=== PATIENT | female | born 1950 | race Caucasian/White ===

== ENCOUNTER → 2018-05-19 10:03 | Outpatient (CLI) | payer MEDICARE, SELFPAY ==
--- NOTE | 2018-05-19 10:16 | CT_ITS ---
CT abdomen pelvis wo con CLINICAL INDICATION: 1. ITS.REASON: LEFT FLANK PAIN ORDERING PHYSICIAN: Serge Wilson PATIENT AGE: 67 years COMPARISON: 07/02/2016 TECHNIQUE: Axial images obtained with sagittal and coronal reformats. All CT scans at the facility use one or more dose reduction, viz: automated exposure control, ma/kV adjustment per patient size (including targeted exams where dose is matched to indication, i.e. head), or iterative reconstruction technique. PROCEDURE: Oral Contrast: None IV Contrast: None . FINDINGS: No acute finding in the lung bases. Prior cholecystectomy.. Mild prominence of common bile duct similar to the previous exam There are a few scattered hypoattenuating areas within the liver which may be due to small cysts similar to the previous exam. The spleen, adrenal glands, and pancreas have an unremarkable unenhanced CT appearance There is a 3 mm stone in the lower pole of the right kidney and a 6 mm stone in the mid to lower aspect of the left kidney and a 2 mm stone in the upper pole and a 2 mm stone in the midpole. No hydronephrosis. No ureteral calculi. No calculi evident within the urinary bladder. Prior appendectomy. No intestinal obstruction or free air. Prior hysterectomy. No evidence of diverticulitis. There are degenerative changes in the lumbar spine with degenerative disc disease at L2-L3 and L5-S1. IMPRESSION: 1. Nonobstructing bilateral nephrolithiasis. No obstructing ureteral calculi evident. 2. No acute finding. Postsurgical changes are present as described above
== END ==
PROVIDERS: PCP Internal Medicine; Visit Provider Internal Medicine
DX: R10.9 Unspecified abdominal pain (principal)
CPT/HCPCS: 74176

== ENCOUNTER → 2018-08-06 10:42 | Outpatient (CLI) | payer MEDICARE, SELFPAY ==
--- NOTE | 2018-08-06 10:45 | MM_ITS ---
MM Dig screening mamm BI w/CAD CAD Screening COMPARISON: Digital mammograms with CAD 02/28/2011 INDICATION: There is no personal or family history of breast cancer TECHNIQUE: Standard CC and MLO images were obtained. R2 CAD reviewed. FINDINGS: Moderate scattered fibroglandular densities are seen throughout both breasts. There are multiple benign-appearing microcalcifications in each breast there is a mole marker right breast. There is a cardiac device projecting over the axilla left breast. There is no suspicious lesion and there are no suspicious microcalcifications. IMPRESSION: Fibrofatty parenchyma with no suspicious lesion seen BI-RADS Category: 2 Benign Finding(s) RECOMMENDED FOLLOW-UP: 1YR - 1 YEAR FOLLOW-UP (A letter has been sent to the patient regarding results of the study.)
== END ==
PROVIDERS: PCP Internal Medicine; Visit Provider Internal Medicine
DX: Z12.31 Encounter for screening mammogram for malignant neoplasm of breast (principal)
CPT/HCPCS: 77067

== ENCOUNTER → 2019-01-26 10:31 | Outpatient (CLI) | payer MEDICARE, SELFPAY ==
--- NOTE | 2019-01-26 10:36 | XR_ITS ---
PROCEDURE: XR CHEST 2V CLINICAL HISTORY: COUGH, FEVER, DECREASED BREATH SOUNDS COMPARISON: 03/19/2016 TECHNIQUE: FINDINGS: Bipolar pacemaker is present from a left subclavian approach. Normal heart size. Lungs are clear of acute infiltrate. No acute bony findings. IMPRESSION: No change with no acute finding Dictated by: Yoan Lomeli MD 01/26/2019 13:11 Signed by: <Electronically signed by Yoan Lomeli MD in [facility]> 01/26/2019 13:11
== END ==
PROVIDERS: PCP Internal Medicine; Visit Provider Internal Medicine
DX: R05 Cough (principal); R50.9 Fever, unspecified; R06.89 Other abnormalities of breathing
CPT/HCPCS: 71046

== ENCOUNTER → 2019-03-30 10:11 | Outpatient (CLI) | payer MEDICARE, SELFPAY ==
--- NOTE | 2019-03-30 10:27 | ECG_ITS ---
APPROVED REPORT Exam: Resting ECG HR:77 bpm ECG Measurements Heart Rate 77 AXES MT 158 P 96 QRSd 90 QRS -10 QT 398 T 26 QTc 450 <Conclusion> Sinus rhythm with occasional premature ventricular complexes Nonspecific T wave abnormality Abnormal ECG Electronically signed by : Serge Wilson, 03/30/2019 11:11:13
== END ==
PROVIDERS: PCP Internal Medicine; Visit Provider Internal Medicine
DX: R00.2 Palpitations (principal); I10 Essential (primary) hypertension
CPT/HCPCS: 93005; 93270

== ENCOUNTER → 2019-04-02 14:12 | Outpatient (CLI) | payer MEDICARE, SELFPAY ==
--- NOTE | 2019-04-02 14:18 | XR_ITS ---
PROCEDURE: XR ACUTE ABDOMEN SERIES CLINICAL INDICATION: ABD PAIN,DIARRHEA COMPARISON: ABDPELWO CT abdomen pelvis wo con from 05/19/2018 FINDINGS: Frontal view of the chest shows no acute finding. There is a bipolar pacemaker present from left subclavian approach. Upright and supine views of the abdomen show a nonspecific nonobstructive bowel gas pattern. There are surgical clips in the right upper quadrant. A stone is present overlying the mid lower pole of the left kidney. There are multiple pelvic calcifications consistent with phleboliths. Mild lumbar scoliosis convex right. Degenerative changes of the hips and lumbar spine. IMPRESSION: 1. No intestinal obstruction or free air. 2. Left nephrolithiasis Dictated by: Yoan Lomeli MD 04/02/2019 14:55 Electronically signed by Yoan Lomeli MD in [facility] 04/02/2019 14:55
[2019-04-02 14:36] LABS: Microscopic, Urine URINE MICROSCOPIC (MICROSCOPIC)
[2019-04-02 14:48] LABS: Appearance,Urine CLEAR (Clear); Bilirubin,Urine Negative (Negative); Blood, Urine Negative (Negative); Color,Urine YELLOW (Yellow); Glucose,Urine (UA) Negative (Negative); Ketones,Urine Negative (Negative); Leukocyte Esterase,Urine TRACE (Negative); Nitrate,Urine Negative (Negative); Protein,Urine Negative (Negative); Specific Gravity, Urine 1.025 (1.005-1.030); Urobilinogen,Urine 0.2 EU/dl (0.2)
[2019-04-02 14:51] LABS: Basophils # 0.1 K/mm3 (0-0.2); Basophils % 0.8 % (0.1-2.0); Eosinophils # 0.3 K/mm3 (0.0-0.4); Hematocrit 45.7 % (37.0-47.0); Hemoglobin 14.5 g/dL (12.2-16.2); Lymphocytes # 3.9 K/mm3 (0.7-4.5); Lymphocytes % 36.4 % (10-50); Mean Corpuscular HGB Conc 31.8 g/dL (31.8-35.4); Mean Corpuscular Hemoglobin 29.9 pg (27.0-31.2); Mean Corpuscular Volume 94.1 fl (81-99); Mean Platelet Volume 8.2 fl (7.4-10.4); Monocytes # 0.6 K/mm3 (0.1-1.0); Monocytes % 5.2 % (1.7-9.3); Neutrophils # 5.8 K/mm3 (1.8-7.8); Neutrophils % 54.6 % (37.0-80.0); Platelet Count 275 K/mm3 (142-424); Red Blood Count 4.85 M/mm3 (4.20-5.40); Red Cell Distribution Width 13.5 % (11.5-17.5); White Blood Count 10.7 K/mm3 (4.8-10.8)
[2019-04-02 15:00] LABS: Alanine Aminotransferase 16 U/L (12-78); Albumin/Globulin Ratio 1.2 (1.1-1.8); Alkaline Phosphatase 128 U/L (46-116); Amylase 53 U/L (25-115); Anion Gap 10.8 mEq/L (5-15); Aspartate Amino Transferase 18 U/L (15-37); Bilirubin,Total 0.5 mg/dL (0.2-1.0); Blood Urea Nitrogen 17 mg/dL (7-18); Calcium 9.5 mg/dL (8.5-10.1); Carbon Dioxide 30 mmol/L (21.0-32.0); Chloride 108 mmol/L (98-107); Creatinine,Serum 0.99 mg/dL (0.55-1.02); Estimated Glomerular Filt Rate 56 ml/min (>60); GFR (African American) 67 ML/MIN (>60); Globulin 3.3 gm/dl (1.3-3.2); Glucose 106 mg/dL (74-106); Potassium 3.8 mmoL/L (3.5-5.1); Sodium 145 mmol/L (136-145); Total Protein,Serum 7.3 gm/dL (6.4-8.2)
[2019-04-02 15:21] LABS: Bacteria,Urine 2+ /lpf
== END ==
PROVIDERS: PCP Internal Medicine; Visit Provider Internal Medicine
DX: R10.9 Unspecified abdominal pain (principal); R19.7 Diarrhea, unspecified
CPT/HCPCS: 36415; 74021; 80053; 81001; 82150; 85025; 87086

== ENCOUNTER → 2019-05-12 10:02 | Outpatient (CLI) | payer MEDICARE, SELFPAY ==
--- NOTE | 2019-05-12 10:15 | ECG_ITS ---
APPROVED REPORT Exam: Resting ECG HR:70 bpm ECG Measurements Heart Rate 70 AXES WI 160 P 55 QRSd 88 QRS 50 QT 414 T 53 QTc 447 <Conclusion> Electronic atrial pacemaker Electronically signed by : Serge Wilson, 05/12/2019 14:57:28
== END ==
PROVIDERS: PCP Internal Medicine; Visit Provider Internal Medicine
DX: R00.2 Palpitations (principal); R55 Syncope and collapse
CPT/HCPCS: 93005

== ENCOUNTER → 2019-05-25 13:58 | Outpatient (POV) | payer MEDICARE, SELFPAY | PROVIDERS: Visit Provider Dermatology | DX: Z00.00 Encounter for general adult medical examination without abnormal findings (principal) ==

== ENCOUNTER → 2020-03-24 10:29 | Outpatient (CLI) | payer MEDICARE, SELFPAY ==
--- NOTE | 2020-03-24 10:42 | XR_ITS ---
PROCEDURE: XR KNEE LT 3V CLINICAL INDICATION: LT KNEE PAIN/INJURY,LT FOOT PAIN COMPARISON: CR [id number] KNEE-4 OR 5 VIEWS-RT from 08/08/2015 CR [id number] KNEE-4 OR 5 VIEWS-LT from 08/08/2015 CR [id number] KNEE-3 VIEWS-RT from 09/14/2015 FINDINGS: Status post total knee replacement with good alignment. No fracture or dislocation. No evidence of orthopedic complication. No lytic or blastic change. There is some mild soft tissue swelling in the suprapatellar region with at least 2 faint hyperdensities in the soft tissues 1 in the prepatellar and 1 in the suprapatellar area which may be due to foreign bodies from the previous surgery. There is a faint lucency involving the distal shaft of the femur at approximately 4 mm as seen on the lateral view. IMPRESSION: Status post total knee replacement. Good alignment. Faint lucency of the distal femur of questionable clinical significance. Consider short-term follow-up to confirm stability. Dictated by: Yoan Lomeli MD 03/24/2020 12:18 Yoan Lomeli MD in [facility] 03/24/2020 12:18
--- NOTE | 2020-03-24 10:42 | XR_ITS ---
PROCEDURE: XR FOOT LT MIN 3V CLINICAL INDICATION: COMPARISON: CR FTL3 FOOT-LT-3 VIEWS from 01/12/2017 FINDINGS: No fracture or dislocation. No lytic or blastic change. There is normal mineralization. The joint spaces are well-preserved. No significant degenerative/arthritic changes. No erosive changes evident. Other findings:There is flexion of the 3rd toe. IMPRESSION: No acute findings. Dictated by: Yoan Lomeli MD 03/24/2020 12:20 Yoan Lomeli MD in [facility] 03/24/2020 12:20
== END ==
PROVIDERS: PCP Internal Medicine; Visit Provider Internal Medicine
DX: M25.562 Pain in left knee (principal); M79.672 Pain in left foot
CPT/HCPCS: 73562; 73630

== ENCOUNTER 2020-04-27 10:00 | Outpatient (RCR) | payer MEDICARE, SELFPAY | END 2020-04-27 10:05 | disposition home or self-care (01) | LOC: PT 10:00 | PROVIDERS: Visit Provider Orthopaedic Surgery | DX: M17.12 Unilateral primary osteoarthritis, left knee (principal); Z96.652 Presence of left artificial knee joint | CPT/HCPCS: 97010; 97016; 97110; 97140; 97163; 97164 ==

== ENCOUNTER 2020-07-04 14:52 | Observation (INO) | payer MEDICARE, SELFPAY ==
[2020-07-04] VITALS (16 sets, daily range): BP systolic 104–161; BP diastolic 67–109; PULSE 82–136; RESP 15–24; TEMP 36.4–36.8; O2SAT 94–98; BMI 26.0
--- NOTE | 2020-07-04 14:49 | ECG_ITS ---
APPROVED REPORT Exam: Resting ECG HR:128 bpm ECG Measurements Heart Rate 128 AXES QRSd 82 QRS -19 QT 310 T 4 QTc 452 Conclusion Atrial fibrillation with rapid ventricular response Late r wave progression Abnormal ECG Electronically signed by : Timoteo Winkler, 07/04/2020 20:57:57
--- NOTE | 2020-07-04 14:57 | XR_ITS ---
PROCEDURE: XR CHEST PORTABLE CLINICAL HISTORY: cough COMPARISON: CR CXR CHEST(2 VIEWS-NOT PORTABLE) from 03/19/2016 CR XR CHEST 2V from 01/26/2019 FINDINGS: Normal heart size. Bipolar pacemaker is present from left subclavian approach. Patchy density noted in the right lower lobe consistent with infiltrate. The remaining lungs are clear. No effusions. No acute bony abnormalities. IMPRESSION: Patchy right lower lobe infiltrate Dictated by: Yoan Lomeli MD 07/04/2020 15:37 Yoan Lomeli MD in [facility] 07/04/2020 15:37
--- NOTE | 2020-07-04 15:02 | HMH.EDWEAK ---
ED Disposition Clinical Impression: Atrial fibrillation with rapid ventricular response Disposition: Admitted As Inpatient Condition on Discharge: Good - Critical Care Critical Care Time: Yes Attestation: On , the high probability of a clinically significant, sudden or life threatening deterioration of the following system(s) required my full and direct attention, intervention and personal management. The time I documented below is in addition to time spent performing reported procedures but includes the following listed in this critical care notation. Total Critical Care Time: 30 Vital system(s) involved:: Circulatory Failure My critical care processes included: Assessment & monitoring of V/S, Initial and Re-exams, Data Review/Interpretation, Coordinating Care, Medication Orders and management, Documentation Medical Decision Making - Medical Records Medical records reviewed: Yes: I reviewed the patient's medical records. - Shay Inquiry Pt receiving controlled substance: No Vital Signs: 07/04/20 14:52 07/04/20 15:26 07/04/20 15:30 Temperature 98.0 F Temperature Source Oral Pulse Rate [Left Radial] 136 H 96 H 83 Respiratory Rate 15 18 16 Blood Pressure [Right Arm] 161/103 H 123/84 149/109 H Blood Pressure Mean [Right Arm] 122 97 122 Blood Pressure Source [Right Arm] Automatic Cuff Blood Pressure Position [Right Arm] Sitting 02 Sat by Pulse Oximetry 97 94 L 94 L Oxygen Delivery Method Room Air Room Air 07/04/20 16:00 07/04/20 16:30 Temperature Temperature Source Pulse Rate [Left Radial] 113 H 112 H Respiratory Rate 16 18 Blood Pressure [Right Arm] 114/93 H 116/82 Blood Pressure Mean [Right Arm] 100 93 Blood Pressure Source [Right Arm] Blood Pressure Position [Right Arm] 02 Sat by Pulse Oximetry 97 98 Oxygen Delivery Method - Lab Data Lab Results 07/04/20 15:00: WBC 9.8, RBC 5.11, Hgb 16.1, Hct 46.4, MCV 90.8, MCH 31.5 H, MCHC 34.7, RDW 13.9, Plt Count 252, MPV 7.7, Neut % (Auto) 47.6, Lymph % (Auto) 41.3, [place] % (Auto) 6.2, Eos % (Auto) 3.9, Baso % (Auto) 1.0, Neut # (Auto) 4.7, Lymph # (Auto) 4.1, [place] # (Auto) 0.6, Eos # (Auto) 0.4, Baso # (Auto) 0.1 07/04/20 15:00: PT 10.4, INR 0.93, APTT 22.3 L 07/04/20 15:00: Sodium 143, Potassium 3.8, Chloride 109 H, Carbon Dioxide 29, Anion Gap 8.8, BUN 22 H, Creatinine 0.90, Estimated Creat Clear 73, Estimated GFR 62, Est GFR ( Amer) 75, Glucose 112 H, Calcium 10.6 H, Total Bilirubin 0.6, AST 30, ALT 19, Alkaline Phosphatase 204 H, Troponin I < 0.01, NT-Pro-B Natriuret Pep 163 H, Total Protein 7.7, Albumin 4.4, Globulin 3.3 H, Albumin/Globulin Ratio 1.3, TSH 0.82 Result diagrams: 07/04/20 15:00 07/04/20 15:00 Orders (Tests/Meds): ED MEDICATIONS Generic Name Dose Route Start Last Admin Trade Name Freq PRN Reason Stop Dose Admin Diltiazem HCl 100 mg/ Sodium 100 mls @ 5 mls/hr 07/04/20 15:45 07/04/20 16:12 Chloride IV 08/03/20 15:44 5 mls/hr .Q20H CANDY Administration Protocol Discontinued Medications Generic Name Dose Route Start Last Admin Trade Name Freq PRN Reason Stop Dose Admin Diltiazem HCl 15 mg 07/04/20 14:58 07/04/20 15:05 Diltiazem 25mg/5ml Vial IV 07/04/20 14:59 15 mg ONCE ONE Administration Diltiazem HCl 20 mg 07/04/20 16:40 07/04/20 16:45 Diltiazem 25mg/5ml Vial IV 07/04/20 16:41 20 mg ONCE ONE Administration ORDERS Category Date Time Status Troponin I Q3H Lab 07/04/20 18:00 Ordered Troponin I Q3H Lab 07/04/20 21:00 Ordered - ECG Data Tracing #1 Tachycardic rate of 120 bpm, normal QTC, atrial fibrillation with rapid ventricular response, nonspecific ST changes. ECG initial impression date: 07/04/20 ECG initial impression time: 14:49 - Reevaluation(s) Time: 18:03 Reevaluation #1: On reevaluation, patient is feeling better. She is rate controlled at this time. She remains on Cardizem drip. Cardiology was notified. Patient will be admitte
[2020-07-04 15:09] LABS: Basophils # 0.1 K/mm3 (0-0.2); Eosinophils # 0.4 K/mm3 (0.0-0.4); Eosinophils % 3.9 % (0.1-12.0); Hematocrit 46.4 % (37.0-47.0); Hemoglobin 16.1 g/dL (12.2-16.2); Lymphocytes # 4.1 K/mm3 (0.7-4.5); Lymphocytes % 41.3 % (10-50); Mean Corpuscular HGB Conc 34.7 g/dL (31.8-35.4); Mean Corpuscular Hemoglobin 31.5 pg (27.0-31.2); Mean Corpuscular Volume 90.8 fl (81-99); Mean Platelet Volume 7.7 fl (7.4-10.4); Monocytes # 0.6 K/mm3 (0.1-1.0); Monocytes % 6.2 % (1.7-9.3); Neutrophils # 4.7 K/mm3 (1.8-7.8); Neutrophils % 47.6 % (37.0-80.0); Platelet Count 252 K/mm3 (142-424); Red Blood Count 5.11 M/mm3 (4.20-5.40); Red Cell Distribution Width 13.9 % (11.5-17.5); White Blood Count 9.8 K/mm3 (4.8-10.8)
[2020-07-04 15:18] LABS: Chloride 109 mmol/L (98-107); Sodium 143 mmol/L (136-145)
[2020-07-04 15:19] LABS: Potassium 3.8 mmoL/L (3.5-5.1)
[2020-07-04 15:21] LABS: Alanine Aminotransferase 19 U/L (12-78); Albumin Level 4.4 g/dl (3.5-5.0); Albumin/Globulin Ratio 1.3 (1.1-1.8); Alkaline Phosphatase 204 U/L (38-126); Anion Gap 8.8 mEq/L (5-15); Aspartate Amino Transferase 30 U/L (14-36); Bilirubin,Total 0.6 mg/dl (0.2-1.3); Blood Urea Nitrogen 22 mg/dl (7-17); Carbon Dioxide 29 mmol/L (22.0-30.0); Creatinine Clearance Estimated 73 mL/min (50-200); Estimated Glomerular Filt Rate 62 ml/min (>60); GFR (African American) 75 ML/MIN (>60); Globulin 3.3 g/dL (1.3-3.2); Total Protein,Serum 7.7 g/dl (6.3-8.2)
[2020-07-04 15:22] LABS: Calcium 10.6 mg/dl (8.4-10.2); Glucose 112 mg/dl (74-100)
[2020-07-04 15:31] LABS: NT Pro Brain Natriuretic Pep. 163 pg/mL (0-125)
[2020-07-04 15:34] LABS: Troponin I < 0.01 ng/ml (0.00-0.034)
[2020-07-04 15:41] LABS: Activated Partial Thrombo Time 22.3 seconds (23.6-34.0); INR 0.93 (0.9-1.1); Prothrombin Time 10.4 seconds (9.4-11.8)
[2020-07-04 15:53] LABS: Thyroid Stimulating Hormone 0.82 uIU/mL (0.465-4.68)
--- NOTE | 2020-07-04 18:05 | ECG_ITS ---
APPROVED REPORT Exam: Resting ECG HR:87 bpm ECG Measurements Heart Rate 87 AXES QRSd 82 QRS -14 QT 350 T 21 QTc 421 Conclusion Demand pacemaker, interpretation is based on intrinsic rhythm Atrial fibrillation with premature ventricular or aberrantly conducted complexes Low voltage QRS Abnormal ECG Electronically signed by : Timoteo Winkler, 07/05/2020 06:43:24
[2020-07-04 19:00] LABS: Troponin I < 0.01 ng/ml (0.00-0.034)
[2020-07-04 19:05] LABS: Coronavirus 19 IgG Antibody Negative (Negative); Coronavirus 19 IgM Antibody Negative (Negative)
--- NOTE | 2020-07-04 19:25 | PC.NURSE ---
call placed to second floor, spoke with tee; advised patient is ready for transfer to floor
--- NOTE | 2020-07-04 20:28 | PC.NURSE ---
pt taken to the floor at this time.
--- NOTE | 2020-07-04 20:34 | PC.NURSE ---
patient up to floor via wheelchair.
[2020-07-04 21:45] LABS: Troponin I < 0.01 ng/ml (0.00-0.034)
[2020-07-05] VITALS (8 sets, daily range): BP systolic 128–140; BP diastolic 75–87; PULSE 69–80; RESP 16–18; TEMP 36.9; O2SAT 96–98; BMI 26.8
--- NOTE | 2020-07-05 05:01 | PC.NURSE ---
Pt arrived to floor approximately 2100. Pt A&O x4 and independent with ADLs. Pt has slept on and off through the night, c/o not being able to sleep due to her heart frequently fluttering . Pt tele strips read afib with frequent PVCs and pacer spikes. Around 0500 began to be 100% paced with HR holding at 70. Lungs were CTA, on room air this shift. Pt wore home CPAP through the night. Bowel sounds x4, abd soft and non tender. No edema or skin issues noted. Pt ambulated to bathroom independently. Cardizem gtt @ 5ml/hr and has not been titrated. VSS, call light in reach, no concerns at this time.
--- NOTE | 2020-07-05 05:48 | PC.NURSE ---
It appears pt has converted to NSR at 0545. HR at 70. ECG being obtained.
--- NOTE | 2020-07-05 06:02 | ECG_ITS ---
APPROVED REPORT Exam: Resting ECG HR:70 bpm ECG Measurements Heart Rate 70 AXES SC 192 P 57 QRSd 90 QRS 4 QT 414 T 17 QTc 447 Conclusion Electronic atrial pacemaker Abnormal ECG Electronically signed by : Timoteo Winkler, 07/05/2020 06:41:35
--- NOTE | 2020-07-05 06:16 | PC.NURSE ---
Pt appeared to convert to NSR/ fully paced. RT notified to obtain EKG @ 0548. RT on floor at 0600 and completed EKG at 0602. @ 0610 s/w Dr. Presley. He was notified of the above information and of the EKG findings of Electronic atrial pacemaker, [place] rule out Anterior infarct, age undetermined, Abnormal ECG . updated on VS, ordered to continued Cardizem at 5mg/hr at this time.
[2020-07-05 06:29] LABS: Basophils # 0.1 K/mm3 (0-0.2); Basophils % 0.8 % (0.1-2.0); Eosinophils # 0.3 K/mm3 (0.0-0.4); Eosinophils % 3.3 % (0.1-12.0); Hematocrit 44.6 % (37.0-47.0); Hemoglobin 15.5 g/dL (12.2-16.2); Lymphocytes # 4.3 K/mm3 (0.7-4.5); Lymphocytes % 46.3 % (10-50); Mean Corpuscular HGB Conc 34.7 g/dL (31.8-35.4); Mean Corpuscular Hemoglobin 31.9 pg (27.0-31.2); Mean Corpuscular Volume 91.8 fl (81-99); Mean Platelet Volume 7.9 fl (7.4-10.4); Monocytes # 0.5 K/mm3 (0.1-1.0); Monocytes % 5.8 % (1.7-9.3); Neutrophils # 4.1 K/mm3 (1.8-7.8); Neutrophils % 43.8 % (37.0-80.0); Platelet Count 242 K/mm3 (142-424); Red Blood Count 4.86 M/mm3 (4.20-5.40); Red Cell Distribution Width 14.3 % (11.5-17.5); White Blood Count 9.3 K/mm3 (4.8-10.8)
[2020-07-05 06:35] LABS: Alanine Aminotransferase 15 U/L (12-78); Albumin Level 3.9 g/dl (3.5-5.0); Albumin/Globulin Ratio 1.4 (1.1-1.8); Alkaline Phosphatase 130 U/L (38-126); Anion Gap 10.8 mEq/L (5-15); Aspartate Amino Transferase 27 U/L (14-36); Bilirubin,Total 0.5 mg/dl (0.2-1.3); Blood Urea Nitrogen 23 mg/dl (7-17); Calcium 10.1 mg/dl (8.4-10.2); Carbon Dioxide 29 mmol/L (22.0-30.0); Chloride 106 mmol/L (98-107); Creatinine Clearance Estimated 75 mL/min (50-200); Estimated Glomerular Filt Rate 55 ml/min (>60); GFR (African American) 67 ML/MIN (>60); Globulin 2.7 g/dL (1.3-3.2); Glucose 116 mg/dl (74-100); Potassium 3.8 mmoL/L (3.5-5.1); Sodium 142 mmol/L (136-145); Total Protein,Serum 6.6 g/dl (6.3-8.2)
--- NOTE | 2020-07-05 06:56 | HMH.CNCARD ---
History of Present Illness Consult date: 07/05/20 Requesting physician: Dedrick Presley Consult reason: atrial fibrillation Chief complaint: tachycardia Additional Medical History:: 1. History of tachybradycardia syndrome with atrial fibrillation/flutter in the past A. Dual-chamber pacemaker placement 07/2014 2. Coronary artery disease A. Left heart catheterization, 03/2016,ANGIOGRAPHIC RESULTS: 1. The left main artery normal 2. The left anterior descending artery has a proximal 20-30% stenosis followed by a mid vessel 20-30% stenosis 3. The ramus intermedius is a large branch and has a proximal 30-40% nonflow limiting stenosis 4. The circumflex artery is a codominant vessel and normal 5. The right coronary artery is codominant and normal 6. The KENYON ventriculogram reveals normal 65% 7. The left ventricular end-diastolic pressure normal 10 mmHg IMPRESSION: 1. Mild disease in the proximal mid LAD 2. Moderate disease in the large ramus intermedius 3. Normal ejection fraction 4. Normal left ventricular end-diastolic pressure PLAN: 1. Risk factor modification 2. Medical management 3. Treatment of endothelial dysfunction 4. I suspect a significant component of her angina is anxiety related. 3. Hypertension A. Echo, 07/2014, EF 55-60% with moderate MR 4. Hyperlipidemia 5. History of mitral valve prolapse per records 6. IRENE, CPAP use 7. Hypothyroidism, on replacement therapy History of present illness: 69-year-old white female with history of mild coronary artery disease and permanent pacemaker implantation in 2014 for tachybradycardia syndrome presented to the emergency department due to sudden onset of tachycardia. Patient describes having a busy day with water aerobics and performing errands around the house without difficulty. While sitting at home getting ready to do her exercises for her knee, she got up quickly to answer the phone and began having rapid heart rates. She had some chest discomfort due to the fast heart rate but no chest pain. She denies any recent fever, chills, cough, nausea, vomiting or diarrhea. She denies missing any doses of her medications or any recent addition to her medications. She drinks a limited amount of caffeine (soft drinks, diet) and is on thyroid medication with recent lab work noted to be normal. She does use CPAP machine for IRENE nightly. Patient sees Dr. Martínez in [place] for her cardiac care with her last visit 6 months ago including evaluation of her pacemaker with no complications noted. Patient has had intermittent extra beats but no episodes of tachycardia like she experienced yesterday. She was brought to the emergency department and found to be in atrial fibrillation with rapid ventricular response. Subsequently placed on IV Cardizem with improvement in heart rate. She was admitted for evaluation and treatment. Cardiac enzymes returned normal x3. She converted to sinus rhythm earlier this morning. She does relate having an appointment with Dr. Martínez next in [place]. [facility] History Medical History: Reports:: Internal Pacemaker *Have you ever received a pneumonia vaccine?: No *Have you received a flu vaccine this season?: Yes Other Surgeries: Yes: Pacemaker - *Social History Smoking Status: Never smoker Alcohol Intake: never *Occupational Status:: retired Housing: house *Travel in the last 8 weeks: None Family Hx:: Hyperlipidemia, Hypertension Meds Home Medications Medication Instructions Recorded Confirmed Type carvedilol 25 mg tablet 25 mg PO DAILY 90 Days tab 05/29/18 07/04/20 History hydrochlorothiazide 25 mg tablet 25 mg PO DAILY 90 Days tab 05/29/18 07/04/20 History levothyroxine 100 mcg tablet 100 mcg PO DAILY 90 Days tab 05/29/18 07/04/20 History potassium chloride 20 mEq 20 % PO DAILY 90 Days tab 05/29/18 07/04/20 History tablet,extended release(part/cryst) simvastatin 40 mg tablet 20 mg PO DAILY 9
--- NOTE | 2020-07-05 07:27 | HMH.PHAVTE ---
[facility] Pharmacy VTE Monitoring - Patient Demographics Admission date: 07/04/20 Report Date: 07/05/20 Time: 07:27 Allergies/Adverse Reactions: Patient Allergies amoxicillin [From AUGMENTIN] Allergy (Unknown, Verified 05/29/18 08:42) clavulanic acid [From AUGMENTIN] Allergy (Unknown, Verified 05/29/18 08:42) fentanyl [FENTANYL] Allergy (Unknown, Verified 05/29/18 08:42) levofloxacin [From LEVAQUIN] Allergy (Unknown, Verified 05/29/18 08:42) minocycline [MINOCYCLINE] Allergy (Unknown, Verified 05/29/18 08:42) propofol [PROPOFOL] Allergy (Unknown, Verified 05/29/18 08:42) UNABLE TO WAKE UP quinidine [QUINIDINE] Allergy (Unknown, Verified 05/29/18 08:42) FAMILY HX OF HEART STOPPING-PT REFUSES TO TAKE Sulfa (Sulfonamide Antibiotics) [SULFA (SULFONAMIDE ANTIBIOTICS)] Allergy (Unknown, Verified 05/29/18 08:42) ITCHING, HIVES, ORAL SWELLING Height: 1.83 m Weight: 89.811 kg Patient Problems: Current Active Problems Atrial fibrillation with rapid ventricular response (Acute) - VTE Risk Labs: VTE Related Lab Results Hgb 15.5 g/dL (12.2-16.2) 07/05/20 05:45 Hct 44.6 % (37.0-47.0) 07/05/20 05:45 Plt Count 242 K/mm3 (142-424) 07/05/20 05:45 PT 10.4 seconds (9.4-11.8) 07/04/20 15:00 INR 0.93 (0.9-1.1) 07/04/20 15:00 APTT 22.3 seconds (23.6-34.0) L 07/04/20 15:00 BUN 23 mg/dl (7-17) H 07/05/20 05:45 Creatinine 1.00 mg/dl (0.52-1.04) 07/05/20 05:45 Estimated Creat Clear 75 mL/min (50-200) 07/05/20 05:45 Was VTE Risk Assessment Performed: Yes VTE Score: 3 VTE Risk Level: Low Risk - Prophylaxis VTE Prophylaxis Ordered?: Yes Types of VTE Prophylaxis: TEDS Knee High Location of Applied Device: Bilateral Lower Extremeties
--- NOTE | 2020-07-05 08:00 | CA_ITS ---
APPROVED REPORT EXAM: Comprehensive 2D, Doppler, and color-flow Echocardiogram [employer] Faculty Member: Meme Rodriguez RVT Ht: 6 ft 0 in Wt: 192lbs BSA: 2.09 BP: 110/70 mmHg Indications: A-FIB,CHF,PALPS,IRENE TDS-OFF AXIS,LIMITED WINDOWS 2D Dimensions LVOT 1.87 cm (M/F) 1.5-2.5 M-Mode Dimensions RVDd 2.45 cm (0.9-2.6) LA Diam 3.56 cm (1.9-4.0) LVDd 4.72 cm (3.5-5.7) Ao Diam 2.46 cm (2.0-3.7) LVDs 3.26 cm (3.5-5.7) IVSd 0.84 cm (0.6-1.1) PWd 0.88 cm (0.6-1.1) EF (Teich) 58.60% FS 30.90% EDV (Teich) 103.40 mL ESV (Teich) 42.80 mL LV Diastology E Decel Time 180.00 (160-240 msec) E/A Ratio 0.9 MED E' 6.80 (< 7 cm/sec) E'/MED E' Ratio 7.62 (>14) LAT E' 9.10 (<10 cm/sec) E/LAT E' Ratio 5.69 (>14) Mitral Valve MV E Max Yonny. 52.00 (40-130 cm/s) MV A Velocity 56.00 (40-130 cm/s) E/A Ratio 0.92 MV Decel. Time 180.00 (160-240 ms) MV PHT 53.00 ms Pulmonary Valve PV Peak Velocity 65.00 (50-150 cm/s) Tricuspid Valve TR P. Velocity 264.00 cm/s RAP Estimate 10.00 mmHg RVSP 38.00 mmHg Left Ventricle Technically difficult study because of the patient factors and poor acoustic windows, repeat study with Definity contrast is recommended. Left atrium is mildly enlarged, left ventricle is normal size, mild concentric left ventricular hypertrophy, visually estimated ejection fraction approximately 45 to 50%, segmental wall motion abnormality cannot be excluded involving the inferior basal and posterolateral wall, which appears to be hypokinetic, but Definity contrast study is recommended to confirm this finding. Diastolic parameters are inconclusive. Right Ventricle Right atrium and right ventricle are relatively normal size and function. Aortic Valve Aortic valve is minimally thickened and fibrosed, there is no aortic stenosis or aortic insufficiency. Mitral Valve Mitral valve is grossly normal, there is mild mitral regurgitation. Tricuspid Valve Tricuspid valve grossly normal, there is mild tricuspid regurgitation, tricuspid regurgitation jet velocity is inadequate for calculation of the right ventricular systolic pressure. Pulmonic Valve Pulmonic valve is poorly visualized. Great Vessels Aortic root is normal size. Pericardium No significant pericardial effusion noted. Conclusion 1. Technically difficult study as described above, repeat study with Definity contrast is recommended. Normal left ventricular size, mild concentric left ventricular hypertrophy, visually estimated ejection fraction 45 to 50% segmental wall motion abnormality involving the inferior basal and posterolateral wall cannot be excluded. Diastolic parameters are inconclusive. 2. Mild mitral and tricuspid regurgitation. 3. No significant pericardial effusion noted. Electronically signed by : Elvin Mckenna, 07/06/2020 12:21:53
--- NOTE | 2020-07-05 09:18 | HMH.HPDC ---
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 Patient states she was having a busy day with water aerobics and performing errands around the house without difficulty. While sitting at home getting ready to do her exercises for her knee, she got up quickly to answer the phone and began having rapid heart rates with some chest discomfort due to the fast heart rate but no chest pain. Patient was admitted for a fib with rvr and cardiology consult [facility] History I have reviewed the patient's past medical history: Yes Medical History: Reports:: Internal Pacemaker *Have you ever received a pneumonia vaccine?: No *Have you received a flu vaccine this season?: Yes Other Surgeries: Yes: Pacemaker - *Social History Smoking Status: Never smoker Alcohol Intake: never *Occupational Status:: retired Housing: house *Travel in the last 8 weeks: None Family Hx:: Hyperlipidemia, Hypertension Review of Systems - Review of Systems Review of systems:: pertinent systems reviewed and negative unless documented below - Constitutional Reports fatigue, Denies weight gain - Eyes Denies blurry vision - ENT Denies nasal discharge - *Cardiovascular Reports rapid, pounding, or irregular heartbeat, Reports fast heart rate, Denies chest pain with activity - *Respiratory Denies chest congestion - *Gastrointestinal Denies nausea, Denies vomiting - *Genitourinary Denies nipple discharge - *Musculoskeletal Denies body aches - Integumentary/Breasts Denies rash - *Neurologic Reports weakness, Denies headache(s) - Psychiatric Denies lack of enjoyment - Endocrine Reports rapid, pounding, or irregular heartbeat, Denies excessive sweating - Hematologic/Lymphatic Denies easy bruising - Allergic/Immunologic Denies itchy eyes Exam Vital signs and Labs for Last 24 Hours: Temp Pulse Resp BP Pulse Ox 98.4 F 80 24 104/73 L 98 07/05/20 08:00 07/05/20 04:00 07/04/20 21:24 07/04/20 21:24 07/05/20 03:30 Laboratory Results - last 24 hr 07/04/20 15:00: WBC 9.8, RBC 5.11, Hgb 16.1, Hct 46.4, MCV 90.8, MCH 31.5 H, MCHC 34.7, RDW 13.9, Plt Count 252, MPV 7.7, Neut % (Auto) 47.6, Lymph % (Auto) 41.3, [place] % (Auto) 6.2, Eos % (Auto) 3.9, Baso % (Auto) 1.0, Neut # (Auto) 4.7, Lymph # (Auto) 4.1, [place] # (Auto) 0.6, Eos # (Auto) 0.4, Baso # (Auto) 0.1 07/04/20 15:00: PT 10.4, INR 0.93, APTT 22.3 L 07/04/20 15:00: Sodium 143, Potassium 3.8, Chloride 109 H, Carbon Dioxide 29, Anion Gap 8.8, BUN 22 H, Creatinine 0.90, Estimated Creat Clear 73, Estimated GFR 62, Est GFR ( Amer) 75, Glucose 112 H, Calcium 10.6 H, Total Bilirubin 0.6, AST 30, ALT 19, Alkaline Phosphatase 204 H, Troponin I < 0.01, NT-Pro-B Natriuret Pep 163 H, Total Protein 7.7, Albumin 4.4, Globulin 3.3 H, Albumin/Globulin Ratio 1.3, TSH 0.82 07/04/20 15:00: SARS-CoV-2 IgG Ab (Rapid) Negative, SARS-CoV-2 IgM Ab (Rapid) Negative 07/04/20 18:30: Troponin I < 0.01 07/04/20 21:07: Troponin I < 0.01 07/05/20 05:45: WBC 9.3, RBC 4.86, Hgb 15.5, Hct 44.6, MCV 91.8, MCH 31.9 H, MCHC 34.7, RDW 14.3, Plt Count 242, MPV 7.9, Neut % (Auto) 43.8, Lymph % (Auto) 46.3, [place] % (Auto) 5.8, Eos % (Auto) 3.3, Baso % (Auto) 0.8, Neut # (Auto) 4.1, Lymph # (Auto) 4.3, [place] # (Auto) 0.5, Eos # (Auto) 0.3, Baso # (Auto) 0.1 07/05/20 05:45: Sodium 142, Potassium 3.8, Chloride 106, Carbon Dioxide 29, Anion Gap 10.8, BUN 23 H, Creatinine 1.00, Estimated Creat Clear 75, Estimated GFR 55 L, Est GFR ( Amer) 67, Glucose 116 H, Calcium 10.1, Total Bilirubin 0.5, AST 27, ALT 15, Alkaline Phosphatase 130 H, Total Protein 6.6, Albumin 3.9 D, Globulin 2.7, Albumin/Globulin Ratio 1.4
--- NOTE | 2020-07-05 09:30 | CT_ITS ---
PROCEDURE: CT ANGIO CHEST CLINCIAL INDICATION: r/o pe, new onset afib, pneumonia Shortness of air COMPARISON: No exams were available for comparison TECHNIQUE: IV Contrast: 70ML Isovue 370 Axial images obtained with sagittal and coronal reformats. All CT scans at the facility use one or more dose reduction, viz: automated exposure control, ma/kV adjustment per patient size (including targeted exams where dose is matched to indication, i.e. head), or iterative reconstruction technique. FINDINGS: HEART AND MEDIASTINAL STRUCTURES: No evidence of pulmonary embolus, aortic aneurysm, or aortic dissection. Pacemaker device is in place LUNGS AND PLEURAL SPACES: There are scattered calcified granulomas. A 4 mm noncalcified nodule is present in the lobe. No infiltrates or effusions. Minimal atelectatic or fibrotic changes are present in the lingula BONY STRUCTURES: Degenerative changes thoracic spine UPPER ABDOMEN: Mild thickening distal esophagus. There are 2 hypodense lesions of the left hepatic lobe 6 mm indeterminate. Prior cholecystectomy ADDITIONAL FINDINGS: No other significant abnormalities. IMPRESSION: No evidence of pulmonary embolus aortic aneurysm or dissection. Other nonacute findings as described above. Dictated by: Yoan Lomeli MD 07/05/2020 11:27 Yoan Lomeli MD in [facility] 07/05/2020 11:27
--- NOTE | 2020-07-05 13:52 | HMH.PTEV ---
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 Patient states she was having a busy day with water aerobics and performing errands around the house without difficulty. While sitting at home getting ready to do her exercises for her knee, she got up quickly to answer the phone and began having rapid heart rates with some chest discomfort due to the fast heart rate but no chest pain. Patient was admitted for a fib with rvr and cardiology consult Subjective Subjective Pt reports she feels weak as a kitten Rehab PT IP Eval Objective Appearance Patient Behavior Appropriate,Cooperative Patient Orientation Person,Place,Time,Name, Birthday,Year,Situation Difficulty following instructions none Speech Pattern Clear,Appropriate Ambulation Patient Able to Ambulate Yes Ambulation Observation IP General Gait Pattern Observation No Deviations/Normal Ambulation Distance (feet) 50 Ambulation Assistive Device None Ambulation Ability Independent Balance Ability to Arise Able, w/o using arms Sitting Balance Steady, safe Standing Balance Narrow stance w/o support Dynamic Sitting Balance Ability Normal Dynamic Standing Balance Ability Good Transfers Bed Transfer Ability Independent Chair Transfer Ability Independent Sit to Stand Bed Transfer Ability Independent Sit to Stand Chair Transfer Ability Independent Rehab PT IP prob,goals,plan Problems Date of Evaluation: 07/05/20 Rehab Potential Rehab Potential Innapropriate for Skilled Therapy Discharge Plan PT Discharge Plan Pt safe to
== END 2020-07-05 15:14 | disposition home or self-care (01) ==
LOC: ER 18:04 → 2ND 19:29
PROVIDERS: Admitting Provider Family Medicine; Emergency Provider Emergency Medicine; PCP Internal Medicine; Visit Provider Family Medicine
DX: I48.91 Unspecified atrial fibrillation (principal); I25.10 Atherosclerotic heart disease of native coronary artery without angina pectoris; Z95.0 Presence of cardiac pacemaker; I49.5 Sick sinus syndrome; I10 Essential (primary) hypertension; E78.5 Hyperlipidemia, unspecified; Z88.0 Allergy status to penicillin; Z88.2 Allergy status to sulfonamides; Z88.1 Allergy status to other antibiotic agents; Z88.8 Allergy status to other drugs, medicaments and biological substances; Z79.899 Other long term (current) drug therapy; E03.9 Hypothyroidism, unspecified; R06.9 Unspecified abnormalities of breathing
CPT/HCPCS: 36415; 71045; 71275; 80053; 83880; 84443; 84484; 85025; 85610; 85730; 86328; 93005; 93306; 96365; 96372; 96375; 97161; 99284; G0378; Q9967

== ENCOUNTER 2020-08-11 11:00 | Outpatient (RCR) | payer MEDICARE, SELFPAY | END 2020-08-11 11:05 | disposition home or self-care (01) | LOC: PT 11:00 | PROVIDERS: Visit Provider Internal Medicine | DX: M25.562 Pain in left knee (principal); Z96.652 Presence of left artificial knee joint | CPT/HCPCS: 97010; 97016; 97033; 97110; 97163; 97164 ==

== ENCOUNTER → 2020-08-31 14:28 | Outpatient (CLI) | payer MEDICARE, SELFPAY ==
--- NOTE | 2020-08-31 14:59 | CT_ITS ---
PROCEDURE: CT LOWER LEG LT WO/W CON CLINICAL HISTORY: LT KNEE PAIN, S/P LT KJR Status post left knee replacement with severe pain COMPARISON: CR XR KNEE LT 3V from 03/24/2020 TECHNIQUE: Axial images obtained with sagittal and coronal reformats. All CT scans at the facility use one or more dose reduction, viz: automated exposure control, ma/kV adjustment per patient size (including targeted exams where dose is matched to indication, i.e. head), or iterative reconstruction technique. FINDINGS: Status post left knee replacement. Significant artifact is present from the knee prosthesis. There is a small knee joint effusion. There is some minimal enhancement of the synovial lining which is nonspecific. No evidence bony destructive process. Prosthesis appears in good position. There is a questionable cortical lucency of the distal femur duplicated on the CT scan. IMPRESSION: Status post total knee replacement with good alignment. Small knee joint effusion present with mild enhancement of the synovium. This is nonspecific and may be seen with either inflammation or infection. Dictated by: Yoan Lomeli MD 08/31/2020 17:13 Yoan Lomeli MD in [facility] 08/31/2020 17:13
[2020-08-31 15:11] LABS: Blood Urea Nitrogen 20 mg/dl (7-17); Estimated Glomerular Filt Rate 62 ml/min (>60); GFR (African American) 75 ML/MIN (>60)
== END ==
PROVIDERS: PCP Internal Medicine; Visit Provider Internal Medicine
DX: M25.562 Pain in left knee (principal); Z96.652 Presence of left artificial knee joint
CPT/HCPCS: 36415; 73702; 82565; 84520; Q9967

== ENCOUNTER → 2020-12-25 14:17 | Outpatient (CLI) | payer MEDICARE, SELFPAY ==
--- NOTE | 2020-12-25 14:19 | CA_ITS ---
APPROVED REPORT Right Lower Extremity Venous Study for DVT. Trip Motor Operator: Meme Rodriguez RVT Indications Lower Extremity Pain: Right Lower Extremity Edema: Right PAIN/EDEMA RLE Risk Factors Recent Travel Medications PT ON ELIQUIS Vein Imaging CFV (R): compressive, spontaneous, phasic, augmentation FEM (R): compressive, spontaneous, phasic, augmentation POP (R): compressive, spontaneous, phasic, augmentation PTV (R): Compressible GSV (R): Compressible Peroneals (R):Compressible GAS (R): Compressible Findings Study suggests no evidence of DVT or SVT of the right lower extremity. Conclusion Study suggests no evidence of DVT or SVT of the right lower extremity. Critical Notification Date: 12/25/2020 Time: 14:42 Physician Name: Norris Wilson office Electronically signed by : Yoan Lomeli MD 12/25/2020 16:04:19
== END ==
PROVIDERS: PCP Internal Medicine; Visit Provider Internal Medicine
DX: M79.604 Pain in right leg (principal); M79.89 Other specified soft tissue disorders
CPT/HCPCS: 93971

== ENCOUNTER → 2021-06-13 07:15 | Outpatient (CLI) | payer MEDICARE, SELFPAY ==
--- NOTE | 2021-06-13 07:18 | CT_ITS ---
PROCEDURE: CT ABDOMEN PELVIS WO CON CLINICAL INDICATION: RT FLANK PAIN,HEMATURIA COMPARISON: CT ABDPELWO CT abdomen pelvis wo con from 05/19/2018 TECHNIQUE: Axial images obtained with sagittal and coronal reformats. All CT scans at the facility use one or more dose reduction, viz: automated exposure control, ma/kV adjustment per patient size (including targeted exams where dose is matched to indication, i.e. head), or iterative reconstruction technique. FINDINGS: LOWER THORAX: No acute finding ABDOMEN & PELVIS: There are least 3 hypodense lesions of the liver to the left hepatic lobe and 1 in the right hepatic lobe. The 2 in the left hepatic lobe measure 8 and 5 mm and the 1 in the right hepatic lobe is 7 mm. These could represent cysts and/or hemangiomas. The right hepatic lobe lesion was not readily apparent on the previous exam. MRI with hemangioma protocol suggested for further evaluation. The spleen, adrenal glands, and pancreas have an unremarkable appearance. There are bilateral renal calculi. 5 mm stone is present in the lower pole of the right kidney. A 7 mm stone is present in the lower pole of the left kidney and a 3 mm stone is present in the mid polar region of the left kidney. There is mild prominence of the renal hilum on both sides not significantly changed. No definite ureteral calculus is apparent. There is some cortical scarring of the left kidney. Pancreas has an unremarkable appearance. There has been a prior cholecystectomy. No intestinal obstruction or free air. No evidence of appendicitis or diverticulitis. No pelvic mass or abnormal fluid collection. Degenerative changes are present in the thoracic and lumbar spine with prominent endplate osteophytes posteriorly T12-L1 and L1-L2 with canal stenosis. IMPRESSION: 1. Bilateral nephrolithiasis. No ureteral calculus. 2. There are least 3 hypodense lesions of the liver to the left hepatic lobe and 1 in the right hepatic lobe. The 2 in the left hepatic lobe measure 8 and 5 mm enter slightly more prominent. The 1 in the right hepatic lobe is 7 mm. These could represent cysts and/or hemangiomas. The right hepatic lobe lesion was not readily apparent on the previous exam. MRI with hemangioma protocol suggested for further evaluation. Dictated by: Yoan Lomeli MD 06/14/2021 09:52 Yoan Lomeli MD in [facility] 06/14/2021 09:52
== END ==
PROVIDERS: PCP Internal Medicine; Visit Provider Internal Medicine
DX: R10.9 Unspecified abdominal pain (principal); R31.0 Gross hematuria
CPT/HCPCS: 74176

== ENCOUNTER → 2021-06-19 10:06 | Outpatient (CLI) | payer MEDICARE, SELFPAY ==
[2021-06-19 10:57] LABS: Blood Urea Nitrogen 21 mg/dl (7-17); Estimated Glomerular Filt Rate 62 ml/min (>60); GFR (African American) 75 ML/MIN (>60)
== END ==
PROVIDERS: Visit Provider Internal Medicine
DX: R10.9 Unspecified abdominal pain (principal); R31.0 Gross hematuria
CPT/HCPCS: 36415; 82565; 84520

== ENCOUNTER → 2021-06-22 10:29 | Outpatient (CLI) | payer MEDICARE, SELFPAY ==
--- NOTE | 2021-06-22 10:39 | CT_ITS ---
FINAL REPORT TECHNIQUE: Thin section axial images were obtained through the abdomen before and after contrast injection. Reconstruction images were obtained from the axial data. Exam was performed using dose reduction technique. CLINICAL HISTORY: RT FLANK PAIN,HEMATURIA,HEMANGIOMA PROTOCOL FINDINGS: There is granulomatous disease at the lung bases. There are at least 3 hypodense lesions in the left lobe of the liver which do not enhance and are consistent with small cysts. A subcentimeter lesion in the anterior inferior right lobe of the liver also does not enhance. In the posterior right lobe of the liver, as seen on series 7, image 31, there is a 14 mm hypodense lesion which is best seen on portal venous phase imaging. This is not a cyst. This does not demonstrate enhancement characteristics of a hemangioma. This is not well visualized on 5 minute delayed imaging the gallbladder is absent. There is mild intrahepatic biliary ductal dilatation, likely related to cholecystectomy.. The spleen, adrenal glands, and pancreas are unremarkable. There is no hydronephrosis. Bilateral nonobstructing renal stones are present no renal mass. Abdominal GI tract is without acute abnormality. There is no abdominal lymphadenopathy or ascites. No acute osseous abnormalities identified. IMPRESSION: 1. Multiple liver lesions, most of which are cysts. The largest lesion is not a cyst nor classic hemangioma. Favor benign etiology in the absence of known malignancy. Can follow up if indicated. This could represent a small adenoma. 2. No acute abnormality. Authenticated by Diana Atwood MD on 06/22/2021 11:38:19 AM [facility]
== END ==
PROVIDERS: PCP Internal Medicine; Visit Provider Internal Medicine
DX: R10.9 Unspecified abdominal pain (principal); R31.0 Gross hematuria
CPT/HCPCS: 74160; Q9967

== ENCOUNTER → 2021-08-07 09:43 | Outpatient (CLI) | payer MEDICARE, SELFPAY ==
[2021-08-07 10:43] LABS: Hemoglobin A1C 5.8 % (4.0-6.0)
[2021-08-07 10:45] LABS: Basophils # 0.1 K/mm3 (0-0.2); Basophils % 1.5 % (0.1-2.0); Eosinophils # 0.3 K/mm3 (0.0-0.4); Eosinophils % 4.1 % (0.1-12.0); Hematocrit 41.7 % (37.0-47.0); Lymphocytes # 3.1 K/mm3 (0.7-4.5); Lymphocytes % 45.3 % (10-50); Mean Corpuscular HGB Conc 33.5 g/dL (31.8-35.4); Mean Corpuscular Volume 92.3 fl (81-99); Mean Platelet Volume 8.4 fl (7.4-10.4); Monocytes # 0.5 K/mm3 (0.1-1.0); Monocytes % 7.5 % (1.7-9.3); Neutrophils # 2.9 K/mm3 (1.8-7.8); Neutrophils % 41.7 % (37.0-80.0); Platelet Count 251 K/mm3 (142-424); Red Blood Count 4.52 M/mm3 (4.20-5.40); Red Cell Distribution Width 13.6 % (11.5-17.5); White Blood Count 6.9 K/mm3 (4.8-10.8)
[2021-08-07 10:56] LABS: Chloride 104 mmol/L (98-107); Sodium 137 mmol/L (136-145)
[2021-08-07 10:57] LABS: Potassium 4.2 mmoL/L (3.5-5.1)
[2021-08-07 10:59] LABS: Alanine Aminotransferase 23 U/L (12-78); Albumin Level 4.1 g/dl (3.5-5.0); Albumin/Globulin Ratio 1.6 (1.1-1.8); Alkaline Phosphatase 155 U/L (38-126); Anion Gap 10.2 mEq/L (5-15); Aspartate Amino Transferase 36 U/L (14-36); Bilirubin,Total 0.6 mg/dl (0.2-1.3); Blood Urea Nitrogen 24 mg/dl (7-17); Carbon Dioxide 27 mmol/L (22.0-30.0); Estimated Glomerular Filt Rate 62 ml/min (>60); GFR (African American) 75 ML/MIN (>60); Globulin 2.5 g/dL (1.3-3.2); Glucose 97 mg/dl (74-100); Total Protein,Serum 6.6 g/dl (6.3-8.2)
[2021-08-07 11:30] LABS: Thyroid Stimulating Hormone 0.73 uIU/mL (0.465-4.68)
[2021-08-07 12:11] LABS: Vitamin B12 390 pg/mL (239-931)
--- NOTE | 2021-08-07 14:31 | MM_ITS ---
PROCEDURE INFORMATION: Exam: US Right Breast, Complete, Abscess Evaluation MG Bilateral Diagnostic Breast Tomosynthesis Exam date and time: 08/07/2021 2:31 PM Age: 71 years old Clinical indication: History of abscess aspiration/drainage in the right upper outer quadrant. Patient also reportedly had a cyst removed approximately 2 weeks ago. The patient is also due for her annual bilateral mammogram today. TECHNIQUE: Imaging protocol: Right Ultrasound of the breast with image documentation. All quadrants and retroareolar regions evaluated. Exam focused on the search and evaluation for abscess. Exam is an emergent request and a non-BIRADS study. Bilateral Diagnostic tomosynthesis and 2D mammography including computer-aided detection (CAD) when performed. Unilateral or bilateral exam. COMPARISON: 1. MG SCBI MM Dig screening mamm BI w/CAD 08/06/2018 11:09 AM 2. MG DMSB DIGITAL MAMM-SCREEN BILATERAL 02/28/2011 9:47 AM 3. MG DIGMAMMS MAMMOGRAM SCREEN-ASSISTANT PROFESSOR NURSE EDUCATION N/C 05/29/2006 10:59 AM 4. Mammogram 05/23/2005 FINDINGS: MAMMOGRAPHY: Breast density: There are scattered areas of fibroglandular density. Mass: No suspicious masses Architectural distortion: No suspicious distortion. Calcifications: No suspicious calcifications. Asymmetric density: None. Skin thickening: There is mild focal skin thickening in the right upper outer quadrant, posterior depth, with associated amorphous density, correlating with the area of reported cyst removal. Axillary adenopathy: None. ULTRASOUND: In the right upper outer quadrant 10 cm from the nipple there is a focal area of skin thickening and superficial soft tissue edema . Centrally within the edema is a superficial probably benign complicated cyst with internal debris, measuring 0.3 x 0.3 x 0.2 cm. This correlates with the area of reported cyst removal. This minimal cystic change is likely within the skin and may represent residual cyst versus evolving postoperative change. Benign-appearing axillary lymph node with fatty hilum noted, measuring 2.2 cm in length.. IMPRESSION: Minimal probably benign superficial cystic change and surrounding edema at the site of recent reported cyst removal in the right upper outer quadrant. Finding may represent residual, probably benign complicated cyst versus evolving postoperative change. No definite mammographic evidence of malignancy in the right breast. As a precaution recommend short interval 3 month follow-up targeted ultrasound of the right upper outer quadrant to confirm resolution/stability. If there is a clinical concern for recurrent or persistent abscess in this region, additional clinical evaluation is recommended. No mammographic evidence of malignancy in either breast. ASSESSMENT: BI-RADS Category 3: Probably Benign
[2021-08-10 15:12] LABS: Albumin 3.6 g/dL (2.9-4.4); Alpha-1-Globulin 0.2 g/dL (0.0-0.4); Alpha-2-Globulin 0.8 g/dL (0.4-1.0); Gamma Globulin 0.9 g/dL (0.4-1.8); Immunofixation Result, Serum Comment: (.); Immunoglobulin A, Qn, CHARGE YES; Immunoglobulin A, Qn, Serum 129 mg/dL (64-422); Immunoglobulin G, Qn, CHARGE YES; Immunoglobulin G, Qn, Serum 943 mg/dL (586-1602); Immunoglobulin M, Qn, CHARGE YES; Immunoglobulin M, Qn, Serum 72 mg/dL (26-217); Protein, Total 6.5 g/dL (6.0-8.5)
== END ==
PROVIDERS: Specialist; PCP Internal Medicine; Visit Provider Surgery
DX: E78.5 Hyperlipidemia, unspecified (principal); E83.10 Disorder of iron metabolism, unspecified; R20.8 Other disturbances of skin sensation; I10 Essential (primary) hypertension; N61.1 Abscess of the breast and nipple
CPT/HCPCS: 36415; 76641; 77062; 77066; 80053; 82607; 82746; 82784; 83036; 84155; 84165; 84443; 85025; 86334; G0279

== ENCOUNTER 2021-09-04 15:00 | Outpatient (RCR) | payer MEDICARE, SELFPAY | END 2021-09-04 15:05 | disposition home or self-care (01) | LOC: PT 15:00 | PROVIDERS: PCP Internal Medicine; Visit Provider Internal Medicine | DX: M54.31 Sciatica, right side (principal) | CPT/HCPCS: 97010; 97012; 97035; 97110; 97163; 97535 ==

== ENCOUNTER → 2021-09-26 13:38 | Outpatient (CLI) | payer MEDICARE, SELFPAY | PROVIDERS: PCP Internal Medicine; Visit Provider Internal Medicine | DX: N39.0 Urinary tract infection, site not specified (principal); R31.0 Gross hematuria; B96.4 Proteus (mirabilis) (morganii) as the cause of diseases classified elsewhere | CPT/HCPCS: 87086; 87088; 87186 ==

== ENCOUNTER → 2021-10-19 10:07 | Outpatient (CLI) | payer MEDICARE, SELFPAY | PROVIDERS: Visit Provider Urology | DX: R31.9 Hematuria, unspecified (principal); Z01.812 Encounter for preprocedural laboratory examination; Z11.52 Encounter for screening for COVID-19 | CPT/HCPCS: C9803; U0003; U0005 ==

== ENCOUNTER 2021-10-22 09:54 | Day surgery (SDC) | payer MEDICARE, SELFPAY ==
[2021-10-18 11:50] VITALS: BMI 27.6
[2021-10-22 10:15] VITALS: BP 133/78; PULSE 70; RESP 18; TEMP 36.9; O2SAT 96
--- NOTE | 2021-10-22 11:01 | HMH.OPNOTE ---
Date of procedure: 10/22/21 Pre-op Diagnosis:: Gross hematuria Post-op Diagnosis:: Gross hematuria Procedure performed:: Cystoscopy Surgeon:: Jose Guadalupe Johnston MD Anesthesia: local Estimated blood loss (mL): 0 Clinical Note:: 71-year-old white female on Eliquis with a 4-month history of intermittent gross hematuria. I saw her on October 09 at which time she was off of her Eliquis with resolution of the hematuria. She went back on the Eliquis and states 1 episode of gross hematuria a week ago. CT scan has shown bilateral nonobstructing nephrolithiasis. She presents for cystoscopic evaluation today Operative findings:: Bladder showed no evidence of mucosal abnormalities, stones, diverticula or trabeculation. Bladder neck and urethra were normal as well. Operative note:: Patient taken to the cystoscopy suite after informed consent was obtained. On the stretcher she was placed into the modified frog-leg position. She does have some trouble with abducting her legs due to sciatica. She was prepped and draped in the standard surgical fashion and 2% lidocaine placed into the urethra. After 5 minutes the flexible cystoscope introduced into the urethra meatus. It was passed into the bladder without difficulty and the bladder examined in a systematic fashion. There is no evidence mucosal abnormalities, stones, diverticula, trabeculation or cellules. The ureteral orifices in their normal anatomic position with clear efflux of urine. Scope was retroflexed showing no evidence of bladder neck abnormalities. The bladder neck and urethra were within normal limits as we remove the scope. Patient tolerated the procedure well. We discussed the findings today and further options included watchful waiting versus ureteroscopy and laser lithotripsy of the bilateral stones. She states that the gross hematuria does bother her significantly and we discussed proceeding with a bilateral ureteroscopy to rule out any ureteral problem and then passing the scope up to the kidney and lasering the stones. We will set this up at her earliest convenience. Condition: stable Disposition: same day Specimens:: None Complications:: None
[2021-10-22 12:15] VITALS: BP 154/87; PULSE 63; RESP 16; TEMP 36.7; O2SAT 98
== END 2021-10-22 10:55 | disposition home or self-care (01) ==
LOC: OUTP 09:55
PROVIDERS: PCP Internal Medicine; Visit Provider Urology
DX: N20.0 Calculus of kidney (principal); R31.0 Gross hematuria; I48.91 Unspecified atrial fibrillation; E78.5 Hyperlipidemia, unspecified; I10 Essential (primary) hypertension; I25.10 Atherosclerotic heart disease of native coronary artery without angina pectoris; Z95.0 Presence of cardiac pacemaker; E03.9 Hypothyroidism, unspecified; G47.33 Obstructive sleep apnea (adult) (pediatric); Z96.652 Presence of left artificial knee joint; Z88.1 Allergy status to other antibiotic agents; Z88.2 Allergy status to sulfonamides
CPT/HCPCS: 52000

== ENCOUNTER → 2021-11-07 09:52 | Outpatient (CLI) | payer MEDICARE, SELFPAY ==
[2021-11-07 09:57] LABS: MANUAL DIFFERENTIAL MANUAL DIFFERENTIAL (MANUAL DIFF)
[2021-11-07 10:33] LABS: Basophils # 0.2 K/mm3 (0-0.2); Eosinophils # 0.2 K/mm3 (0.0-0.4); Hematocrit 39.5 % (37.0-47.0); Hemoglobin 13.6 g/dL (12.2-16.2); Lymphocytes # 2.5 K/mm3 (0.7-4.5); Lymphocytes % 33.4 % (10-50); Mean Corpuscular HGB Conc 34.5 g/dL (31.8-35.4); Mean Corpuscular Hemoglobin 31.9 pg (27.0-31.2); Mean Corpuscular Volume 92.5 fl (81-99); Mean Platelet Volume 8.2 fl (7.4-10.4); Monocytes # 0.5 K/mm3 (0.1-1.0); Monocytes % 7.2 % (1.7-9.3); Neutrophils % 54.3 % (37.0-80.0); Platelet Count 262 K/mm3 (142-424); Red Blood Count 4.27 M/mm3 (4.20-5.40); Red Cell Distribution Width 13.5 % (11.5-17.5); White Blood Count 7.3 K/mm3 (4.8-10.8)
[2021-11-07 11:02] LABS: Anion Gap 9.8 mEq/L (5-15); Blood Urea Nitrogen 19 mg/dl (7-17); Calcium 9.9 mg/dl (8.4-10.2); Carbon Dioxide 28 mmol/L (22.0-30.0); Chloride 107 mmol/L (98-107); Estimated Glomerular Filt Rate 62 ml/min (>60); GFR (African American) 75 ML/MIN (>60); Glucose 107 mg/dl (74-100); Potassium 3.8 mmoL/L (3.5-5.1); Sodium 141 mmol/L (136-145)
[2021-11-07 11:15] LABS: Eosinophils % 4 % (0-3); Lymphocytes % 27 % (10-50); Monocytes % 5 % (2-9); Neutrophils % 64 % (42-76); Platelet Estimate Normal; RBC Morphology Normal; Total Cells Counted 100
== END ==
PROVIDERS: Visit Provider Urology
DX: N20.0 Calculus of kidney (principal); Z01.812 Encounter for preprocedural laboratory examination; Z20.822 Contact with and (suspected) exposure to COVID-19
CPT/HCPCS: 36415; 80048; 85007; 85014; 85018; 85048; 85049; C9803; U0003; U0005

== ENCOUNTER 2021-11-09 08:03 | Day surgery (SDC) | payer MEDICARE, SELFPAY ==
[2021-11-06 13:44] VITALS: BMI 24.4
[2021-11-09] VITALS (13 sets, daily range): BP systolic 121–171; BP diastolic 71–95; PULSE 69–88; RESP 12–18; TEMP 36.3–36.9; O2SAT 91–97
--- NOTE | 2021-11-09 11:10 | HMH.ANESCL ---
[facility] Anesthesia Checklist - Structural Data Admitted From: Home Planned Operative Procedure/s: ureteroscopy Consent for Planned Operative Procedure(s) Verified: Yes - Additional verifications Anesthesia Reactions: Yes (FENTANYL-DOESN'T WAKE UP FOR 2 DAYS) Hx Blood Transfusions: No Blood Transfusion Reaction: No - Airway Assessment C-Spine Mobility Assessed: Yes TMJ Mobility Assessed: Yes Dentition: Good Dentition - Neurological Assessment Level of Consciousness: Awake, Alert, Appropriate - Anesthesia Plan Anesthesia Risk discussed: Yes Anesthesia Plan: Verified ASA Class: III Anesthesia Type: General [facility] History I have reviewed the patient's past medical history: Yes Medical History: Reports:: Arrhythmia, Atrial Fibrillation, Hyperlipidemia, Hypertension, Internal Pacemaker, Urinary Tract Infection Denies:: Cancer, Diabetes Mellitus Type 1, Diabetes Mellitus Type 2, MRSA, Seizures *Have you ever received a pneumonia vaccine?: Yes *Have you received a flu vaccine this season?: Yes Other Medical History: Reports: Cataracts, Thyroid Disease. Denies: Blood Transfusion Reaction Anesthesia experience/problems:: none Laterality Cases: Bilateral: Myringotomy (Ear Tubes), Tonsillectomy Other Surgeries: Yes: No Previous Surgery, Appendectomy, Cholecystectomy, Colonoscopy, Hysterectomy-Total, Pacemaker, Tubal Ligation Amputation: No Fractures: No - *Social History Last grade of school completed: High school graduate Smoking Status: Never smoker Alcohol Intake: never Alcohol Intake Frequency:: other Substance Use Type: denies use *Occupational Status:: retired Housing: house Household Members: none *Travel in the last 8 weeks: None Family Hx:: Cancer, Coronary Artery Disease, Heart Attack
--- NOTE | 2021-11-09 12:25 | XR_ITS ---
FINAL REPORT CLINICAL HISTORY: bilateral ureteroscopy in or, stent placement on right ft: 5:18 FINDINGS: FLUORO TIME PROCEDURE: Bilateral ureteroscopy in or, stent placement on right FINDINGS: Fluoroscopy time was provided by the radiology department for the clinical service. Two films were obtained. Fluoroscopy exposure time: 5:18 IMPRESSION: See above Reviewed, Interpreted and Dictated by Liborio Dee III, MD Transcribed by Dana Lai Authenticated and [facility]
--- NOTE | 2021-11-09 12:29 | P.PN_ITS ---
[facility] Anesthesia Record Part I Intake, IV Amount: 1,500 Estimated blood loss (mL): 0 Urine output (mL): 0 Blood Pressure: 121/77 SaO2: 94 Pulse Rate: 70 Respiratory Rate: 12 Temperature: 98.4 F Patient is:: Awake, Stable Stable to PACU at:: 12:30
--- NOTE | 2021-11-09 14:06 | HMH.OPNOTE ---
Date of procedure: 11/09/21 Pre-op Diagnosis:: Bilateral kidney stones with history of gross hematuria Post-op Diagnosis:: Bilateral kidney stones, right ureteral stenosis Procedure performed:: Left ureteroscopy with laser lithotripsy of a 7 mm stone, right ureteroscopy with placement of a right ureteral stent Surgeon:: Jose Guadalupe Johnston MD SEARCH ADVERTISING STRATEGIST:: Niraj Trevizo Anesthesia: LMA Estimated blood loss (mL): 2 Clinical Note:: 71-year-old white female with some persistent gross hematuria who is on Eliquis. Previous cystoscopy has shown no bladder abnormalities and we have discussed that the stones could be the culprit for hematuria as she is on Eliquis. She presents for management of the bilateral renal stones. Operative findings:: The left kidney stone was visualized with flexible ureteroscopy and laser lithotripsy performed. Stones were small enough to pass and were not removed. Right ureteroscopy revealed a mid ureteral stenosis that we could not pass the scope by. A right ureteral stent was placed for passive dilation. Operative note:: Patient taken to the operating room after informed consent was obtained. He was placed on the operating room table in the supine position and general anesthesia administered. Preoperative antibiotics and sequential compression devices placed. He was then placed into the dorsal lithotomy position and prepped and draped in the standard surgical fashion. 20 Mohsen passed into the urethra and into the bladder. The bladder showed no evidence of abnormalities. The ureteral orifices in the normotonic position. A sensor guidewire was passed into the left ureteral orifice and under fluoroscopy passed into the left kidney. Another guidewire was passed as well. Cystoscope then removed and our flexible ureteroscope was passed over one of the guidewires and the guidewire removed. The scope passed up to the kidney and the stone was visualized in a left lower pole calyx. Our 200 nm laser fiber was passed through the scope and the stone broken up into several small pieces. There was a little bit of bleeding from the calyx. The stones were small enough to where she could not pass them without problem and no stent was placed. The ureteroscope and wire removed and the cystoscope was replaced and the guidewire passed into the right ureter and into the renal pelvis second guidewire was passed as well without difficulty. Our flexible ureteroscope was passed over one of the wires but there was resistance met at the mid ureter. Extensive attempts at trying to pass the scope were unsuccessful. The ureteroscope then removed and one of the wires were removed and the cystoscope was replaced over the safety wire and a 6 x 24 Irish stent was passed over the guidewire and the guidewire removed. Fluoroscopy revealed a good curl proximally and distally. The string was left on for later removal. Bladder emptied and Urojet placed into the urethra. Patient tolerated procedure well no complications. Condition: stable Disposition: PACU Specimens:: None Complications:: None
--- NOTE | 2021-11-09 18:18 | HMH.ANESII ---
[facility] Anesthesia Record Part II Discharge Time: 13:10 Destination: Surgical Day Care (OP Surgery) PACU nurse assessment reviewed?: Yes Patient Condition:: Good Anesthesia Complications:: None Swallowing reflex intact?: Yes Cyanosis?: No Blood Pressure: 169/92 Pulse Rate: 70 Temperature: 98.4 F Mental Status: Alert & Oriented Pain level:: 0 Nausea and/or vomitting:: None Intake, IV Amount: 0
== END 2021-11-09 14:00 | disposition home or self-care (01) ==
LOC: OR 08:04
PROVIDERS: PCP Internal Medicine; Visit Provider Urology
PROC: (CPT 52352; principal; 2021-11-09 09:45)
DX: N20.0 Calculus of kidney (principal); Q62.10 Congenital occlusion of ureter, unspecified; I48.91 Unspecified atrial fibrillation; E78.5 Hyperlipidemia, unspecified; I10 Essential (primary) hypertension; R31.0 Gross hematuria; I49.5 Sick sinus syndrome; I25.10 Atherosclerotic heart disease of native coronary artery without angina pectoris; Z88.2 Allergy status to sulfonamides; Z88.4 Allergy status to anesthetic agent; Z88.1 Allergy status to other antibiotic agents; Z79.01 Long term (current) use of anticoagulants; Z79.1 Long term (current) use of non-steroidal anti-inflammatories (NSAID)
CPT/HCPCS: 52356; 74018; 96372; 96374; C2617; J2405

== ENCOUNTER 2021-11-11 17:59 | Emergency (ER) | payer MEDICARE, SELFPAY ==
[2021-11-11 19:03] VITALS: BP 149/87; PULSE 70; RESP 18; TEMP 36.7; O2SAT 98
== END 2021-11-11 19:08 | disposition left against medical advice (07) ==
LOC: ER 19:04
PROVIDERS: Emergency Provider Emergency Medicine; PCP Internal Medicine
DX: Z53.21 Procedure and treatment not carried out due to patient leaving prior to being seen by health care provider (principal); R35.0 Frequency of micturition
CPT/HCPCS: 99211

== ENCOUNTER 2021-11-12 09:52 | Emergency (ER) | payer MEDICARE, SELFPAY ==
[2021-11-12 09:54] VITALS: BP 153/81; PULSE 70; RESP 16; TEMP 36.6; O2SAT 98; BMI 27.1
--- NOTE | 2021-11-12 10:17 | HMH.EDGENADL ---
ED Disposition Clinical Impression: Ureteral stent displacement Qualifiers: Encounter type: initial encounter Qualified Code(s): T83.122A - Displacement of indwelling ureteral stent, initial encounter Disposition: Home, Self-Care Condition on Discharge: Good Instructions: DI for Urinary Tract Infection (UTI), DI for Urinary Tract Infection in Children Additional Instructions: These follow-up at your scheduled appointment with Dr. Johnston on Friday. Referrals: Serge Wilson MD [Primary Care Provider] - - Critical Care Critical Care Time: No Attestation: On 11/12/21, the high probability of a clinically significant, sudden or life threatening deterioration of the following system(s) required my full and direct attention, intervention and personal management. The time I documented below is in addition to time spent performing reported procedures but includes the following listed in this critical care notation. Medical Decision Making - Medical Records Medical records reviewed: Yes: I reviewed the patient's medical records. - Shay Inquiry Pt receiving controlled substance: No Vital Signs: 11/12/21 09:54 11/12/21 13:40 Temperature 98 F Temperature Source Oral Pulse Rate 71 Pulse Rate [Radial] 70 Respiratory Rate 16 20 Blood Pressure 135/81 Blood Pressure [Right Arm] 153/81 H Blood Pressure Mean 100 Blood Pressure Mean [Right Arm] 105 Blood Pressure Position [Right Arm] Sitting 02 Sat by Pulse Oximetry 98 97 Oxygen Delivery Method Room Air - Lab Data Lab results reviewed: Yes: I reviewed the patient's lab results. Lab Results 11/12/21 10:25: WBC 16.7 H, RBC 4.34, Hgb 13.6, Hct 40.6, MCV 93.6, MCH 31.5 H, MCHC 33.6, RDW 13.7, Plt Count 236, MPV 8.9, Neut % (Auto) 72.7, Lymph % (Auto) 21.1, [place] % (Auto) 4.6, Eos % (Auto) 0.5, Baso % (Auto) 1.0, Neut # (Auto) 12.1 H, Lymph # (Auto) 3.5, [place] # (Auto) 0.8, Eos # (Auto) 0.1, Baso # (Auto) 0.2, Total Counted 100, Neutrophils % (Manual) 68, Lymphocytes % (Manual) 28, Monocytes % (Manual) 4, Platelet Estimate Normal, RBC Morphology Normal 11/12/21 10:25: Sodium 141, Potassium 3.6, Chloride 108 H, Carbon Dioxide 26, Anion Gap 10.6, BUN 23 H, Creatinine 1.00, Estimated Creat Clear 74, Estimated GFR 55 L, Est GFR ( Amer) 66, Glucose 171 H, Calcium 9.7, Total Bilirubin 0.5, AST 56 H, ALT 99 H, Alkaline Phosphatase 238 H, Total Protein 6.5, Albumin 3.9, Globulin 2.6, Albumin/Globulin Ratio 1.5 11/12/21 12:33: Urine Color Red, Urine Appearance Cloudy, Urine pH 6.0, Ur Specific [place] 1.025, Urine Protein 2+, Urine Glucose (UA) Negative, Urine Ketones Negative, Urine Blood 3+, Urine Nitrate Negative, Urine Bilirubin 1+ A, Urine Urobilinogen 0.2, Ur Leukocyte Esterase 2+ A, Urine RBC Tntc, Urine WBC 5-10, Ur Squamous Epith Cells 3-5, Urine Bacteria Trace Result diagrams: 11/12/21 10:25 11/12/21 10:25 Orders (Tests/Meds): ORDERS Category Date Time Status Urine Culture Stat Micro 11/12/21 12:33 Received - CT Data CT Scan: Abdomen Time Received: 14:34 Findings Narrative: CT abd/pelvis: IMPRESSION: 1. Right ureteral stent with demonstration of migration beyond the bladder into the region of the urethra and vaginal vault. Migration of the proximal loop distal to the right renal pelvis into the proximal ureter. 2. Solitary right renal calculus in the region of the renal pelvis measuring 10 mm in length by 5 mm in transverse dimensions. 3. Nonobstructing left renal calculi as described above. 4. See report for additional findings. Medical Decision Narrative: Patient is a 71-year-old female presenting with a chief complaint of urinary incontinence, hematuria and string from her urethra, concerning for stent migration. She was evaluate CBC, CMP, UA and CT abdomen pelvis without contrast. Differential diagnosis includes, but is not limited to, renal obstruction, SANDY, stent migration/displacement, other. On exam, patient does have le
[2021-11-12 10:41] LABS: Basophils # 0.2 K/mm3 (0-0.2); Eosinophils # 0.1 K/mm3 (0.0-0.4); Eosinophils % 0.5 % (0.1-12.0); Hematocrit 40.6 % (37.0-47.0); Hemoglobin 13.6 g/dL (12.2-16.2); Lymphocytes # 3.5 K/mm3 (0.7-4.5); Lymphocytes % 21.1 % (10-50); Mean Corpuscular HGB Conc 33.6 g/dL (31.8-35.4); Mean Corpuscular Hemoglobin 31.5 pg (27.0-31.2); Mean Corpuscular Volume 93.6 fl (81-99); Mean Platelet Volume 8.9 fl (7.4-10.4); Monocytes # 0.8 K/mm3 (0.1-1.0); Monocytes % 4.6 % (1.7-9.3); Neutrophils # 12.1 K/mm3 (1.8-7.8); Neutrophils % 72.7 % (37.0-80.0); Platelet Count 236 K/mm3 (142-424); Red Blood Count 4.34 M/mm3 (4.20-5.40); Red Cell Distribution Width 13.7 % (11.5-17.5); White Blood Count 16.7 K/mm3 (4.8-10.8)
[2021-11-12 10:43] LABS: Chloride 108 mmol/L (98-107); MANUAL DIFFERENTIAL MANUAL DIFFERENTIAL (MANUAL DIFF); Potassium 3.6 mmoL/L (3.5-5.1); Sodium 141 mmol/L (136-145)
--- NOTE | 2021-11-12 10:45 | CT_ITS ---
PROCEDURE INFORMATION: Exam: CT Abdomen And Pelvis Without Contrast Exam date and time: 11/12/2021 10:57 AM Age: 71 years old Clinical indication: Other: Stent dislodged; Prior surgery; Surgery date: Post-operative (0-2 days); Surgery type: Kidney stone surgery with stent placement; Additional info: Had kidney stone surgery and stent is dislodged she can feel it coming out and is not able to hold urine TECHNIQUE: Imaging protocol: Computed tomography of the abdomen and pelvis without contrast. Radiation optimization: All CT scans at this facility use at least one of these dose optimization techniques: automated exposure control; mA and/or kV adjustment per patient size (includes targeted exams where dose is matched to clinical indication); or iterative reconstruction. COMPARISON: CT ABDOMEN W CON 06/22/2021 10:45 AM FINDINGS: Lungs: Calcified granuloma left lung base. Diaphragm: Small hiatal hernia. Liver: Previously demonstrated hyperdense lesions within the liver are not as well appreciated on the current study due to lack of contrast enhancement. Gallbladder and bile ducts: cholecystectomy. Pancreas: Normal. No ductal dilation. Spleen: Normal. No splenomegaly. Adrenal glands: Normal. No mass. Kidneys and ureters: The previously demonstrated nonobstructing 4 mm calculus in the lower pole of the left kidney is no longer demonstrated. 2 smaller calculi are demonstrated in this region. The recent KUB dated 11/09/2021 is not available for review. A stent is demonstrated in the right ureter just inferior to the renal pelvis. This extends inferiorly , migrating beyond the bladder into the region of the urethra and vaginal vault. Findings demonstrated on series 101 image number 48 through 51. There is a solitary calculus in the region of the right renal pelvis measuring 10 mm in length by 5 mm in transverse dimensions. This is just proximal to the proximal end of the stent placement. Bilateral perinephric stranding. Findings nonspecific and may reflect acute versus chronic inflammatory change. Findings unchanged compared with the previous study. Stomach and bowel: Unremarkable. No obstruction. No mucosal thickening. Appendix: No evidence of appendicitis. Intraperitoneal space: Unremarkable. No free air. No significant fluid collection. Vasculature: Scattered regions of atherosclerotic vascular calcification within the abdominal aorta and common iliac arteries. Lymph nodes: Unremarkable. No enlarged lymph nodes. Urinary bladder: See Kidneys and ureters finding. Reproductive: See Kidneys and ureters finding. Bones/joints: Spondylosis with multilevel disc degeneration most pronounced at L2-3 and L5-S1 is demonstrated throughout the lower thoracic and lumbar spine. The the Soft tissues: Unremarkable. IMPRESSION: 1. Right ureteral stent with demonstration of migration beyond the bladder into the region of the urethra and vaginal vault. Migration of the proximal loop distal to the right renal pelvis into the proximal ureter. 2. Solitary right renal calculus in the region of the renal pelvis measuring 10 mm in length by 5 mm in transverse dimensions. 3. Nonobstructing left renal calculi as described above. 4. See report for additional findings.
[2021-11-12 10:46] LABS: Alanine Aminotransferase 99 U/L (12-78); Albumin Level 3.9 g/dl (3.5-5.0); Albumin/Globulin Ratio 1.5 (1.1-1.8); Alkaline Phosphatase 238 U/L (38-126); Anion Gap 10.6 mEq/L (5-15); Aspartate Amino Transferase 56 U/L (14-36); Bilirubin,Total 0.5 mg/dl (0.2-1.3); Blood Urea Nitrogen 23 mg/dl (7-17); Calcium 9.7 mg/dl (8.4-10.2); Carbon Dioxide 26 mmol/L (22.0-30.0); Creatinine Clearance Estimated 74 mL/min (50-200); Estimated Glomerular Filt Rate 55 ml/min (>60); GFR (African American) 66 ML/MIN (>60); Globulin 2.6 g/dL (1.3-3.2); Glucose 171 mg/dl (74-100); Total Protein,Serum 6.5 g/dl (6.3-8.2)
[2021-11-12 11:15] LABS: Lymphocytes % 28 % (10-50); Monocytes % 4 % (2-9); Neutrophils % 68 % (42-76); Total Cells Counted 100
[2021-11-12 11:16] LABS: Platelet Estimate Normal; RBC Morphology Normal
[2021-11-12 12:37] LABS: Microscopic, Urine URINE MICROSCOPIC (MICROSCOPIC)
[2021-11-12 12:39] LABS: Appearance,Urine CLOUDY (Clear); Blood, Urine 3+ (Negative); Color,Urine RED (Yellow); Glucose,Urine (UA) Negative (Negative); Ketones,Urine Negative (Negative); Leukocyte Esterase,Urine 2+ (Negative); Nitrate,Urine Negative (Negative); Protein,Urine 2+ (Negative); Specific Gravity, Urine 1.025 (1.005-1.030); Urobilinogen,Urine 0.2 EU/dl (0.2)
[2021-11-12 12:56] LABS: Bilirubin,Urine 1+ (Negative)
[2021-11-12 12:57] LABS: Bacteria,Urine Trace /lpf; RBC,Urine TNTC #/hpf (0-3)
[2021-11-12 13:40] VITALS: BP 135/81; PULSE 71; RESP 20; O2SAT 97
--- NOTE | 2021-11-12 13:41 | PC.NURSE ---
urology paged again
--- NOTE | 2021-11-12 14:06 | PC.NURSE ---
JULIÁN DEE speaking with dr. barry
[2021-11-12 15:02] VITALS: BP 132/78; PULSE 78; RESP 16; TEMP 36.6; O2SAT 98
== END 2021-11-12 15:04 | disposition home or self-care (01) ==
PROVIDERS: Emergency Provider Emergency Medicine; PCP Internal Medicine
DX: T83.122A Displacement of indwelling ureteral stent, initial encounter (principal); N30.01 Acute cystitis with hematuria; E78.5 Hyperlipidemia, unspecified; I10 Essential (primary) hypertension; I48.91 Unspecified atrial fibrillation; E07.9 Disorder of thyroid, unspecified; G47.30 Sleep apnea, unspecified; N20.0 Calculus of kidney; H26.9 Unspecified cataract; Z79.01 Long term (current) use of anticoagulants; Z79.1 Long term (current) use of non-steroidal anti-inflammatories (NSAID); Z79.899 Other long term (current) drug therapy; Z88.0 Allergy status to penicillin; Z88.1 Allergy status to other antibiotic agents; Z88.2 Allergy status to sulfonamides; Z88.3 Allergy status to other anti-infective agents; Z88.8 Allergy status to other drugs, medicaments and biological substances; Z88.4 Allergy status to anesthetic agent; Z95.0 Presence of cardiac pacemaker; Z82.49 Family history of ischemic heart disease and other diseases of the circulatory system; Z80.9 Family history of malignant neoplasm, unspecified
CPT/HCPCS: 74176; 80053; 81001; 85007; 85025; 87086; 99284

== ENCOUNTER → 2021-11-16 13:12 | Outpatient (CLI) | payer MEDICARE, SELFPAY ==
--- NOTE | 2021-11-16 13:15 | XR_ITS ---
FINAL REPORT CLINICAL HISTORY: kidney stone FINDINGS: SINGLE VIEW ABDOMEN A single view of the abdomen was obtained. There is a nonobstructive bowel gas pattern. The bowel gas and stool obscures the renal outlines. There is a moderate amount of retained stool. There are no abnormally dilated loops of small bowel. There is a stone in the mid right kidney measuring 8 mm. There is a probable less than 3 mm stone in the left kidney. No other definite stone is identified. There are postoperative changes of the right upper quadrant. There are mild degenerative changes. There are numerous phleboliths in the pelvis. IMPRESSION: Bilateral nephrolithiasis. Reviewed, Interpreted and Dictated by Liborio Dee III, MD Transcribed by Ana Zaragoza Authenticated and [facility]
== END ==
PROVIDERS: PCP Internal Medicine; Visit Provider Urology
DX: N20.0 Calculus of kidney (principal)
CPT/HCPCS: 74018

== ENCOUNTER → 2021-11-23 11:57 | Outpatient (CLI) | payer MEDICARE, SELFPAY ==
--- NOTE | 2021-11-23 12:01 | XR_ITS ---
FINAL REPORT CLINICAL HISTORY: ureteral stone COMPARISON: 11/16/2021 FINDINGS: SINGLE VIEW ABDOMEN There is a nonspecific, nonobstructive gas pattern. Bowel gas and stool obscure the renal outlines. There is a 16 mm probable stone in the right renal pelvis. There is a probable small left renal stone. There is a moderate amount of stool throughout the colon. Multiple phleboliths are seen in the pelvis. There are moderate to severe degenerative changes. Note is made of right curvature. Postoperative changes seen in the right upper quadrant. IMPRESSION: Probable bilateral nephrolithiasis. Reviewed, Interpreted and Dictated by Liobrio Dee III, MD Transcribed by Katiana Flynn Authenticated and . [facility]
== END ==
PROVIDERS: PCP Internal Medicine; Visit Provider Urology
DX: N20.1 Calculus of ureter (principal)
CPT/HCPCS: 74018

== ENCOUNTER → 2021-12-10 11:00 | Outpatient (CLI) | payer MEDICARE, SELFPAY ==
--- NOTE | 2021-12-10 11:10 | ECG_ITS ---
APPROVED REPORT Exam: Resting ECG HR:70 bpm ECG Measurements Heart Rate 70 AXES NV 211 P 73 QRSd 98 QRS 0 QT 385 T 30 QTc 405 Conclusion ELECTRONIC ATRIAL PACEMAKER LOW QRS VOLTAGE IN PRECORDIAL LEADS [QRS DEFLECTION < 1.0 mV IN CHEST LEADS] Poor R Wave Progression ABNORMAL RHYTHM ECG Electronically signed by : Serge Wilson MD 12/18/2021 18:10:09
== END ==
PROVIDERS: PCP Internal Medicine; Visit Provider Internal Medicine
DX: R00.2 Palpitations (principal); Z95.0 Presence of cardiac pacemaker
CPT/HCPCS: 93005

== ENCOUNTER → 2021-12-28 12:15 | Outpatient (CLI) | payer MEDICARE, SELFPAY ==
--- NOTE | 2021-12-28 12:20 | XR_ITS ---
FINAL REPORT CLINICAL HISTORY: kidney stone COMPARISON: 11/23/2021 FINDINGS: ABDOMEN SINGLE VIEW There is a nonspecific, nonobstructive bowel gas pattern. No bowel dilation is identified. There is a stone in projection of the right renal collecting system measuring 1.3 cm. There is lumbar scoliosis convex to the right measuring 15 degrees. IMPRESSION: Right renal stone. Reviewed, Interpreted and Dictated by Silas Price MD Transcribed by Katiana Flynn Authenticated and [facility]
[2022-01-05 00:14] LABS: Specimen Type NOT PROVIDED
== END ==
PROVIDERS: PCP Internal Medicine; Visit Provider Urology
DX: N20.0 Calculus of kidney (principal); Z87.442 Personal history of urinary calculi
CPT/HCPCS: 74018; 82370

== ENCOUNTER → 2021-12-29 08:10 | Outpatient (CLI) | payer MEDICARE, SELFPAY | PROVIDERS: Visit Provider Urology | DX: N39.0 Urinary tract infection, site not specified (principal) ==

== ENCOUNTER → 2022-01-01 11:01 | Outpatient (CLI) | payer MEDICARE, SELFPAY ==
--- NOTE | 2022-01-01 11:04 | CA_ITS ---
APPROVED REPORT EXAM: Comprehensive 2D, Doppler, and color-flow Echocardiogram Cosmetic Sales Advisor: Polina Garcia RT(R) Ht: 6 ft 0 in Wt: 208lbs BSA: 2.17 BP: 154/85 mmHg Indications: PAF, dyspnea, HTN, SOB, hyperlipidemia, pacemaker 2D Dimensions LVOT 2.02 cm (M/F) 1.5-2.5 LA Volume 40.70 mL LA Volume Index 18.84 mL/m2 (M/F) 16-34 M-Mode Dimensions RVDd 2.58 cm (0.9-2.6) LA Diam 3.16 cm (1.9-4.0) LVDd 4.71 cm (3.5-5.7) Ao Diam 2.40 cm (2.0-3.7) LVDs 3.68 cm (3.5-5.7) IVSd 1.02 cm (0.6-1.1) PWd 0.87 cm (0.6-1.1) EF (Teich) 44.20% FS 21.90% EDV (Teich) 102.90 mL ESV (Teich) 57.40 mL LV Diastology E Decel Time 173.00 (160-240 msec) E/A Ratio 0.7 MED E' 7.80 (< 7 cm/sec) E'/MED E' Ratio 6.76 (>14) LAT E' 8.10 (<10 cm/sec) E/LAT E' Ratio 6.51 (>14) Mitral Valve MV E Max Yonny. 53.00 (40-130 cm/s) MV A Velocity 76.00 (40-130 cm/s) E/A Ratio 0.70 MV Decel. Time 173.00 (160-240 ms) MV PHT 51.00 ms Tricuspid Valve TR P. Velocity 243.00 cm/s RAP Estimate 15.00 mmHg RVSP 38.60 mmHg Left Ventricle Left atrium is mildly enlarged, left ventricle is normal size mild concentric left ventricular hypertrophy, estimated ejection fraction 55% with no regional wall motion abnormality, grade 1 diastolic dysfunction seen without tissue Doppler evidence of raise left atrial pressure. Right Ventricle Right atrium and right ventricle are mildly enlarged with normal contractility, pacemaker lead seen in right ventricle. Aortic Valve Aortic valve is minimally thickened and fibrosed there is no aortic stenosis or aortic insufficiency. Mitral Valve Mitral valve is grossly normal, there is trace mitral regurgitation. Tricuspid Valve Tricuspid grossly normal, there is trace tricuspid regurgitation, calculated right ventricular systolic pressure 36 mmHg. Pulmonic Valve Pulmonic valve is poorly visualized. Great Vessels Aortic root is normal size. Inferior vena cava is poorly visualized. Pericardium No significant pericardial effusion noted. Conclusion 1. Mild biatrial lodgment, normal left ventricular size, mild concentric left ventricular hypertrophy, estimated ejection fraction 55% with no regional wall motion abnormality, grade 1 diastolic dysfunction seen without tissue Doppler evidence of raise left atrial pressure. 2. Mildly enlarged right ventricle with normal contractility. 3. Trace mitral and tricuspid regurgitation. Calculated right ventricular systolic pressure 36 mmHg. 4. No significant pericardial effusion. 5. Inferior vena cava is poorly visualized. Electronically signed by : Elvin Mckenna MD 01/01/2022 21:08:06
== END ==
PROVIDERS: PCP Internal Medicine; Visit Provider Physician Assistant
DX: E78.5 Hyperlipidemia, unspecified (principal); I10 Essential (primary) hypertension; I48.0 Paroxysmal atrial fibrillation; R06.00 Dyspnea, unspecified; R94.31 Abnormal electrocardiogram [ECG] [EKG]; T80.89XA Other complications following infusion, transfusion and therapeutic injection, initial encounter; Z95.0 Presence of cardiac pacemaker
CPT/HCPCS: 93306

== ENCOUNTER → 2022-01-08 10:09 | Outpatient (CLI) | payer MEDICARE, SELFPAY ==
[2022-01-08 10:41] LABS: Basophils # 0.1 K/mm3 (0-0.2); Basophils % 0.7 % (0.1-2.0); Eosinophils # 0.3 K/mm3 (0.0-0.4); Eosinophils % 3.6 % (0.1-12.0); Hemoglobin 13.9 g/dL (12.2-16.2); Lymphocytes # 3.5 K/mm3 (0.7-4.5); Lymphocytes % 42.4 % (10-50); Mean Corpuscular HGB Conc 33.9 g/dL (31.8-35.4); Mean Corpuscular Hemoglobin 30.7 pg (27.0-31.2); Mean Corpuscular Volume 90.6 fl (81-99); Mean Platelet Volume 7.5 fl (7.4-10.4); Monocytes # 0.6 K/mm3 (0.1-1.0); Monocytes % 6.6 % (1.7-9.3); Neutrophils # 3.9 K/mm3 (1.8-7.8); Neutrophils % 46.7 % (37.0-80.0); Platelet Count 235 K/mm3 (142-424); Red Blood Count 4.52 M/mm3 (4.20-5.40); Red Cell Distribution Width 13.4 % (11.5-17.5); White Blood Count 8.3 K/mm3 (4.8-10.8)
[2022-01-08 11:14] LABS: Anion Gap 8.4 mEq/L (5-15); Blood Urea Nitrogen 24 mg/dl (7-17); Carbon Dioxide 28 mmol/L (22.0-30.0); Chloride 109 mmol/L (98-107); Estimated Glomerular Filt Rate 55 ml/min (>60); GFR (African American) 66 ML/MIN (>60); Glucose 107 mg/dl (74-100); Potassium 4.4 mmoL/L (3.5-5.1); Sodium 141 mmol/L (136-145)
== END ==
PROVIDERS: PCP Internal Medicine; Visit Provider Nurse Practitioner
DX: I10 Essential (primary) hypertension (principal); I20.8 Other forms of angina pectoris; I48.0 Paroxysmal atrial fibrillation; Z95.0 Presence of cardiac pacemaker; I63.9 Cerebral infarction, unspecified; Z01.812 Encounter for preprocedural laboratory examination; Z20.822 Contact with and (suspected) exposure to COVID-19
CPT/HCPCS: 36415; 80048; 85025; C9803; U0003; U0005

== ENCOUNTER 2022-01-10 08:21 | Day surgery (SDC) | payer MEDICARE, SELFPAY ==
[2022-01-10] VITALS (11 sets, daily range): BP systolic 123–163; BP diastolic 70–94; PULSE 70–71; RESP 18–20; O2SAT 95–98; BMI 27.6
--- NOTE | 2022-01-10 07:37 | IR_ITS ---
APPROVED REPORT Patient Location: Outpatient Fashion Supervisor: KYLAH Yo RT (R) PROCEDURES Left heart catheterization Left ventriculogram Selective coronary angiogram INDICATION Persistent angina pectoris Informed consent was obtained prior to the procedure. COMPLICATIONS None Estimated Blood Loss: Less than 10mls TECHNIQUE One percent lidocaine used to anesthetize the right anterior aspect of the wrist. The right radial artery was accessed via the Seldinger technique. A 6 Divehi sheath was placed in the right radial artery. 2.5 mg of verapamil, 800 mcg of nitroglycerin, 1mg Lidocaine and 5000 U Heparin were given through the arterial sheath. The papa catheter was also used to perform left heart catheterization, left ventriculogram and selective coronary angiogram. At the end of the procedure the sheath was removed good hemostasis was achieved using Traclet band, patient was transferred to the postop holding area in stable condition. ANGIOGRAPHIC RESULTS The left main artery Normal The left anterior descending artery Has proximal 30% stenoses with additional mid vessel 30% stenosis The circumflex artery There is nondominant gives rise to a large ramus intermedius which has a proximal concentric 40% stenosis. The circumflex artery itself has 10% luminal regularities The right coronary artery Large and dominant and has a proximal 30% stenosis with the entire mid portion being diffusely 20% stenosed The KENYON ventriculogram reveals Normal 65% The left ventricular end-diastolic pressure 25 mmHg IMPRESSION Mild to moderate coronary artery disease as described above Normal ejection fraction Elevated LVEDP consistent with diastolic dysfunction PLAN 1. Maximize antianginals 2. Medical management for coronary artery disease 3. LDL less than 55 to be achieved with high intensity statin 4. Treatment of diastolic dysfunction Electronically signed by : Ramana Boss MD 01/10/2022 11:10:39
== END 2022-01-10 13:38 | disposition home or self-care (01) ==
LOC: CATHLAB 08:22
PROVIDERS: PCP Internal Medicine; Visit Provider Internal Medicine
DX: I10 Essential (primary) hypertension (principal); I48.0 Paroxysmal atrial fibrillation; Z95.0 Presence of cardiac pacemaker; I25.110 Atherosclerotic heart disease of native coronary artery with unstable angina pectoris; R94.39 Abnormal result of other cardiovascular function study; Z79.899 Other long term (current) drug therapy
CPT/HCPCS: 93458; 99152; C1725; C1769; J1644; Q9967

== ENCOUNTER → 2022-01-25 10:00 | Outpatient (CLI) | payer MEDICARE, SELFPAY ==
[2022-01-25 11:14] LABS: Anion Gap 11.4 mEq/L (5-15); Blood Urea Nitrogen 26 mg/dl (7-17); Calcium 10.5 mg/dl (8.4-10.2); Carbon Dioxide 27 mmol/L (22.0-30.0); Chloride 106 mmol/L (98-107); Estimated Glomerular Filt Rate 40 ml/min (>60); GFR (African American) 49 ML/MIN (>60); Glucose 101 mg/dl (74-100); Magnesium 1.5 mg/dl (1.6-2.3); Potassium 4.4 mmoL/L (3.5-5.1); Sodium 140 mmol/L (136-145)
== END ==
PROVIDERS: PCP Internal Medicine; Visit Provider Nurse Practitioner
DX: I10 Essential (primary) hypertension (principal)
CPT/HCPCS: 36415; 80048; 83735

== ENCOUNTER 2022-03-15 16:26 | Observation (INO) | payer MEDICARE, SELFPAY ==
[2022-03-15] VITALS (15 sets, daily range): BP systolic 119–186; BP diastolic 70–96; PULSE 65–71; RESP 13–20; TEMP 36.4–36.7; O2SAT 95–100; BMI 27.8; BMI 27.7
--- NOTE | 2022-03-15 16:23 | ECG_ITS ---
APPROVED REPORT Exam: Resting ECG HR:70 bpm ECG Measurements Heart Rate 70 AXES SD 208 P 122 QRSd 101 QRS -35 QT 416 T 64 QTc 436 Conclusion ELECTRONIC ATRIAL PACEMAKER LEFT AXIS DEVIATION [QRS AXIS < -30] LOW QRS VOLTAGE IN PRECORDIAL LEADS [QRS DEFLECTION < 1.0 mV IN CHEST LEADS] ABNORMAL ECG UNCONFIRMED REPORT Electronically signed by : Timoteo Winkler MD 03/16/2022 16:05:02
--- NOTE | 2022-03-15 16:26 | ECG_ITS ---
APPROVED REPORT Exam: Resting ECG HR:69 bpm ECG Measurements Heart Rate 69 AXES SC 204 P 138 QRSd 104 QRS -31 QT 423 T 65 QTc 443 Conclusion ELECTRONIC ATRIAL PACEMAKER LEFT AXIS DEVIATION [QRS AXIS < -30] LOW QRS VOLTAGE IN PRECORDIAL LEADS [QRS DEFLECTION < 1.0 mV IN CHEST LEADS] ABNORMAL ECG UNCONFIRMED REPORT Electronically signed by : Timoteo Winkler MD 03/16/2022 16:04:57
--- NOTE | 2022-03-15 16:31 | XR_ITS ---
PROCEDURE INFORMATION: Exam: XR Chest Exam date and time: 03/15/2022 4:44 PM Age: 71 years old Clinical indication: Other: Dizzy; Additional info: Dizziness TECHNIQUE: Imaging protocol: Radiologic exam of the chest. Views: 1 view. COMPARISON: CR XR CHEST PORTABLE 07/04/2020 3:26 PM FINDINGS: Tubes, catheters and devices: Transvenous pacemaker leads are unchanged in position. Lungs: Unremarkable. No consolidation. Pleural spaces: Unremarkable. No pleural effusion. No pneumothorax. Heart/Mediastinum: Unremarkable. No cardiomegaly. Bones/joints: Unremarkable. IMPRESSION: No acute findings.
[2022-03-15 16:45] LABS: Basophils # 0.2 K/mm3 (0-0.2); Basophils % 2.1 % (0.1-2.0); Eosinophils # 0.4 K/mm3 (0.0-0.4); Eosinophils % 3.2 % (0.1-12.0); Hematocrit 45.2 % (37.0-47.0); Hemoglobin 15.4 g/dL (12.2-16.2); Lymphocytes # 3.7 K/mm3 (0.7-4.5); Lymphocytes % 33.1 % (10-50); Mean Corpuscular HGB Conc 34.1 g/dL (31.8-35.4); Mean Corpuscular Hemoglobin 31.8 pg (27.0-31.2); Mean Corpuscular Volume 93.1 fl (81-99); Monocytes # 0.8 K/mm3 (0.1-1.0); Monocytes % 7.2 % (1.7-9.3); Neutrophils # 6.1 K/mm3 (1.8-7.8); Neutrophils % 54.3 % (37.0-80.0); Platelet Count 336 K/mm3 (142-424); Red Blood Count 4.85 M/mm3 (4.20-5.40); Red Cell Distribution Width 14.4 % (11.5-17.5); White Blood Count 11.2 K/mm3 (4.8-10.8)
[2022-03-15 16:48] LABS: Chloride 103 mmol/L (98-107); Potassium 4.2 mmoL/L (3.5-5.1); Sodium 141 mmol/L (136-145)
[2022-03-15 16:50] LABS: Alanine Aminotransferase 27 U/L (12-78); Aspartate Amino Transferase 39 U/L (14-36); Blood Urea Nitrogen 34 mg/dl (7-17); Creatinine Clearance Estimated 50 mL/min (50-200); Estimated Glomerular Filt Rate 34 ml/min (>60); GFR (African American) 41 ML/MIN (>60); Lipase 135 U/L (23-300)
[2022-03-15 16:51] LABS: Albumin Level 4.6 g/dl (3.5-5.0); Albumin/Globulin Ratio 1.5 (1.1-1.8); Alkaline Phosphatase 170 U/L (38-126); Anion Gap 16.2 mEq/L (5-15); Bilirubin,Total 0.6 mg/dl (0.2-1.3); Calcium 10.2 mg/dl (8.4-10.2); Carbon Dioxide 26 mmol/L (22.0-30.0); Globulin 3.1 g/dL (1.3-3.2); Glucose 101 mg/dl (74-100); Total Protein,Serum 7.7 g/dl (6.3-8.2)
[2022-03-15 17:05] LABS: Troponin I < 0.01 ng/ml (0.00-0.034)
--- NOTE | 2022-03-15 17:52 | HMH.EDGENADL ---
Discharge Plan Disposition Patient Disposition: Admitted as Observation Condition: Fair Clinical Impressions Clinical Impression: Syncope and collapse, Diarrhea, SANDY (acute kidney injury), Acute dehydration Discharge ED Provider: Markel Guevara General Adult HPI General Chief complaint: Shortness of Breath/Dyspnea Stated complaint: dizziness Time Seen by Provider: 03/15/22 18:00 Mode of Arrival: Wheelchair Source of Information: Relative Limitations: No Limitations History of Present Illness HPI narrative: Patient states that she has felt generally weak and especially weak in the legs for the past 2 days. She was nauseated today, went to the bathroom and had diarrhea x1 without blood, then had a syncopal episode. Afterwards she complained a lot of upper abdominal discomfort. Now says she has mild left upper quadrant pain. No chest pain. She is always short of breath, no recent change. No fever. No vomiting. States that she has had constipation for the past couple of months due to a new medication, this was her first episode of diarrhea. Her last stool softener dose for constipation was Friday night, 2 days ago. No enemas or laxatives taken. Related Data Home Medications Medication Instructions Recorded Confirmed carvedilol 25 mg tablet 25 mg PO DAILY beta lexie 90 days 05/29/18 01/17/22 hydrochlorothiazide 25 mg tablet 25 mg PO DAILY blood pressure 90 05/29/18 01/17/22 days levothyroxine 100 mcg tablet 100 mcg PO DAILY thyroid 90 days 05/29/18 01/17/22 simvastatin 40 mg tablet 20 mg PO QODHS Cholesterol 90 days 05/29/18 01/17/22 cetirizine 10 mg tablet 10 mg PO DAILY allergies 07/25/21 01/17/22 famotidine 20 mg tablet 20 mg PO DAILY GERD 07/25/21 01/17/22 lactobacillus combination no.9 4 4,000 mmu cells PO DAILY probiotic 07/25/21 01/17/22 billion cell capsule (Adult 50 Plus Probiotic) naproxen 500 mg tablet 500 mg PO DAILY Arthritis 07/25/21 01/17/22 apixaban 5 mg tablet 5 mg PO BID Blood thinner 10/18/21 01/17/22 diltiazem HCl 180 mg 180 mg PO DAILY afib 10/18/21 01/17/22 capsule,extended release 24 hr propafenone 300 mg tablet 300 mg PO Q8H PRN ARRYTHMIA 12/27/21 01/17/22 Previous Rx's Medication Instructions Recorded ranolazine 500 mg tablet,extended 500 mg PO BID #60 tabs 01/17/22 release,12 hr (Ranexa) Allergies Allergy/AdvReac Type Severity Reaction Status Date / Time Latex, Natural Rubber Allergy Severe Difficulty Verified 01/17/22 10:04 Breathing amoxicillin [From AUGMENTIN] Allergy Unknown Verified 01/17/22 10:04 clavulanic acid Allergy Unknown Verified 01/17/22 10:04 [From AUGMENTIN] fentanyl [FENTANYL] Allergy Unknown Difficult Verified 01/17/22 10:04 to awake levofloxacin [From LEVAQUIN] Allergy Unknown Verified 01/17/22 10:04 minocycline [MINOCYCLINE] Allergy Unknown Verified 01/17/22 10:04 propofol [PROPOFOL] Allergy Unknown UNABLE TO Verified 01/17/22 10:04 WAKE UP quinidine [QUINIDINE] Allergy Unknown FAMILY HX Verified 01/17/22 10:04 OF HEART STOPPING-PT REFUSES TO TAKE Sulfa (Sulfonamide Allergy Unknown ITCHING, Verified 01/17/22 10:04 Antibiotics) HIVES, [SULFA (SULFONAMIDE ORAL ANTIBIOTICS)] SWELLING PFSH PFSH Social History Smoking Status: Never smoker alcohol intake: never substance use type: denies use current occupational status: retired Travel in the last 8 weeks: Inside the [place] household members: none housing: house current occupational exposures/hazards: No caffeine: Yes ROS Obtained: Yes Systems reviewed as appropriate & no additional complaints except as documented Constitutional Constitutional: Denies fever(s), Denies headache(s) and Reports weakness ENT Ears, Nose, Mouth, and Throat: Denies headache(s), Denies nasal discharge and Denies sore throat Cardiovascular Cardiovascular: Denies chest pain and Reports syncope Respiratory Respiratory: Reports shor
[2022-03-15 18:22] LABS: Lactic Acid 1.4 mmol/L (0.7-2.1)
--- NOTE | 2022-03-15 18:29 | CT_ITS ---
PROCEDURE INFORMATION: Exam: CT Abdomen And Pelvis Without Contrast Exam date and time: 03/15/2022 6:33 PM Age: 71 years old Clinical indication: Abdominal pain; Generalized; Additional info: Abdo pain constipation TECHNIQUE: Imaging protocol: Computed tomography of the abdomen and pelvis without contrast. Radiation optimization: All CT scans at this facility use at least one of these dose optimization techniques: automated exposure control; mA and/or kV adjustment per patient size (includes targeted exams where dose is matched to clinical indication); or iterative reconstruction. COMPARISON: CT ABDOMEN PELVIS WO CON 11/12/2021 10:57 AM FINDINGS: Liver: 1.7 cm low-density mass in the anterior segment of the right hepatic lobe seen on image 20, series 3. Subcentimeter left hepatic lobe cyst. Gallbladder and bile ducts: Cholecystectomy. Pancreas: Normal. No ductal dilation. Spleen: Normal. No splenomegaly. Adrenal glands: Normal. No mass. Kidneys and ureters: Bilateral nephrolithiasis. The largest stone is located in the right kidney measuring 1.2 x 0.6 cm. Stomach and bowel: Unremarkable. No obstruction. No mucosal thickening. Appendix: No evidence of appendicitis. Intraperitoneal space: Unremarkable. No free air. No significant fluid collection. Vasculature: Mild atherosclerotic changes are seen within the abdominal aorta and branch vasculature without evidence of aneurysm. Lymph nodes: Unremarkable. No enlarged lymph nodes. Urinary bladder: Unremarkable as visualized. Reproductive: Hysterectomy. Bones/joints: Unremarkable. No acute fracture. Soft tissues: Unremarkable. IMPRESSION: 1. Bilateral nephrolithiasis. 2. 1.7 cm low-density right hepatic lobe mass which adequately characterized on this noncontrast exam. Recommend right upper quadrant ultrasound.
[2022-03-15 19:28] LABS: Microscopic, Urine URINE MICROSCOPIC (MICROSCOPIC)
[2022-03-15 19:31] LABS: Appearance,Urine CLEAR (Clear); Bilirubin,Urine Negative (Negative); Blood, Urine Negative (Negative); Color,Urine YELLOW (Yellow); Glucose,Urine (UA) Negative (Negative); Ketones,Urine Negative (Negative); Leukocyte Esterase,Urine Negative (Negative); Nitrate,Urine Negative (Negative); PH,Urine 6.5 (5.0-8.5); Protein,Urine Negative (Negative); Urobilinogen,Urine 0.2 EU/dl (0.2)
[2022-03-15 19:47] LABS: Bacteria,Urine Trace /lpf; WBC,Urine Occasional #/hpf (0-3)
--- NOTE | 2022-03-15 20:07 | PC.NURSE ---
Dr. Kalia diaz
--- NOTE | 2022-03-15 20:09 | PC.NURSE ---
speaking with Dr. Motta
[2022-03-15 20:22] LABS: Coronavirus 19, PCR Not Detected (NotDetected); Influenza A, PCR Not Detected (NotDetected); Influenza B, PCR Not Detected (NotDetected)
--- NOTE | 2022-03-15 20:38 | PC.NURSE ---
PT given crackers and water per request
[2022-03-15 20:55] LABS: Thyroid Stimulating Hormone 2.21 uIU/mL (0.465-4.68)
[2022-03-15 21:02] LABS: Troponin I < 0.01 ng/ml (0.00-0.034)
--- NOTE | 2022-03-15 22:27 | PC.NURSE ---
Report called to GLORY Collado.
--- NOTE | 2022-03-15 22:32 | PC.NURSE ---
PT [id number] TO FLOOR VIA WHEELCHIAR AT THIS TIME
[2022-03-15 23:24] LABS: Troponin I < 0.01 ng/ml (0.00-0.034)
[2022-03-16] VITALS (8 sets, daily range): BP systolic 107–121; BP diastolic 52–70; PULSE 70–72; RESP 16–20; TEMP 36.4–36.6; O2SAT 96–99
--- NOTE | 2022-03-16 06:06 | PC.NURSE ---
Shift summary: Pt aox4. Pt has not voiced any c/o to staff thus far. Pt has been very weak and takes multiple rest periods when ambulating to BR. Pt states she feels very tired and groggy. Vital signs WNL. Pt has worn her CPAP from home t/o night. Call light within reach.
[2022-03-16 06:56] LABS: Chloride 111 mmol/L (98-107); Potassium 4.3 mmoL/L (3.5-5.1); Sodium 141 mmol/L (136-145)
[2022-03-16 06:59] LABS: Anion Gap 10.3 mEq/L (5-15); Blood Urea Nitrogen 25 mg/dl (7-17); Calcium 8.8 mg/dl (8.4-10.2); Carbon Dioxide 24 mmol/L (22.0-30.0); Creatinine Clearance Estimated 58 mL/min (50-200); Estimated Glomerular Filt Rate 40 ml/min (>60); GFR (African American) 49 ML/MIN (>60); Glucose 103 mg/dl (74-100)
--- NOTE | 2022-03-16 09:10 | P.CONPHA_ITS ---
[facility] Pharmacy VTE Monitoring Patient Demographics Admission date: 03/15/22 Report Date: 03/16/22 Time: 09:10 Patient Allergies Latex, Natural Rubber Allergy (Severe, Verified 01/17/22 10:04) Difficulty Breathing amoxicillin [From AUGMENTIN] Allergy (Unknown, Verified 01/17/22 10:04) clavulanic acid [From AUGMENTIN] Allergy (Unknown, Verified 01/17/22 10:04) fentanyl [FENTANYL] Allergy (Unknown, Verified 01/17/22 10:04) Difficult to awake levofloxacin [From LEVAQUIN] Allergy (Unknown, Verified 01/17/22 10:04) minocycline [MINOCYCLINE] Allergy (Unknown, Verified 01/17/22 10:04) propofol [PROPOFOL] Allergy (Unknown, Verified 01/17/22 10:04) UNABLE TO WAKE UP quinidine [QUINIDINE] Allergy (Unknown, Verified 01/17/22 10:04) FAMILY HX OF HEART STOPPING-PT REFUSES TO TAKE Sulfa (Sulfonamide Antibiotics) [SULFA (SULFONAMIDE ANTIBIOTICS)] Allergy (Unknown, Verified 01/17/22 10:04) ITCHING, HIVES, ORAL SWELLING Height: 1.83 m Weight: 92.924 kg Current Active Problems (Updated 03/15/22 @ 23:19 by Heaven Wyatt RN) Syncope and collapse (Acute) Diarrhea (Acute) SANDY (acute kidney injury) (Acute) Acute dehydration (Acute) VTE Risk Labs: VTE Related Lab Results Hgb 15.4 g/dL (12.2-16.2) 03/15/22 16:15 Hct 45.2 % (37.0-47.0) 03/15/22 16:15 Plt Count 336 K/mm3 (142-424) 03/15/22 16:15 BUN 25 mg/dl (7-17) H D 03/16/22 06:39 Creatinine 1.30 mg/dl (0.52-1.04) H 03/16/22 06:39 Estimated Creat Clear 58 mL/min (50-200) 03/16/22 06:39 Prophylaxis VTE Prophylaxis Ordered?: Yes Types of VTE Prophylaxis: Pharmacological Pharmacologic Type: Other (ELIQUIS)
--- NOTE | 2022-03-16 09:10 | HMH.PHAINT1 ---
Pharmacy Intervention Comments: MEDICATION RECONCILIATION COMPLETED ON PATIENT USING EXTERNAL FILL HISTORY FROM PHARMACY. -SAYRA DUBON, ROBYND
--- NOTE | 2022-03-16 11:38 | EXP.HPDC ---
General Admission date:: 03/15/22 *Admission Date: 03/15/22 *Chief complaint: Syncope *History of present illness: Ms. Umana is a 71-year-old white female with a history of coronary artery disease, paroxysmal atrial fibrillation and permanent pacemaker who presented to the emergency room last evening after a syncopal episode at home. This was preceded by some nausea and an episode of diarrhea and while sitting on the commode she became lightheaded and passed out. She was alone at home at the time. She estimates she was out for perhaps 5 or 10 minutes. She then called a friend and was encouraged to come to the emergency room. 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 Since then, she has had progressive weakness, lightheadedness, headaches, constipation and intermittent nausea. All of the symptoms have been worse in the past 2 days. Work-up in the emergency room was remarkable primarily for elevated BUN and creatinine above her baseline. She feels like she has been drinking adequate fluids at home. CT scan of the abdomen showed a lesion on the liver which she has known about for several years and has been stable. She was also noted to have bilateral renal calculi which are not new. She has been admitted for IV fluids and further observation. [facility] Medical History (Updated 03/15/22 @ 23:19 by Heaven Wyatt RN) History of left heart catheterization (LHC) History of pacemaker Kidney stone Sleep apnea Surgical History (Updated 03/15/22 @ 23:19 by Heaven Wyatt RN) History of appendectomy History of cholecystectomy History of hysterectomy History of right heart catheterization (RHC) Social History (Updated 03/15/22 @ 23:16 by Heaven Wyatt RN) Smoking Status: Never smoker alcohol intake: never substance use type: denies use current occupational status: retired Travel in the last 8 weeks: Inside the [place] household members: none housing: house current occupational exposures/hazards: No caffeine: Yes Review of Systems Constitutional Constitutional: Denies anorexia, Reports fever(s), Reports headache(s), Denies poor appetite and Reports weakness Eyes Eyes: Reports system reviewed and no additional complaints, except as documented ENT Ears, Nose, Mouth, and Throat: Reports system reviewed and no additional complaints, except as documented and Reports headache(s) *Cardiovascular Cardiovascular: Denies chest pain, Denies dyspnea, Denies leg edema and Reports syncope *Respiratory Respiratory: Denies chest congestion, Denies cough and Denies dyspnea *Gastrointestinal Gastrointestinal: Reports change in stool character (constipation) *Genitourinary Genitourinary: Denies dysuria *Musculoskeletal Musculoskeletal: Reports muscle weakness and Denies numbness Integumentary/Breasts Skin/Breast: Denies change in pigmentation and Denies rash *Neurologic Neurologic: Reports headache(s), Denies numbness, Reports syncope and Reports weakness Exam Data for Last 24 hours Vital signs and Labs for Last 24 Hours: Temp Pulse Resp BP Pulse Ox 97.6 F 70 18 121/70 96 03/16/22 11:33 03/16/22 11:33 03/16/22 11:33 03/16/22 11:33 03/16/22 11:33 Laboratory Results - last 24 hr 03/15/22 16:15: WBC 11.2 H, RBC 4.85, Hgb 15.4, Hct 45.2, MCV 93.1, MCH 31.8 H, MCHC 34.1, RDW 14.4, Plt Count 336, MPV 8.0, Neut % (Auto) 54.3, Lymph % (Auto) 33.1, [place] % (Auto) 7.2, Eos % (Auto) 3.2, Baso % (Auto) 2.1 H, Neut # (Auto) 6.1, Lymph # (Auto) 3.7, [place] # (Auto) 0.8, Eos # (Auto) 0.4, Baso # (Auto) 0.2 03/15/22 16:15: Sodium 141, Potassium 4.2, Chloride 103, Carbon Dioxide 26, Anion Gap 16.2 H, BUN 34 H, Creatinine 1.50 H, Estimated Creat Clear 50, Estimated GFR 34 L, Est GFR ( Amer) 41 L, Glucose 101 H, Calcium 10.2, Total Bilirubin 0.6, AST 39 H, ALT 27, Alkaline Phosphatase 170 H, T
--- NOTE | 2022-03-18 13:23 | CARE MANAGER ---
Called to discuss post discharge status with patient. She states that she is feeling much better. She saw Dr. Wilson this morning. She was aware of the medication changes that were made at discharge. Encouraged her to fill out survey if she received one.
== END 2022-03-16 16:44 | disposition home or self-care (01) ==
LOC: ER 20:08 → 2ND 22:28
PROVIDERS: Admitting Provider Family Medicine; Emergency Provider Emergency Medicine; PCP Internal Medicine; Visit Provider Family Medicine
DX: E86.0 Dehydration (principal); Z79.899 Other long term (current) drug therapy; N17.9 Acute kidney failure, unspecified; R55 Syncope and collapse; E03.9 Hypothyroidism, unspecified; Z88.8 Allergy status to other drugs, medicaments and biological substances; Z95.0 Presence of cardiac pacemaker; Z79.01 Long term (current) use of anticoagulants; I49.5 Sick sinus syndrome; I25.10 Atherosclerotic heart disease of native coronary artery without angina pectoris; I48.0 Paroxysmal atrial fibrillation; Z20.822 Contact with and (suspected) exposure to COVID-19
CPT/HCPCS: G0378; 36415; 71045; 74176; 80048; 80053; 81001; 83605; 83690; 84443; 84484; 85025; 87040; 93005; 99285; C9803; U0003; U0005

== ENCOUNTER → 2022-03-18 11:49 | Outpatient (CLI) | payer MEDICARE, SELFPAY ==
[2022-03-18 14:58] LABS: Chloride 107 mmol/L (98-107); Potassium 4.3 mmoL/L (3.5-5.1); Sodium 141 mmol/L (136-145)
[2022-03-18 15:01] LABS: Anion Gap 16.3 mEq/L (5-15); Blood Urea Nitrogen 26 mg/dl (7-17); Carbon Dioxide 22 mmol/L (22.0-30.0); Estimated Glomerular Filt Rate 37 ml/min (>60); GFR (African American) 45 ML/MIN (>60)
[2022-03-18 15:02] LABS: Calcium 9.2 mg/dl (8.4-10.2); Glucose 92 mg/dl (74-100)
== END ==
PROVIDERS: PCP Internal Medicine; Visit Provider Internal Medicine
DX: R55 Syncope and collapse (principal); E86.0 Dehydration; N17.9 Acute kidney failure, unspecified
CPT/HCPCS: 80048

== ENCOUNTER → 2022-04-12 13:33 | Outpatient (CLI) | payer MEDICARE, SELFPAY ==
[2022-04-12 15:15] LABS: Erythrocyte Sedimentation Rate 24 mm/hr (0-30)
[2022-04-12 15:19] LABS: Basophils # 0.1 K/mm3 (0-0.2); Basophils % 1.1 % (0.1-2.0); Eosinophils # 0.4 K/mm3 (0.0-0.4); Eosinophils % 5.2 % (0.1-12.0); Hematocrit 41.3 % (37.0-47.0); Hemoglobin 13.6 g/dL (12.2-16.2); Lymphocytes # 2.6 K/mm3 (0.7-4.5); Lymphocytes % 32.6 % (10-50); Mean Corpuscular Hemoglobin 31.6 pg (27.0-31.2); Mean Corpuscular Volume 95.7 fl (81-99); Mean Platelet Volume 9.4 fl (7.4-10.4); Monocytes # 0.6 K/mm3 (0.1-1.0); Monocytes % 7.9 % (1.7-9.3); Neutrophils # 4.3 K/mm3 (1.8-7.8); Neutrophils % 53.2 % (37.0-80.0); Platelet Count 281 K/mm3 (142-424); Red Blood Count 4.31 M/mm3 (4.20-5.40); Red Cell Distribution Width 13.7 % (11.5-17.5)
[2022-04-12 15:51] LABS: Anion Gap 16.1 mEq/L (5-15); Blood Urea Nitrogen 23 mg/dl (7-17); Calcium 9.5 mg/dl (8.4-10.2); Carbon Dioxide 25 mmol/L (22.0-30.0); Chloride 106 mmol/L (98-107); Estimated Glomerular Filt Rate 49 ml/min (>60); GFR (African American) 59 ML/MIN (>60); Glucose 103 mg/dl (74-100); Potassium 4.1 mmoL/L (3.5-5.1); Sodium 143 mmol/L (136-145)
== END ==
PROVIDERS: PCP Internal Medicine; Visit Provider Internal Medicine
DX: E86.0 Dehydration (principal); I48.0 Paroxysmal atrial fibrillation; I10 Essential (primary) hypertension
CPT/HCPCS: 80048; 85025; 85651

== ENCOUNTER → 2022-04-22 10:24 | Outpatient (CLI) | payer MEDICARE, SELFPAY ==
[2022-04-22 12:18] LABS: Thyroid Stimulating Hormone 1.62 uIU/mL (0.465-4.68)
[2022-04-22 12:37] LABS: Vitamin B12 526 pg/mL (239-931)
[2022-04-22 14:05] LABS: Free T4 (Free Thyroxine) 1.33 ng/dl (0.78-2.19)
[2022-04-28 18:42] LABS: 1,25 Dihydroxy Vitamin D 46 pg/mL (.); 1,25-Dihydroxy, Vitamin D-2 <10 pg/mL (.); 1,25-Dihydroxy, Vitamin D-3 46 pg/mL (.)
== END ==
PROVIDERS: PCP Internal Medicine; Visit Provider Nurse Practitioner
DX: E78.5 Hyperlipidemia, unspecified (principal); I10 Essential (primary) hypertension; I25.10 Atherosclerotic heart disease of native coronary artery without angina pectoris; I48.0 Paroxysmal atrial fibrillation; R53.1 Weakness; R53.83 Other fatigue; Z95.0 Presence of cardiac pacemaker
CPT/HCPCS: 36415; 82607; 82652; 84439; 84443

== ENCOUNTER 2022-07-30 10:00 | Outpatient (RCR) | payer MEDICARE, SELFPAY | END 2022-07-30 10:05 | disposition home or self-care (01) | LOC: PT 10:00 | PROVIDERS: PCP Internal Medicine; Visit Provider Internal Medicine | DX: S76.912A Strain of unspecified muscles, fascia and tendons at thigh level, left thigh, initial encounter (principal) | CPT/HCPCS: 97010; 97033; 97035; 97110; 97140; 97163 ==

== ENCOUNTER → 2022-08-30 11:39 | Outpatient (CLI) | payer MEDICARE, SELFPAY ==
--- NOTE | 2022-08-30 11:44 | CT_ITS ---
FINAL REPORT TECHNIQUE: Axial images through the abdomen and pelvis were performed without contrast. This study was performed with techniques to keep radiation doses as low as reasonably achievable, (ALARA). Individualized dose reduction techniques using automated exposure control or adjustment of mA and/or kV according to the patient's size were employed. CLINICAL HISTORY: KIDNEY STONES COMPARISON: 03/15/2022 FINDINGS: ABDOMEN: There is mild scarring in the lung bases. The heart size is normal. Limited images of the liver are unremarkable. The patient is status post cholecystectomy. The spleen is normal. No adrenal mass is identified. The aorta is normal in caliber. There is no significant free fluid or adenopathy. There is a stone in the right renal pelvis measuring 13 mm. There are several, less than 3 mm nonobstructing left renal stones. There is a 6 mm increased attenuation focus in the mid left kidney which is nonspecific, may represent a hyperdense cyst. There is no hydronephrosis. PELVIS: The appendix is not identified. There is a moderate to large amount of retained stool throughout the colon. Moderate vascular calcification is identified. The patient is status post hysterectomy. The urinary bladder is unremarkable. There is no significant free fluid or adenopathy. IMPRESSION: Bilateral renal stones as detailed above. Reviewed, Interpreted and Dictated by Liborio Dee III, MD Transcribed by Katiana Flynn Authenticated and [facility]
== END ==
PROVIDERS: PCP Internal Medicine; Visit Provider Internal Medicine
DX: R10.9 Unspecified abdominal pain (principal); R31.9 Hematuria, unspecified
CPT/HCPCS: 74176

== ENCOUNTER → 2022-11-25 11:41 | Outpatient (CLI) | payer MEDICARE, SELFPAY ==
--- NOTE | 2022-11-25 11:46 | CT_ITS ---
FINAL REPORT CLINICAL HISTORY: KIDNEY STONES, L SIDE PAIN COMPARISON: 08/30/2022 FINDINGS: Axial CT images of the abdomen and pelvis were obtained without intravenous contrast. Coronal reformatted images were also obtained.This study was performed with techniques to keep radiation doses as low as reasonably achievable (ALARA). Individualized dose reduction techniques using automated exposure control or adjustment of mA and/or kV according to the patient's size were employed. Abdomen:The lung bases are clear. There is a stable 13 mm stone in the right renal pelvis. There are several nonobstructing left renal stones measuring up to 6 mm. No evidence of hydronephrosis. There is a stable high attenuation focus in the upper pole of the right kidney which may represent a cyst. The previously noted small hyperdense focus in the lower pole of the left kidney is not well visualized on this exam. There is a 20 mm mass in the right hepatic lobe which is nonspecific. This could be further evaluated with liver mass protocol CT or MRI. Post cholecystectomy. There is mild biliary ductal dilatation favored to be post cholecystectomy change. The spleen and pancreas have an unremarkable, unenhanced appearance. No mass or adenopathy is seen. No inflammatory process is identified. Pelvis: Post hysterectomy. There are several sigmoid diverticula noted. IMPRESSION: Right hepatic lobe mass, nonspecific. Could be further evaluated with liver mass protocol CT or MRI. Stable stone in the right renal pelvis and left renal stones. Reviewed, Interpreted and Dictated by Liborio Dee III, MD Transcribed by Pooja Trivedi Authenticated and [facility]
== END ==
PROVIDERS: PCP Internal Medicine; Visit Provider Internal Medicine
DX: R10.9 Unspecified abdominal pain (principal); N20.0 Calculus of kidney
CPT/HCPCS: 74176

== ENCOUNTER → 2022-12-31 17:10 | Outpatient (CLI) | payer MEDICARE, SELFPAY | PROVIDERS: PCP Internal Medicine; Visit Provider Internal Medicine | DX: N39.0 Urinary tract infection, site not specified (principal); B96.1 Klebsiella pneumoniae [K. pneumoniae] as the cause of diseases classified elsewhere | CPT/HCPCS: 87086; 87088; 87186 ==

== ENCOUNTER 2023-01-11 10:23 | Emergency (ER) | payer MEDICARE, SELFPAY ==
[2023-01-11 10:24] VITALS: BP 194/91; PULSE 73; RESP 20; TEMP 36.5; O2SAT 98; BMI 27.8
--- NOTE | 2023-01-11 10:29 | PC.NURSE ---
DR ALEXANDER AT BEDSIDE
--- NOTE | 2023-01-11 10:33 | XR_ITS ---
PROCEDURE INFORMATION: Exam: XR Right Knee Exam date and time: 01/11/2023 10:50 AM Age: 72 years old Clinical indication: Injury or trauma; Fall; Sprain or strain; Patella or knee; Right; Additional info: Fall, pain TECHNIQUE: Imaging protocol: Radiologic exam of the right knee. Views: 3 views. COMPARISON: CR XR FEMUR RT 2V 01/11/2023 10:48 AM FINDINGS: Bones/joints: The patient is post total knee arthroplasty without evidence for hardware complication. Soft tissues: Normal. IMPRESSION: Postsurgical change right knee.
--- NOTE | 2023-01-11 10:33 | XR_ITS ---
PROCEDURE INFORMATION: Exam: XR Right Femur Exam date and time: 01/11/2023 10:48 AM Age: 72 years old Clinical indication: Injury or trauma; Fall; Sprain or strain; Thigh or upper leg; Right; Additional info: Fall, pain TECHNIQUE: Imaging protocol: Radiologic exam of the right femur. Views: 2 views. COMPARISON: CR XR HIP RT 2-3V W/PELVIS 01/11/2023 10:43 AM FINDINGS: Bones/joints: The patient is post total knee arthroplasty without evidence for hardware complication. Soft tissues: Unremarkable. IMPRESSION: Postsurgical change, right femur.
--- NOTE | 2023-01-11 10:33 | XR_ITS ---
PROCEDURE INFORMATION: Exam: XR Right Hip Exam date and time: 01/11/2023 10:43 AM Age: 72 years old Clinical indication: Injury or trauma; Fall; Sprain or strain; Right; Groin and hip; Additional info: Fall, pain, patient states chair broke and she fell TECHNIQUE: Imaging protocol: Radiologic exam of the right hip. Views: 2 or 3 views hip with pelvis when performed. COMPARISON: CT ABDOMEN PELVIS WO CON 11/25/2022 11:47 AM FINDINGS: Bones/joints: There is degenerative joint space narrowing, endplate sclerosis and osteophytosis about the right hip. Soft tissues: Unremarkable. IMPRESSION: Degenerative change, pelvis and right hip.
--- NOTE | 2023-01-11 10:35 | HMH.EDGENADL ---
Discharge Plan Disposition Patient Disposition: Home, Self-Care Prescriptions Prescriptions: No Action cetirizine 10 mg tablet 10 mg PO DAILY famotidine 20 mg tablet 20 mg PO HS naproxen 500 mg tablet 500 mg PO BIDP PRN (Reason: Pain) Adult 50 Plus Probiotic 4 billion cell capsule 4,000 mmu cells PO DAILY Rx Instructions: administer with a meal cephalexin 500 mg capsule 500 mg PO Q6H Patient Comments: TAKE 1 CAPSULE BY MOUTH EVERY 6 HOURS FOR 7 DAYS simvastatin 40 mg tablet 40 mg PO HS 90 Days hydrochlorothiazide 25 mg tablet 25 mg PO DAILY 90 Days levothyroxine 100 mcg tablet 100 mcg PO DAILY 90 Days carvedilol 25 mg tablet 25 mg PO BID 90 Days diltiazem HCl 180 MG capsule,extended release 24hr 180 mg PO DAILY apixaban 5 MG tablet 5 mg PO BID Referrals Follow up/Referrals: Serge Wilson MD [Primary Care Provider] - See instructions Bret Prieto DO [Staff Physician] - See instructions (1-2 weeks if you are not improving ) Clinical Impressions Clinical Impression: Hip strain, Muscle strain of right thigh, Muscle strain of right knee Discharge ED Provider: Tyler Drake General Adult HPI General Chief complaint: PAIN Stated complaint: AO [id number] back hip pain Time Seen by Provider: 01/11/23 10:26 History of Present Illness HPI narrative: Patient is a 72-year-old female here with right hip thigh and knee pain after a fall 1 week ago. She states she was sitting on a chair and it went out from under her and that she was fine without any symptoms for several days but then this past Friday which was a few days ago she began having significant worsening of her pain as she went outside began to work particularly mowing and weed eating. Since that time her pain is significantly worsened is localized primarily in the right lower extremity no swelling erythema warmth fevers chills etc. She is able to bear weight just with pain. She is taken some Tylenol and Aspercreme at home she is avoided NSAIDs as she is on Eliquis. Related Data Home Medications Medication Instructions Recorded Confirmed carvedilol 25 mg tablet 25 mg PO BID Hypertension 90 days 05/29/18 12/09/22 hydrochlorothiazide 25 mg tablet 25 mg PO DAILY Fluid 90 days 05/29/18 12/09/22 levothyroxine 100 mcg tablet 100 mcg PO DAILY thyroid 90 days 05/29/18 12/09/22 simvastatin 40 mg tablet 40 mg PO HS Cholesterol 90 days 05/29/18 12/09/22 cetirizine 10 mg tablet 10 mg PO DAILY allergies 07/25/21 12/09/22 famotidine 20 mg tablet 20 mg PO HS GERD 07/25/21 12/09/22 lactobacillus combination no.9 4 4,000 mmu cells PO DAILY probiotic 07/25/21 12/09/22 billion cell capsule (Adult 50 Plus Probiotic) naproxen 500 mg tablet 500 mg PO BIDP PRN Pain 07/25/21 12/09/22 apixaban 5 mg tablet 5 mg PO BID AFIB 10/18/21 12/09/22 diltiazem HCl 180 mg 180 mg PO DAILY afib 10/18/21 12/09/22 capsule,extended release 24 hr cephalexin 500 mg capsule 500 mg PO Q6H 12/09/22 12/09/22 Allergies Allergy/AdvReac Type Severity Reaction Status Date / Time Latex, Natural Rubber Allergy Severe Difficulty Verified 12/09/22 10:14 Breathing amoxicillin [From AUGMENTIN] Allergy Unknown Verified 12/09/22 10:14 clavulanic acid Allergy Unknown Verified 12/09/22 10:14 [From AUGMENTIN] fentanyl [FENTANYL] Allergy Unknown Difficult Verified 12/09/22 10:14 to awake levofloxacin [From LEVAQUIN] Allergy Unknown Verified 12/09/22 10:14 minocycline [MINOCYCLINE] Allergy Unknown Verified 12/09/22 10:14 propofol [PROPOFOL] Allergy Unknown UNABLE TO Verified 12/09/22 10:14 WAKE UP quinidine [QUINIDINE] Allergy Unknown FAMILY HX Verified 12/09/22 10:14 OF HEART STOPPING-PT REFUSES TO TAKE Sulfa (Sulfonamide Allergy Unknown ITCHING, Verified 12/09/22 10:14 Antibiotics) HIVES, [SULFA (SULFONAMIDE ORAL ANTIBIOTICS)] SWELLING ranolazine [From Ranexa] AdvRea
--- NOTE | 2023-01-11 10:50 | PC.NURSE ---
PT TO CT
--- NOTE | 2023-01-11 10:55 | PC.NURSE ---
pt gone to radiology.
[2023-01-11 11:01] LABS: Basophils # 0.1 K/mm3 (0-0.2); Basophils % 0.7 % (0.1-2.0); Eosinophils # 0.5 K/mm3 (0.0-0.4); Eosinophils % 4.9 % (0.1-12.0); Hematocrit 41.8 % (37.0-47.0); Hemoglobin 13.8 g/dL (12.2-16.2); Lymphocytes # 3.2 K/mm3 (0.7-4.5); Lymphocytes % 33.3 % (10-50); Mean Corpuscular Hemoglobin 30.4 pg (27.0-31.2); Mean Corpuscular Volume 92.3 fl (81-99); Monocytes # 0.6 K/mm3 (0.1-1.0); Monocytes % 5.9 % (1.7-9.3); Neutrophils # 5.3 K/mm3 (1.8-7.8); Neutrophils % 55.2 % (37.0-80.0); Platelet Count 273 K/mm3 (142-424); Red Blood Count 4.52 M/mm3 (4.20-5.40); Red Cell Distribution Width 13.7 % (11.5-17.5); White Blood Count 9.6 K/mm3 (4.8-10.8)
[2023-01-11 11:16] LABS: Alanine Aminotransferase 22 U/L (12-78); Albumin/Globulin Ratio 1.2 (1.1-1.8); Alkaline Phosphatase 165 U/L (38-126); Anion Gap 12.6 mEq/L (5-15); Aspartate Amino Transferase 26 U/L (14-36); Bilirubin,Total 0.5 mg/dl (0.2-1.3); Blood Urea Nitrogen 20 mg/dl (7-17); Carbon Dioxide 27 mmol/L (22.0-30.0); Chloride 108 mmol/L (98-107); Creatine Kinase 45 U/L (30-135); Creatinine Clearance Estimated 68 mL/min (50-200); Estimated Glomerular Filt Rate 49 ml/min (>60); GFR (African American) 59 ML/MIN (>60); Globulin 3.4 g/dL (1.3-3.2); Glucose 138 mg/dl (74-100); Magnesium 1.5 mg/dl (1.6-2.3); Potassium 3.6 mmoL/L (3.5-5.1); Sodium 144 mmol/L (136-145); Total Protein,Serum 7.4 g/dl (6.3-8.2)
[2023-01-11 11:23] VITALS: BP 159/89; PULSE 70; RESP 20; O2SAT 99
--- NOTE | 2023-01-11 11:57 | PC.NURSE ---
rounded on patient, pillow placement under knee has helped with discomfort, no other needs at this time
[2023-01-11 12:30] VITALS: BP 157/82; PULSE 74; RESP 18; TEMP 36.6; O2SAT 99
== END 2023-01-11 12:30 | disposition home or self-care (01) ==
PROVIDERS: Emergency Provider Student in an Organized Health Care Education/Training Program; PCP Internal Medicine
DX: S76.011A Strain of muscle, fascia and tendon of right hip, initial encounter (principal); S76.911A Strain of unspecified muscles, fascia and tendons at thigh level, right thigh, initial encounter; S83.91XA Sprain of unspecified site of right knee, initial encounter; W07.XXXA Fall from chair, initial encounter; I48.91 Unspecified atrial fibrillation; G47.30 Sleep apnea, unspecified
CPT/HCPCS: 73502; 73552; 73562; 80053; 82550; 83735; 85025; 96374; 96375; 99285; J0131

== ENCOUNTER → 2023-02-10 12:31 | Outpatient (CLI) | payer MEDICARE, SELFPAY ==
[2023-02-10 14:00] LABS: Blood Urea Nitrogen 27 mg/dl (7-17); Estimated Glomerular Filt Rate 49 ml/min (>60); GFR (African American) 59 ML/MIN (>60)
== END ==
PROVIDERS: PCP Internal Medicine; Visit Provider Internal Medicine
DX: Z01.812 Encounter for preprocedural laboratory examination (principal); M25.551 Pain in right hip; M79.651 Pain in right thigh
CPT/HCPCS: 36415; 82565; 84520

== ENCOUNTER → 2023-02-11 06:57 | Outpatient (CLI) | payer MEDICARE, SELFPAY ==
--- NOTE | 2023-02-11 07:00 | CT_ITS ---
FINAL REPORT TECHNIQUE: Thin section axial CT images with coronal and sagittal reformats were performed. In addition 3D reconstructions of the right femur, hip, and knee were performed and evaluated. This study was performed with techniques to keep radiation doses as low as reasonably achievable (ALARA). Individualized dose reduction techniques using automated exposure control or adjustment of mA and/or kV according to the patient's size were employed. CLINICAL HISTORY: RIGHT HIP/THIGH PAIN AFTER FALL December. COMPARISON: None FINDINGS: CT RIGHT FEMUR: CT examination of the right femur was performed using coronal and sagittal reformats as well as 3D reconstruction. There is streak artifact present from the knee prosthesis in the distal femur. There is moderately advanced right hip joint space narrowing, with subchondral sclerosis and osteophytes. This is compatible with a moderately advanced osteoarthritis. No evidence of fracture or dislocation is identified. IMPRESSION: Moderately advanced osteoarthritis of the right hip as described. Knee prosthesis in the distal femur. Reviewed, Interpreted and Dictated by Silas Price MD Transcribed by Angela Carson Authenticated and [facility][1]
== END ==
PROVIDERS: PCP Internal Medicine; Visit Provider Internal Medicine
DX: M25.551 Pain in right hip (principal); M79.651 Pain in right thigh
CPT/HCPCS: 73701; Q9967

== ENCOUNTER → 2023-02-26 10:12 | Outpatient (CLI) | payer MEDICARE, SELFPAY ==
--- NOTE | 2023-02-26 10:15 | CA_ITS ---
FINAL REPORT TECHNIQUE: Multiple transverse and longitudinal images were performed of the right femoral-popliteal deep venous system with augmentation and compression maneuvers. CLINICAL HISTORY: PT FELL 6 WKS AGO, HAS HAD PAIN RIGHT GROIN AND KNEE SINCE,EDEMA RLE,PT HAS COMPLAINT OF PALPABLE KNOT IN POP FOSSA X SEVERAL DAYS COMPARISON: None FINDINGS: Right lower extremity duplex ultrasound demonstrates normal flow in the deep venous system. There is no abnormal echogenicity to suggest thrombus. There is normal compression and augmentation. There is a 3.4 x 2.6 cm hyperechoic nodule in the right popliteal fossa, possible lipoma. IMPRESSION: No evidence of right DVT. Possible lipoma right popliteal fossa Reviewed, Interpreted and Dictated by Liborio Dee III, MD Transcribed by Pooja Trivedi Authenticated and [facility]
== END ==
PROVIDERS: PCP Internal Medicine; Visit Provider Internal Medicine
DX: R60.0 Localized edema (principal); M79.604 Pain in right leg
CPT/HCPCS: 93971

== ENCOUNTER → 2023-03-12 10:06 | Outpatient (CLI) | payer MEDICARE, SELFPAY ==
--- NOTE | 2023-03-12 10:11 | XR_ITS ---
FINAL REPORT CLINICAL HISTORY: LEFT FOOT PAIN COMPARISON: 03/24/2020 FINDINGS: AP, oblique and lateral views of the left foot were obtained. There is no acute fracture or dislocation. There is mild multijoint degenerative change present. Soft tissues are normal. If pain persists would consider MRI for further evaluation. IMPRESSION: No acute osseous abnormality of the left foot. Reviewed, Interpreted and Dictated by Diana Atwood MD Transcribed by Angela Carson Authenticated and [facility]
== END ==
PROVIDERS: PCP Internal Medicine; Visit Provider Internal Medicine
DX: M79.672 Pain in left foot (principal)
CPT/HCPCS: 73630

== ENCOUNTER 2023-05-23 10:10 | Emergency (ER) | payer MEDICARE, SELFPAY ==
[2023-05-23] VITALS (12 sets, daily range): BP systolic 119–155; BP diastolic 62–94; PULSE 69–178; RESP 13–22; TEMP 36.3–36.7; O2SAT 96–99; BMI 27.8
[2023-05-23 10:46] LABS: Basophils # 0.1 K/mm3 (0-0.2); Basophils % 0.5 % (0.1-2.0); Eosinophils # 0.2 K/mm3 (0.0-0.4); Hematocrit 45.8 % (37.0-47.0); Hemoglobin 15.4 g/dL (12.2-16.2); Lymphocytes # 2.8 K/mm3 (0.7-4.5); Lymphocytes % 25.8 % (10-50); Mean Corpuscular HGB Conc 33.7 g/dL (31.8-35.4); Mean Corpuscular Hemoglobin 31.8 pg (27.0-31.2); Mean Corpuscular Volume 94.3 fl (81-99); Mean Platelet Volume 7.7 fl (7.4-10.4); Monocytes # 0.6 K/mm3 (0.1-1.0); Monocytes % 5.6 % (1.7-9.3); Neutrophils # 7.3 K/mm3 (1.8-7.8); Neutrophils % 66.1 % (37.0-80.0); Platelet Count 218 K/mm3 (142-424); Red Blood Count 4.86 M/mm3 (4.20-5.40); Red Cell Distribution Width 14.9 % (11.5-17.5)
[2023-05-23 10:47] LABS: Microscopic, Urine URINE MICROSCOPIC (MICROSCOPIC)
--- NOTE | 2023-05-23 10:50 | ECG_ITS ---
APPROVED REPORT Exam: Resting ECG HR:70 bpm ECG Measurements Heart Rate 70 AXES VT 210 P 112 QRSd 106 QRS -21 QT 410 T -6 QTc 431 Conclusion ELECTRONIC ATRIAL PACEMAKER LOW QRS VOLTAGE IN PRECORDIAL LEADS [QRS DEFLECTION < 1.0 mV IN CHEST LEADS] POSSIBLE ANTERIOR MYOCARDIAL INFARCTION , OF INDETERMINATE AGE [30 ms Q WAVE IN V3/V4, OR R < 0.2 mV IN V4] ABNORMAL ECG UNCONFIRMED REPORT Electronically signed by : Timoteo Winkler MD 05/24/2023 09:57:57
--- NOTE | 2023-05-23 10:51 | CT_ITS ---
FINAL REPORT CLINICAL HISTORY: abd pain/nausea x 1 wk, epigastric TTP COMPARISON: 11/25/2022 FINDINGS: CT OF THE ABDOMEN AND PELVIS WITH CONTRAST Axial CT images of the abdomen and pelvis were obtained after the administration of IV contrast. Coronal reformatted images were also obtained and reviewed.This study was performed with techniques to keep radiation doses as low as reasonably achievable (ALARA). Individualized dose reduction techniques using automated exposure control or adjustment of mA and/or kV according to the patient''s size were employed. Abdomen: The lung bases are clear. The heart is normal in size. There are several less than 1 cm hepatic cyst. There is a mass in the lateral right hepatic lobe measuring 25 x 25 mm, was 20 x 19 mm on prior noncontrast images. It is uncertain if this is slightly larger. There is also a mass posterior right hepatic lobe measuring 10 mm which does not appear to be a simple cyst. Post cholecystectomy. There is moderate biliary ductal dilatation. The spleen is unremarkable. No adrenal mass is present. The pancreas has an unremarkable appearance. There is a 13 mm stone in the right renal pelvis again noted. There are several smaller nonobstructing left renal stones. The aorta is normal in caliber. There is no free fluid or adenopathy. No mass or abnormal fluid collection is seen. Pelvis: The appendix is not well-visualized but there no secondary signs of acute appendicitis. The urinary bladder is unremarkable. Post hysterectomy. No inflammatory process is seen. There is no evidence of mass or adenopathy. There is no evidence of bowel obstruction. IMPRESSION: Likely worsening hepatic masses of uncertain etiology. Neoplastic involvement not excluded. This could be further evaluated with follow-up liver MRI. Nonobstructing renal stones and right renal pelvic stone. Reviewed, Interpreted and Dictated by Liborio Dee III, MD Transcribed by Pooja Trivedi Authenticated and [facility]
[2023-05-23 10:52] LABS: Appearance,Urine CLEAR (Clear); Bilirubin,Urine Negative (Negative); Blood, Urine Negative (Negative); Color,Urine YELLOW (Yellow); Glucose,Urine (UA) Negative (Negative); Ketones,Urine Negative (Negative); Leukocyte Esterase,Urine 1+ (Negative); Nitrate,Urine POSITIVE (Negative); Protein,Urine TRACE (Negative); Specific Gravity, Urine 1.025 (1.005-1.030); Urobilinogen,Urine 0.2 EU/dl (0.2)
[2023-05-23 11:02] LABS: Alanine Aminotransferase 26 U/L (12-78); Albumin Level 4.1 g/dl (3.5-5.0); Albumin/Globulin Ratio 1.4 (1.1-1.8); Alkaline Phosphatase 149 U/L (38-126); Anion Gap 7.5 mEq/L (5-15); Aspartate Amino Transferase 31 U/L (14-36); Bilirubin,Total 0.6 mg/dl (0.2-1.3); Blood Urea Nitrogen 22 mg/dl (7-17); Calcium 9.5 mg/dl (8.4-10.2); Carbon Dioxide 28 mmol/L (22.0-30.0); Chloride 106 mmol/L (98-107); Creatinine Clearance Estimated 62 mL/min (50-200); Estimated Glomerular Filt Rate 44 ml/min (>60); GFR (African American) 53 ML/MIN (>60); Glucose 122 mg/dl (74-100); Lactic Acid 1.6 mmol/L (0.7-2.1); Lipase 87 U/L (23-300); Potassium 3.5 mmoL/L (3.5-5.1); Sodium 138 mmol/L (136-145); Total Protein,Serum 7.1 g/dl (6.3-8.2)
[2023-05-23 11:14] LABS: Troponin I < 0.01 ng/ml (0.00-0.034)
[2023-05-23 11:16] LABS: Bacteria,Urine 1+ /lpf
[2023-05-23 11:29] LABS: Coronavirus 19, PCR Not Detected (NotDetected); Influenza A, PCR Not Detected (NotDetected); Influenza B, PCR Not Detected (NotDetected)
--- NOTE | 2023-05-23 11:46 | PC.NURSE ---
PT RESTING ON RIGHT SIDE, NO NEEDS AT THIS TIME
--- NOTE | 2023-05-23 11:53 | PC.NURSE ---
rounded on pt, another blanket given for comfort
--- NOTE | 2023-05-23 11:56 | HMH.EDGENADL ---
Discharge Plan Disposition Patient Disposition: Home, Self-Care Condition: Good Prescriptions Prescriptions: New cefdinir 300 mg capsule 300 mg PO BID 10 Days Qty: 20 0RF ondansetron 4 mg tablet,disintegrating 4 mg PO Q8H PRN (Reason: nausea and vomiting) 4 Days Qty: 12 0RF famotidine [Pepcid] 20 mg tablet 20 mg PO DAILY Qty: 30 0RF No Action cetirizine 10 mg tablet 10 mg PO DAILY famotidine 20 mg tablet 20 mg PO HS naproxen 500 mg tablet 500 mg PO BIDP PRN (Reason: Pain) Adult 50 Plus Probiotic 4 billion cell capsule 4,000 mmu cells PO DAILY Rx Instructions: administer with a meal cephalexin 500 mg capsule 500 mg PO Q6H Patient Comments: TAKE 1 CAPSULE BY MOUTH EVERY 6 HOURS FOR 7 DAYS diclofenac sodium [Voltaren Arthritis Pain] 1 % gel 2 g topical QID Qty: 100 3RF simvastatin 40 mg tablet 40 mg PO HS 90 Days hydrochlorothiazide 25 mg tablet 25 mg PO DAILY 90 Days levothyroxine 100 mcg tablet 100 mcg PO DAILY 90 Days carvedilol 25 mg tablet 25 mg PO BID 90 Days diltiazem HCl 180 MG capsule,extended release 24hr 180 mg PO DAILY apixaban 5 MG tablet 5 mg PO BID Referrals Follow up/Referrals: Serge Wilson MD [Primary Care Provider] - See instructions Lyle Brenner MD [Staff Physician] - See instructions Activity Restrictions/Add. Instructions Additional Instructions/Restrictions: You were evaluated in the emergency department today. Please follow-up closely with Dr. Brenner. They would like to see you at 11:30 am Friday in clinic, but if this does not work, please call their office to reschedule. support analyst your prescription for antibiotics and take the full course as prescribed. support analyst your prescription for Zofran and Pepcid and take as needed for gastrointestinal symptoms. Return to the emergency department for new or worsening symptoms. Clinical Impressions Clinical Impression: Abdominal pain, Nausea, Pyelonephritis Instructions Patient Instructions: DI for Kidney Infection, DI for Nausea -- Adult Discharge ED Provider: Nasreen Colindres General Adult HPI General Chief complaint: Nausea/Vomiting/Diarrhea Stated complaint: severe tenderness stomach Time Seen by Provider: 05/23/23 10:34 Mode of Arrival: Wheelchair Limitations: No Limitations Description of Symptoms (Recalled from ER Triage Doc. by RN): PT FROM PCP OFFICE FOR FURTHER EVALUATION. PT REPORTS NAUSEA AND ABDOMINAL PAIN X 1 WEEK. PT DENIES V/D OR FEVER. REPORTS NORMAL BM YESTERDAY History of Present Illness HPI narrative: This patient is a 72-year-old female with a history of paroxysmal atrial fibrillation, hypertension, hyperlipidemia, hypothyroidism, CAD, and IRENE presented to the emergency department for evaluation with concern for abdominal pain, nausea, and dry heaves for 1 week. She notes that abdominal pain is generalized and mostly in her upper abdomen. She still been having bowel movements and passing gas with no diarrhea, melena, hematochezia, constipation, or other concerns. Last bowel movement was yesterday. She states that overall, she is just not feeling well. She was evaluated by her PCP today, who sent her over here for evaluation otherwise. No other concerns noted at this time. She has a history of cholecystectomy, appendectomy, and tubal Related Data Home Medications Medication Instructions Recorded Confirmed carvedilol 25 mg tablet 25 mg PO BID Hypertension 90 days 05/29/18 03/20/23 hydrochlorothiazide 25 mg tablet 25 mg PO DAILY Fluid 90 days 05/29/18 03/20/23 levothyroxine 100 mcg tablet 100 mcg PO DAILY thyroid 90 days 05/29/18 03/20/23 simvastatin 40 mg tablet 40 mg PO HS Cholesterol 90 days 05/29/18 03/20/23 cetirizine 10 mg tablet 10 mg PO DAILY allergies 07/25/21 03/20/23 famotidine 20 mg tablet 20 mg PO HS GERD 07/25/21 03/20/23 lactobacillus combination no.9 4 4,000 mmu cells PO DAILY probiotic 07/25/21
--- NOTE | 2023-05-23 12:31 | PC.NURSE ---
PT TO CT
--- NOTE | 2023-05-23 12:43 | PC.NURSE ---
PT RETURNED FROM CT
--- NOTE | 2023-05-23 13:07 | PC.NURSE ---
PT RESTING WITHOUT NEEDS
== END 2023-05-23 15:47 | disposition home or self-care (01) ==
PROVIDERS: Emergency Provider Emergency Medicine; PCP Internal Medicine
DX: R10.84 Generalized abdominal pain (principal); N12 Tubulo-interstitial nephritis, not specified as acute or chronic; R11.0 Nausea; I48.0 Paroxysmal atrial fibrillation; I10 Essential (primary) hypertension; E78.5 Hyperlipidemia, unspecified; E03.9 Hypothyroidism, unspecified; I25.10 Atherosclerotic heart disease of native coronary artery without angina pectoris; G47.33 Obstructive sleep apnea (adult) (pediatric); Z95.0 Presence of cardiac pacemaker
CPT/HCPCS: 74177; 80053; 81001; 83605; 83690; 84484; 85025; 87086; 87636; 93005; 96361; 96365; 96375; 99285; J0131; J0696; J2405; Q9967

== ENCOUNTER 2023-06-24 13:57 | Outpatient (CLI) | payer MEDICARE, SELFPAY | END 2023-06-24 23:59 | LOC: LAB.DROPOF 13:57 | PROVIDERS: PCP Internal Medicine; Visit Provider Internal Medicine | DX: N39.0 Urinary tract infection, site not specified (principal); B96.4 Proteus (mirabilis) (morganii) as the cause of diseases classified elsewhere | CPT/HCPCS: 87086 ==

== ENCOUNTER 2023-07-05 10:31 | Observation (INO) | payer MEDICARE, SELFPAY ==
[2023-07-05] VITALS (9 sets, daily range): BP systolic 94–154; BP diastolic 55–123; PULSE 68–78; RESP 15–20; TEMP 36.6–36.9; O2SAT 89–95; BMI 27.2; BMI 26.4
--- NOTE | 2023-07-05 10:34 | HMH.EDGENADL ---
Discharge Plan Disposition Patient Disposition: Admitted Condition: Fair Discharge ED Provider: Blas Bryant General Adult HPI General Chief complaint: Abdominal Pain Stated complaint: uti pain vomiting Time Seen by Provider: 07/05/23 10:34 History of Present Illness HPI narrative: Patient is a 72-year-old female with history of pyelonephritis, liver lesion, atrial fibrillation, SANDY who presents today with acute on chronic suprapubic abdominal pain, nausea, vomiting that is worsened over the past 24 hours. She states she has been on multiple rounds of antibiotics for UTI with no improvement of symptoms. She states she has had this pain over the course of her illness but it is worsened markedly over the past 24 to 48 hours. It is described as sharp, nonradiating, and she describes associated dysuria, frequency. No previous therapies outside of antibiotics. She denies any chest pain, upper abdominal pain, palpitations, fevers, chills. History, at this time, is limited secondary to acuity of patient's symptoms Related Data Home Medications Medication Instructions Recorded Confirmed carvedilol 25 mg tablet 25 mg PO BID Hypertension 90 days 05/29/18 07/05/23 hydrochlorothiazide 25 mg tablet 25 mg PO DAILY Fluid 90 days 05/29/18 07/05/23 levothyroxine 100 mcg tablet 100 mcg PO DAILYDM thyroid 90 days 05/29/18 07/05/23 simvastatin 40 mg tablet 40 mg PO HS Cholesterol 90 days 05/29/18 07/05/23 cetirizine 10 mg tablet 10 mg PO DAILY Allergy Symptoms 07/25/21 07/05/23 famotidine 20 mg tablet 20 mg PO HS GERD 07/25/21 07/05/23 apixaban 5 mg tablet 5 mg PO BID AFIB 10/18/21 07/05/23 diltiazem HCl 180 mg 180 mg PO DAILY Heart Rhythm 10/18/21 07/05/23 capsule,extended release 24 hr cefdinir 300 mg capsule 300 mg PO BID Infection 07/05/23 07/05/23 ondansetron 4 mg disintegrating 4 mg PO TIDP PRN Nausea And 07/05/23 07/05/23 tablet Vomiting pantoprazole 40 mg tablet,delayed 40 mg PO DAILY GERD 07/05/23 07/05/23 release sucralfate 1 gram tablet 1 g PO ACHS GERD 07/05/23 07/05/23 Allergies Allergy/AdvReac Type Severity Reaction Status Date / Time Latex, Natural Rubber Allergy Severe Difficulty Verified 07/05/23 10:56 Breathing amoxicillin [From AUGMENTIN] Allergy Unknown Verified 07/05/23 10:56 clavulanic acid Allergy Unknown Verified 07/05/23 10:56 [From AUGMENTIN] fentanyl [FENTANYL] Allergy Unknown Difficult Verified 07/05/23 10:56 to awake levofloxacin [From LEVAQUIN] Allergy Unknown Verified 07/05/23 10:56 minocycline [MINOCYCLINE] Allergy Unknown Verified 07/05/23 10:56 propofol [PROPOFOL] Allergy Unknown UNABLE TO Verified 07/05/23 10:56 WAKE UP quinidine [QUINIDINE] Allergy Unknown FAMILY HX Verified 07/05/23 10:56 OF HEART STOPPING-PT REFUSES TO TAKE Sulfa (Sulfonamide Allergy Unknown ITCHING, Verified 07/05/23 10:56 Antibiotics) HIVES, [SULFA (SULFONAMIDE ORAL ANTIBIOTICS)] SWELLING ranolazine [From Ranexa] AdvReac Intermediate Verified 07/05/23 10:56 spironolactone AdvReac Mild total body Verified 07/05/23 10:56 dehydration PFSH PFS Disclaimer: The information contained in this section may have been updated after the patient was seen, as this information can be updated by other users. Medical History Atrial fibrillation with rapid ventricular response Chronic skin ulcer of right ear Earlobe lesion History of left heart catheterization (LHC) History of pacemaker Kidney stone Sleep apnea Ureteral stent displacement Surgical History History of appendectomy History of cholecystectomy History of hysterectomy History of right heart catheterization (RHC) History of total left knee replacement Social History Smoking Status: Former smoker alcohol intake: never substance use type: denies use current occupational status: retired Travel in the last 8 weeks: Inside the [place] household members: none housing: house current occupational exposures/hazards: No caffeine: Yes ROS Obtained: Yes Systems reviewed as appropriate & no additional complaints except as documented As per HPI Physical Exam General General appearance: alert and in distress Head Head exam: atraumatic and normocephalic Eye Eye exam: Present normal appearance Neck Neck exam: Present normal inspection Chest Chest inspection: Present normal inspection and symmetric chest wall rise Respiratory Respiratory exam: Present normal lung sounds bilaterally; Absent respiratory distress Cardiovascular Cardiovascular exam: Present regular rate and normal rhythm Abdominal Exam Abdominal exam: Present soft, tenderness and guarding Abdominal tenderness: Present suprapubic Neurological Exam Neurological exam: Present alert and oriented X3 Psychiatric Psychiatric exam: Present normal affect and normal mood Skin Skin exam: Present warm and dry Medical Decision Making Medical Records Medical records reviewed: Yes I reviewed the patient's medical records. Shay Inquiry Pt receiving controlled substance: No Vital Signs: 07/05/23 10:32 07/05/23 11:18 07/05/23 11:30 Temperature 98.5 F Temperature Source Oral Pulse Rate 70 70 Pulse Rate [Left Radial] 71 Respiratory Rate 15 20 Blood Pressure 98/56 L 126/71 Blood Pressure [Right Arm] 154/123 H Blood Pressure Mean 89 Blood Pressure Mean [Right Arm] 133 02 Sat by Pulse Oximetry 95 94 L 89 L Oxygen Delivery Method Room Air 07/05/23 12:00 07/05/23 13:00 07/05/23 14:03 Temperature 98.0 F Temperature Source Pulse Rate 70 78 78 Pulse Rate [Left Radial] Respiratory Rate 20 16 Blood Pressure 122/61 113/64 120/75 Blood Pressure [Right Arm] Blood Pressure Mean 80 72 Blood Pressure Mean [Right Arm] 02 Sat by Pulse Oximetry 92 L 94 L Oxygen Delivery Method 07/05/23 13:30 Temperature Temperature Source Pulse Rate 78 Pulse Rate [Left Radial] Respiratory Rate Blood Pressure 120/75 Blood Pressure [Right Arm] Blood Pressure Mean 90 Blood Pressure Mean [Right Arm] 02 Sat by Pulse Oximetry 94 L Oxygen Delivery Method Room Air Lab Data Lab Results 07/05/23 10:45: WBC 11.5 H, RBC 4.76, Hgb 15.6, Hct 46.3, MCV 97.3, MCH 32.8 H, MCHC 33.7, RDW 14.7, Plt Count 282, MPV 7.5, Neut % (Auto) 89.4 H, Lymph % (Auto) 8.2 L, [place] % (Auto) 1.4 L, Eos % (Auto) 0.9, Baso % (Auto) 0.1, Neut # (Auto) 10.3 H, Lymph # (Auto) 1.0, [place] # (Auto) 0.2, Eos # (Auto) 0.1, Baso # (Auto) 0.0, Total Counted 100, Neutrophils % (Manual) 89 H, Lymphocytes % (Manual) 9 L, Monocytes % (Manual) 2, Platelet Estimate Normal, RBC Morphology Normal, Sodium 140, Potassium 4.1, Chloride 105, Carbon Dioxide 31 H, Anion Gap 8.1, BUN 19 H, Creatinine 1.10 H, Estimated Creat Clear 67, Estimated GFR 49 L, Est GFR ( Amer) 59, Glucose 154 H, Calcium 9.5, Phosphorus 3.6, Magnesium 1.6, Total Bilirubin 0.7, AST 39 H, ALT 31, Alkaline Phosphatase 132 H, Total Protein 6.4, Albumin 3.6, Globulin 2.8, Albumin/Globulin Ratio 1.3, Lipase 81 07/05/23 11:16: Lactate 2.0 07/05/23 12:41: Urine Color Yellow, Urine Appearance Clear, Urine pH 7.0, Ur Specific [place] 1.010, Urine Protein Negative, Urine Glucose (UA) Negative, Urine Ketones Negative, Urine Blood 2+, Urine Nitrate Negative, Urine Bilirubin Negative, Urine Urobilinogen 0.2, Ur Leukocyte Esterase Negative, Urine RBC 10-20, Urine WBC 3-5, Ur Squamous Epith Cells 3-5, Urine Bacteria None 07/05/23 10:45 07/05/23 10:45 Orders (Tests/Meds): ED MEDICATIONS Generic Name Dose Route Start Last Admin Trade Name Freq PRN Reason Stop Dose Admin Acetaminophen 650 mg 07/05/23 14:25 Acetaminophen 325mg Tab PO 08/04/23 14:24 Q4HP PRN Fever or Mild Pain (1-3) Enoxaparin Sodium 40 mg 07/05/23 14:45 07/05/23 14:59 Enoxaparin 40mg/0.4ml Syringe SQ 08/04/23 14:44 40 mg DAILY CANYD Administration Sodium Chloride 1,000 mls @ 50 mls/hr 07/05/23 14:30 07/05/23 16:22 Sod Chlor 0.9% 1000ml Bag IV 08/04/23 14:29 50 mls/hr .Q20H CANDY Administration Morphine Sulfate 2 mg 07/05/23 14:25 07/05/23 14:58 Morphine 2mg/Ml Syringe IV 08/04/23 14:24 2 mg Q2HP PRN Administration Severe Pain (7-10) Ondansetron HCl 4 mg 07/05/23 14:25 Ondansetron 4mg/2ml Vial IV 08/04/23 14:24 Q8HP PRN Nausea Pantoprazole Sodium 40 mg 07/05/23 14:45 07/05/23 14:59 Pantoprazole 40mg Tablet PO 08/04/23 14:44 40 mg DAILY CANDY Administration Promethazine HCl 25 mg 07/05/23 14:25 07/05/23 14:58 Promethazine Hcl 25mg/Ml 1ml Vial IV 08/04/23 14:24 25 mg Q6HP PRN Administration Nausea And Vomiting Sodium Chloride 10 ml 07/05/23 14:30 Sodium Chloride 0.9% 10ml Flush Syringe IV 08/04/23 14:29 NEEDED PRN Maintain IV Site Sodium Chloride 25 ml 07/05/23 14:30 07/05/23 14:58 Sodium Chloride 0.9% 25ml Bag IV 08/04/23 14:29 25 ml NEEDED PRN Administration for Use with IV Promethazine Discontinued Medications Generic Name Dose Route Start Last Admin Trade Name Freq PRN Reason Stop Dose Admin Hydromorphone HCl 0.5 mg 07/05/23 11:03 07/05/23 11:17 Hydromorphone 4 Mg/Ml Syringe IV 07/05/23 11:04 0.5 mg ONCE ONE Administration Lactated Ringer's 1,000 mls @ 999 mls/hr 07/05/23 11:05 07/05/23 11:07 Lactated Ringer's 1000 Ml Bag IV 07/05/23 12:05 999 mls/hr .Q1H1M ONE Administration Iopamidol 100 ml 07/05/23 11:41 07/05/23 11:44 Iopamidol-370 (76%);100ml Bottle IV 07/05/23 11:42 100 ml ONCE ONE Administration Ondansetron HCl 4 mg 07/05/23 11:05 07/05/23 11:07 Ondansetron 4mg/2ml Vial IV 07/05/23 11:06 4 mg ONCE ONE Administration Sodium Chloride 50 ml 07/05/23 11:41 07/05/23 11:44 0.9 % Sodium Chloride 50 Ml Vial IV 07/05/23 11:42 50 ml ONCE ONE Administration Sodium Chloride 10 ml 07/05/23 11:41 07/05/23 11:44 Sodium Chloride 0.9% 10ml Syr (Rad Only) IV 07/05/23 11:42 10 ml ONCE ONE Administration ORDERS Category Date Time Status CT angio abdomen pelvis Stat Cat Scan 07/05/23 11:03 Completed CBC w/Auto Diff [Complete Blood Count Auto Diff] Stat Lab 07/05/23 10:45 Completed CMP [Comprehensive Metabolic Panel] Stat Lab 07/05/23 10:45 Completed Lactic Acid Stat Lab 07/05/23 11:16 Completed Lipase Stat Lab 07/05/23 10:45 Completed MAG [Magnesium] Stat Lab 07/05/23 10:45 Completed PHOS [Phosphorous] Stat Lab 07/05/23 10:45 Completed Urinalysis and Microscopic Stat Lab 07/05/23 12:41 Completed Medical Decision Narrative: Patient with history and exam per above presenting for evaluation of suprapubic abdominal pain Diagnoses considered include Diverticulitis, ureterolithiasis, bowel obstruction, bowel perforation, hernia, epiploic appendagitis, constipation, mesenteric ischemia, ischemic colitis, pyelonephritis, acute cystitis ED workup and treatment included: ED MEDICATIONS Generic Name Dose Route Start Last Admin Trade Name Freq PRN Reason Stop Dose Admin Acetaminophen 650 mg 07/05/23 14:25 Acetaminophen 325mg Tab PO 08/04/23 14:24 Q4HP PRN Fever or Mild Pain (1-3) Enoxaparin Sodium 40 mg 07/05/23 14:45 07/05/23 14:59 Enoxaparin 40mg/0.4ml Syringe SQ 08/04/23 14:44 40 mg DAILY CANDY Administration Sodium Chloride 1,000 mls @ 50 mls/hr 07/05/23 14:30 07/05/23 16:22 Sod Chlor 0.9% 1000ml Bag IV 08/04/23 14:29 50 mls/hr .Q20H CANDY Administration Morphine Sulfate 2 mg 07/05/23 14:25 07/05/23 14:58 Morphine 2mg/Ml Syringe IV 08/04/23 14:24 2 mg Q2HP PRN Administration Severe Pain (7-10) Ondansetron HCl 4 mg 07/05/23 14:25 Ondansetron 4mg/2ml Vial IV 08/04/23 14:24 Q8HP PRN Nausea Pantoprazole Sodium 40 mg 07/05/23 14:45 07/05/23 14:59 Pantoprazole 40mg Tablet PO 08/04/23 14:44 40 mg DAILY CANDY Administration Promethazine HCl 25 mg 07/05/23 14:25 07/05/23 14:58 Promethazine Hcl 25mg/Ml 1ml Vial IV 08/04/23 14:24 25 mg Q6HP PRN Administration Nausea And Vomiting Sodium Chloride 10 ml 07/05/23 14:30 Sodium Chloride 0.9% 10ml Flush Syringe IV 08/04/23 14:29 NEEDED PRN Maintain IV Site Sodium Chloride 25 ml 07/05/23 14:30 07/05/23 14:58 Sodium Chloride 0.9% 25ml Bag IV 08/04/23 14:29 25 ml NEEDED PRN Administration for Use with IV Promethazine Discontinued Medications Generic Name Dose Route Start Last Admin Trade Name Freq PRN Reason Stop Dose Admin Hydromorphone HCl 0.5 mg 07/05/23 11:03 07/05/23 11:17 Hydromorphone 4 Mg/Ml Syringe IV 07/05/23 11:04 0.5 mg ONCE ONE Administration Lactated Ringer's 1,000 mls @ 999 mls/hr 07/05/23 11:05 07/05/23 11:07 Lactated Ringer's 1000 Ml Bag IV 07/05/23 12:05 999 mls/hr .Q1H1M ONE Administration Iopamidol 100 ml 07/05/23 11:41 07/05/23 11:44 Iopamidol-370 (76%);100ml Bottle IV 07/05/23 11:42 100 ml ONCE ONE Administration Ondansetron HCl 4 mg 07/05/23 11:05 07/05/23 11:07 Ondansetron 4mg/2ml Vial IV 07/05/23 11:06 4 mg ONCE ONE Administration Sodium Chloride 50 ml 07/05/23 11:41 07/05/23 11:44 0.9 % Sodium Chloride 50 Ml Vial IV 07/05/23 11:42 50 ml ONCE ONE Administration Sodium Chloride 10 ml 07/05/23 11:41 07/05/23 11:44 Sodium Chloride 0.9% 10ml Syr (Rad Only) IV 07/05/23 11:42 10 ml ONCE ONE Administration ORDERS Category Date Time Status CT angio abdomen pelvis Stat Cat Scan 07/05/23 11:03 Completed CBC w/Auto Diff [Complete Blood Count Auto Diff] Stat Lab 07/05/23 10:45 Completed CMP [Comprehensive Metabolic Panel] Stat Lab 07/05/23 10:45 Completed Lactic Acid Stat Lab 07/05/23 11:16 Completed Lipase Stat Lab 07/05/23 10:45 Completed MAG [Magnesium] Stat Lab 07/05/23 10:45 Completed PHOS [Phosphorous] Stat Lab 07/05/23 10:45 Completed Urinalysis and Microscopic Stat Lab 07/05/23 12:41 Completed Labs were independently interpreted by me, significant for microscopic hematuria, pyuria in the absence of bacteriuria, creatinine approximately at baseline at 1.10, leukocytosis to 11.5 Imaging was independently visualized and interpreted by me, significant for no acute surgical pathology. Please refer to radiology report for full details. Upon repeat assessment patient remains markedly symptomatic, diagnosis at this time is still uncertain however patient may have pain secondary to punctate urolithiasis visualized on CT imaging versus enteritis secondary to antibiotic. Regardless, patient will likely benefit from admission for further management of her intractable symptoms. Patient was admitted to hospital medicine service. Critical Care Critical Care Time Critical Care Time: No
--- NOTE | 2023-07-05 11:03 | CT_ITS ---
PROCEDURE INFORMATION: Exam: CTA Abdomen and Pelvis With Contrast Exam date and time: 07/05/2023 11:41 AM Age: 72 years old Clinical indication: Abdominal pain; Generalized; Additional info: Diffuse abdominal pain, n/v, out of proportion TECHNIQUE: Imaging protocol: Computed tomographic angiography of the abdomen and pelvis with contrast. Exam focused on the arteries. 3D rendering (Not supervised by radiologist): MIP and/or 3D reconstructed images were created by the technologist. Radiation optimization: All CT scans at this facility use at least one of these dose optimization techniques: automated exposure control; mA and/or kV adjustment per patient size (includes targeted exams where dose is matched to clinical indication); or iterative reconstruction. Contrast material: ISOVUE; Contrast volume: 100 ml; Contrast route: INTRAVENOUS (IV); COMPARISON: CT ABDOMEN PELVIS W CON 05/23/2023 12:36 PM FINDINGS: Aorta: No aortic aneurysm. No aortic dissection. Celiac trunk and mesenteric arteries: No occlusion or significant stenosis. Renal arteries: No occlusion or significant stenosis. Right iliac arteries: No occlusion or significant stenosis. Left iliac arteries: No occlusion or significant stenosis. Liver: Subcentimeter hypodensity in the left hepatic lobe is too small to accurately characterize. There is redemonstration of enhancing lesion in the right hepatic lobe measuring 2.7 cm. Heterogeneous focus in the hepatic segment 6 correlates with a lesion on prior CT abdomen and pelvis. Gallbladder and bile ducts: Gallbladder is distended without radiopaque cholelithiasis. No biliary ductal dilation. Pancreas: No peripancreatic fluid stranding. No main pancreatic ductal dilation. Spleen: No splenomegaly. Adrenal glands: The adrenal glands are normal. Kidneys and ureters: Nephrograms are symmetric. There is redemonstration of right pelvic calculus measuring 10 mm. Similar nonobstructive nephrolithiasis burden. No hydronephrosis. No solid lesions. Stomach and bowel: No bowel wall thickening or distention. Appendix: A normal appendix is not well visualized. However, no evidence of inflammatory changes in the right lower quadrant to suggest acute appendicitis. Intraperitoneal space: Unremarkable. No free air. No significant fluid collection. Lymph nodes: No lymphadenopathy. Urinary bladder: Urinary bladder is unremarkable. Reproductive: Status post hysterectomy. Bones/joints: Multilevel degenerative changes of the included spine. Multiple disc osteophytes noted more pronounced at L5-S1, L1-L2 and T11-T12. No definitive osseous lesions. Soft tissues: Unremarkable. IMPRESSION: 1. No evidence of aortic aneurysm or dissection. Major aortic branches are patent. 2. There is redemonstration of indeterminate hepatic lesions. 3. Similar bilateral nephrolithiasis burden. 10 mm right renal pelvis calculus is unchanged. However, no hydronephrosis on either side.
[2023-07-05] MEDS: LACTATED RINGERS 1000ML 1,000 ML 999 ML IV (11:07)
[2023-07-05] MEDS: ONDANSETRON 4MG/2ML VIAL 4 MG IV (11:07)
[2023-07-05 11:12] LABS: Basophils % 0.1 % (0.1-2.0); Eosinophils # 0.1 K/mm3 (0.0-0.4); Eosinophils % 0.9 % (0.1-12.0); Hematocrit 46.3 % (37.0-47.0); Hemoglobin 15.6 g/dL (12.2-16.2); Lymphocytes % 8.2 % (10-50); Mean Corpuscular HGB Conc 33.7 g/dL (31.8-35.4); Mean Corpuscular Hemoglobin 32.8 pg (27.0-31.2); Mean Corpuscular Volume 97.3 fl (81-99); Mean Platelet Volume 7.5 fl (7.4-10.4); Monocytes # 0.2 K/mm3 (0.1-1.0); Monocytes % 1.4 % (1.7-9.3); Neutrophils # 10.3 K/mm3 (1.8-7.8); Neutrophils % 89.4 % (37.0-80.0); Platelet Count 282 K/mm3 (142-424); Red Blood Count 4.76 M/mm3 (4.20-5.40); Red Cell Distribution Width 14.7 % (11.5-17.5); White Blood Count 11.5 K/mm3 (4.8-10.8)
[2023-07-05 11:14] LABS: Chloride 105 mmol/L (98-107); MANUAL DIFFERENTIAL MANUAL DIFFERENTIAL (MANUAL DIFF); Potassium 4.1 mmoL/L (3.5-5.1); Sodium 140 mmol/L (136-145)
[2023-07-05 11:16] LABS: Blood Urea Nitrogen 19 mg/dl (7-17); Creatinine Clearance Estimated 67 mL/min (50-200); Estimated Glomerular Filt Rate 49 ml/min (>60); GFR (African American) 59 ML/MIN (>60)
--- NOTE | 2023-07-05 11:16 | ECG_ITS ---
APPROVED REPORT Exam: Resting ECG HR:69 bpm ECG Measurements Heart Rate 69 AXES IL 186 P 129 QRSd 118 QRS 31 QT 372 T 52 QTc 392 Conclusion ELECTRONIC ATRIAL PACEMAKER LOW QRS VOLTAGE IN PRECORDIAL LEADS [QRS DEFLECTION < 1.0 mV IN CHEST LEADS] MODERATE INTRAVENTRICULAR CONDUCTION DELAY [110+ ms QRS DURATION] ABNORMAL RHYTHM ECG UNCONFIRMED REPORT Electronically signed by : Timoteo Winkler MD 07/07/2023 17:32:38
[2023-07-05 11:17] LABS: Alanine Aminotransferase 31 U/L (12-78); Albumin Level 3.6 g/dl (3.5-5.0); Albumin/Globulin Ratio 1.3 (1.1-1.8); Alkaline Phosphatase 132 U/L (38-126); Anion Gap 8.1 mEq/L (5-15); Aspartate Amino Transferase 39 U/L (14-36); Bilirubin,Total 0.7 mg/dl (0.2-1.3); Calcium 9.5 mg/dl (8.4-10.2); Carbon Dioxide 31 mmol/L (22.0-30.0); Globulin 2.8 g/dL (1.3-3.2); Glucose 154 mg/dl (74-100); Lipase 81 U/L (23-300); Magnesium 1.6 mg/dl (1.6-2.3); Phosphorous 3.6 mg/dl (2.5-4.5); Total Protein,Serum 6.4 g/dl (6.3-8.2)
--- NOTE | 2023-07-05 11:31 | PC.NURSE ---
radiology to get pt for scan
[2023-07-05 11:43] LABS: Lymphocytes % 9 % (10-50); Monocytes % 2 % (2-9); Neutrophils % 89 % (42-76); Platelet Estimate Normal; RBC Morphology Normal; Total Cells Counted 100
[2023-07-05] MEDS: SODIUM CHLORIDE 0.9% 10ML SYR (RAD ONLY) 10 ML IV (11:44)
[2023-07-05] MEDS: 0.9 % SODIUM CHLORIDE 50 ML VIAL IV (11:44)
[2023-07-05] MEDS: IOPAMIDOL-370 (76%);100ML BOTTLE 100 ML IV (11:44)
--- NOTE | 2023-07-05 12:41 | PC.NURSE ---
pt up to restroom, blankets given to pt
[2023-07-05 12:46] LABS: Appearance,Urine CLEAR (Clear); Bilirubin,Urine Negative (Negative); Blood, Urine 2+ (Negative); Color,Urine YELLOW (Yellow); Glucose,Urine (UA) Negative (Negative); Ketones,Urine Negative (Negative); Leukocyte Esterase,Urine Negative (Negative); Microscopic, Urine URINE MICROSCOPIC (MICROSCOPIC); Nitrate,Urine Negative (Negative); Protein,Urine Negative (Negative); Urobilinogen,Urine 0.2 EU/dl (0.2)
--- NOTE | 2023-07-05 13:16 | PC.NURSE ---
Dr Bryant speaking to hospitalist
--- NOTE | 2023-07-05 14:01 | PC.NURSE ---
arrived by stretcher from ED
--- NOTE | 2023-07-05 14:31 | HMH.PHAINT1 ---
Pharmacy Intervention Comments: MEDICATION RECONCILIATION COMPLETE USING MOST RECENT MD OFFICE VISIT NOTE AND EXTERNAL PHARMACY FILL HISTORY, CONFIRMED VIA JOVON HOLDER THAT PATIENT STATES SHE TAKES CARVEDILOL 25 MG TWICE DAILY.
[2023-07-05] MEDS: MORPHINE 2MG/ML SYRINGE 2 MG IV (14:58)
[2023-07-05] MEDS: SODIUM CHLORIDE 0.9% 25ML BAG 25 ML IV (14:58)
[2023-07-05] MEDS: PROMETHAZINE HCL 25MG/ML 1ML VIAL 25 MG IV (14:58)
[2023-07-05] MEDS: PANTOPRAZOLE 40MG TABLET 40 MG PO (14:59)
[2023-07-05] MEDS: ENOXAPARIN 40MG/0.4ML SYRINGE 40 MG SQ (14:59)
[2023-07-05] MEDS: 0.9 % SODIUM CHLORIDE 1000ML 1,000 ML 50 ML IV (16:22)
--- NOTE | 2023-07-05 17:54 | P.HP_ITS ---
History of Present Illness *Admission Date: 07/05/23 *Reason for visit:: Abdominal pain *History of present illness: Patient is a 72-year-old female with past medical history of paroxysmal atrial fibrillation hypertension hyperlipidemia sick sinus syndrome status post pacemaker placement who presented to hospital due to lower abdominal pain, severe nausea vomiting. According to patient she has been feeling sick since yesterday, she was recently treated for urinary tract infection. She has a history of kidney stones, she follows up with her urologist at [facility]. Patient rates her pain as 10/10 intensity, lower abdominal pain. She denies pain radiating to her back. Denied fever chills diarrhea constipation dysuria PFSH PFSH Disclaimer: The information contained in this section may have been updated after the patient was seen, as this information can be updated by other users. Medical History Atrial fibrillation with rapid ventricular response Chronic skin ulcer of right ear Earlobe lesion History of left heart catheterization (LHC) History of pacemaker Kidney stone Sleep apnea Ureteral stent displacement Surgical History History of appendectomy History of cholecystectomy History of hysterectomy History of right heart catheterization (RHC) History of total left knee replacement Social History Smoking Status: Former smoker alcohol intake: never substance use type: denies use current occupational status: retired Travel in the last 8 weeks: Inside the [place] household members: none housing: house current occupational exposures/hazards: No caffeine: Yes Review of Systems Review of Systems Review of systems (narrative): as per HPI Meds Home Medications and Allergies Home Medications Medication Instructions Recorded Confirmed Type carvedilol 25 mg tablet 25 mg PO BID Hypertension 90 days 05/29/18 07/05/23 History hydrochlorothiazide 25 mg tablet 25 mg PO DAILY Fluid 90 days 05/29/18 07/05/23 History levothyroxine 100 mcg tablet 100 mcg PO DAILYDM thyroid 90 days 05/29/18 07/05/23 History simvastatin 40 mg tablet 40 mg PO HS Cholesterol 90 days 05/29/18 07/05/23 History cetirizine 10 mg tablet 10 mg PO DAILY Allergy Symptoms 07/25/21 07/05/23 History famotidine 20 mg tablet 20 mg PO HS GERD 07/25/21 07/05/23 History apixaban 5 mg tablet 5 mg PO BID AFIB 10/18/21 07/05/23 History diltiazem HCl 180 mg 180 mg PO DAILY Heart Rhythm 10/18/21 07/05/23 History capsule,extended release 24 hr cefdinir 300 mg capsule 300 mg PO BID Infection 07/05/23 07/05/23 History ondansetron 4 mg disintegrating 4 mg PO TIDP PRN Nausea And 07/05/23 07/05/23 History tablet Vomiting pantoprazole 40 mg tablet,delayed 40 mg PO DAILY GERD 07/05/23 07/05/23 History release sucralfate 1 gram tablet 1 g PO ACHS GERD 07/05/23 07/05/23 History New Prescriptions to Start Prescriptions: Allergies Allergy/AdvReac Type Severity Reaction Status Date / Time Latex, Natural Rubber Allergy Severe Difficulty Verified 07/05/23 10:56 Breathing amoxicillin [From AUGMENTIN] Allergy Unknown Verified 07/05/23 10:56 clavulanic acid Allergy Unknown Verified 07/05/23 10:56 [From AUGMENTIN] fentanyl [FENTANYL] Allergy Unknown Difficult Verified 07/05/23 10:56 to awake levofloxacin [From LEVAQUIN] Allergy Unknown Verified 07/05/23 10:56 minocycline [MINOCYCLINE] Allergy Unknown Verified 07/05/23 10:56 propofol [PROPOFOL] Allergy Unknown UNABLE TO Verified 07/05/23 10:56 WAKE UP quinidine [QUINIDINE] Allergy Unknown FAMILY HX Verified 07/05/23 10:56 OF HEART STOPPING-PT REFUSES TO TAKE Sulfa (Sulfonamide Allergy Unknown ITCHING, Verified 07/05/23 10:56 Antibiotics) HIVES, [SULFA (SULFONAMIDE ORAL ANTIBIOTICS)] SWELLING ranolazine [From Ranexa] AdvReac Intermediate Verified 07/05/23 10:56 spironolactone AdvReac Mild total body Verified 07/05/23 10:56 dehydration Exam Data for Last 24 hours Vital signs and Labs for Last 24 Hours: Temp Pulse Resp BP Pulse Ox O2 Del Method 98.5 F 68 19 120/75 94 L Room Air 07/05/23 14:08 07/05/23 14:08 07/05/23 14:08 07/05/23 14:08 07/05/23 14:08 07/05/23 15:00 Laboratory Results - last 24 hr 07/05/23 10:45: WBC 11.5 H, RBC 4.76, Hgb 15.6, Hct 46.3, MCV 97.3, MCH 32.8 H, MCHC 33.7, RDW 14.7, Plt Count 282, MPV 7.5, Neut % (Auto) 89.4 H, Lymph % (Auto) 8.2 L, [place] % (Auto) 1.4 L, Eos % (Auto) 0.9, Baso % (Auto) 0.1, Neut # (Auto) 10.3 H, Lymph # (Auto) 1.0, [place] # (Auto) 0.2, Eos # (Auto) 0.1, Baso # (Auto) 0.0, Total Counted 100, Neutrophils % (Manual) 89 H, Lymphocytes % (Manual) 9 L, Monocytes % (Manual) 2, Platelet Estimate Normal, RBC Morphology Normal, Sodium 140, Potassium 4.1, Chloride 105, Carbon Dioxide 31 H, Anion Gap 8.1, BUN 19 H, Creatinine 1.10 H, Estimated Creat Clear 67, Estimated GFR 49 L, Est GFR ( Amer) 59, Glucose 154 H, Calcium 9.5, Phosphorus 3.6, Magnesium 1.6, Total Bilirubin 0.7, AST 39 H, ALT 31, Alkaline Phosphatase 132 H, Total Protein 6.4, Albumin 3.6, Globulin 2.8, Albumin/Globulin Ratio 1.3, Lipase 81 07/05/23 11:16: Lactate 2.0 07/05/23 12:41: Urine Color Yellow, Urine Appearance Clear, Urine pH 7.0, Ur Specific [place] 1.010, Urine Protein Negative, Urine Glucose (UA) Negative, Urine Ketones Negative, Urine Blood 2+, Urine Nitrate Negative, Urine Bilirubin Negative, Urine Urobilinogen 0.2, Ur Leukocyte Esterase Negative, Urine RBC 10- 20, Urine WBC 3-5, Ur Squamous Epith Cells 3-5, Urine Bacteria None I & O for Last 24 hours: Intake & Output 07/02/23 07/03/23 07/04/23 07/05/23 23:59 23:59 23:59 23:59 Weight 88.252 kg Constitutional Constitutional: no acute distress *Routine HEENT Exam Head: Present normocephalic Eye: Present EOMI and PERRL ENT: Present mucous membranes moist *Routine Neck Exam Neck: Present supple; Absent lymphadenopathy *Routine Respiratory Exam Respiratory: Present CTA bilaterally *Routine Cardiovascular Exam Cardiovascular: Present RRR *Routine Abdominal Exam Abdominal: Present soft, normoactive bowel sounds and tenderness Comments: tenderness in suprapubic area *Routine Rectal Exam Rectal:: deferred *Routine Genitalia Exam Genitalia:: deferred *Routine Extremities Exam Extremities: Absent cyanosis, clubbing or edema *Routine Skin Exam Skin: Present warm; Absent rash *Routine Neurological Exam Neurological: Present alert and oriented X3 Assessment and Plan *Assessment and plan (1) Abdominal pain: Status: Acute Category: Medical Code(s): R10.9 - Unspecified abdominal pain (2) Nausea: Status: Acute Category: Medical Code(s): R11.0 - Nausea (3) Hyperlipidemia: Status: Chronic Qualifiers: Hyperlipidemia type: unspecified Qualified Code(s): E78.5 - Hyperlipidemia, unspecified Category: Medical Code(s): E78.5 - Hyperlipidemia, unspecified (4) Hypertension: Status: Chronic Qualifiers: Hypertension type: primary hypertension Qualified Code(s): I10 - Essential (primary) hypertension Category: Medical Code(s): I10 - Essential (primary) hypertension (5) PAF (paroxysmal atrial fibrillation): Status: Chronic Category: Medical Code(s): I48.0 - Paroxysmal atrial fibrillation Plan Patient is a 72-year-old female with past medical history of paroxysmal atrial fibrillation hypertension hyperlipidemia sick sinus syndrome status post pacemaker placement who presented to hospital due to lower abdominal pain, severe nausea vomiting. According to patient she has been feeling sick since yesterday, she was recently treated for urinary tract infection. She has a history of kidney stones, she follows up with her urologist at [facility]. Patient rates her pain as 10/10 intensity, lower abdominal pain. She denies pain radiating to her back. Assessment Abdominal pain, unclear etiology, differentials include nephrolithiasis, partially treated UTI Recurrent nausea vomiting likely secondary to above Hypertension Hyperlipidemia Atrial fibrillation Leukocytosis CKD stage II Plan Start empirical antibiotics with Rocephin UA was completed, did not show evidence of infection however patient recently had antibiotics CT abdomen pelvis does show nephrolithiasis, no hydronephrosis As needed Zofran, Phenergan IV fluids Lipase level checked-81, LFTs within normal limits Will recheck lactic acid Check blood cultures Check chest x-ray Check troponin DVT prophylaxis-resume home Eliquis
[2023-07-05] MEDS: CARVEDILOL 25MG TABLET 25 MG PO (20:17)
[2023-07-05] MEDS: SUCRALFATE 1GM TABLET 1 GM PO (20:17)
[2023-07-05] MEDS: FAMOTIDINE 20MG TABLET 20 MG PO (20:17)
[2023-07-05] MEDS: APIXABAN 5MG TABLET 5 MG PO (20:17)
[2023-07-05] MEDS: PRAVASTATIN 40MG TAB 80 MG PO (20:17)
[2023-07-06] VITALS: BP 93/44; PULSE 66; RESP 17; TEMP 37.8; O2SAT 97
[2023-07-06] MEDS: ACETAMINOPHEN 325MG TAB 650 MG PO ×3 (00:19→15:15)
[2023-07-06 04:00] VITALS: BP 99/60; PULSE 69; RESP 17; TEMP 37; O2SAT 94; BMI 27.8
[2023-07-06] MEDS: 0.9 % SODIUM CHLORIDE 1000ML 1,000 ML 75 ML IV ×3 (04:30→21:18)
--- NOTE | 2023-07-06 04:41 | PC.NURSE ---
Pt alert and oriented. Pt has gotten up to the bedside with 1 assist, urine is dark yellow and clear. Pt has had no complaints. Pt has wore CPAP throughout night. Pt did have a low grade temp, treated per mar. Call light in reach.
--- NOTE | 2023-07-06 04:52 | PC.NURSE ---
Tech notified me of automatic BP of 66/34, both tech and nurse got manual reading 99/62. All other vital signs stable. Notified Javon DECKER.
[2023-07-06] MEDS: SUCRALFATE 1GM TABLET 1 GM PO ×4 (05:56→21:18)
[2023-07-06 07:39] VITALS: BP 91/47; PULSE 68; RESP 18; TEMP 36.8; O2SAT 95
[2023-07-06 08:54] LABS: Basophils # 0.1 K/mm3 (0-0.2); Basophils % 0.4 % (0.1-2.0); Eosinophils # 0.4 K/mm3 (0.0-0.4); Eosinophils % 3.4 % (0.1-12.0); Hematocrit 39.9 % (37.0-47.0); Lymphocytes # 0.6 K/mm3 (0.7-4.5); Lymphocytes % 4.3 % (10-50); Mean Corpuscular Hemoglobin 32.3 pg (27.0-31.2); Mean Corpuscular Volume 95.2 fl (81-99); Mean Platelet Volume 8.3 fl (7.4-10.4); Monocytes # 0.4 K/mm3 (0.1-1.0); Monocytes % 3.2 % (1.7-9.3); Neutrophils # 11.7 K/mm3 (1.8-7.8); Neutrophils % 88.8 % (37.0-80.0); Platelet Count 214 K/mm3 (142-424); Red Blood Count 4.19 M/mm3 (4.20-5.40); White Blood Count 13.1 K/mm3 (4.8-10.8)
[2023-07-06 08:56] LABS: MANUAL DIFFERENTIAL MANUAL DIFFERENTIAL (MANUAL DIFF)
[2023-07-06 08:57] LABS: Hemoglobin 13.5 g/dL (12.2-16.2)
[2023-07-06 09:16] LABS: Anion Gap 6.4 mEq/L (5-15); Blood Urea Nitrogen 21 mg/dl (7-17); Calcium 8.3 mg/dl (8.4-10.2); Carbon Dioxide 28 mmol/L (22.0-30.0); Chloride 107 mmol/L (98-107); Creatinine Clearance Estimated 58 mL/min (50-200); Estimated Glomerular Filt Rate 40 ml/min (>60); GFR (African American) 49 ML/MIN (>60); Glucose 100 mg/dl (74-100); Potassium 3.4 mmoL/L (3.5-5.1); Sodium 138 mmol/L (136-145)
[2023-07-06] MEDS: PANTOPRAZOLE 40MG TABLET 40 MG PO (09:31)
[2023-07-06] MEDS: APIXABAN 5MG TABLET 5 MG PO ×2 (09:31→21:18)
[2023-07-06] MEDS: LORATADINE 10MG TABLET 10 MG PO (09:32)
[2023-07-06 09:40] LABS: Lymphocytes % 5 % (10-50); Monocytes % 4 % (2-9); Neutrophils % 91 % (42-76); Total Cells Counted 100
[2023-07-06 09:41] LABS: Platelet Estimate Normal; RBC Morphology Normal
[2023-07-06] MEDS: PHENAZOPYRIDINE 200MG TABLET 100 MG PO (10:54)
[2023-07-06] MEDS: CEFTRIAXONE 1 GM 1 GM in 0.9 % SODIUM CHLORIDE 50 ML IV (10:57)
[2023-07-06] MEDS: dilTIAZem HCL 180MG CAP.ER.24H 180 MG PO (11:39)
--- NOTE | 2023-07-06 14:51 | P.PN_ITS ---
Subjective *Date: 07/06/23 *Time: 14:51 Interval history: Patient was seen and evaluated at the bedside. No reported acute events overnight, still has some nausea, denies chest pain, shortness of breath. also has some abdominal pain in lower pelvic area. Exam Data for Last 24 hours Vital signs and Labs for Last 24 Hours: Temp Pulse Resp BP Pulse Ox O2 Del Method 98.2 F 68 18 91/47 L 95 Room Air 07/06/23 07:39 07/06/23 07:39 07/06/23 07:39 07/06/23 07:39 07/06/23 07:39 07/06/23 13:00 Laboratory Results - last 24 hr 07/06/23 07:15: WBC 13.1 H, RBC 4.19 L, Hgb 13.5 D, Hct 39.9, MCV 95.2, MCH 32.3 H, MCHC 34.0, RDW 15.0, Plt Count 214, MPV 8.3, Neut % (Auto) 88.8 H, Lymph % (Auto) 4.3 L, [place] % (Auto) 3.2, Eos % (Auto) 3.4, Baso % (Auto) 0.4, Neut # (Auto) 11.7 H, Lymph # (Auto) 0.6 L, [place] # (Auto) 0.4, Eos # (Auto) 0.4, Baso # (Auto) 0.1, Total Counted 100, Neutrophils % (Manual) 91 H, Lymphocytes % (Manual) 5 L, Monocytes % (Manual) 4, Platelet Estimate Normal, RBC Morphology Normal, Sodium 138, Potassium 3.4 L, Chloride 107, Carbon Dioxide 28, Anion Gap 6.4, BUN 21 H, Creatinine 1.30 H, Estimated Creat Clear 58, Estimated GFR 40 L, Est GFR ( Amer) 49 L, Glucose 100 D, Calcium 8.3 L I & O for Last 24 hours: Intake & Output 07/03/23 07/04/23 07/05/23 07/06/23 23:59 23:59 23:59 23:59 Intake Total 1140 / 1140 Output Total 100 / 100 300 / 300 Balance -100 / -100 840 / 840 Weight 88.252 kg 93.44 kg Constitutional Constitutional: no acute distress *Routine HEENT Exam Head: Present normocephalic Eye: Present EOMI and PERRL ENT: Present mucous membranes moist *Routine Neck Exam Neck: Present supple; Absent lymphadenopathy *Routine Respiratory Exam Respiratory: Present CTA bilaterally *Routine Cardiovascular Exam Cardiovascular: Present RRR *Routine Abdominal Exam Abdominal: Present soft and normoactive bowel sounds; Absent tenderness *Routine Extremities Exam Extremities: Absent cyanosis, clubbing or edema *Routine Skin Exam Skin: Present warm; Absent rash *Routine Neurological Exam Neurological: Present alert and oriented X3 Assessment and Plan *Assessment and plan (1) Abdominal pain: Status: Acute Category: Medical Code(s): R10.9 - Unspecified abdominal pain (2) Nausea: Status: Acute Category: Medical Code(s): R11.0 - Nausea (3) Hyperlipidemia: Status: Chronic Qualifiers: Hyperlipidemia type: unspecified Qualified Code(s): E78.5 - Hyperlipidemia, unspecified Category: Medical Code(s): E78.5 - Hyperlipidemia, unspecified (4) Hypertension: Status: Chronic Qualifiers: Hypertension type: primary hypertension Qualified Code(s): I10 - Essential (primary) hypertension Category: Medical Code(s): I10 - Essential (primary) hypertension (5) PAF (paroxysmal atrial fibrillation): Status: Chronic Category: Medical Code(s): I48.0 - Paroxysmal atrial fibrillation Plan Patient is a 72-year-old female with past medical history of paroxysmal atrial fibrillation hypertension hyperlipidemia sick sinus syndrome status post pacemaker placement who presented to hospital due to lower abdominal pain, severe nausea vomiting. According to patient she has been feeling sick since yesterday, she was recently treated for urinary tract infection. She has a history of kidney stones, she follows up with her urologist at [facility]. Patient rates her pain as 10/10 intensity, lower abdominal pain. She denies pain radiating to her back. Assessment Abdominal pain, unclear etiology, differentials include nephrolithiasis, partially treated UTI Recurrent nausea vomiting likely secondary to above Hypertension Hyperlipidemia Atrial fibrillation Leukocytosis CKD stage II Plan empirical antibiotics with Rocephin UA was completed, did not show evidence of infection however patient recently had antibiotics CT abdomen pelvis does show nephrolithiasis, no hydronephrosis As needed Zofran, Phenergan IV fluids Lipase level checked-81, LFTs within normal limits Will recheck lactic acid Check blood cultures Check chest x-ray Check troponin DVT prophylaxis-resume home Eliquis continue IV fluids, IV rocephin, started on pyridium for burning urination
[2023-07-06 15:08] VITALS: BP 101/51; PULSE 66; RESP 18; TEMP 36.7; O2SAT 96
[2023-07-06] MEDS: diphenhydrAMINE 50MG/ML VIAL 25 MG IV (18:11)
[2023-07-06 20:00] VITALS: BP 114/56; PULSE 65; RESP 17; TEMP 36.7; O2SAT 94
[2023-07-06] MEDS: FAMOTIDINE 20MG TABLET 20 MG PO (21:18)
[2023-07-06] MEDS: PRAVASTATIN 40MG TAB 80 MG PO (21:18)
[2023-07-07 04:00] VITALS: BP 132/70; PULSE 68; RESP 17; TEMP 36.9; O2SAT 96; BMI 28.9
--- NOTE | 2023-07-07 05:25 | PC.NURSE ---
Pt has had no complaints through the night. Pt has wore CPAP and rested well through the night. Pt gets up to the bedside commode with 1 assist. Call light in reach.
[2023-07-07] MEDS: SUCRALFATE 1GM TABLET 1 GM PO (06:03)
[2023-07-07] MEDS: LEVOTHYROXINE 100MCG (0.1MG) TAB 100 MCG PO (06:03)
[2023-07-07 06:35] LABS: Basophils % 0.3 % (0.1-2.0); Eosinophils # 0.6 K/mm3 (0.0-0.4); Eosinophils % 8.6 % (0.1-12.0); Hematocrit 36.7 % (37.0-47.0); Hemoglobin 12.3 g/dL (12.2-16.2); Lymphocytes # 1.5 K/mm3 (0.7-4.5); Lymphocytes % 21.1 % (10-50); Mean Corpuscular HGB Conc 33.5 g/dL (31.8-35.4); Mean Corpuscular Hemoglobin 32.1 pg (27.0-31.2); Mean Corpuscular Volume 95.5 fl (81-99); Mean Platelet Volume 7.9 fl (7.4-10.4); Monocytes # 0.3 K/mm3 (0.1-1.0); Monocytes % 4.3 % (1.7-9.3); Neutrophils # 4.8 K/mm3 (1.8-7.8); Neutrophils % 65.5 % (37.0-80.0); Platelet Count 192 K/mm3 (142-424); Red Blood Count 3.84 M/mm3 (4.20-5.40); Red Cell Distribution Width 14.8 % (11.5-17.5); White Blood Count 7.3 K/mm3 (4.8-10.8)
[2023-07-07 06:48] LABS: Alanine Aminotransferase 359 U/L (12-78); Albumin Level 2.6 g/dl (3.5-5.0); Albumin/Globulin Ratio 1.1 (1.1-1.8); Alkaline Phosphatase 213 U/L (38-126); Anion Gap 6.4 mEq/L (5-15); Aspartate Amino Transferase 232 U/L (14-36); Bilirubin,Total 0.6 mg/dl (0.2-1.3); Blood Urea Nitrogen 14 mg/dl (7-17); Calcium 8.2 mg/dl (8.4-10.2); Carbon Dioxide 25 mmol/L (22.0-30.0); Chloride 116 mmol/L (98-107); Creatinine Clearance Estimated 71 mL/min (50-200); Estimated Glomerular Filt Rate 49 ml/min (>60); GFR (African American) 59 ML/MIN (>60); Globulin 2.4 g/dL (1.3-3.2); Glucose 125 mg/dl (74-100); Magnesium 1.7 mg/dl (1.6-2.3); Potassium 3.4 mmoL/L (3.5-5.1); Sodium 144 mmol/L (136-145)
[2023-07-07 08:00] VITALS: BP 149/80; PULSE 70; RESP 17; TEMP 36.4; O2SAT 94
--- NOTE | 2023-07-07 09:13 | EXP.DC.SUM ---
General Admission date:: 07/05/23 Discharge date: 07/07/23 HPI HPI HPI: Patient is a 72-year-old female with past medical history of paroxysmal atrial fibrillation hypertension hyperlipidemia sick sinus syndrome status post pacemaker placement who presented to hospital due to lower abdominal pain, severe nausea vomiting. According to patient she has been feeling sick since yesterday, she was recently treated for urinary tract infection. She has a history of kidney stones, she follows up with her urologist at [facility]. Patient rates her pain as 10/10 intensity, lower abdominal pain. She denies pain radiating to her back. Denied fever chills diarrhea constipation dysuria Hospital Course Hospital Course Hospital Course: Patient is a 72-year-old female with past medical history of paroxysmal atrial fibrillation hypertension hyperlipidemia sick sinus syndrome status post pacemaker placement who presented to hospital due to lower abdominal pain, severe nausea, and vomiting. According to patient she has been feeling sick since yesterday, she was recently treated for urinary tract infection. She has a history of kidney stones, she follows up with her urologist at [facility]. Patient rates her pain as 10/10 intensity, lower abdominal pain. She denies pain radiating to her back. By morning of the , she is feeling better and just having some mild dysuria. No vomiting. Tolerating p.o. intake. Afebrile. Labs with last. Stable for discharge home. Problems addressed as follows: UTI Nephrolithiasis, nonobstructive -Imaging obtained of her abdomen, no obstruction or hydronephrosis. Patient's nausea and vomiting was treated with antiemetics. Urine culture reviewed, positive for Proteus sensitive to ciprofloxacin. Patient was transition to ciprofloxacin on day of discharge to complete 7-day course of antibiotics based on sensitivities. In regard to her dysuria, will treat with Pyridium. Recommend following with urology as previously scheduled. Stable kidney function. Given her clinical improvement, will complete oral therapy. Diflucan sent in case patient develops yeast infection as she has a history of these. Already has appointment to see urology next month, encouraged to keep this appointment. Continued home medications for chronic conditions including hypertension, hyperlipidemia, A-fib. No other changes at discharge. Exam Data for Last 24 hours Vital signs and Labs for Last 24 Hours: Temp Pulse Resp BP Pulse Ox O2 Del Method 97.5 F L 70 17 149/80 H 94 L Room Air 07/07/23 08:00 07/07/23 08:00 07/07/23 08:00 07/07/23 08:00 07/07/23 08:00 07/07/23 08:00 Laboratory Results - last 24 hr 07/06/23 07:15: Total Counted 100, Neutrophils % (Manual) 91 H, Lymphocytes % (Manual) 5 L, Monocytes % (Manual) 4, Platelet Estimate Normal, RBC Morphology Normal, Sodium 138, Potassium 3.4 L, Chloride 107, Carbon Dioxide 28, Anion Gap 6.4, BUN 21 H, Creatinine 1.30 H, Estimated Creat Clear 58, Estimated GFR 40 L, Est GFR ( Amer) 49 L, Glucose 100 D, Calcium 8.3 L 07/07/23 05:46: WBC 7.3 D, RBC 3.84 L, Hgb 12.3, Hct 36.7 L, MCV 95.5, MCH 32.1 H, MCHC 33.5, RDW 14.8, Plt Count 192, MPV 7.9, Neut % (Auto) 65.5, Lymph % (Auto) 21.1, [place] % (Auto) 4.3, Eos % (Auto) 8.6, Baso % (Auto) 0.3, Neut # (Auto) 4.8, Lymph # (Auto) 1.5, [place] # (Auto) 0.3, Eos # (Auto) 0.6 H, Baso # (Auto) 0.0, Sodium 144, Potassium 3.4 L, Chloride 116 H, Carbon Dioxide 25, Anion Gap 6.4, BUN 14 D, Creatinine 1.10 H, Estimated Creat Clear 71, Estimated GFR 49 L, Est GFR ( Amer) 59 D, Glucose 125 H D, Calcium 8.2 L, Magnesium 1.7, Total Bilirubin 0.6, AST 232 H D, ALT 359 H*, Alkaline Phosphatase 213 H, Total Protein 5.0 L, Albumin 2.6 L, Globulin 2.4, Albumin/Globulin Ratio 1.1 I & O for Last 24 hours: Intake & Output 07/04/23 07/05/23 07/06/23 07/07/23 23:59 23:59 23:59 23:59 Intake Total 3232 / 3232 1363 / 1363 Output Total 100 / 100 300 / 300 400 / 400 Balance -100 / -100 2932 / 2932 963 / 963 Weight 88.252 kg 93.44 kg 96.797 kg Constitutional Constitutional: no acute distress and chronically ill appearing *Routine HEENT Exam Head: Present normocephalic Eye: Present EOMI and PERRL ENT: Present mucous membranes moist *Routine Neck Exam Neck: Present supple; Absent lymphadenopathy *Routine Respiratory Exam Respiratory: Present CTA bilaterally; Absent rhonchi, wheezes or crackles *Routine Cardiovascular Exam Cardiovascular: Present RRR *Routine Abdominal Exam Abdominal: Present soft and normoactive bowel sounds; Absent tenderness or distended *Routine Extremities Exam Extremities: Absent cyanosis, clubbing or edema *Routine Skin Exam Skin: Present warm; Absent rash *Routine Neurological Exam Neurological: Present alert, oriented X3 and moving all extremities; Absent altered mental status Results Data Completed and Pending Labs on day of discharge: Labs from last 24 hours 07/07/23 07/06/23 05:46 07:15 WBC 7.3 D RBC 3.84 L Hgb 12.3 Hct 36.7 L MCV 95.5 MCH 32.1 H MCHC 33.5 RDW 14.8 Plt Count 192 MPV 7.9 Neut % (Auto) 65.5 Lymph % (Auto) 21.1 [place] % (Auto) 4.3 Eos % (Auto) 8.6 Baso % (Auto) 0.3 Neut # (Auto) 4.8 Lymph # (Auto) 1.5 [place] # (Auto) 0.3 Eos # (Auto) 0.6 H Baso # (Auto) 0.0 Total Counted 100 Neutrophils % (Manual) 91 H Lymphocytes % (Manual) 5 L Monocytes % (Manual) 4 Platelet Estimate Normal RBC Morphology Normal Sodium 144 138 Potassium 3.4 L 3.4 L Chloride 116 H 107 Carbon Dioxide 25 28 Anion Gap 6.4 6.4 BUN 14 D 21 H Creatinine 1.10 H 1.30 H Estimated Creat Clear 71 58 Estimated GFR 49 L 40 L Est GFR ( Amer) 59 D 49 L Glucose 125 H D 100 D Calcium 8.2 L 8.3 L Magnesium 1.7 Total Bilirubin 0.6 AST 232 H D ALT 359 H* Alkaline Phosphatase 213 H Total Protein 5.0 L Albumin 2.6 L Globulin 2.4 Albumin/Globulin Ratio 1.1 DS: Diagnosis Discharge Diagnosis (1) UTI (urinary tract infection): Status: Acute Code(s): N39.0 - Urinary tract infection, site not specified (2) Abdominal pain: Status: Acute Code(s): R10.9 - Unspecified abdominal pain (3) Nausea: Status: Acute Code(s): R11.0 - Nausea (4) Hyperlipidemia: Status: Chronic Code(s): E78.5 - Hyperlipidemia, unspecified Qualifiers: Hyperlipidemia type: unspecified Qualified Code(s): E78.5 - Hyperlipidemia, unspecified (5) Hypertension: Status: Chronic Code(s): I10 - Essential (primary) hypertension Qualifiers: Hypertension type: primary hypertension Qualified Code(s): I10 - Essential (primary) hypertension (6) PAF (paroxysmal atrial fibrillation): Status: Chronic Code(s): I48.0 - Paroxysmal atrial fibrillation Meds Home Medications and Allergies Home Medications Medication Instructions Recorded Confirmed Type carvedilol 25 mg tablet 25 mg PO BID Hypertension 90 days 05/29/18 07/05/23 History hydrochlorothiazide 25 mg tablet 25 mg PO DAILY Fluid 90 days 05/29/18 07/05/23 History levothyroxine 100 mcg tablet 100 mcg PO DAILYDM thyroid 90 days 05/29/18 07/05/23 History simvastatin 40 mg tablet 40 mg PO HS Cholesterol 90 days 05/29/18 07/05/23 History cetirizine 10 mg tablet 10 mg PO DAILY Allergy Symptoms 07/25/21 07/05/23 History famotidine 20 mg tablet 20 mg PO HS GERD 07/25/21 07/05/23 History apixaban 5 mg tablet 5 mg PO BID AFIB 10/18/21 07/05/23 History diltiazem HCl 180 mg 180 mg PO DAILY Heart Rhythm 10/18/21 07/05/23 History capsule,extended release 24 hr ondansetron 4 mg disintegrating 4 mg PO TIDP PRN Nausea And 07/05/23 07/05/23 History tablet Vomiting pantoprazole 40 mg tablet,delayed 40 mg PO DAILY GERD 07/05/23 07/05/23 History release sucralfate 1 gram tablet 1 g PO ACHS GERD 07/05/23 07/05/23 History ciprofloxacin HCl 250 mg tablet 250 mg PO BID 7 days #14 tabs 07/07/23 Rx fluconazole 200 mg tablet 200 mg PO DAILY 1 day #1 tab 07/07/23 Rx (Diflucan) phenazopyridine 200 mg tablet 200 mg PO TIDP PRN burning urine 3 07/07/23 Rx days #9 tabs New Prescriptions to Start Prescriptions: ciprofloxacin HCl Gutierrez Craven fluconazole [Diflucan] Gutierrez Craven phenazopyridine Gutierrez Craven Allergies Allergy/AdvReac Type Severity Reaction Status Date / Time Latex, Natural Rubber Allergy Severe Difficulty Verified 07/05/23 10:56 Breathing clavulanic acid Allergy Unknown Verified 07/05/23 10:56 [From AUGMENTIN] fentanyl [FENTANYL] Allergy Unknown Difficult Verified 07/05/23 10:56 to awake levofloxacin [From LEVAQUIN] Allergy Unknown Verified 07/05/23 10:56 minocycline [MINOCYCLINE] Allergy Unknown Verified 07/05/23 10:56 propofol [PROPOFOL] Allergy Unknown UNABLE TO Verified 07/05/23 10:56 WAKE UP quinidine [QUINIDINE] Allergy Unknown FAMILY HX Verified 07/05/23 10:56 OF HEART STOPPING-PT REFUSES TO TAKE Sulfa (Sulfonamide Allergy Unknown ITCHING, Verified 07/05/23 10:56 Antibiotics) HIVES, [SULFA (SULFONAMIDE ORAL ANTIBIOTICS)] SWELLING prednisone Allergy severe rash Verified 07/06/23 18:14 spironolactone AdvReac Mild total body Verified 07/05/23 10:56 dehydration Discharge Plan Disposition Patient Disposition: Home, Self-Care Condition: Good Follow up Plan Follow up with: Serge Wilson MD [Primary Care Provider] - 07/14/23 10:00 am Prescriptions/Medication Reconciliation: New phenazopyridine 200 mg Tablet 200 mg PO TIDP PRN (Reason: burning urine) 3 Days Qty: 9 0RF ciprofloxacin HCl 250 mg tablet 250 mg PO BID 7 Days Qty: 14 0RF fluconazole [Diflucan] 200 mg tablet 200 mg PO DAILY 1 Days Qty: 1 0RF Rx Instructions: take after completing antibiotics if has yeast infection symptoms Continued cetirizine 10 mg tablet 10 mg PO DAILY famotidine 20 mg tablet 20 mg PO HS simvastatin 40 mg tablet 40 mg PO HS 90 Days hydrochlorothiazide 25 mg tablet 25 mg PO DAILY 90 Days levothyroxine 100 mcg tablet 100 mcg PO DAILYDM 90 Days carvedilol 25 mg tablet 25 mg PO BID 90 Days diltiazem HCl 180 MG capsule,extended release 24hr 180 mg PO DAILY apixaban 5 MG tablet 5 mg PO BID sucralfate 1 gram tablet 1 g PO ACHS pantoprazole 40 mg tablet,delayed release (DR/EC) 40 mg PO DAILY Patient Comments: TAKE 1 TABLET BY MOUTH ONCE DAILY IN THE MORNING FOR STOMACH ondansetron 4 mg tablet,disintegrating 4 mg PO TIDP PRN (Reason: Nausea And Vomiting) Discontinued cefdinir 300 mg capsule 300 mg PO BID Rx Instructions: FOR 7 DAYS, STARTED 07/01/23. Problem Reconciliation Problems Reviewed?: Yes Patient Discharge Instructions ACTIVITY: Continue current activity DIET: continue same diet Patient Instructions: DI for Kidney Stones, DI for Urinary Tract Infection (UTI), DI for Abdominal Pain-Adult, DI for Nausea -- Adult Providers Primary Care Provider: Serge Wilson Admit Provider: Bonilla Estrada Attending Provider: Bonilla Estrada
--- NOTE | 2023-07-09 11:26 | CARE MANAGER ---
Contacted patient related to hospital discharge. She states she is doing a little better, but feels very weak. She has her new medications and has been taking them. She is aware of follow up appointment. Denies questions or concerns. GLORY Peterson
== END 2023-07-07 12:59 | disposition home or self-care (01) ==
LOC: ER 11:25 → 2ND 13:25
PROVIDERS: Internal Medicine Adolescent Medicine; Admitting Provider Internal Medicine; Emergency Provider Emergency Medicine; PCP Internal Medicine; Visit Provider Internal Medicine
DX: N39.0 Urinary tract infection, site not specified (principal); I48.0 Paroxysmal atrial fibrillation; R11.0 Nausea; E78.5 Hyperlipidemia, unspecified; N17.9 Acute kidney failure, unspecified; Z96.652 Presence of left artificial knee joint; Z95.0 Presence of cardiac pacemaker; Z87.891 Personal history of nicotine dependence; I12.9 Hypertensive chronic kidney disease with stage 1 through stage 4 chronic kidney disease, or unspecified chronic kidney disease; E11.22 Type 2 diabetes mellitus with diabetic chronic kidney disease; N18.2 Chronic kidney disease, stage 2 (mild); N20.0 Calculus of kidney
CPT/HCPCS: 36415; 74174; 80048; 80053; 81001; 83605; 83690; 83735; 84100; 85007; 85025; 93005; 99285; G0378; J0696; J2405; Q9967

== ENCOUNTER 2023-08-04 11:01 | Outpatient (CLI) | payer MEDICARE, SELFPAY ==
[2023-08-05 09:21] LABS: Intact Parathyroid Hormone 57.3 pg/mL (7.5-53.5)
== END 2023-08-04 23:59 ==
LOC: LAB.DROPOF 08-07 11:02
PROVIDERS: PCP Physician Assistant; Visit Provider Physician Assistant
DX: E83.52 Hypercalcemia (principal)
CPT/HCPCS: 83970

== ENCOUNTER 2023-08-04 11:12 | Outpatient (CLI) | payer MEDICARE, SELFPAY ==
--- NOTE | 2023-08-04 11:28 | XR_ITS ---
FINAL REPORT TECHNIQUE: Chest PA & Lateral CLINICAL HISTORY: cp/shortness of breath/fatigue COMPARISON: 03/15/2022 FINDINGS: 2 views of the chest were performed. The heart size is normal. Left-sided pacer is present. The mediastinum is within normal limits. There is no acute cardiopulmonary process. There is a calcified granuloma in the left lung base. There are no pleural effusions. There is no pneumothorax. The bony thorax appears intact. IMPRESSION: No acute cardiopulmonary process. Reviewed, Interpreted and Dictated by Silas Price MD Transcribed by Pooja Trivedi Authenticated and [facility]
[2023-08-04 11:34] LABS: Basophils # 0.1 K/mm3 (0-0.2); Basophils % 0.7 % (0.1-2.0); Eosinophils # 0.7 K/mm3 (0.0-0.4); Eosinophils % 5.9 % (0.1-12.0); Hematocrit 44.2 % (37.0-47.0); Hemoglobin 15.4 g/dL (12.2-16.2); Lymphocytes # 4.1 K/mm3 (0.7-4.5); Lymphocytes % 33.8 % (10-50); Mean Corpuscular HGB Conc 34.7 g/dL (31.8-35.4); Mean Corpuscular Volume 94.9 fl (81-99); Mean Platelet Volume 7.8 fl (7.4-10.4); Monocytes # 0.7 K/mm3 (0.1-1.0); Monocytes % 5.9 % (1.7-9.3); Neutrophils # 6.6 K/mm3 (1.8-7.8); Neutrophils % 53.8 % (37.0-80.0); Platelet Count 243 K/mm3 (142-424); Red Blood Count 4.66 M/mm3 (4.20-5.40); Red Cell Distribution Width 13.9 % (11.5-17.5); White Blood Count 12.2 K/mm3 (4.8-10.8)
[2023-08-04 12:34] LABS: Chloride 108 mmol/L (98-107); Potassium 4.1 mmoL/L (3.5-5.1); Sodium 141 mmol/L (136-145)
[2023-08-04 12:36] LABS: Alanine Aminotransferase 25 U/L (12-78); Bilirubin,Unconjugated 0.3 mg/dL (0.0-1.1); Blood Urea Nitrogen 19 mg/dl (7-17); Estimated Glomerular Filt Rate 49 ml/min (>60); GFR (African American) 59 ML/MIN (>60)
[2023-08-04 12:37] LABS: Alkaline Phosphatase 181 U/L (38-126); Anion Gap 1.1 mEq/L (5-15); Aspartate Amino Transferase 32 U/L (14-36); Bilirubin,Direct 0.2 mg/dl (0.0-0.4); Bilirubin,Indirect 0.3 mg/dL (0.0-0.9); Bilirubin,Total 0.5 mg/dl (0.2-1.3); Calcium 10.3 mg/dl (8.4-10.2); Carbon Dioxide 36 mmol/L (22.0-30.0); Chol/HDL Ratio 3.3 (1-3.5); Cholesterol 201 mg/dl (140-200); Glucose 91 mg/dl (74-100); HDL Cholesterol 61 mg/dl (40-60); Magnesium 1.9 mg/dl (1.6-2.3); Total Protein,Serum 6.3 g/dl (6.3-8.2); Triglycerides 133 mg/dl (30-150); VLDL Cholesterol 27 mg/dL (0-40)
[2023-08-04 12:48] LABS: NT Pro Brain Natriuretic Pep. 58.1 pg/mL (0-125)
[2023-08-04 12:55] LABS: Direct LDL Cholesterol 89.06 mg/dL (100-129)
[2023-08-04 12:57] LABS: Free T4 (Free Thyroxine) 1.64 ng/dl (0.78-2.19)
[2023-08-04 13:09] LABS: Thyroid Stimulating Hormone 0.66 uIU/mL (0.465-4.68)
== END 2023-08-04 23:59 ==
LOC: LAB 11:14
PROVIDERS: PCP Internal Medicine; Visit Provider Physician Assistant
DX: E78.5 Hyperlipidemia, unspecified (principal); I10 Essential (primary) hypertension; I25.10 Atherosclerotic heart disease of native coronary artery without angina pectoris; I48.0 Paroxysmal atrial fibrillation; R06.00 Dyspnea, unspecified; R07.9 Chest pain, unspecified; R53.1 Weakness; R53.83 Other fatigue; Z95.0 Presence of cardiac pacemaker; T82.110A Breakdown (mechanical) of cardiac electrode, initial encounter
CPT/HCPCS: 36415; 71046; 80048; 80061; 80076; 83735; 83880; 84439; 84443; 85025

== ENCOUNTER 2023-08-06 14:24 | Outpatient (CLI) | payer MEDICARE, SELFPAY ==
--- NOTE | 2023-08-06 14:25 | CA_ITS ---
APPROVED REPORT EXAM: Comprehensive 2D, Doppler, and color-flow Echocardiogram Transmission Assembler: Denia Paris, HUSAM, RVS Ht: 6 ft 0 in Wt: 200lbs BSA: 2.13 BP: 129/85 mmHg Indications: CP, Pacemaker, Afib, Ex-smoker, Edema, HTN, HLD 2D Dimensions Left Atrium 2.87 cm LA Volume 53.90 mL LA Volume Index 24.70 mL/m2 (M/F) 16-34 M-Mode Dimensions RVDd 2.17 cm (0.9-2.6) LA Diam 3.51 cm (1.9-4.0) LVDd 5.07 cm (3.5-5.7) LVDs 3.66 cm (3.5-5.7) IVSd 1.03 cm (0.6-1.1) PWd 0.84 cm (0.6-1.1) EF (Teich) 53.60% EPSs 0.53 cm FS 27.80% EDV (Teich) 122.10 mL TAPSE 2.78 (<1.7) ESV (Teich) 56.60 mL LV Diastology E Decel Time 210 (160-240 msec) E/A Ratio 0.96 MED A' 8.80 cm/s LAT A' 8.00 cm/s Aortic Valve FELIPE Index 1.06 cm2/m2 AoV Peak Yonny. 122.0 (50-130 cm/s) AO Peak GR. 6.00 mmHg AO Mean GR. 3.00 (<5 mmHg) AO VTI 25.3 (18-25 cm) FELIPE (VTI) 2.30 (2.5-4.5 cm2) Mitral Valve MV A Velocity 63.0 (40-130 cm/s) E/A Ratio 0.96 Tricuspid Valve TR P. Velocity 232.00 cm/s RAP Estimate 10.00 mmHg RVSP 31.60 mmHg Left Ventricle The left ventricle is normal size. The left ventricular systolic function is normal. The left ventricular ejection fraction is within the normal range. There is normal left ventricular wall thickness. There is normal LV segmental wall motion. The left ventricular diastolic function is normal. LVEF is 60%. Right Ventricle The right ventricle is mildly dilated. The right ventricular systolic function is normal. There is a device lead present in the right ventricle. Atria The left atrium size is normal. The right atrium size is normal. There is no Doppler evidence of interatrial shunt. Aortic Valve The aortic valve opens well. There is no aortic valvular stenosis. No aortic regurgitation is present. Mitral Valve The mitral valve is normal in structure. No evidence of mitral valve stenosis. There is no mitral valve regurgitation noted. Tricuspid Valve The tricuspid valve leaflets are thin and pliable. Mild tricuspid regurgitation. RVSP is 20-25 mmHg. Pulmonic Valve The pulmonary valve is normal in structure. Trace pulmonic regurgitation. Great Vessels The aortic root is normal in size. The ascending aorta is normal in size. IVC is normal in size and collapses >50% with inspiration. Pericardium There is no pericardial effusion. An epicardial fat pad is noted. Other Information Study Quality: Fair Conclusion Normal biventricular systolic function. Mild RV dilation. Mild TR. Electronically signed by : Karen High MD 08/09/2023 16:26:26
== END 2023-08-06 23:59 ==
LOC: RT 14:25
PROVIDERS: PCP Internal Medicine; Visit Provider Physician Assistant
DX: E78.5 Hyperlipidemia, unspecified (principal); I10 Essential (primary) hypertension; I25.10 Atherosclerotic heart disease of native coronary artery without angina pectoris; I48.0 Paroxysmal atrial fibrillation; R06.00 Dyspnea, unspecified; R07.9 Chest pain, unspecified; T82.110A Breakdown (mechanical) of cardiac electrode, initial encounter; Z95.0 Presence of cardiac pacemaker
CPT/HCPCS: 93306

== ENCOUNTER 2023-08-12 10:48 | Outpatient (CLI) | payer MEDICARE, SELFPAY ==
--- NOTE | 2023-08-12 10:49 | US_ITS ---
FINAL REPORT CLINICAL HISTORY: elevated pth/hypercalcemia COMPARISON: None FINDINGS: THYROID ULTRASOUND: The right lobe of the liver measures 4.7 x 1.3 x 1.3 cm in size. There are several small colloid cysts present in the right thyroid gland. There is also a 5 mm hypoechoic nodule, wider than tall, a TI-RADS category 4 nodule. The left lobe of the thyroid gland measures 3.7 x 1.4 x 1.4 cm in size. Once again there are several small colloid cysts identified. There is a hyperechoic focus inferior to the lower pole measuring 8 x 10 mm in size. This may represent a lymph node, or may represent a parathyroid adenoma. The isthmus of the thyroid is normal in appearance and measures 3.5 mm in thickness. IMPRESSION: TI-RADS category 4 nodule in the right lobe of the thyroid gland, due to size no follow-up is suggested at this time. Hyperechoic 8 x 10 mm focus inferior to the left lobe of the thyroid that may represent a lymph node or a parathyroid adenoma. Would consider follow-up, or CT examination for further evaluation. Reviewed, Interpreted and Dictated by Diana Atwood MD Transcribed by Angela Carson Authenticated and . [facility]
== END 2023-08-12 23:59 ==
LOC: RAD 10:49
PROVIDERS: PCP Internal Medicine; Visit Provider Physician Assistant
DX: E83.52 Hypercalcemia (principal); R79.89 Other specified abnormal findings of blood chemistry
CPT/HCPCS: 76536

== ENCOUNTER 2023-08-15 18:00 | Outpatient (CLI) | payer MEDICARE, SELFPAY ==
[2023-08-15 19:31] LABS: Calcium 10.2 mg/dl (8.4-10.2)
[2023-08-15 19:41] LABS: Intact Parathyroid Hormone 40.4 pg/mL (7.5-53.5)
[2023-08-18 13:09] LABS: Calcium, Ionized 5.3 mg/dL (4.5-5.6)
== END 2023-08-15 23:59 ==
LOC: LAB.DROPOF 18:00
PROVIDERS: PCP Internal Medicine; Visit Provider Internal Medicine
DX: E83.52 Hypercalcemia (principal); E04.1 Nontoxic single thyroid nodule; N39.0 Urinary tract infection, site not specified; N20.0 Calculus of kidney
CPT/HCPCS: 82310; 82330; 83970; 84100

== ENCOUNTER 2023-08-20 08:29 | Outpatient (CLI) | payer MEDICARE, SELFPAY ==
--- NOTE | 2023-08-20 08:45 | CT_ITS ---
FINAL REPORT TECHNIQUE: Axial CT images of the abdomen were obtained with IV contrast only. Coronal and sagittal reformatted images were also obtained. This study was performed with techniques to keep radiation doses as low as reasonably achievable (ALARA). Individualized dose reduction techniques using automated exposure control or adjustment of mA and/or kV according to the patient''s size were employed. CLINICAL HISTORY: LIVER LESION COMPARISON: 05/23/2023 FINDINGS: The lung bases are clear. There are multiple foci of abnormal density noted within the liver. There is a heterogeneously enhancing mass in the anterior segment of the right hepatic lobe, which measures 31 x 25 mm in size, was previously 25 x 25 mm in size. This density does not have the typical appearance of a hemangioma. There is an 11 mm mass in the posterior segment of the right hepatic lobe, which was previously 10 mm in size. There is a presumed cyst in the lateral segment of the right hepatic lobe measuring 6 mm in size, stable since the prior exam. There is a second probable cyst in the left hepatic lobe measuring 7 mm, also stable. The gallbladder has been surgically resected. Mild biliary ductal dilatation is present, favor post cholecystectomy change. The pancreas appears normal. The spleen size is within normal limits. There is a 14 mm stone present in the upper pole of the right kidney, as well as several small left renal stones measuring less than 5 mm in size. These are stable in appearance. There is no evidence of adenopathy. No abnormal fluid collection is seen. No localized inflammatory processes identified. Moderate vascular calcifications are present. IMPRESSION: Multiple hepatic masses as described, the largest a heterogeneously enhancing mass in the anterior segment of the right hepatic lobe, 31 x 25 mm in size, was previously 25 x 25 mm in size. Would recommend liver mass protocol MRI for further evaluation. Several other masses and cysts are present in the liver as described. 14 mm right renal stone and several small less than 5 mm in size left renal stones remain present. Reviewed, Interpreted and Dictated by Liborio eDe III, MD Transcribed by Angela Carson Authenticated and [facility]
[2023-08-20] MEDS: SODIUM CHLORIDE 0.9% 10ML SYR (RAD ONLY) 10 ML IV (09:03)
[2023-08-20] MEDS: IOPAMIDOL-370 (76%);100ML BOTTLE 75 ML IV (09:03)
== END 2023-08-20 23:59 ==
LOC: RAD 08:30
PROVIDERS: PCP Internal Medicine; Visit Provider Internal Medicine Medical Oncology
DX: K76.89 Other specified diseases of liver (principal)
CPT/HCPCS: 74160; Q9967

== ENCOUNTER 2023-09-01 09:11 | Outpatient (CLI) | payer MEDICARE, SELFPAY ==
--- NOTE | 2023-09-01 10:23 | CT_ITS ---
FINAL REPORT TECHNIQUE: Axial images were obtained from the lung apex to the mid abdomen by computed tomography. Coronal reformatted images were obtained. This study was performed with techniques to keep radiation doses as low as reasonably achievable, (ALARA). Individualized dose reduction techniques using automated exposure control or adjustment of mA and/or kV according to the patient''s size were employed. CLINICAL HISTORY: Shortness of breath COMPARISON: 07/05/2020 FINDINGS: Left subclavian pacer is present. There is no axillary adenopathy. There is no hilar or mediastinal adenopathy. Heart size is normal. There is no pericardial or pleural effusion. No suspicious infiltrate or nodule is identified. Limited images of the upper abdomen demonstrate a mass in the anterior segment of the right hepatic lobe measuring 29 x 20 mm which is new from the prior exam and worrisome for hepatic metastatic disease or possible primary hepatic neoplasm. There is also a 7 mm mass in the lateral segment of the left hepatic lobe which is stable and consistent with a cyst. There is a second 13 mm mass in the posterior right hepatic lobe which is stable and nonspecific. IMPRESSION: Hepatic mass worrisome for hepatic metastatic disease or possible primary hepatic neoplasm. Consider CT abdomen and pelvis with contrast or PET/CT for further evaluation Reviewed, Interpreted and Dictated by Liborio Dee III, MD Transcribed by Pooja Trivedi Authenticated and [facility]
== END 2023-09-01 23:59 ==
LOC: RAD 09:12
PROVIDERS: PCP Internal Medicine; Visit Provider Physician Assistant
DX: R06.00 Dyspnea, unspecified (principal)
CPT/HCPCS: 71250

== ENCOUNTER 2023-09-03 07:11 | Outpatient (CLI) | payer MEDICARE, SELFPAY ==
--- NOTE | 2023-09-03 07:19 | US_ITS ---
FINAL REPORT CLINICAL HISTORY: LIVER LESION COMPARISON: CT dated 08/20/2023 FINDINGS: Sonographic images of the right upper quadrant were obtained. The pancreas is obscured. There is a mass in the anterior segment of the right hepatic lobe measuring 2.4 x 1.6 cm in size, which does not have the ultrasound appearance of a hemangioma. This correlates with the mass seen in the right hepatic lobe on CT examination of August 19, which was also not typical in appearance for a hemangioma. The other hepatic lesions seen on the prior CT are not visualized on the ultrasound examination. The gallbladder has been surgically resected. The common bile duct measures 8.5 mm in diameter, enlarged, likely secondary to post cholecystectomy change. Limited images of the right kidney are unremarkable. IMPRESSION: There is a mass seen in the anterior segment of the right hepatic lobe, which does not have the appearance of a hemangioma, and correlates with the mass seen on CT as described above. The other hepatic lesions seen on CT are not visualized on this ultrasound examination. Dilation of the common bile duct to 8.5 mm, likely secondary to post cholecystectomy change. Reviewed, Interpreted and Dictated by Liborio Dee III, MD Transcribed by Angela Carson Authenticated and [facility]
== END 2023-09-03 23:59 ==
LOC: RAD 07:12
PROVIDERS: PCP Internal Medicine; Visit Provider Internal Medicine Medical Oncology
DX: K76.9 Liver disease, unspecified (principal)
CPT/HCPCS: 76705

== ENCOUNTER 2023-09-05 09:11 | Outpatient (CLI) | payer MEDICARE, SELFPAY ==
--- NOTE | 2023-09-05 09:11 | CT_ITS ---
FINAL REPORT TECHNIQUE: Axial imaging of the neck soft tissues was obtained with and without contrast. Reformatted images were also obtained and reviewed. This study was performed with techniques to keep radiation doses as low as reasonably achievable (ALARA). Individualized dose reduction techniques using automated exposure control or adjustment of mA and/or kV according to the patient's size were employed. CLINICAL HISTORY: thyroid nodule FINDINGS: No neck mass or adenopathy is seen. There is moderate to high-grade bilateral internal carotid stenosis at the level of the carotid bulbs. IMPRESSION: No neck mass or adenopathy. Moderate to high-grade bilateral internal carotid stenosis at the level of the carotid bulbs Reviewed, Interpreted and Dictated by Liborio Dee III, MD Transcribed by Shanon Cruz Authenticated and [facility]
[2023-09-05 09:52] LABS: Blood Urea Nitrogen 22 mg/dl (7-17); Estimated Glomerular Filt Rate 44 ml/min (>60); GFR (African American) 53 ML/MIN (>60)
[2023-09-05] MEDS: IOPAMIDOL-370 (76%);100ML BOTTLE 75 ML IV (10:23)
[2023-09-05] MEDS: SODIUM CHLORIDE 0.9% 10ML SYR (RAD ONLY) 10 ML IV (10:23)
== END 2023-09-05 23:59 ==
LOC: RAD 09:11
PROVIDERS: PCP Internal Medicine; Visit Provider Internal Medicine
DX: E04.1 Nontoxic single thyroid nodule (principal); E83.52 Hypercalcemia; N20.0 Calculus of kidney
CPT/HCPCS: 36415; 70492; 82565; 84520; Q9967

== ENCOUNTER 2023-09-16 10:45 | Outpatient (CLI) | payer MEDICARE, SELFPAY ==
[2023-09-16 11:25] LABS: Basophils # 0.1 K/mm3 (0-0.2); Basophils % 1.4 % (0.1-2.0); Eosinophils # 0.4 K/mm3 (0.0-0.4); Eosinophils % 3.9 % (0.1-12.0); Hematocrit 43.5 % (37.0-47.0); Hemoglobin 14.3 g/dL (12.2-16.2); Lymphocytes # 3.6 K/mm3 (0.7-4.5); Lymphocytes % 37.3 % (10-50); Mean Corpuscular HGB Conc 32.8 g/dL (31.8-35.4); Mean Corpuscular Hemoglobin 31.8 pg (27.0-31.2); Mean Corpuscular Volume 97.1 fl (81-99); Mean Platelet Volume 7.7 fl (7.4-10.4); Monocytes # 0.6 K/mm3 (0.1-1.0); Monocytes % 6.2 % (1.7-9.3); Neutrophils % 51.3 % (37.0-80.0); Platelet Count 238 K/mm3 (142-424); Red Blood Count 4.48 M/mm3 (4.20-5.40); Red Cell Distribution Width 13.5 % (11.5-17.5); White Blood Count 9.7 K/mm3 (4.8-10.8)
[2023-09-16 11:45] LABS: Calcium 10.5 mg/dl (8.4-10.2)
[2023-09-16 11:54] LABS: Intact Parathyroid Hormone 84.8 pg/mL (7.5-53.5)
[2023-09-16 11:57] LABS: Activated Partial Thrombo Time 24.8 seconds (22.8-30.6); INR 0.95 (0.9-1.1); Prothrombin Time 10.3 seconds (10.1-12.5)
[2023-09-16 12:00] LABS: 25-OH Vitamin D, Total 63.4 ng/mL (30-100)
[2023-09-16 12:20] LABS: Blood Urea Nitrogen 26 mg/dl (7-17); Estimated Glomerular Filt Rate 54 ml/min (>60); GFR (African American) 66 ML/MIN (>60)
[2023-09-17 16:36] LABS: Angiotensin Converting Enzyme 32 U/L (14-82); Calcium, Ionized 5.4 mg/dL (4.5-5.6)
== END 2023-09-16 23:59 ==
LOC: LAB 10:47
PROVIDERS: Internal Medicine; PCP Internal Medicine; Visit Provider Internal Medicine Medical Oncology
DX: E04.1 Nontoxic single thyroid nodule (principal); T82.110A Breakdown (mechanical) of cardiac electrode, initial encounter; R06.00 Dyspnea, unspecified; R07.9 Chest pain, unspecified; Z95.0 Presence of cardiac pacemaker; I25.10 Atherosclerotic heart disease of native coronary artery without angina pectoris; I10 Essential (primary) hypertension; E78.5 Hyperlipidemia, unspecified; I48.0 Paroxysmal atrial fibrillation; H53.9 Unspecified visual disturbance; E83.52 Hypercalcemia; R79.89 Other specified abnormal findings of blood chemistry; R16.0 Hepatomegaly, not elsewhere classified
CPT/HCPCS: 36415; 82164; 82306; 82310; 82330; 82565; 83970; 84520; 85025; 85610; 85730

== ENCOUNTER 2023-09-17 07:41 | Outpatient (CLI) | payer MEDICARE, SELFPAY ==
[2023-09-17] VITALS (9 sets, daily range): BP systolic 137–179; BP diastolic 67–97; PULSE 66–85; RESP 18; TEMP 36.5; O2SAT 93–99; BMI 27.1
--- NOTE | 2023-09-17 07:45 | CT_ITS ---
FINAL REPORT CLINICAL HISTORY: .liver biopsy 3 versed FINDINGS: CT GUIDED LIVER MASS CORE BIOPSY. HISTORY: Liver mass. ATTENDING PHYSICIAN: Dr. Dee PHYSICIAN CHUCK WAGON COOK: Cody Miller PA-C PROCEDURE: After informed consent was obtained and a timeout was performed, the patient was prepped and draped in usual sterile fashion over the right upper quadrant. Utilizing local anesthesia and sterile technique with a coaxial system, access to lesion was obtained. . A total of 4 separate 20-gauge core biopsies were obtained. Post biopsy films demonstrate no evidence of acute complication. The patient received no procedural sedation. The patient tolerated the procedure well and left the department in good condition. The attending pathologist document control assistant and determined that the sample was likely sufficient for diagnosis. The patient received 3 mg of Versed during the procedure. IMPRESSION: Status post CT guided core biopsy of liver mass without immediate complication. Films reviewed , interpreted and dictated by Dr. Dee. Transcribed by Cody Miller PA-C. Reviewed, Interpreted and Dictated by Liborio Dee III, MD Transcribed by PERRY Fernandez Authenticated and [facility]
[2023-09-17] MEDS: LACTATED RINGERS 1000ML 1,000 ML 25 ML IV (08:09)
== END 2023-09-17 11:50 | disposition home or self-care (01) ==
PROVIDERS: PCP Internal Medicine; Visit Provider Internal Medicine Medical Oncology
DX: R16.0 Hepatomegaly, not elsewhere classified (principal)
CPT/HCPCS: 47000; 77012; 88307; 88341; 88342; 88360

== ENCOUNTER 2023-09-29 08:31 | Outpatient (CLI) | payer MEDICARE, SELFPAY ==
[2023-09-30 09:04] LABS: AFP, Tumor Marker 4.6 ng/mL (0.0-9.2)
[2023-10-01 11:42] VITALS: BMI 27.2
== END 2023-09-29 23:59 ==
LOC: LAB 08:34
PROVIDERS: PCP Internal Medicine; Visit Provider Internal Medicine Medical Oncology
DX: C22.1 Intrahepatic bile duct carcinoma (principal)
CPT/HCPCS: 36415; 82105

== ENCOUNTER 2023-10-01 15:47 | Outpatient (CLI) | payer MEDICARE, SELFPAY ==
--- NOTE | 2023-10-01 | CA_ITS ---
FINAL REPORT TECHNIQUE: Multiple transverse and longitudinal images were performed of the right femoral-popliteal deep venous system with augmentation and compression maneuvers. CLINICAL HISTORY: PAIN RLE,EDEMA RIGHT FOOT,PT CAUGHT RIGHT FOOT ON BED AND PULLED RIGHT GROIN,PT ON ELIQUS COMPARISON: None FINDINGS: Right lower extremity duplex ultrasound demonstrates normal flow in the deep venous system. There is no abnormal echogenicity to suggest thrombus. There is normal compression and augmentation. IMPRESSION: No evidence of right DVT. Reviewed, Interpreted and Dictated by Silas Price MD Transcribed by Pooja Trivedi Authenticated and [facility]
== END 2023-10-01 23:59 | disposition home or self-care (01) ==
LOC: RT 15:47
PROVIDERS: PCP Internal Medicine; Visit Provider Internal Medicine
DX: M79.604 Pain in right leg (principal); M79.89 Other specified soft tissue disorders
CPT/HCPCS: 93971

== ENCOUNTER 2023-11-27 09:36 | Observation (INO) | payer MEDICARE, SELFPAY ==
[2023-11-27] VITALS (11 sets, daily range): BP systolic 104–140; BP diastolic 60–76; PULSE 66–80; RESP 15–28; TEMP 36.3–36.9; O2SAT 91–97; BMI 27.1; BMI 25.7; BMI 26.4
--- NOTE | 2023-11-27 10:02 | ECG_ITS ---
APPROVED REPORT Exam: Resting ECG HR:74 bpm ECG Measurements Heart Rate 74 AXES IL 244 P -51 QRSd 106 QRS -2 QT 410 T 4 QTc 437 Conclusion ELECTRONIC ATRIAL PACEMAKER LOW QRS VOLTAGE IN PRECORDIAL LEADS [QRS DEFLECTION < 1.0 mV IN CHEST LEADS] POSSIBLE ANTERIOR MYOCARDIAL INFARCTION , OF INDETERMINATE AGE [30 ms Q WAVE IN V3/V4, OR R < 0.2 mV IN V4] ABNORMAL ECG UNCONFIRMED REPORT Electronically signed by : Timoteo Winkler MD 11/28/2023 16:08:22
[2023-11-27 10:04] LABS: Basophils # 0.1 K/mm3 (0-0.2); Basophils % 0.8 % (0.1-2.0); Eosinophils # 0.4 K/mm3 (0.0-0.4); Eosinophils % 4.6 % (0.1-12.0); Hematocrit 30.9 % (37.0-47.0); Hemoglobin 9.6 g/dL (12.2-16.2); Lymphocytes # 1.9 K/mm3 (0.7-4.5); Lymphocytes % 23.7 % (10-50); Mean Corpuscular Hemoglobin 28.5 pg (27.0-31.2); Mean Corpuscular Volume 92.1 fl (81-99); Mean Platelet Volume 7.5 fl (7.4-10.4); Monocytes # 0.5 K/mm3 (0.1-1.0); Monocytes % 6.3 % (1.7-9.3); Neutrophils # 5.3 K/mm3 (1.8-7.8); Neutrophils % 64.6 % (37.0-80.0); Platelet Count 439 K/mm3 (142-424); Red Blood Count 3.36 M/mm3 (4.20-5.40); Red Cell Distribution Width 15.5 % (11.5-17.5); White Blood Count 8.2 K/mm3 (4.8-10.8)
[2023-11-27 10:15] LABS: Alanine Aminotransferase 20 U/L (12-78); Albumin Level 3.6 g/dl (3.5-5.0); Albumin/Globulin Ratio 1.2 (1.1-1.8); Alkaline Phosphatase 224 U/L (38-126); Anion Gap 10.6 mEq/L (5-15); Aspartate Amino Transferase 56 U/L (14-36); Bilirubin,Total 0.6 mg/dl (0.2-1.3); Blood Urea Nitrogen 27 mg/dl (7-17); Calcium 10.1 mg/dl (8.4-10.2); Carbon Dioxide 32 mmol/L (22.0-30.0); Chloride 102 mmol/L (98-107); Creatinine Clearance Estimated 52 mL/min (50-200); Estimated Glomerular Filt Rate 40 ml/min (>60); GFR (African American) 49 ML/MIN (>60); Globulin 3.1 g/dL (1.3-3.2); Glucose 131 mg/dl (74-100); Potassium 3.6 mmoL/L (3.5-5.1); Sodium 141 mmol/L (136-145); Total Protein,Serum 6.7 g/dl (6.3-8.2)
[2023-11-27 10:28] LABS: Troponin I < 0.01 ng/ml (0.00-0.034)
--- NOTE | 2023-11-27 10:46 | HMH.EDGENADL ---
Discharge Plan Disposition Patient Disposition: Admitted Prescriptions Prescriptions: No Action cetirizine 10 mg tablet 10 mg PO DAILY famotidine 20 mg tablet 20 mg PO HS simvastatin 40 mg tablet 40 mg PO HS 90 Days hydrochlorothiazide 25 mg tablet 25 mg PO DAILY 90 Days levothyroxine 100 mcg tablet 100 mcg PO DAILYDM 90 Days carvedilol 25 mg tablet 25 mg PO BID 90 Days estradiol 0.01 % (0.1 mg/gram) cream See Rx Instructions vaginal .COMPLEX Qty: 42.5 2RF Rx Instructions: Using finger technique daily for two weeks and then twice weekly vaginally; oxybutynin chloride 10 mg tablet extended release 24hr 10 mg PO DAILY Qty: 90 3RF diltiazem HCl 180 MG capsule,extended release 24hr 180 mg PO DAILY apixaban 5 MG tablet 5 mg PO BID Referrals Follow up/Referrals: Serge Wilson MD [Primary Care Provider] - See instructions Clinical Impressions Clinical Impression: Generalized weakness, Anemia, Acute hypokalemia, Near syncope, Declining functional status Discharge ED Provider: Tyler Drake General Adult HPI General Chief complaint: Weakness Stated complaint: weakness Time Seen by Provider: 11/27/23 10:30 Mode of Arrival: Wheelchair Source of Information: Patient Limitations: No Limitations Description of Symptoms (Recalled from ER Triage Doc. by RN): pt presents to ED from cardiology clinic for further evaluaton. pt reports weakness ongoing for the past week. pt had blood work drawn yesterday at dr jiménez office. pt had recent liver resection for liver cancer History of Present Illness HPI narrative: Patient is a 73-year-old female with a history of A-fib on and adenocarcinoma of the liver who had a partial hepatectomy on October 30 presents to the emergency department with weakness. Patient had an uneventful postoperative process. She states she had been doing well for 10 days and she started getting increasingly weak. She went to cardiology clinic where they followed up on labs that were performed by Dr. Contreras yesterday and she was found to be anemic and have a potassium of 3.0. Cardiology clinic try to get her directly admitted to our hospital medicine team who refused and asked her to come to the emergency department first. She denies any other focal or localizing symptoms. She denies any melena. Her hemoglobin was 9 down from a baseline of 14 based on the labs from [facility] this has been stable since her surgery. She has no active bleeding. Related Data Home Medications Medication Instructions Recorded Confirmed carvedilol 25 mg tablet 25 mg PO BID Hypertension 90 days 05/29/18 11/27/23 hydrochlorothiazide 25 mg tablet 25 mg PO DAILY Fluid 90 days 05/29/18 11/27/23 levothyroxine 100 mcg tablet 100 mcg PO DAILYDM thyroid 90 days 05/29/18 11/27/23 simvastatin 40 mg tablet 40 mg PO HS Cholesterol 90 days 05/29/18 11/27/23 cetirizine 10 mg tablet 10 mg PO DAILY Allergy Symptoms 07/25/21 11/27/23 famotidine 20 mg tablet 20 mg PO HS GERD 07/25/21 11/27/23 apixaban 5 mg tablet 5 mg PO BID AFIB 10/18/21 11/27/23 diltiazem HCl 180 mg 180 mg PO DAILY Heart Rhythm 10/18/21 11/27/23 capsule,extended release 24 hr Previous Rx's Medication Instructions Recorded estradiol 0.01% (0.1 mg/gram) See Rx Instructions vaginal 09/08/23 vaginal cream .COMPLEX #42.5 grams oxybutynin chloride 10 mg 10 mg PO DAILY #90 tabs 09/08/23 tablet,extended release 24 hr Allergies Allergy/AdvReac Type Severity Reaction Status Date / Time Latex, Natural Rubber Allergy Severe Difficulty Verified 11/27/23 09:08 Breathing clavulanic acid Allergy Unknown Verified 11/27/23 09:08 [From AUGMENTIN] fentanyl [FENTANYL] Allergy Unknown Difficult Verified 11/27/23 09:08 to awake levofloxacin [From LEVAQUIN] Allergy Unknown Verified 11/27/23 09:08 minocycline [MINOCYCLINE] Allergy Unknown Verified 11/27/23 09:08 propofol [PROPOFOL] Allergy Unknown UNABLE TO Verified 11/27/23 09:08 WAKE UP quinidine [QUINIDINE] Allergy Unknown FAMILY HX Verified 11/27/23 09:08 OF HEART STOPPING-PT REFUSES TO TAKE Sulfa (Sulfonamide Allergy Unknown ITCHING, Verified 11/27/23 09:08 Antibiotics) HIVES, [SULFA (SULFONAMIDE ORAL ANTIBIOTICS)] SWELLING prednisone Allergy severe rash Verified 11/27/23 09:08 spironolactone AdvReac Mild total body Verified 11/27/23 09:08 dehydration [facility] Disclaimer: The information contained in this section may have been updated after the patient was seen, as this information can be updated by other users. Medical History (Updated 11/27/23 @ 11:57 by Tyler Drake MD) Elevated parathyroid hormone Pacemaker lead malfunction Earlobe lesion Chronic skin ulcer of right ear Kidney stone Sleep apnea History of pacemaker History of left heart catheterization (LHC) Ureteral stent displacement Sick sinus syndrome Atrial fibrillation with rapid ventricular response Surgical History (Updated 11/27/23 @ 09:09 by Denisse Santacruz) History of resection of liver History of total right knee replacement (TKR) History of right heart catheterization (RHC) History of appendectomy History of hysterectomy History of cholecystectomy History of total left knee replacement Family History Other No significant family history Social History Smoking Status: Former smoker alcohol intake: never substance use type: denies use current occupational status: retired Travel in the last 8 weeks: Inside the [place] household members: none housing: house current occupational exposures/hazards: No caffeine: Yes ROS Obtained: Yes All systems reviewed & no additional complaints except as documented Physical Exam General General appearance: alert and in no apparent distress Respiratory Respiratory exam: Present normal lung sounds bilaterally Cardiovascular Cardiovascular exam: Present regular rate and normal rhythm Neurological Exam Neurological exam: Present alert and oriented X3 Medical Decision Making Shay Inquiry Pt receiving controlled substance: No Vital Signs: 11/27/23 09:37 11/27/23 10:00 11/27/23 10:30 Temperature 97.4 F L Temperature Source Oral Pulse Rate 71 66 Pulse Rate [Left Radial] 70 Respiratory Rate 15 Blood Pressure 116/67 104/65 L Blood Pressure [Right Arm] 138/74 Blood Pressure Mean 83 73 Blood Pressure Mean [Right Arm] 95 02 Sat by Pulse Oximetry 95 93 L 92 L Oxygen Delivery Method Room Air 11/27/23 11:00 Temperature Temperature Source Pulse Rate 74 Pulse Rate [Left Radial] Respiratory Rate 28 H Blood Pressure 127/73 Blood Pressure [Right Arm] Blood Pressure Mean Blood Pressure Mean [Right Arm] 02 Sat by Pulse Oximetry 91 L Oxygen Delivery Method Lab Data Lab results reviewed: Yes I reviewed the patient's lab results. Lab Results 11/27/23 09:42: WBC 8.2 D, RBC 3.36 L, Hgb 9.6 L, Hct 30.9 L, MCV 92.1, MCH 28.5, MCHC 31.0 L, RDW 15.5, Plt Count 439 H, MPV 7.5, Neut % (Auto) 64.6, Lymph % (Auto) 23.7, Towner % (Auto) 6.3, Eos % (Auto) 4.6, Baso % (Auto) 0.8, Neut # (Auto) 5.3, Lymph # (Auto) 1.9, Towner # (Auto) 0.5, Eos # (Auto) 0.4, Baso # (Auto) 0.1, Sodium 141, Potassium 3.6, Chloride 102, Carbon Dioxide 32 H, Anion Gap 10.6, BUN 27 H, Creatinine 1.30 H, Estimated Creat Clear 52, Estimated GFR 40 L, Est GFR ( Amer) 49 L, Glucose 131 H, Calcium 10.1, Phosphorus 3.3, Magnesium 1.6, Total Bilirubin 0.6, AST 56 H D, ALT 20, Alkaline Phosphatase 224 H, Troponin I < 0.01, NT-Pro-B Natriuret Pep 150 H, Total Protein 6.7, Albumin 3.6 D, Globulin 3.1, Albumin/Globulin Ratio 1.2 11/27/23 09:42 11/27/23 09:42 Orders (Tests/Meds): ED MEDICATIONS Generic Name Dose Route Start Last Admin Trade Name Freq PRN Reason Stop Dose Admin Potassium Chloride/Water 100 mls @ 100 mls/hr 11/27/23 10:45 11/27/23 11:04 Potassium Chloride 10meq/100ml Ivpb IV 11/27/23 13:44 Not Given Q1H CANDY Discontinued Medications Generic Name Dose Route Start Last Admin Trade Name Freq PRN Reason Stop Dose Admin Lactated Ringer's 1,000 mls @ 999 mls/hr 11/27/23 10:45 11/27/23 10:47 Lactated Ringer's 1000 Ml Bag IV 11/27/23 11:45 999 mls/hr .Q1H1M CANDY Administration Potassium Chloride 40 meq 11/27/23 10:40 11/27/23 10:49 Potassium Chloride 20meq Tab PO 11/27/23 10:41 Not Given ONCE ONE ORDERS Category Date Time Status BNP [NT Pro Brain Natriuretic Pep.] Stat Lab 11/27/23 09:42 Completed Complete Blood Count Auto Diff Stat Lab 11/27/23 09:42 Completed Comprehensive Metabolic Panel Stat Lab 11/27/23 09:42 Completed Magnesium Stat Lab 11/27/23 09:42 Completed Phosphorous Stat Lab 11/27/23 09:42 Completed Troponin I Q3H Lab 11/27/23 13:00 Ordered Troponin I Q3H Lab 11/27/23 16:00 Ordered Troponin I Stat Lab 11/27/23 09:42 Completed Medical Decision Narrative: 73-year-old female with above history and physical had a potassium of 3.0 was sent by cardiology clinic for admission however her repeat labs show potassium that is normalized. Will hold off on replacement. She has nonspecific symptoms her hemoglobin has been in its baseline there is no emergent medical condition identified at the moment. Will reassess shortly. Reassessment labs unremarkable potassium normalized. Patient has had significant functional decline at home has been hypotensive numerous times at home and felt like she was in a pass out. Blood pressure is normalized at the moment. However she lives at home by herself and feels very unsafe going home likely needs rehab therapy Occupational Therapy. Allergy would also like to decrease some of her medications that may be contributing to her symptoms. Of note I did make sure that her hemoglobin was stable I checked her labs in [facility] she did have an acute drop after her surgery but has been stable since that time and her anemia may be contributing to her symptoms as well today. She was admitted after speaking with Dr. Estrada for further management. Critical Care Critical Care Time Critical Care Time: No
[2023-11-27] MEDS: LACTATED RINGERS 1000ML 1,000 ML 999 ML IV (10:47)
--- NOTE | 2023-11-27 11:07 | PC.NURSE ---
spoke with Bernardo Field for updated labs speaking with Bernardo Field
[2023-11-27 11:08] LABS: Magnesium 1.6 mg/dl (1.6-2.3); Phosphorous 3.3 mg/dl (2.5-4.5)
[2023-11-27 11:17] LABS: NT Pro Brain Natriuretic Pep. 150 pg/mL (0-125)
--- NOTE | 2023-11-27 12:08 | PC.NURSE ---
Attempted to call report. No answer. Will call back.
--- NOTE | 2023-11-27 12:19 | PC.NURSE ---
Report called to Prince Green RN on Med Surg.
--- NOTE | 2023-11-27 13:17 | HMH.PHAINT1 ---
Pharmacy Intervention Comments: MEDICATION RECONCILIATION COMPLETED ON PATIENT USING EXTERNAL FILL HISTORY FROM PHARMACY AND LIST FROM CARDIOLOGY OFFICE. -SAYRA DUBON, ROBYND
[2023-11-27 13:36] LABS: Troponin I < 0.01 ng/ml (0.00-0.034)
[2023-11-27 17:17] LABS: Troponin I < 0.01 ng/ml (0.00-0.034)
--- NOTE | 2023-11-27 17:18 | P.HP_ITS ---
History of Present Illness *Admission Date: 11/27/23 *Reason for visit:: Anemia *History of present illness: Patient is a 73-year-old female with past medical history of atrial fibrillation, adenocarcinoma of the liver status post partial resection of liver who presents to the hospital due to generalized weakness patient was seen at cardiology office today was sent to the hospital for evaluation, patient was noted to have drop in hemoglobin generalized weakness, low potassium. Patient otherwise denied fever chills diarrhea constipation dysuria denies any active bleeding. [facility] Disclaimer: The information contained in this section may have been updated after the patient was seen, as this information can be updated by other users. 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 Kidney stone Sleep apnea History of pacemaker History of left heart catheterization (LHC) Ureteral stent displacement Sick sinus syndrome Atrial fibrillation with rapid ventricular response Surgical History History of resection of liver History of total right knee replacement (TKR) History of right heart catheterization (RHC) History of appendectomy History of hysterectomy History of cholecystectomy History of total left knee replacement Family History Other Afib Bone cancer Colon cancer Hx of CABG Leukemia Social History (Updated 11/27/23 @ 13:01 by Tatyana Green RN) Smoking Status: Never smoker alcohol intake: never substance use type: denies use current occupational status: retired Travel in the last 8 weeks: Inside the [place] household members: none housing: house current occupational exposures/hazards: No caffeine: Yes Review of Systems Review of Systems Review of systems:: pertinent systems reviewed and negative unless documented below Meds Home Medications and Allergies Home Medications Medication Instructions Recorded Confirmed Type carvedilol 25 mg tablet 25 mg PO BID 90 days 05/29/18 11/27/23 History hydrochlorothiazide 25 mg tablet 25 mg PO DAILY 90 days 05/29/18 11/27/23 History levothyroxine 100 mcg tablet 100 mcg PO DAILYDM 90 days 05/29/18 11/27/23 History cetirizine 10 mg tablet 10 mg PO DAILYP PRN Allergy 07/25/21 11/27/23 History Symptoms famotidine 20 mg tablet 20 mg PO BID 07/25/21 11/27/23 History apixaban 5 mg tablet 5 mg PO BID 10/18/21 11/27/23 History diltiazem HCl 180 mg 180 mg PO DAILY 10/18/21 11/27/23 History capsule,extended release 24 hr oxybutynin chloride 10 mg 10 mg PO DAILY #90 tabs 09/08/23 11/27/23 Rx tablet,extended release 24 hr estradiol 0.01% (0.1 mg/gram) 1 applic vaginal DIRECTED 11/27/23 11/27/23 History vaginal cream ondansetron 4 mg disintegrating 4 mg PO Q8HP PRN Nausea And 11/27/23 11/27/23 History tablet Vomiting potassium chloride 10 mEq 10 meq PO DAILY 11/27/23 11/27/23 History tablet,extended release(part/cryst) New Prescriptions to Start Prescriptions: Allergies Allergy/AdvReac Type Severity Reaction Status Date / Time Latex, Natural Rubber Allergy Severe Difficulty Verified 11/27/23 09:08 Breathing clavulanic acid Allergy Unknown Verified 11/27/23 09:08 [From AUGMENTIN] fentanyl [FENTANYL] Allergy Unknown Difficult Verified 11/27/23 09:08 to awake levofloxacin [From LEVAQUIN] Allergy Unknown Verified 11/27/23 09:08 minocycline [MINOCYCLINE] Allergy Unknown Verified 11/27/23 09:08 propofol [PROPOFOL] Allergy Unknown UNABLE TO Verified 11/27/23 09:08 WAKE UP quinidine [QUINIDINE] Allergy Unknown FAMILY HX Verified 11/27/23 09:08 OF HEART STOPPING-PT REFUSES TO TAKE Sulfa (Sulfonamide Allergy Unknown ITCHING, Verified 11/27/23 09:08 Antibiotics) HIVES, [SULFA (SULFONAMIDE ORAL ANTIBIOTICS)] SWELLING prednisone Allergy severe rash Verified 11/27/23 09:08 spironolactone AdvReac Mild total body Verified 11/27/23 09:08 dehydration Exam Data for Last 24 hours Vital signs and Labs for Last 24 Hours: Temp Pulse Resp BP Pulse Ox O2 Del Method 98 F 80 16 140/60 96 Room Air 11/27/23 15:56 11/27/23 15:56 11/27/23 15:56 11/27/23 15:56 11/27/23 15:56 11/27/23 15:56 Laboratory Results - last 24 hr 11/27/23 09:42: WBC 8.2 D, RBC 3.36 L, Hgb 9.6 L, Hct 30.9 L, MCV 92.1, MCH 28.5, MCHC 31.0 L, RDW 15.5, Plt Count 439 H, MPV 7.5, Neut % (Auto) 64.6, Lymph % (Auto) 23.7, [place] % (Auto) 6.3, Eos % (Auto) 4.6, Baso % (Auto) 0.8, Neut # (Auto) 5.3, Lymph # (Auto) 1.9, [place] # (Auto) 0.5, Eos # (Auto) 0.4, Baso # (Auto) 0.1, Sodium 141, Potassium 3.6, Chloride 102, Carbon Dioxide 32 H, Anion Gap 10.6, BUN 27 H, Creatinine 1.30 H, Estimated Creat Clear 52, Estimated GFR 40 L, Est GFR ( Amer) 49 L, Glucose 131 H, Calcium 10.1, Phosphorus 3.3, Magnesium 1.6, Total Bilirubin 0.6, AST 56 H D, ALT 20, Alkaline Phosphatase 224 H, Troponin I < 0.01, NT-Pro-B Natriuret Pep 150 H, Total Protein 6.7, Albumin 3.6 D, Globulin 3.1, Albumin/Globulin Ratio 1.2 11/27/23 13:00: Troponin I < 0.01 11/27/23 16:10: Troponin I < 0.01 I & O for Last 24 hours: Intake & Output 11/24/23 11/25/23 11/26/23 11/27/23 23:59 23:59 23:59 23:59 Intake Total 240 / 240 Balance 240 / 240 Weight 88.405 kg Constitutional Constitutional: no acute distress *Routine HEENT Exam Head: Present normocephalic Eye: Present EOMI and PERRL ENT: Present mucous membranes moist *Routine Neck Exam Neck: Present supple; Absent lymphadenopathy *Routine Respiratory Exam Respiratory: Present CTA bilaterally *Routine Cardiovascular Exam Cardiovascular: Present RRR *Routine Abdominal Exam Abdominal: Present soft and normoactive bowel sounds; Absent tenderness *Routine Rectal Exam Rectal:: deferred *Routine Genitalia Exam Genitalia:: deferred *Routine Extremities Exam Extremities: Absent cyanosis, clubbing or edema *Routine Skin Exam Skin: Present warm; Absent rash *Routine Neurological Exam Neurological: Present alert and oriented X3 Assessment and Plan *Assessment and plan (1) Declining functional status: Status: Acute Category: Medical Code(s): R53.81 - Other malaise (2) Acute hypokalemia: Status: Acute Category: Medical Code(s): E87.6 - Hypokalemia (3) Anemia: Status: Acute Category: Medical Code(s): D64.9 - Anemia, unspecified (4) Generalized weakness: Status: Acute Category: Medical Code(s): R53.1 - Weakness Plan Patient is a 73-year-old female with past medical history of atrial fibrillation, adenocarcinoma of the liver status post partial resection of liver who presents to the hospital due to generalized weakness patient was seen at cardiology office today was sent to the hospital for evaluation, patient was noted to have drop in hemoglobin generalized weakness, low potassium. Patient otherwise denied fever chills diarrhea constipation dysuria denies any active bleeding. Assessment and plan Generalized weakness Hypokalemia Monitor and replace electrolytes Consult PT/OT Monitor BMP Anemia likely anemia of acute blood loss postoperative anemia Monitor hemoglobin Patient denies any active bleeding Monitor CBC History of adenocarcinoma of the liver s/p partial resection of the liver Monitor LFTs DVT prophylaxis- on home eliquis
--- NOTE | 2023-11-27 17:51 | PC.NURSE ---
Pt has rested in room since arrival on unit. pt is a/ox4, pt has endorsed being cold. warm blankets applied and temperature in room increased. nad noted. pt bowel sounds are active in all quads. nad noted. lung sounds are clear throughout, but diminished in bases. pt has incision to abdomen from surgery that was [employer]CH[employer]ICIAN
[2023-11-27] MEDS: OXYBUTYNIN 5MG TAB 5 MG PO (20:27)
[2023-11-27] MEDS: FAMOTIDINE 20MG TABLET 20 MG PO (20:27)
[2023-11-27] MEDS: APIXABAN 5MG TABLET 5 MG PO (20:27)
[2023-11-28 04:00] VITALS: BP 131/64; PULSE 70; RESP 16; TEMP 36.8; O2SAT 91; BMI 27.4
[2023-11-28 07:11] LABS: Chloride 105 mmol/L (98-107); Potassium 3.1 mmoL/L (3.5-5.1); Sodium 141 mmol/L (136-145)
[2023-11-28 07:14] LABS: Anion Gap 9.1 mEq/L (5-15); Blood Urea Nitrogen 22 mg/dl (7-17); Calcium 9.5 mg/dl (8.4-10.2); Carbon Dioxide 30 mmol/L (22.0-30.0); Creatinine Clearance Estimated 66 mL/min (50-200); Estimated Glomerular Filt Rate 49 ml/min (>60); GFR (African American) 59 ML/MIN (>60); Glucose 112 mg/dl (74-100)
[2023-11-28 07:25] LABS: Monocytes # 0.5 K/mm3 (0.1-1.0); Red Cell Distribution Width 15.7 % (11.5-17.5)
[2023-11-28 07:56] LABS: Basophils # 0.1 K/mm3 (0-0.2); Basophils % 0.8 % (0.1-2.0); Eosinophils # 0.3 K/mm3 (0.0-0.4); Eosinophils % 5.2 % (0.1-12.0); Lymphocytes % 33.7 % (10-50); Mean Corpuscular HGB Conc 31.1 g/dL (31.8-35.4); Mean Corpuscular Hemoglobin 28.3 pg (27.0-31.2); Mean Corpuscular Volume 90.8 fl (81-99); Mean Platelet Volume 7.9 fl (7.4-10.4); Monocytes % 7.6 % (1.7-9.3); Neutrophils # 3.2 K/mm3 (1.8-7.8); Neutrophils % 52.8 % (37.0-80.0); Platelet Count 390 K/mm3 (142-424); Red Blood Count 2.98 M/mm3 (4.20-5.40)
[2023-11-28 08:00] VITALS: BP 118/68; PULSE 74; RESP 20; TEMP 37; O2SAT 93
[2023-11-28 08:00] LABS: Hemoglobin 8.4 g/dL (12.2-16.2)
--- NOTE | 2023-11-28 09:53 | HMH.PTEV ---
Physical Therapy Evaluation Rehab PT IP Evaluation Start: 11/28/23 07:45 Freq: ONCE Status: Active Protocol: Document 11/28/23 09:51 CODY (Rec: 11/28/23 09:53 SWATHIFAVIOLA [id number]) Subjective/History History History 73 yowf adm to [facility] with generalized weakness and hypotension. PMH of atrial fibrillation, adenocarcinoma of the liver status post partial resection of liver. She reports she lives alone, 2 DESIREE the home, and is generally independent with all mobility without an AD. Subjective Subjective Currently she has no new c/o, feels better than she did on adm. Agrees to mobility assessment. New diagnosis of cancer in past 12 Yes months? Rehab PT IP Eval Objective Appearance Patient Behavior Appropriate Patient Orientation Person,Place,Time Difficulty following instructions none Speech Pattern Clear Ambulation Patient Able to Ambulate Yes Ambulation Observation IP General Gait Pattern Observation No Deviations/Normal Ambulation Distance (feet) 100 Ambulation Assistive Device None Ambulation Ability Independent Balance Ability to Arise Able, uses arms to help Sitting Balance Steady, safe Standing Balance Steady, wide stance Dynamic Sitting Balance Ability Normal Dynamic Standing Balance Ability Good Transfers Bed Transfer Ability Independent Chair Transfer Ability Independent Sit to Stand Bed Transfer Ability Independent Sit to Stand Chair Transfer Ability Independent Rehab PT IP prob,goals,plan Problems Date of Evaluation: 11/28/23 Discharge Plan PT Discharge Plan Pt is currently at baseline for all mobility and is appropriate to return home once medically stable for d/c. No current inpatient therapy needs. Eval Complexity Eval Charge Codes 89904 - High Complexity PHYSICIAN CERTIFICATION: I certify the specified therapy services for Marjorie Umana are required, authorized, and reviewed every 30 days.
[2023-11-28] MEDS: LEVOTHYROXINE 100MCG (0.1MG) TAB 100 MCG PO (10:20)
[2023-11-28] MEDS: APIXABAN 5MG TABLET 5 MG PO (10:20)
[2023-11-28] MEDS: FAMOTIDINE 20MG TABLET 20 MG PO (10:20)
[2023-11-28] MEDS: OXYBUTYNIN 5MG TAB 5 MG PO (10:20)
[2023-11-28] MEDS: dilTIAZem HCL 180MG CAP.ER.24H 180 MG PO (10:20)
[2023-11-28] MEDS: hydroCHLOROthiazide 25MG TABLET 25 MG PO (10:20)
[2023-11-28] MEDS: POTASSIUM CHLORIDE 10MEQ TABLET.ER 10 MEQ PO (10:20)
[2023-11-28] MEDS: CARVEDILOL 25MG TABLET 25 MG PO (10:25)
--- NOTE | 2023-11-28 10:29 | HMH.OTEV ---
OT Inpatient Evaluation Rehab OT IP Evaluation Start: 11/28/23 07:45 Freq: ONCE Status: Active Protocol: [facility] 11/28/23 10:[facility] (Rec: 11/28/23 10:29 [facility] [id number]) Rehab OT IP Assessment Subjective History Pt orineted x 3 on arrival. Pt agreeable to engage in therapy evaluation. Pt admitted on 11/27/23 due to weakness. History and physical report: Patient is a 73-year-old female with past medical history of atrial fibrillation , adenocarcinoma of the liver status post partial resection of liver who presents to the hospital due to generalized weakness patient was seen at cardiology office today was sent to the hospital for evaluation, patient was noted to have drop in hemoglobin generalized weakness, low potassium. Patient otherwise denied fever chills diarrhea constipation dysuria denies any active bleeding. Subjective I do feel better than I did. Pt reports prior to being in the hospital, she lived at home alone. Pt claims normally she is independent with all ADLs and IADLs. Pt also still drives. She does not require any type of AE during functional mobility tasks. Objective Patient Orientation Person,Place,Birthday Right Upper Extremity Gross ROM WFL Left Upper Extremity Gross ROM WFL Transfer Training Sit/Stand Transfer Assist Level Supervision/Stand by Chair Transfer Ability Supervision/Stand by Chair Transfer Technique Sit to/from Ambulatory Chair Transfer Assistive Devices None Lower Body Dressing Ability Standby Assistance Rehab OT IP prob,goals,plan Problems Date of Evaluation: 11/28/23 Rehab Potential Rehab Potential Innapropriate for Skilled Therapy Discharge Plan OT Discharge Plan Pt appears to be at her baseline with functional transfers, safety, cognition, and ADL independence. Pt can return home once she is medically stable per physician . Eval Complexity Eval Charge Codes 20356 - Low Complexity PHYSICIAN CERTIFICATION: I certify the specified therapy services for Marjorie Umana are required, authorized, and reviewed every 30 days.
--- NOTE | 2023-12-03 15:31 | CARE MANAGER ---
Called and spoke with patient regarding recent discharge. She stated that she is feeling very weak today, and feels like it is due to her not picking up her medication until today and her potassium got low. Patient has a f/u appt with PCP tomorrow. No other concerns voiced at time of call.
--- NOTE | 2023-12-12 09:33 | EXP.DC.SUM ---
General Admission date:: 11/27/23 Discharge date: 11/28/23 HPI HPI HPI: Patient is a 73-year-old female with past medical history of atrial fibrillation, adenocarcinoma of the liver status post partial resection of liver who presents to the hospital due to generalized weakness patient was seen at cardiology office today was sent to the hospital for evaluation, patient was noted to have drop in hemoglobin generalized weakness, low potassium. Patient otherwise denied fever chills diarrhea constipation dysuria denies any active bleeding. Hospital Course Hospital Course Hospital Course: Patient is a 73-year-old female with past medical history of atrial fibrillation, adenocarcinoma of the liver status post partial resection of liver who presents to the hospital due to generalized weakness patient was seen at cardiology office today was sent to the hospital for evaluation, patient was noted to have drop in hemoglobin generalized weakness, low potassium. Patient otherwise denied fever chills diarrhea constipation dysuria denies any active bleeding. patient electrolytes improved, and replaced. patient hemoglobin is stable, patient was counseled to f/u with her oncologist and PCP in 1 week, patient agreed with the discharge plan. On the date of discharge, the patient reported feeling stable. The patient was found not to be in any acute distress, and no new abnormalities on physical examination. Further, the patient expressed appropriate understanding of, and agreement with, the discharge recommendations, medications, and plan. Time spent 37 mins Exam Data for Last 24 hours Vital signs and Labs for Last 24 Hours: Temp Pulse Resp BP Pulse Ox O2 Del Method 98.6 F 74 20 118/68 93 L Room Air 11/28/23 08:00 11/28/23 08:00 11/28/23 08:00 11/28/23 08:00 11/28/23 08:00 11/28/23 11:00 Constitutional Constitutional: no acute distress *Routine HEENT Exam Head: Present normocephalic Eye: Present EOMI and PERRL ENT: Present mucous membranes moist *Routine Neck Exam Neck: Present supple; Absent lymphadenopathy *Routine Respiratory Exam Respiratory: Present CTA bilaterally *Routine Cardiovascular Exam Cardiovascular: Present RRR *Routine Abdominal Exam Abdominal: Present soft and normoactive bowel sounds; Absent tenderness *Routine Extremities Exam Extremities: Absent cyanosis, clubbing or edema *Routine Skin Exam Skin: Present warm; Absent rash *Routine Neurological Exam Neurological: Present alert and oriented X3 DS: Diagnosis Discharge Diagnosis (1) Declining functional status: Status: Acute Code(s): R53.81 - Other malaise (2) Acute hypokalemia: Status: Acute Code(s): E87.6 - Hypokalemia (3) Anemia: Status: Acute Code(s): D64.9 - Anemia, unspecified (4) Generalized weakness: Status: Acute Code(s): R53.1 - Weakness Meds Home Medications and Allergies Home Medications Medication Instructions Recorded Confirmed Type hydrochlorothiazide 25 mg tablet 25 mg PO DAILY 90 days 05/29/18 12/10/23 History levothyroxine 100 mcg tablet 100 mcg PO DAILYDM 90 days 05/29/18 12/10/23 History cetirizine 10 mg tablet 10 mg PO DAILYP PRN Allergy 07/25/21 12/10/23 History Symptoms famotidine 20 mg tablet 20 mg PO BID 07/25/21 12/10/23 History apixaban 5 mg tablet 5 mg PO BID 10/18/21 12/10/23 History diltiazem HCl 180 mg 180 mg PO DAILY 10/18/21 12/10/23 History capsule,extended release 24 hr oxybutynin chloride 10 mg 10 mg PO DAILY #90 tabs 09/08/23 12/10/23 Rx tablet,extended release 24 hr estradiol 0.01% (0.1 mg/gram) 1 applic vaginal DIRECTED 11/27/23 12/10/23 History vaginal cream ondansetron 4 mg disintegrating 4 mg PO Q8HP PRN Nausea And 11/27/23 12/10/23 History tablet Vomiting potassium chloride 10 mEq 10 meq PO DAILY 11/27/23 12/10/23 History tablet,extended release(part/cryst) ferrous sulfate 325 mg (65 mg 325 mg PO DAILY #30 tabs 12/04/23 12/10/23 Rx iron) tablet (Feosol) carvedilol 12.5 mg tablet (Coreg) 12.5 mg PO BID #60 tabs 12/10/23 12/10/23 Rx furosemide 40 mg tablet (Lasix) 40 mg PO DAILY #30 tabs 12/10/23 12/10/23 Rx potassium chloride 20 mEq 20 meq PO DAILY #30 tabs 12/10/23 12/10/23 Rx tablet,extended release(part/cryst) (Klor-Con M) New Prescriptions to Start Prescriptions: Allergies Allergy/AdvReac Type Severity Reaction Status Date / Time Latex, Natural Rubber Allergy Severe Difficulty Verified 12/10/23 08:55 Breathing clavulanic acid Allergy Unknown Verified 12/10/23 08:55 [From AUGMENTIN] fentanyl [FENTANYL] Allergy Unknown Difficult Verified 12/10/23 08:55 to awake levofloxacin [From LEVAQUIN] Allergy Unknown Verified 12/10/23 08:55 minocycline [MINOCYCLINE] Allergy Unknown Verified 12/10/23 08:55 propofol [PROPOFOL] Allergy Unknown UNABLE TO Verified 12/10/23 08:55 WAKE UP quinidine [QUINIDINE] Allergy Unknown FAMILY HX Verified 12/10/23 08:55 OF HEART STOPPING-PT REFUSES TO TAKE Sulfa (Sulfonamide Allergy Unknown ITCHING, Verified 12/10/23 08:55 Antibiotics) HIVES, [SULFA (SULFONAMIDE ORAL ANTIBIOTICS)] SWELLING prednisone Allergy severe rash Verified 12/10/23 08:55 spironolactone AdvReac Mild total body Verified 12/10/23 08:55 dehydration Discharge Plan Disposition Patient Disposition: Home, Self-Care Condition: Good Follow up Plan Follow up with: Serge Wilson MD [Primary Care Provider] - 12/04/23 11:00 am Prescriptions/Medication Reconciliation: Continued cetirizine 10 mg tablet 10 mg PO DAILYP PRN (Reason: Allergy Symptoms) famotidine 20 mg tablet 20 mg PO BID hydrochlorothiazide 25 mg tablet 25 mg PO DAILY 90 Days levothyroxine 100 mcg tablet 100 mcg PO DAILYDM 90 Days oxybutynin chloride 10 mg tablet extended release 24hr 10 mg PO DAILY Qty: 90 3RF diltiazem HCl 180 MG capsule,extended release 24hr 180 mg PO DAILY apixaban 5 MG tablet 5 mg PO BID ondansetron 4 mg tablet,disintegrating 4 mg PO Q8HP PRN (Reason: Nausea And Vomiting) Patient Comments: DISSOLVE 1 TABLET IN MOUTH EVERY 8 HOURS NEEDED FOR NAUSEA OR VOMITING potassium chloride 10 mEq tablet,ER particles/crystals 10 meq PO DAILY estradiol 0.01 % (0.1 mg/gram) cream 1 applic vaginal DIRECTED Rx Instructions: Using finger technique daily for two weeks and then twice weekly vaginally; No Action ferrous sulfate [Feosol] 325 mg (65 mg iron) tablet 325 mg PO DAILY Qty: 30 5RF furosemide [Lasix] 40 mg tablet 40 mg PO DAILY Qty: 30 3RF carvedilol [Coreg] 12.5 mg tablet 12.5 mg PO BID Qty: 60 3RF Rx Instructions: must administer with a meal/food potassium chloride [Klor-Con M20] 20 mEq tablet,ER particles/crystals 20 meq PO DAILY Qty: 30 5RF Rx Instructions: Take two tablets daily when she takes lasix Problem Reconciliation Problems Reviewed?: Yes Patient Discharge Instructions ACTIVITY: Ambulate as tolerated DIET: continue same diet Patient Instructions: DI for Muscle Weakness Providers Primary Care Provider: Serge Wilson Admit Provider: Bonilla Estrada Attending Provider: Bonilla Estrada
== END 2023-11-28 12:31 | disposition home or self-care (01) ==
LOC: ER 11:57 → 2ND 12:05
PROVIDERS: Admitting Provider Internal Medicine; Emergency Provider Student in an Organized Health Care Education/Training Program; PCP Internal Medicine; Visit Provider Internal Medicine
DX: R53.81 Other malaise (principal); E87.6 Hypokalemia; D64.9 Anemia, unspecified; R53.1 Weakness; I48.91 Unspecified atrial fibrillation; Z79.01 Long term (current) use of anticoagulants; Z79.899 Other long term (current) drug therapy; I49.5 Sick sinus syndrome; Z95.0 Presence of cardiac pacemaker; Z85.05 Personal history of malignant neoplasm of liver
CPT/HCPCS: 36415; 80048; 80053; 83735; 83880; 84100; 84484; 85025; 93005; 97163; 97165; 99285; G0378; J7120

== ENCOUNTER 2023-12-03 13:45 | Outpatient (CLI) | payer MEDICARE, SELFPAY ==
[2023-12-03 13:57] VITALS: BMI 26.9
--- NOTE | 2023-12-03 14:03 | PC.NURSE ---
1403-collected labs via venipuncture stick in right ac with butterfly needle; to call pt with results
[2023-12-03 14:35] LABS: Alanine Aminotransferase 50 U/L (12-78); Albumin Level 3.5 g/dl (3.5-5.0); Albumin/Globulin Ratio 1.2 (1.1-1.8); Alkaline Phosphatase 404 U/L (38-126); Anion Gap 12.7 mEq/L (5-15); Aspartate Amino Transferase 77 U/L (14-36); Bilirubin,Total 0.5 mg/dl (0.2-1.3); Blood Urea Nitrogen 31 mg/dl (7-17); Calcium 10.3 mg/dl (8.4-10.2); Carbon Dioxide 31 mmol/L (22.0-30.0); Chloride 101 mmol/L (98-107); Creatinine Clearance Estimated 51 mL/min (50-200); Estimated Glomerular Filt Rate 37 ml/min (>60); GFR (African American) 45 ML/MIN (>60); Globulin 2.9 g/dL (1.3-3.2); Glucose 93 mg/dl (74-100); Potassium 3.7 mmoL/L (3.5-5.1); Sodium 141 mmol/L (136-145); Total Protein,Serum 6.4 g/dl (6.3-8.2)
== END 2023-12-03 14:05 | disposition home or self-care (01) ==
LOC: INF 13:48
PROVIDERS: PCP Internal Medicine; Visit Provider Internal Medicine Medical Oncology
DX: C22.1 Intrahepatic bile duct carcinoma (principal)
CPT/HCPCS: 36415; 80053

== ENCOUNTER 2023-12-17 09:37 | Outpatient (CLI) | payer MEDICARE, SELFPAY ==
[2023-12-17 09:41] VITALS: BMI 27.6
[2023-12-17 09:58] LABS: Alanine Aminotransferase 26 U/L (12-78); Albumin Level 3.9 g/dl (3.5-5.0); Albumin/Globulin Ratio 1.3 (1.1-1.8); Alkaline Phosphatase 283 U/L (38-126); Anion Gap 14.2 mEq/L (5-15); Aspartate Amino Transferase 37 U/L (14-36); Bilirubin,Total 0.6 mg/dl (0.2-1.3); Blood Urea Nitrogen 21 mg/dl (7-17); Calcium 10.1 mg/dl (8.4-10.2); Carbon Dioxide 28 mmol/L (22.0-30.0); Chloride 103 mmol/L (98-107); Creatinine Clearance Estimated 61 mL/min (50-200); Estimated Glomerular Filt Rate 44 ml/min (>60); GFR (African American) 53 ML/MIN (>60); Globulin 2.9 g/dL (1.3-3.2); Glucose 154 mg/dl (74-100); Potassium 3.2 mmoL/L (3.5-5.1); Sodium 142 mmol/L (136-145); Total Protein,Serum 6.8 g/dl (6.3-8.2)
[2023-12-17 10:18] LABS: Basophils # 0.1 K/mm3 (0-0.2); Basophils % 1.1 % (0.1-2.0); Eosinophils # 0.4 K/mm3 (0.0-0.4); Hemoglobin 11.5 g/dL (12.2-16.2); Lymphocytes # 2.1 K/mm3 (0.7-4.5); Mean Corpuscular HGB Conc 30.3 g/dL (31.8-35.4); Mean Corpuscular Hemoglobin 27.4 pg (27.0-31.2); Mean Corpuscular Volume 90.6 fl (81-99); Mean Platelet Volume 8.2 fl (7.4-10.4); Monocytes # 0.4 K/mm3 (0.1-1.0); Monocytes % 5.5 % (1.7-9.3); Neutrophils # 4.1 K/mm3 (1.8-7.8); Neutrophils % 58.4 % (37.0-80.0); Platelet Count 281 K/mm3 (142-424); White Blood Count 7.1 K/mm3 (4.8-10.8)
== END 2023-12-17 09:47 | disposition home or self-care (01) ==
PROVIDERS: PCP Internal Medicine; Visit Provider Internal Medicine Medical Oncology
DX: C22.1 Intrahepatic bile duct carcinoma (principal)
CPT/HCPCS: 36415; 80053; 85025

== ENCOUNTER 2023-12-29 16:30 | Outpatient (CLI) | payer MEDICARE, SELFPAY ==
[2023-12-29 18:16] LABS: Anion Gap 10.9 mEq/L (5-15); Blood Urea Nitrogen 25 mg/dl (7-17); Calcium 10.6 mg/dl (8.4-10.2); Carbon Dioxide 28 mmol/L (22.0-30.0); Chloride 106 mmol/L (98-107); Estimated Glomerular Filt Rate 44 ml/min (>60); GFR (African American) 53 ML/MIN (>60); Glucose 131 mg/dl (74-100); Magnesium 1.5 mg/dl (1.6-2.3); Sodium 142 mmol/L (136-145)
[2023-12-29 19:03] LABS: Potassium 2.9 mmoL/L (3.5-5.1)
[2023-12-30 17:45] LABS: Basophils # 0.1 K/mm3 (0-0.2); Eosinophils # 0.2 K/mm3 (0.0-0.4); Eosinophils % 2.1 % (0.1-12.0); Hematocrit 37.8 % (37.0-47.0); Hemoglobin 11.8 g/dL (12.2-16.2); Lymphocytes # 2.4 K/mm3 (0.7-4.5); Lymphocytes % 26.8 % (10-50); Mean Corpuscular HGB Conc 31.2 g/dL (31.8-35.4); Mean Corpuscular Hemoglobin 28.2 pg (27.0-31.2); Mean Corpuscular Volume 90.3 fl (81-99); Mean Platelet Volume 9.8 fl (7.4-10.4); Monocytes # 0.5 K/mm3 (0.1-1.0); Monocytes % 6.1 % (1.7-9.3); Neutrophils # 5.7 K/mm3 (1.8-7.8); Neutrophils % 63.9 % (37.0-80.0); Platelet Count 293 K/mm3 (142-424); Red Blood Count 4.18 M/mm3 (4.20-5.40); Red Cell Distribution Width 18.6 % (11.5-17.5); White Blood Count 8.9 K/mm3 (4.8-10.8)
== END 2023-12-29 23:59 | disposition home or self-care (01) ==
LOC: LAB.DROPOF 12-30 08:27
PROVIDERS: PCP Internal Medicine; Visit Provider Internal Medicine
DX: E87.6 Hypokalemia (principal); E83.42 Hypomagnesemia; I10 Essential (primary) hypertension; N39.0 Urinary tract infection, site not specified; D64.9 Anemia, unspecified
CPT/HCPCS: 80048; 83735; 85025; 87086; 87088; 87186

== ENCOUNTER 2024-01-13 18:11 | Outpatient (CLI) | payer MEDICARE, SELFPAY | END 2024-01-13 23:59 | disposition home or self-care (01) | LOC: LAB.DROPOF 18:12 | PROVIDERS: PCP Internal Medicine; Visit Provider Internal Medicine | DX: N39.0 Urinary tract infection, site not specified (principal) | CPT/HCPCS: 87086 ==

== ENCOUNTER 2024-01-22 06:48 | Outpatient (CLI) | payer MEDICARE, SELFPAY ==
--- NOTE | 2024-01-22 06:57 | CT_ITS ---
FINAL REPORT TECHNIQUE: Axial images through the abdomen and pelvis were performed without contrast. This study was performed with techniques to keep radiation doses as low as reasonably achievable, (ALARA). Individualized dose reduction techniques using automated exposure control or adjustment of mA and/or kV according to the patient's size were employed. CLINICAL HISTORY: Gross hematuria, history of kidney stones COMPARISON: 08/20/2023 FINDINGS: ABDOMEN: The lung bases are clear. The heart size is normal. There are interval postoperative changes to the liver dome. Fluid collection is now in this region measuring up to 12 cm, likely chronic hematoma or seroma. There is a 10 mm probable cyst in the lateral segment of the left hepatic lobe. The spleen is normal. No adrenal mass is identified. The aorta is normal in caliber. There is no significant free fluid or adenopathy. There are several small bilateral nonobstructing renal stones. Stone in the right renal pelvis measures 16 mm, was 14 mm. There is no hydronephrosis. Moderate vascular calcification is identified. PELVIS: The appendix is not identified. Patient is status post hysterectomy. No ureteral stones are seen. The urinary bladder is unremarkable. There is no significant free fluid or adenopathy. IMPRESSION: Bilateral nephrolithiasis without hydronephrosis. Interval postoperative changes to the liver dome. Reviewed, Interpreted and Dictated by Liborio Dee III, MD Transcribed by Katiana Flynn Authenticated and [facility]
== END 2024-01-22 23:59 | disposition home or self-care (01) ==
LOC: RAD 06:48
PROVIDERS: PCP Internal Medicine; Visit Provider Internal Medicine
DX: R31.0 Gross hematuria (principal)
CPT/HCPCS: 74176

== ENCOUNTER 2024-01-29 09:26 | Outpatient (CLI) | payer MEDICARE, SELFPAY ==
--- NOTE | 2024-01-29 09:29 | XR_ITS ---
FINAL REPORT CLINICAL HISTORY: left ankle pain, nki. states she had surgery at [facility] and has had pain/bruising/swelling since COMPARISON: None FINDINGS: LEFT ANKLE: Three views of the left ankle were obtained. There is no acute fracture or dislocation. The joint spaces and mortise are intact. There are small chronic calcifications inferior to both the medial and lateral malleoli. No acute bony abnormality is identified. There is mild soft tissue swelling surrounding the ankle, greater on the medial side than the lateral. IMPRESSION: Mild soft tissue swelling surrounding the ankle, greater on the medial side than the lateral, without acute bony abnormality. Reviewed, Interpreted and Dictated by Liborio Dee III, MD Transcribed by Angela Carson Authenticated and [facility]
== END 2024-01-29 23:59 | disposition home or self-care (01) ==
LOC: RAD 09:27
PROVIDERS: PCP Internal Medicine; Visit Provider Orthopaedic Surgery
DX: M25.572 Pain in left ankle and joints of left foot (principal)
CPT/HCPCS: 73610

== ENCOUNTER 2024-02-23 09:42 | Outpatient (CLI) | payer MEDICARE, SELFPAY ==
[2024-02-23 16:09] LABS: Microscopic, Urine URINE MICROSCOPIC (MICROSCOPIC)
[2024-02-23 16:56] LABS: Appearance,Urine CLEAR (Clear); Blood, Urine 3+ (Negative); Color,Urine YELLOW (Yellow); Glucose,Urine (UA) Negative (Negative); Ketones,Urine Negative (Negative); Leukocyte Esterase,Urine Negative (Negative); Nitrate,Urine POSITIVE (Negative); Protein,Urine 1+ (Negative); Specific Gravity, Urine 1.025 (1.005-1.030); Urobilinogen,Urine 0.2 EU/dl (0.2)
[2024-02-23 17:11] LABS: Bilirubin,Urine 1+ (Negative)
[2024-02-23 17:14] LABS: RBC,Urine 50-100 #/hpf (0-3); WBC,Urine Occasional #/hpf (0-3)
== END 2024-02-23 23:59 | disposition home or self-care (01) ==
LOC: LAB 09:44
PROVIDERS: PCP Internal Medicine; Visit Provider Urology
DX: N39.0 Urinary tract infection, site not specified (principal)
CPT/HCPCS: 81001; 87086

== ENCOUNTER 2024-02-24 07:16 | Outpatient (CLI) | payer MEDICARE, SELFPAY ==
--- NOTE | 2024-02-24 07:17 | CT_ITS ---
FINAL REPORT TECHNIQUE: Axial CT images of the abdomen and pelvis were obtained before and after the administration of IV contrast. This study was performed with techniques to keep radiation doses as low as reasonably achievable (ALARA). Individualized dose reduction techniques using automated exposure control or adjustment of mA and/or kV according to the patient's size were employed. CLINICAL HISTORY: renal stones COMPARISON: 01/22/2024 FINDINGS: Abdomen: Right lung base atelectasis is noted. The heart is normal in size. Postoperative changes are once again identified in the liver dome, also seen on the prior exam of January 21. There is a fluid collection in the liver dome that on today's exam measures 8.1 x 5.6 cm in size, was previously 12 x 10.5 mm in size. However, now there is gas within the fluid collection, not previously seen and of uncertain significance, however abscess is not excluded. The gallbladder has been surgically resected. There is mild biliary ductal dilatation present in the liver, likely secondary to postoperative change from the cholecystectomy. The spleen is unremarkable. No adrenal masses present. The pancreas has an unremarkable appearance. There is a 12 mm right renal stone present in the pelvis, stable since the prior exam. Mild right hydronephrosis is present. There are multiple nonobstructing left renal stones measuring up to 11 mm in size, plus a small upper pole less than 3 mm in size nonobstructing stone in the right kidney. The aorta is normal in caliber. There is no free fluid or adenopathy. No mass or abnormal fluid collection is seen. Pelvis: The appendix is not well visualized. The urinary bladder is unremarkable. No inflammatory process is seen. There is no evidence of mass or adenopathy. There is no evidence of bowel obstruction. The uterus has been surgically resected. IMPRESSION: The hepatic fluid collection seen on the prior CT of 01/22/2024 is smaller, however now contains gas within the fluid collection. This finding is of uncertain significance but abscess cannot be excluded, and follow-up imaging is recommended. 12 mm right renal stone, within the renal pelvis, seen on the prior CT. Currently there is mild hydronephrosis in the right kidney. Multiple left renal stones measuring up to 11 mm in size, nonobstructing. There is a small less than 3 mm upper pole nonobstructing stone in the right kidney. Reviewed, Interpreted and Dictated by Liborio Dee III, MD Transcribed by Angela Carson Authenticated and [facility]
[2024-02-24 07:45] LABS: Blood Urea Nitrogen 16 mg/dl (7-17); Estimated Glomerular Filt Rate 54 ml/min (>60); GFR (African American) 66 ML/MIN (>60)
[2024-02-24] MEDS: IOPAMIDOL-370 (76%);100ML BOTTLE 75 ML IV (08:24)
[2024-02-24] MEDS: SODIUM CHLORIDE 0.9% 10ML SYR (RAD ONLY) 10 ML IV (08:24)
== END 2024-02-24 23:59 | disposition home or self-care (01) ==
LOC: RAD 07:17
PROVIDERS: PCP Internal Medicine; Visit Provider Urology
DX: N39.0 Urinary tract infection, site not specified (principal)
CPT/HCPCS: 36415; 74178; 82565; 84520; Q9967

== ENCOUNTER 2024-02-27 10:10 | Day surgery (SDC) | payer MEDICARE, SELFPAY ==
[2024-02-27 10:34] VITALS: BMI 25.2
[2024-02-27 10:37] VITALS: BP 137/73; PULSE 70; RESP 18; TEMP 36.8; O2SAT 96
--- NOTE | 2024-02-27 11:12 | P.PCN_ITS ---
[facility] Procedure Note Date: 02/27/24 Time: 11:12 Procedure Note:: Chart review: The patient has known large renal pelvic stone. She went to to consider percutaneous removal of the stone and workup reveals that she has liver cancer. Then the stone situation was transferred over to general surgery. She has had some complication with biliary leakage after her surgery. She continues to be troubled with hematuria. She is here for cystoscopy to make sure there is no bladder lesion although I suspect that the hematuria is due to the renal stone and her state of anticoagulation. Preop diagnosis: Hematuria Postop diagnosis: Hematuria Operative note: The patient was brought to the cystoscopy suite she was prepped and draped in the standard fashion. She is somewhat hard to catheterize as her meatus rests intravaginally. I did catheterize the patient and she has light gross hematuria. At cystoscopy her urethra is otherwise unremarkable. The bladder is free of stone tumor hemorrhage or infection. The patient tolerated the procedure well.
[2024-02-27 11:16] VITALS: BP 130/67; PULSE 73; RESP 18; TEMP 36.5; O2SAT 95
[2024-02-27 11:48] LABS: Microscopic,Cath URINE MICROSCOPIC (MICROSCOPIC)
[2024-02-27 11:52] LABS: Appearance,Urine/Cath CLOUDY (Clear); Bilirubin,Cath Negative (Negative); Blood, Urine/Cath 3+ (Negative); Color,Urine/Cath ORANGE (Yellow); Glucose,Urine/Cath (UA) Negative (Negative); Ketones,Urine/Cath Negative (Negative); Leukocyte Esterase,Cath Negative (Negative); Nitrate,Cath Negative (Negative); Protein,Urine/Cath TRACE (Negative); Specific Gravity, Urine/Cath 1.015 (1.005-1.030); Urobilinogen,Cath 0.2 EU/dl (0.2)
[2024-02-27 12:14] LABS: Bacteria,Urine/Cath TRACE /lpf; RBC,Urine/Cath TNTC # /hpf (0-3); Squamous Epithelial Ur./Cath Occasional #/hpf (0-5)
== END 2024-02-27 11:25 | disposition home or self-care (01) ==
PROVIDERS: PCP Internal Medicine; Visit Provider Urology
PROC: 0TJB8ZZ Inspection of Bladder, Via Natural or Artificial Opening Endoscopic (ICD-10-PCS; CPT 52000; principal; 2024-02-27 12:15)
DX: N39.0 Urinary tract infection, site not specified (principal); N02.9 Recurrent and persistent hematuria with unspecified morphologic changes
CPT/HCPCS: 52000; 81001

== ENCOUNTER 2024-03-17 10:34 | Outpatient (CLI) | payer MEDICARE, SELFPAY ==
[2024-03-17 10:39] VITALS: BMI 25.0
[2024-03-17 11:07] LABS: Chloride 102 mmol/L (98-107)
[2024-03-17 11:08] LABS: Potassium 3.4 mmoL/L (3.5-5.1); Sodium 142 mmol/L (136-145)
[2024-03-17 11:10] LABS: Alanine Aminotransferase 27 U/L (12-78); Albumin/Globulin Ratio 1.4 (1.1-1.8); Alkaline Phosphatase 221 U/L (38-126); Anion Gap 11.4 mEq/L (5-15); Aspartate Amino Transferase 41 U/L (14-36); Bilirubin,Total 0.6 mg/dl (0.2-1.3); Blood Urea Nitrogen 26 mg/dl (7-17); Carbon Dioxide 32 mmol/L (22.0-30.0); Creatinine Clearance Estimated 55 mL/min (50-200); Estimated Glomerular Filt Rate 44 ml/min (>60); GFR (African American) 53 ML/MIN (>60); Globulin 2.9 g/dL (1.3-3.2); Total Protein,Serum 6.9 g/dl (6.3-8.2)
[2024-03-17 11:11] LABS: Calcium 10.1 mg/dl (8.4-10.2); Glucose 113 mg/dl (74-100)
[2024-03-17 12:34] LABS: Basophils # 0.1 K/mm3 (0-0.2); Basophils % 0.8 % (0.1-2.0); Eosinophils # 0.4 K/mm3 (0.0-0.4); Eosinophils % 5.6 % (0.1-12.0); Hematocrit 39.7 % (37.0-47.0); Hemoglobin 12.7 g/dL (12.2-16.2); Lymphocytes # 2.5 K/mm3 (0.7-4.5); Lymphocytes % 34.1 % (10-50); Mean Corpuscular HGB Conc 31.9 g/dL (31.8-35.4); Mean Corpuscular Volume 84.6 fl (81-99); Mean Platelet Volume 7.7 fl (7.4-10.4); Monocytes # 0.5 K/mm3 (0.1-1.0); Monocytes % 7.2 % (1.7-9.3); Neutrophils # 3.9 K/mm3 (1.8-7.8); Neutrophils % 52.3 % (37.0-80.0); Platelet Count 232 K/mm3 (142-424); Red Blood Count 4.69 M/mm3 (4.20-5.40); Red Cell Distribution Width 17.6 % (11.5-17.5); White Blood Count 7.4 K/mm3 (4.8-10.8)
[2024-03-18 14:54] LABS: CA 19-9 9 U/mL (0-35)
== END 2024-03-17 10:50 | disposition home or self-care (01) ==
LOC: INF 10:34
PROVIDERS: PCP Internal Medicine; Visit Provider Internal Medicine Medical Oncology
DX: C22.1 Intrahepatic bile duct carcinoma (principal)
CPT/HCPCS: 36415; 80053; 85025; 86301

== ENCOUNTER 2024-04-15 07:21 | Outpatient (CLI) | payer MEDICARE, SELFPAY ==
--- NOTE | 2024-04-15 07:21 | NM_ITS ---
APPROVED REPORT Exam: Nuclear Stress Test Indication: hyperlipidemia, fm hx, c.p., sob, palpitations, fatigue Patient Location: Outpatient Stress Tech: Thuy Talbert [place] Tech:Tatyana Granados FARRAHRobinson RT(R)(N) Ht: 6 ft 1 in Wt: 185 lbs Bra Size: 38c HR: 70 bpm BP: 145/82 mmHg BSA: 2.08 m2 TID: 1.11 BMI: 24.4 History: hyperlipidemia, fm hx, c.p., sob, palpitations, fatigue pt could not lay on stomach for prone images Procedure: Patient received 0.4 mg of intravenous Lexiscan, resting heart rate 70 bpm, resting blood pressure 145/82 mmHg, with Lexiscan maximum heart rate achieved was 71 bpm which is % of the maximum predicted heart rate and blood pressure was 134/68 mmHg. With Lexiscan, patient denied any complaint of chest pain. Cardiac Stress and Resting SPECT Images: Cardiac Stress and Resting SPECT images were obtained using technetium 99m Myoview 24.5 mCi stress and 8.49 mCi at rest. The patient could not lie on her abdomen. Therefore, prone stress imaging could not be performed. This may affect the diagnostic interpretation of the study findings. Resting and stress imaging in supine positions demonstrate small sized, moderate, reversible perfusion defect in the LV apical wall. Gated imaging demonstrates normal global LV systolic function. There is mild hypokinesis of the LV apex. LVEF is calculated at 61%. Conclusion: Small sized, moderate, reversible perfusion defect in the LV apical wall. Findings are suggestive of reversible ischemia. Gated imaging demonstrates normal global LV systolic function. There is mild hypokinesis of the LV apex. LVEF is calculated at 61%. Electronically signed by : Karen High MD 04/15/2024 12:09:01
[2024-04-15] MEDS: SODIUM CHLORIDE 0.9% 10ML SYR (RAD ONLY) 10 ML IV ×2 (09:41→09:42)
[2024-04-15] MEDS: REGADENOSON 0.4MG/5ML SYRINGE 0.4 MG IV (09:41)
[2024-04-15] MEDS: ISOTOPE MYOVIEW (PER STUDY) 1 DOSE IV (09:41)
== END 2024-04-15 23:59 | disposition home or self-care (01) ==
LOC: RAD 07:21
PROVIDERS: PCP Internal Medicine; Visit Provider Physician Assistant
DX: R07.9 Chest pain, unspecified (principal)
CPT/HCPCS: 78452; 93017; 93018; A9502; J2785

== ENCOUNTER 2024-04-16 09:40 | Day surgery (SDC) | payer MEDICARE, SELFPAY ==
[2024-04-16] VITALS (11 sets, daily range): BP systolic 110–159; BP diastolic 55–88; PULSE 65–97; RESP 16–20; TEMP 36.1; O2SAT 92–98; BMI 25.4
--- NOTE | 2024-04-16 09:14 | IR_ITS ---
APPROVED REPORT Patient Location: Outpatient Consumer Affairs Manager: Lyle Gonzalez, RT (R) PROCEDURES Left heart catheterization Left ventriculogram Selective coronary angiogram INDICATION Abnormal Myoview, Angina pectoris Informed consent was obtained prior to the procedure. COMPLICATIONS None Estimated Blood Loss: Less than 10 mls TECHNIQUE One percent lidocaine used to anesthetize the right anterior aspect of the wrist. The right radial artery was accessed via the Seldinger technique. A 6 English sheath was placed in the right radial artery. 2.5 mg of Verapamil, 800 mcg of nitroglycerin, 1mg Lidocaine and 5000 U Heparin were given through the arterial sheath. The 6 English JL 3 guide catheter was also used to perform left heart catheterization, left ventriculogram and selective coronary angiogram. At the end of the procedure the sheath was removed good hemostasis was achieved using Traclet band, patient was transferred to the postop holding area in stable condition. ANGIOGRAPHIC RESULTS The left main artery Normal The left anterior descending artery Has a proximal smooth concentric 20% stenosis with diffuse 20% mid vessel stenoses with 130% concentric stenosis. The circumflex artery Nondominant with eccentric 30% stenosis in the proximal first obtuse marginal artery The right coronary artery Is dominant and has a proximal smooth 20 to 30% stenosis with diffuse 10 to 20% luminal regularities The [place] ventriculogram reveals Hyperdynamic at 75% The left ventricular end-diastolic pressure 10 mmHg IMPRESSION Mild nonflow limiting coronary artery disease Hyperdynamic ventricle Normal LVEDP PLAN 1. Risk factor modification 2. Medical management Electronically signed by : Ramana Boss MD 04/16/2024 12:59:20
[2024-04-16 10:06] LABS: Basophils # 0.1 K/mm3 (0-0.2); Basophils % 1.5 % (0.1-2.0); Eosinophils # 0.4 K/mm3 (0.0-0.4); Eosinophils % 4.3 % (0.1-12.0); Hematocrit 38.2 % (37.0-47.0); Hemoglobin 12.9 g/dL (12.2-16.2); Lymphocytes # 3.6 K/mm3 (0.7-4.5); Lymphocytes % 42.9 % (10-50); Mean Corpuscular HGB Conc 33.7 g/dL (31.8-35.4); Mean Corpuscular Hemoglobin 27.8 pg (27.0-31.2); Mean Corpuscular Volume 82.5 fl (81-99); Mean Platelet Volume 7.7 fl (7.4-10.4); Monocytes # 0.6 K/mm3 (0.1-1.0); Monocytes % 7.7 % (1.7-9.3); Neutrophils # 3.7 K/mm3 (1.8-7.8); Neutrophils % 43.6 % (37.0-80.0); Platelet Count 248 K/mm3 (142-424); Red Blood Count 4.63 M/mm3 (4.20-5.40); Red Cell Distribution Width 17.4 % (11.5-17.5); White Blood Count 8.4 K/mm3 (4.8-10.8)
[2024-04-16 10:07] LABS: Chloride 110 mmol/L (98-107); Potassium 3.5 mmoL/L (3.5-5.1); Sodium 142 mmol/L (136-145)
[2024-04-16 10:10] LABS: Anion Gap 11.5 mEq/L (5-15); Blood Urea Nitrogen 22 mg/dl (7-17); Calcium 9.7 mg/dl (8.4-10.2); Carbon Dioxide 24 mmol/L (22.0-30.0); Creatinine Clearance Estimated 61 mL/min (50-200); Estimated Glomerular Filt Rate 49 ml/min (>60); GFR (African American) 59 ML/MIN (>60); Glucose 125 mg/dl (74-100)
[2024-04-16] MEDS: diphenhydrAMINE 50MG/ML VIAL 50 MG IV (12:38)
[2024-04-16] MEDS: 0.9 % SODIUM CHLORIDE 500 ML 25 ML IV (12:39)
[2024-04-16] MEDS: HEPARIN 1,000 UNITS/500ML NS (CATH LAB) 3000 UNIT IV (12:39)
[2024-04-16] MEDS: HEPARIN 1,000 UNITS/ML 10ML VIAL (CATH LAB) 10000 UNIT IV (12:39)
--- NOTE | 2024-04-16 12:48 | SUR.OPER ---
Dr Boss notified of patient allergies, okayed to give lidocaine subq, okayed to give other ordered medications
[2024-04-16] MEDS: VERAPAMIL 2.5MG/ML 2ML VIAL 2.5 MG IV (12:49)
[2024-04-16] MEDS: FAMOTIDINE 20MG/2ML VIAL 20 MG IV (12:50)
[2024-04-16] MEDS: METHYLPREDNISOLONE SOD SUCC 125MG VIAL 125 MG IV (12:50)
[2024-04-16] MEDS: LIDOCAINE 1% 10ML MDV 20 ML IJ (12:50)
[2024-04-16] MEDS: MIDAZOLAM HCL 1MG/ML 5ML VIAL 1 MG IV (12:51)
[2024-04-16] MEDS: IOPAMIDOL-370 (76%);100ML BOTTLE 50 ML IV (15:12)
== END 2024-04-16 15:44 | disposition home or self-care (01) ==
PROVIDERS: PCP Internal Medicine; Visit Provider Internal Medicine
DX: I50.33 Acute on chronic diastolic (congestive) heart failure; R06.09 Other forms of dyspnea; R07.9 Chest pain, unspecified; Z79.899 Other long term (current) drug therapy; I49.5 Sick sinus syndrome; Z95.0 Presence of cardiac pacemaker; N20.0 Calculus of kidney; I48.0 Paroxysmal atrial fibrillation; I11.0 Hypertensive heart disease with heart failure; Z79.01 Long term (current) use of anticoagulants; E83.52 Hypercalcemia
CPT/HCPCS: 80048; 85025; 93458; 99152; C1725; C1769; J1200; J1644; J2250; J2919; Q9967; S0028

== ENCOUNTER 2024-05-21 14:16 | Outpatient (CLI) | payer MEDICARE, SELFPAY ==
--- NOTE | 2024-05-21 14:16 | MM_ITS ---
PROCEDURE INFORMATION: Exam: MG Bilateral Screening 3D Mammography Exam date and time: 05/21/2024 2:14 PM Age: 73 years old Clinical indication: Screening examination TECHNIQUE: Imaging protocol: Bilateral Screening tomosynthesis and 2D mammography including computer-aided detection (CAD) when performed. COMPARISON: 1. MG MM DIG MAMM BI DX W/CAD 08/07/2021 2:58 PM 2. MG SCBI MM Dig screening mamm BI w/CAD 08/06/2018 11:09 AM FINDINGS: MAMMOGRAPHY: Breast composition: There are scattered areas of fibroglandular density. Mass: None. Architectural distortion: None. Calcifications: No suspicious calcifications. Asymmetric density: None. Skin thickening: None. Axillary adenopathy: None. Other findings: A power pack overlies the left chest wall and is partially visualized. IMPRESSION: No mammographic evidence of malignancy. Annual screening is recommended unless otherwise clinically indicated. ASSESSMENT: BI-RADS Category 1: Negative.
== END 2024-05-21 23:59 | disposition home or self-care (01) ==
LOC: RAD 14:16
PROVIDERS: PCP Internal Medicine; Visit Provider Internal Medicine
DX: Z12.31 Encounter for screening mammogram for malignant neoplasm of breast (principal)
CPT/HCPCS: 77063; 77067

== ENCOUNTER 2024-07-01 11:18 | Outpatient (CLI) | payer MEDICARE, SELFPAY ==
[2024-07-01 11:41] LABS: Basophils # 0.1 K/mm3 (0-0.2); Basophils % 0.7 % (0.1-2.0); Eosinophils # 0.3 K/mm3 (0.0-0.4); Eosinophils % 4.3 % (0.1-12.0); Hemoglobin 12.8 g/dL (12.2-16.2); Lymphocytes # 2.8 K/mm3 (0.7-4.5); Lymphocytes % 37.3 % (10-50); Mean Corpuscular HGB Conc 32.8 g/dL (31.8-35.4); Mean Corpuscular Hemoglobin 27.6 pg (27.0-31.2); Mean Corpuscular Volume 84.1 fl (81-99); Monocytes # 0.8 K/mm3 (0.1-1.0); Monocytes % 10.8 % (1.7-9.3); Neutrophils # 3.5 K/mm3 (1.8-7.8); Neutrophils % 46.6 % (37.0-80.0); Platelet Count 221 K/mm3 (142-424); Red Blood Count 4.64 M/mm3 (4.20-5.40); Red Cell Distribution Width 14.6 % (11.5-17.5); White Blood Count 7.5 K/mm3 (4.8-10.8)
[2024-07-01 11:52] LABS: Chloride 107 mmol/L (98-107)
[2024-07-01 11:53] LABS: Albumin Level 4.1 g/dl (3.5-5.0); Potassium 3.4 mmoL/L (3.5-5.1); Sodium 139 mmol/L (136-145)
[2024-07-01 11:55] LABS: Blood Urea Nitrogen 27 mg/dl (7-17); Estimated Glomerular Filt Rate 40 ml/min (>60); GFR (African American) 49 ML/MIN (>60)
[2024-07-01 11:56] LABS: Alanine Aminotransferase 30 U/L (12-78); Albumin/Globulin Ratio 1.5 (1.1-1.8); Alkaline Phosphatase 230 U/L (38-126); Anion Gap 11.4 mEq/L (5-15); Aspartate Amino Transferase 44 U/L (14-36); Bilirubin,Total 0.5 mg/dl (0.2-1.3); Calcium 10.3 mg/dl (8.4-10.2); Carbon Dioxide 24 mmol/L (22.0-30.0); Globulin 2.7 g/dL (1.3-3.2); Glucose 94 mg/dl (74-100); Total Protein,Serum 6.8 g/dl (6.3-8.2)
--- NOTE | 2024-07-01 11:57 | PC.NURSE ---
1130 Patient here for labs only prior to appointment today with Dr. Brenner. Labs obtained as ordered via venipuncture to R AC with butterfly needle x1 stick. Patient tolerated well.
[2024-07-02 09:11] LABS: CA 19-9 8 U/mL (0-35)
== END 2024-07-01 12:41 | disposition home or self-care (01) ==
LOC: LAB 11:18 → INF 11:20
PROVIDERS: PCP Internal Medicine; Visit Provider Internal Medicine Medical Oncology
DX: C22.1 Intrahepatic bile duct carcinoma (principal); R16.0 Hepatomegaly, not elsewhere classified
CPT/HCPCS: 36415; 80053; 85025; 86301

== ENCOUNTER 2024-10-20 16:16 | Emergency (ER) | payer MEDICARE, SELFPAY ==
--- NOTE | 2024-10-20 16:19 | PC.NURSE ---
DR ALEXANDER AT BEDSIDE
[2024-10-20 16:20] VITALS: BP 168/79; PULSE 78; RESP 20; TEMP 36.6; O2SAT 95; BMI 23.6
--- NOTE | 2024-10-20 16:42 | ED_ITS ---
Discharge Plan Disposition Patient Disposition: Xfer Other Chief Complaint: Eye Problems Prescriptions Prescriptions: No Action potassium chloride 20 mEq tablet,ER particles/crystals 20 meq PO DAILY Patient Comments: TAKE ONE TABLET BY MOUTH EVERY DAY WHEN TAKING LASIX, BUT WHEN NOT TAKING LASIX ONLY TAKE 1/2 TABLET EVERY DAY carvedilol 6.25 mg tablet 6.25 mg PO BID Qty: 60 3RF Rx Instructions: must administer with a meal/food furosemide [Lasix] 40 mg tablet 20 mg PO DAILY magnesium oxide 500 mg capsule 500 mg PO DAILY Qty: 90 1RF simvastatin [Zocor] 40 mg tablet 40 mg PO .qod Qty: 45 1RF oxybutynin chloride 10 mg tablet extended release 24hr 10 mg PO DAILY Qty: 90 1RF naproxen 500 mg tablet 500 mg PO BID Qty: 180 1RF levothyroxine 100 mcg tablet 100 mcg PO DAILY Rx Instructions: TAKE 1 TABLET BY MOUTH ONCE DAILY IN THE MORNING hydrochlorothiazide 25 mg tablet 25 mg PO DAILY Rx Instructions: TAKE 1 TABLET BY MOUTH ONCE DAILY famotidine 20 mg tablet 20 mg PO DAILY Rx Instructions: TAKE 1 TABLET BY MOUTH TWICE DAILY diltiazem HCl [DILT-XR] 180 mg capsule,ext.rel 24h degradable 180 mg PO DAILY Rx Instructions: TAKE 1 CAPSULE BY MOUTH ONCE DAILY cetirizine 10 mg tablet 10 mg PO DAILY Rx Instructions: TAKE 1 TABLET BY MOUTH ONCE DAILY NEEDED FOR ALLERGIES Referrals Follow up/Referrals: Provider,Referral, MD [Primary Care Provider] - See instructions Clinical Impressions Clinical Impression: Corneal injury of left eye, Corneal injury of right eye Stand Alone Forms Stand Alone Forms: Transfer Record - ED Print Language Print Language: [place] Discharge ED Provider: Tyler Drake General Adult HPI General Chief complaint: Eye Problems Stated complaint: EYE INJURY Time Seen by Provider: 10/20/24 16:18 Mode of Arrival: Ambulatory Source of Information: Patient Description of Symptoms (Recalled from ER Triage Doc. by RN): pt states she was pressure washing her garage padron with just water and had a mist come back at her while wearing glasses and now both eyes are burning and it hurts to blink History of Present Illness HPI narrative: Patient is a 74-year-old female presents today with bilateral eye pain. States she was pressure washing the outside of one of her garage padron and she did have some glasses on and advisor did not definitively notice any involvement of what she was power washing that got into her eye itself she states that she went to take a break went inside and noticed that she could barely see anything bilaterally and that all she could see was white and silhouettes. She subsequently started develop foreign body sensations in both upper lids. Thus she presented to the emergency department. Still has a foreign body and severe painful sensation with any type of blinking. Related Data Home Medications ?Medication ?Instructions ?Recorded ?Confirmed furosemide 40 mg tablet (Lasix) 20 mg PO DAILY edema 12/29/23 09/30/24 potassium chloride 20 mEq 20 meq PO DAILY 02/23/24 09/30/24 tablet,extended release(part/cryst) cetirizine 10 mg tablet 10 mg PO DAILY 02/27/24 09/30/24 diltiazem HCl 180 mg 180 mg PO DAILY 02/27/24 09/30/24 capsule,extended release 24 hr, controlled (DILT-XR) famotidine 20 mg tablet 20 mg PO DAILY 02/27/24 09/30/24 hydrochlorothiazide 25 mg tablet 25 mg PO DAILY 02/27/24 09/30/24 levothyroxine 100 mcg tablet 100 mcg PO DAILY 02/27/24 09/30/24 Previous Rx's ?Medication ?Instructions ?Recorded carvedilol 6.25 mg tablet 6.25 mg PO BID #60 tabs 12/25/23 magnesium oxide 500 mg capsule 500 mg PO DAILY #90 caps 12/30/23 simvastatin 40 mg tablet (Zocor) 40 mg PO .qod #45 tabs 07/23/24 oxybutynin chloride 10 mg 10 mg PO DAILY #90 tabs 08/23/24 tablet,extended release 24 hr naproxen 500 mg tablet 500 mg PO BID #180 tabs 10/13/24 Allergies Allergy/AdvReac Type Severity Reaction Status Date / Time Latex, Natural Rubber Allergy Severe Difficulty Verified 09/30/24 10:39 Breathing clavulanic acid (From Allergy Unknown Hives Verified 09/30/24 10:39 AUGMENTIN) fentanyl (FENTANYL) Allergy Unknown Difficult Verified 09/30/24 10:39 to awake levofloxacin (From LEVAQUIN) Allergy Unknown Hives Verified 09/30/24 10:39 minocycline (MINOCYCLINE) Allergy Unknown Hives Verified 09/30/24 10:39 propofol (PROPOFOL) Allergy Unknown UNABLE TO Verified 09/30/24 10:39 WAKE UP quinidine (QUINIDINE) Allergy Unknown FAMILY HX Verified 09/30/24 10:39 OF HEART STOPPING-PT REFUSES TO TAKE Sulfa (Sulfonamide Allergy Unknown ITCHING, Verified 09/30/24 10:39 Antibiotics) (SULFA HIVES, (SULFONAMIDE ANTIBIOTICS)) ORAL SWELLING prednisone Allergy severe rash Verified 09/30/24 10:39 spironolactone AdvReac Mild total body Verified 09/30/24 10:39 dehydration hydromorphone (From Dilaudid) AdvReac Hives Verified 09/30/24 10:39 [facility] Disclaimer: The information contained in this section may have been updated after the patient was seen, as this information can be updated by other users. Medical History (HFpEF) heart failure with preserved ejection fraction Elevated parathyroid hormone Pacemaker lead malfunction Earlobe lesion Chronic skin ulcer of right ear Kidney stone Sleep apnea History of pacemaker History of left heart catheterization (LHC) Ureteral stent displacement Sick sinus syndrome Atrial fibrillation with rapid ventricular response Surgical History History of resection of liver History of total right knee replacement (TKR) History of right heart catheterization (RHC) History of appendectomy History of hysterectomy History of cholecystectomy History of total left knee replacement Family History Other Afib Bone cancer Colon cancer Hx of CABG Leukemia Social History Smoking Status: Never smoker alcohol intake: never substance use type: denies use current occupational status: retired Travel in the last 8 weeks?: None household members: none housing: house current occupational exposures/hazards: No caffeine: Yes Have you lived/traveled outside [place] in past 30 days?: No Contact w/someone who lives/traveled outside US past 30 days?: No Exposure to someone with infectious disease in past 14 days?: No Do you have a fever (greater than 100.4 F or 38 C)?: No Have you tested positive for COVID-19?: No Exposed to someone with COVID-19 in past 14 days?: No Do you have a sore throat?: No Do you have a cough?: No Do you have any weakness?: No Do you have any diarrhea?: No Are you experiencing any unusual bleeding?: No Do you have any muscle aches/pain?: No Do you have any abdominal pain?: No Are you experiencing loss of taste or smell?: No Other Medical History Have you received the Flu Vaccine for this season: No Have you received the Pneumonia Vaccine: Yes ROS Obtained: Yes All systems reviewed & no additional complaints except as documented Physical Exam General General appearance: alert Eye Eye exam: Present conjunctival redness and other (Pupils 4 mm bilaterally equally reactive no pain with light in either eye bilateral pressures are 15 and normal patient did have corneal hazing fluorescein staining yielded almost complete uptake of the left cornea and about 25% of the inferior margin on the right no obvious penetrating injury patie) Respiratory Respiratory exam: Present normal lung sounds bilaterally Cardiovascular Cardiovascular exam: Present regular rate Neurological Exam Neurological exam: Present alert and oriented X3 Other Other exam information: Patient can only see silhouettes bilaterally when attempting to get her visual acuity her visual acuity is worse than 20/200. She can only see silhouettes she states. Upper and lower lids everted no foreign bodies noted. pH tested bilateral eyes before tetracaine was administered and were 7 in each eye. Medical Decision Making Medical Records Screening: Per USPSTF and CDC recommendations, given the prevalence of disease in our region, it is our hospital?s policy to screen for HIV and viral Hepatitis for all patients aged 18 and over and those with ongoing risk factors. Shay Inquiry Pt receiving controlled substance: No Vital Signs: 10/20/24 16:20 10/20/24 16:55 10/20/24 17:00 Temperature 97.9 F Temperature Source Oral Pulse Rate 70 70 Pulse Rate [Left Radial] 78 Respiratory Rate 20 Blood Pressure 139/75 138/72 Blood Pressure [Right Arm] 168/79 H Blood Pressure Mean 94 Blood Pressure Mean [Right Arm] 108 02 Sat by Pulse Oximetry 95 97 96 Oxygen Delivery Method Room Air Room Air Room Air Medical Decision Narrative: Patient with above history and physical. Bilateral pressures are normal pH is normal patient has no foreign body with everted lids. Patient's visual acuity is worse than 20/200 bilaterally she can only see visual silhouettes. She has diffuse uptake in bilateral corneas left worse than right left is almost the complete visual axis of her left cornea. No obvious penetrating injury or globe rupture. I discussed the case with Dr. Aguilera and the transfer center and given the severity of this we will transfer her to the [facility] emergency department to be evaluated emergently by ophthalmology. Patient is aware this will be transferred by private vehicle. Patient did have complete resolution of her symptoms after tetracaine infusion I suspect she has diffuse widespread superficial corneal injury likely from sand or some other material that was blown into her eyes. Critical Care Critical Care Time Critical Care Time: No
--- NOTE | 2024-10-20 16:42 | PC.NURSE ---
Called [facility] to consult with Opthamology for this pt. with Bi-Lateral corneal abrasions and now all she can see are silhouettes. [facility] advised they would call us back.
--- NOTE | 2024-10-20 16:45 | PC.NURSE ---
[facility] called back and is speaking with Dr Drake now.
--- NOTE | 2024-10-20 16:49 | PC.NURSE ---
dr ruiz at bedside to update pt and family
[2024-10-20 16:55] VITALS: BP 139/75; PULSE 70; O2SAT 97
[2024-10-20 17:00] VITALS: BP 138/72; PULSE 70; O2SAT 96
--- NOTE | 2024-10-20 17:02 | PC.NURSE ---
called report to [facility] aviles
[2024-10-20 17:08] VITALS: BP 138/72; PULSE 74; RESP 18; TEMP 36.8; O2SAT 98
== END 2024-10-20 17:10 | disposition other institution (70) ==
PROVIDERS: Emergency Provider Student in an Organized Health Care Education/Training Program
DX: S05.8X1A Other injuries of right eye and orbit, initial encounter (principal); S05.8X2A Other injuries of left eye and orbit, initial encounter; W44.8XXA Other foreign body entering into or through a natural orifice, initial encounter
CPT/HCPCS: 99285

== ENCOUNTER 2025-02-10 15:18 | Outpatient (CLI) | payer MEDICARE, SELFPAY ==
--- OUTSIDE RECORDS SUMMARY | 2025-01-19 09:23 | XMS_ITS | Encounter Summary ---
Author Organization [facility] Address [address] [place] [address] Care Team Providers Care Application Designer Name Role Phone Serge Wilson MD Primary Care Provider [phone] Dirk Blevins MD Unavailable Piedad Turcios RN Unavailable [phone] Marisol Hodge Unavailable [phone] Lyle Brenner MD Unavailable [phone] Reason for Referral * Imaging (Routine) - Closed Specialty Diagnoses / Procedures Referred By Contac t Referred To Contact Radiology Diagnoses Intrahepatic cholangiocarcinoma (CMS/HCC) Procedures CT CHEST WO IV CONTRAST Dirk Blevins MD [address] [address] Phone: tel: fax: Referral ID Status Reason Start Date Expiration Date Visits Re quested Visits Authorized [id number] Closed 11/16/2024 05/18/2026 1 1 * Imaging (Routine) - Closed Specialty Diagnoses / Procedures Referred By Contac t Referred To Contact Radiology Diagnoses Intrahepatic cholangiocarcinoma (CMS/HCC) Procedures CT Abdomen w and wo IV Contrast Dirk Blevins MD [address] [address] Phone: tel: fax: Referral ID Status Reason Start Date Expiration Date Visits Re quested Visits Authorized [id number] Closed 11/16/2024 05/18/2026 1 1 Reason for Visit * Imaging (Routine) - Closed Specialty Diagnoses / Procedures Referred By Tere t Referred To Contact Radiology Diagnoses Intrahepatic cholangiocarcinoma (CMS/HCC) Procedures CT Abdomen w and wo IV Contrast Dirk Blevins MD [address] [place] [address] Phone: tel: fax: Referral ID Status Reason Start Date Expiration Date Visits Re quested Visits Authorized [id number] Closed 11/16/2024 05/18/2026 1 1 Encounter Details Date Type Department Care Team (Latest Contact Info) Description 01/19/2025 9:23 AM EDT - 01/19/2025 11:59 PM EDT Hospital Encounter [facility] [address] [place] [address] Intrahepatic cholangiocarcinoma (CMS/HCC) Discharge Disposition: Home or Self Care Social History Tobacco Use Types Packs/Day Years Used Date Smoking Tobacco: Never Smokeless Tobacco: Never Alcohol Use Standard Drinks/Week Comments Never 0 (1 standard drink = 0.6 oz pur e alcohol) Humiliation, Afraid, Rape, and Kick questionnair e Answer Date Recorded Within the last year, have y ou been afraid of your partner or ex-partner? No 11/03/2023 Within the last year, have y ou been humiliated or emotionally abused in other ways by your partner or ex-partner? No Within the last year, have y ou been kicked, hit, slapped, or otherwise physically hurt by your partner or ex-partner? No 11/03/2023 Within the last year, have y ou been raped or forced to have any kind of sexual activity by your partner or ex-partner? No 11/03/2023 AUDIT-C Answer Date Recorded Q1: How often do you have a drink containing alcohol? Never 11/03/2023 Q2: How many drinks containi ng alcohol do you have on a typical day when you are drinking? Patient does not drink Q3: How often do you have si x or more drinks on one occasion? Never 11/03/2023 PHQ-2 Answer Date Recorded Patient Health Questionnaire-2 Score 0 04/14/2024 [facility] - Occupational Stress Questionnaire Answer Date Recorded Do you feel stress - tense, restless, nervous, or anxious, or unable to sleep at night because your mind is troubled all the time - these days? Not at all 11/03/2023 Exercise Vital Sign Answer Date Recorde d On average, how many days pe r week do you engage in moderate to strenuous exercise (like a brisk walk)? 5 days 11/03/2023 On average, how many minutes do you engage in exercise at this level? 60 min 11/03/2023 Hunger Vital Sign Answer Date Recorded Within the past 12 months, y ou worried that your food would run out before you got the money to buy more. Never true 11/03/19 Within the past 12 months, t he food you bought just didn't last and you didn't have money to get more. Never true 11/03/2023 PRAPARE - Transportation Answer Date Re corded In the past 12 months, has l ack of transportation kept you from medical appointments or from getting medications? No 10/15 In the past 12 months, has l ack of transportation kept you from meetings, work, or from getting things needed for daily living? No 11/03/2023 Housing Stability Vital Sign Answer Brian e Recorded In the last 12 months, was t here a time when you were not able to pay the mortgage or rent on time? No 11/03/2023 In the last 12 months, how many places have you lived? 1 11/03/2023 In the last 12 months, was t here a time when you did not have a steady place to sleep or slept in a [facility] (including now)? No 11/03/2023 Utilities Answer Date Recorded In the past 12 months has th e [email or web address], gas, oil, or water company threatened to shut off services in your home? No 11/03/2023 Comments No Sex and Gender Information Value Date Recorded Sex Assigned at Not on file Legal Sex Female 6:52 PM EDT Gender Identity Not on file Sexual Orientation Not on file documented as of this encounter Medications at Time of Discharge Apoaequorin 10 MG capsule Take 10 mg by mouth 1 (one) time each day. calcium carbonate 648 MG tablet tablet Take 1 tablet by mouth daily. carvedilol (Coreg) 12.5 MG tablet Take 1 tablet (12.5 mg) by mouth 2 (two) times a day. cetirizine (ZyrTEC) 10 MG tablet Take 1 tablet (10 mg) by mouth 1 (one) time each day. dilTIAZem CD (Cardizem CD) 180 MG 24 hr capsule Take 1 capsule (180 mg) by mouth 1 (one) time each day. famotidine (Pepcid) 20 MG tablet Take 1 tablet (20 mg) by mouth 1 (one) time each day. hydroCHLOROthiazide (HYDRODiuril) 25 MG tablet Take 1 tablet (25 mg) by mouth 1 (one) time each day. levothyroxine (Synthroid, Levoxyl) 100 MCG tablet Take 1 tablet (100 mcg) by mouth 1 (one) time each day in the morning. naloxone (Narcan) 4 mg/0.1 mL nasal spray 1. Give 1 spray in nostril for no/slow breathing or cannot wake after opioid use 2. Call 911 3. Repeat in other nostril if symptoms continue 1 each 11/05/2023 ondansetron ODT (Zofran-ODT) 4 MG disintegrating tabletIndications:P ostoperative nausea Take 1 tablet (4 mg) by mouth every 8 (eight) hours if needed for nausea or vomiting. 20 tablet 11/18/2023 oxybutynin XL (Ditropan-XL) 10 MG 24 hr tablet Take 1 tablet (10 mg) by mouth 1 (one) time each day. 08/11/2023 potassium chloride CR (Klor-Con M20) 20 MEQ ER tablet Take 0.5 tablets (10 mEq) by mouth 1 (one) time each day. Take one tablet if taking the Lasix but if not take 1/2 tablet daily Do not crush or chew. propafenone (Rythmol) 300 MG tablet Take 1 tablet (300 mg) by mouth if needed (palpitations). simvastatin (Zocor) 40 MG tablet Take 1 tablet (40 mg) by mouth every other day. trimethoprim-polymy diana b (Polytrim) ophthalmic solution Administer 1 drop into both eyes 4 times a day. 10 mL 1 10/20/2024 trimethoprim-polymy diana b (Polytrim) ophthalmic solution Administer 1 drop into both eyes every 4 hours. 10 mL 10/20/2024 documented as of this encounter Miscellaneous Notes * Nicole Kimbrough S - 01/19/2025 9:25 AM EDT Images from the original note were not included. 1019 Caring for Yourself after Contrast Imaging If you had ORAL contrast: ? You can go back to your normal diet and activities as tolerated. ? Drink plenty of fluids, unless told otherwise. If you had IV contrast: ? You can go back to your normal diet and activities as tolerated. ? Drink plenty of fluids, unless told otherwise. ? Leave a bandage on the site for 30 minutes (where the IV was inserted or blood was drawn). If you had Intravesical (bladder) contrast: ? Return to normal diet and activity. What you need to know about delayed reaction to IV contrast What is IV Contrast? ? Contrast is a dye that is put into your body through an IV. ? It is used for imaging scans such as CT scans and MRIs. ? The contrast makes blood vessels, organs and other parts of your body show up better on the scan. What do I need to do after IV contrast? ? Drink lots of fluids. This will help flush the contrast out of your system. ? Drink 2-3 extra glasses or bottles of water within 4 hours of your scan. What is a contrast reaction? ? A contrast reaction is a bad side effect from the contrast dye. ? It is rare but it does happen. ? They can be mild - such as sneezing, itching, or hives. ? They can be severe - such as trouble breathing, throat swelling, and irregular heart beat. When do these reactions happen? ? They often happen right after the contrast is injected. ? Some happen hours after going home. Go to the nearest Emergency Department right away if you have any of these symptoms after you leavethe clinic or hospital. ? Sneezing ? Itching in your mouth, throat, eyes, ears, or skin ? Rash or hives ? Throwing up or stomach sickness ? High heart rate or ?racing? of your heart ? Feeling dizzy or woozy ? Feeling short of breath or like you can?t take a deep breath ? Feeling very anxious for no other reason It is very important that these reactions be treated. Tell the doctor or nurse that you are having a reaction to IV contrast dye. Do not ignore any sign of a reaction! All reactions must be assessed by a doctor. Call 911 if you are alone and your reaction is more than mild sneezing or itching. If you have a mild reaction, call to speak with a Radiologist, explain that you havehad a contrast reaction, as this needs to be added to your medical record. documented in this encounter Plan of Treatment Upcoming Encounters Date Type Department Care Team (Late st Contact Info) Description 06/01/2025 10:30 AM EST Appointment [facility] [address] [place] [address] documented as of this encounter Procedures Procedure Name Priority Date/Time Associated Diagnosis Comments CT ABDOMEN W AND WO IV CONTRAST Routine 01/19/2025 10:32 AM EDT Intrahepatic cholangiocarcinoma (CMS/HCC) CT CHEST WO IV CONTRAST Routine 01/19/2025 10:32 AM EDT Intrahepatic cholangiocarcinoma (CMS/HCC) documented in this encounter Results * CT CHEST WO IV CONTRAST (01/19/2025 10:32 AM EDT) Anatomical Region Laterality Modality Chest Computed Tomogra phy Impressions 01/19/2025 12:24 PM EDT Chest: No evidence of metastatic disease. Abdomen/Pelvis: No evidence of local recurrence or upper abdominal metastatic disease. Unchanged nonobstructive or partially obstructive right UP junction calculus with mild upstream pelvicalyceal fullness/hydronephrosis. Stable subcentimeter posterior interpolar right renal Bosniak IIF cyst with a slightly thickened septation. CRITICAL RESULT: No. COMMUNICATION: Per this written report. By electronically signing this report, I, the attending physician, attest that I have personally reviewed the images/data for the above examination(s) and agree with the final edited report. Drafted by Jose Delarosa MD on 01/19/2025 10:41 AM Final report signed by Leticia Pal MD on 01/19/2025 12:24 PM Narrative 01/19/2025 12:24 PM EDT CLINICAL INDICATION: Cholangiocarcinoma s/p liver resection TECHNIQUE: Multiple axial CT images were obtained from thoracic inlet through the upper abdomen without the administration of IV contrast. Multiple axial CT images were obtained from lower lungs through the upper pelvis with and without administration of IV contrast; Omnipaque 300, 100 mL. Reformatted images of the abdomen and pelvis in the coronal and sagittal planes were generated from the axial data set to facilitate diagnostic accuracy. Total DLP (Dose-Length Product): 1028.03 mGy.cm (accession [id number]), 1028.03 mGy.cm (accession [id number]). Please note: The reported value represents the total of one or more individual components during the CT acquisition on this date and at this time, and as such, the same value may appear in more than one CT report depending on the interpreting/reporting physicians. COMPARISON: CT abdomen 10/27/2024, Thoracoabdominal CTs 06/30/2024 FINDINGS: Chest: Lymph Nodes and Mediastinum: Unremarkable thyroid. No thoracic adenopathy by CT size criteria. Cardiovascular: Cardiac size within normal limits. Dual-chamber pacemaker. Borderline ectatic ascending thoracic aorta. Moderate coronary artery calcifications. No pericardial effusion. Lungs and Pleura: Patent central airways. Mild generalized bronchial wall thickening and tubular bronchiectasis. No suspicious sizable pulmonary nodules to suggest metastatic disease. No focal consolidations. No suspicious pleural nodularity or pleural effusions. Musculoskeletal and Body Wall: No clearly aggressive lytic/blastic osseous lesions or chest wall soft tissue masses. Moderate acromioclavicular osteoarthrosis. Moderate to severe multilevel spondylosis. Abdomen: Liver, Gallbladder, Biliary Tract: Unchanged postsurgical defect in hepatic segment 5/8 with a loculated seroma or biloma measuring up to 4 cm. Unchanged probable left hepatic cysts within the left hemiliver. No new or enlarging suspicious hepatic lesions. Prior cholecystectomy with unchanged intrahepatic and extrahepatic biliary ductal dilatation, common bile duct measuring up to 14 mm with expected gradual tapering at the the ampulla. Spleen: Unremarkable. Pancreas: Unremarkable. Adrenal Glands: Unremarkable. Kidneys: Similar nonobstructive right UP junction renal calculus with mild asymmetric pelvicalyceal fullness and reactive urothelial enhancement. Few additional nonobstructive bilateral renal calculi are grossly similar in burden from 3 months prior. Stable distribution of renal cortical cysts including the diffusely characterized Bosniak IIf septated posterior subcentimeter right interpolar renal lesion on 2:96 and 13:128. Lymph Nodes: No suspicious adenopathy by size criteria. Vasculature: No large vessel occlusions or aneurysms. Moderate aortoiliac calcific atherosclerosis. GI Tract: No evidence of GI tract obstruction, perforation, or obvious focal acute inflammation within the [id number]-ldyy. Mesentery/Peritoneum: No suspicious sizable mesenteric/peritoneal nodules. Free Fluid: No upper abdominal ascites. Musculoskeletal and Body Wall: Incisional scarring. No aggressive osseous lesions or body wall soft tissue masses. Moderate to severe multilevel spondylosis. Procedure Note Leticia Pal MD - 01/19/2025 CLINICAL INDICATION: Cholangiocarcinoma s/p liver resection TECHNIQUE: Multiple axial CT images were obtained from thoracic inlet through theupper abdomen without the administration of IV contrast. Multiple axial CTimages were obtained from lower lungs through the upper pelvis with andwithout administration of IV contrast; Omnipaque 300, 100 mL. Reformattedimages of the abdomen and pelvis in the coronal and sagittal planes weregenerated from the axial data set to facilitate diagnostic accuracy. Total DLP (Dose-Length Product): 1028.03 mGy.cm (accession [id number]),1028.03 mGy.cm (accession [id number]). Please note: The reported valuerepresents the total of one or more individual components during the CTacquisition on this date and at this time, and as such, the same value mayappear in more than one CT report depending on the interpreting/reportingphysicians. COMPARISON: CT abdomen 10/27/2024, Thoracoabdominal CTs 06/30/2024 FINDINGS: Chest: Lymph Nodes and Mediastinum: Unremarkable thyroid. No thoracic adenopathyby CT size criteria. Cardiovascular: Cardiac size within normal limits. Dual-chamber pacemaker.Borderline ectatic ascending thoracic aorta. Moderate coronary arterycalcifications. No pericardial effusion. Lungs and Pleura: Patent central airways. Mild generalized bronchial wallthickening and tubular bronchiectasis. No suspicious sizable pulmonarynodules to suggest metastatic disease. No focal consolidations. Nosuspicious pleural nodularity or pleural effusions. Musculoskeletal and Body Wall: No clearly aggressive lytic/blastic osseouslesions or chest wall soft tissue masses. Moderate acromioclavicularosteoarthrosis. Moderate to severe multilevel spondylosis. Abdomen: Liver, Gallbladder, Biliary Tract: Unchanged postsurgical defect inhepatic segment 5/8 with a loculated seroma or biloma measuring up to 4cm. Unchanged probable left hepatic cysts within the left hemiliver. Nonew or enlarging suspicious hepatic lesions. Prior cholecystectomy withunchanged intrahepatic and extrahepatic biliary ductal dilatation, commonbile duct measuring up to 14 mm with expected gradual tapering at the theampulla. Spleen: Unremarkable. Pancreas: Unremarkable. Adrenal Glands: Unremarkable. Kidneys: Similar nonobstructive right UP junction renal calculus with mildasymmetric pelvicalyceal fullness and reactive urothelial enhancement. Fewadditional nonobstructive bilateral renal calculi are grossly similar inburden from 3 months prior. Stable distribution of renal cortical cystsincluding the diffusely characterized Bosniak IIf septated posteriorsubcentimeter right interpolar renal lesion on 2:96 and 13:128. Lymph Nodes: No suspicious adenopathy by size criteria. Vasculature: No large vessel occlusions or aneurysms. Moderate aortoiliaccalcific atherosclerosis. GI Tract: No evidence of GI tract obstruction, perforation, or obviousfocal acute inflammation within the [id number]-yo-xchm. Mesentery/Peritoneum: No suspicious sizable mesenteric/peritonealnodules. Free Fluid: No upper abdominal ascites. Musculoskeletal and Body Wall: Incisional scarring. No aggressive osseouslesions or body wall soft tissue masses. Moderate to severe multilevelspondylosis. IMPRESSION: Chest: No evidence of metastatic disease. Abdomen/Pelvis: No evidence of local recurrence or upper abdominalmetastatic disease. Unchanged nonobstructive or partially obstructive right UP junctioncalculus with mild upstream pelvicalyceal fullness/hydronephrosis. Stable subcentimeter posterior interpolar right renal Bosniak IIF cystwith a slightly thickened septation. CRITICAL RESULT: No. COMMUNICATION: Per this written report. By electronically signing this report, I, the attending physician, attestthat I have personally reviewed the images/data for the aboveexamination(s) and agree with the final edited report. Drafted by Jose Delarosa MD on 01/19/2025 10:41 AM Final report signed by Leticia Pla MD on 01/19/2025 12:24 PM Dirk Blevins MD IMG CT PROCEDURES Final Result * CT Abdomen w and wo IV Contrast (01/19/2025 10:32 AM EDT) Anatomical Region Laterality Modality Abdomen Computed Tomogra phy Impressions 01/19/2025 12:24 PM EDT Chest: No evidence of metastatic disease. Abdomen/Pelvis: No evidence of local recurrence or upper abdominal metastatic disease. Unchanged nonobstructive or partially obstructive right UP junction calculus with mild upstream pelvicalyceal fullness/hydronephrosis. Stable subcentimeter posterior interpolar right renal Bosniak IIF cyst with a slightly thickened septation. CRITICAL RESULT: No. COMMUNICATION: Per this written report. By electronically signing this report, I, the attending physician, attest that I have personally reviewed the images/data for the above examination(s) and agree with the final edited report. Drafted by Jose Delarosa MD on 01/19/2025 10:41 AM Final report signed by Leticia Pal MD on 01/19/2025 12:24 PM Narrative 01/19/2025 12:24 PM EDT CLINICAL INDICATION: Cholangiocarcinoma s/p liver resection TECHNIQUE: Multiple axial CT images were obtained from thoracic inlet through the upper abdomen without the administration of IV contrast. Multiple axial CT images were obtained from lower lungs through the upper pelvis with and without administration of IV contrast; Omnipaque 300, 100 mL. Reformatted images of the abdomen and pelvis in the coronal and sagittal planes were generated from the axial data set to facilitate diagnostic accuracy. Total DLP (Dose-Length Product): 1028.03 mGy.cm (accession [id number]), 1028.03 mGy.cm (accession [id number]). Please note: The reported value represents the total of one or more individual components during the CT acquisition on this date and at this time, and as such, the same value may appear in more than one CT report depending on the interpreting/reporting physicians. COMPARISON: CT abdomen 10/27/2024, Thoracoabdominal CTs 06/30/2024 FINDINGS: Chest: Lymph Nodes and Mediastinum: Unremarkable thyroid. No thoracic adenopathy by CT size criteria. Cardiovascular: Cardiac size within normal limits. Dual-chamber pacemaker. Borderline ectatic ascending thoracic aorta. Moderate coronary artery calcifications. No pericardial effusion. Lungs and Pleura: Patent central airways. Mild generalized bronchial wall thickening and tubular bronchiectasis. No suspicious sizable pulmonary nodules to suggest metastatic disease. No focal consolidations. No suspicious pleural nodularity or pleural effusions. Musculoskeletal and Body Wall: No clearly aggressive lytic/blastic osseous lesions or chest wall soft tissue masses. Moderate acromioclavicular osteoarthrosis. Moderate to severe multilevel spondylosis. Abdomen: Liver, Gallbladder, Biliary Tract: Unchanged postsurgical defect in hepatic segment 5/8 with a loculated seroma or biloma measuring up to 4 cm. Unchanged probable left hepatic cysts within the left hemiliver. No new or enlarging suspicious hepatic lesions. Prior cholecystectomy with unchanged intrahepatic and extrahepatic biliary ductal dilatation, common bile duct measuring up to 14 mm with expected gradual tapering at the the ampulla. Spleen: Unremarkable. Pancreas: Unremarkable. Adrenal Glands: Unremarkable. Kidneys: Similar nonobstructive right UP junction renal calculus with mild asymmetric pelvicalyceal fullness and reactive urothelial enhancement. Few additional nonobstructive bilateral renal calculi are grossly similar in burden from 3 months prior. Stable distribution of renal cortical cysts including the diffusely characterized Bosniak IIf septated posterior subcentimeter right interpolar renal lesion on 2:96 and 13:128. Lymph Nodes: No suspicious adenopathy by size criteria. Vasculature: No large vessel occlusions or aneurysms. Moderate aortoiliac calcific atherosclerosis. GI Tract: No evidence of GI tract obstruction, perforation, or obvious focal acute inflammation within the vqisp-vl-fsic. Mesentery/Peritoneum: No suspicious sizable mesenteric/peritoneal nodules. Free Fluid: No upper abdominal ascites. Musculoskeletal and Body Wall: Incisional scarring. No aggressive osseous lesions or body wall soft tissue masses. Moderate to severe multilevel spondylosis. Procedure Note Leticia Pal MD - 01/19/2025 CLINICAL INDICATION: Cholangiocarcinoma s/p liver resection TECHNIQUE: Multiple axial CT images were obtained from thoracic inlet through theupper abdomen without the administration of IV contrast. Multiple axial CTimages were obtained from lower lungs through the upper pelvis with andwithout administration of IV contrast; Omnipaque 300, 100 mL. Reformattedimages of the abdomen and pelvis in the coronal and sagittal planes weregenerated from the axial data set to facilitate diagnostic accuracy. Total DLP (Dose-Length Product): 1028.03 mGy.cm (accession [id number]),1028.03 mGy.cm (accession [id number]). Please note: The reported valuerepresents the total of one or more individual components during the CTacquisition on this date and at this time, and as such, the same value mayappear in more than one CT report depending on the interpreting/reportingphysicians. COMPARISON: CT abdomen 10/27/2024, Thoracoabdominal CTs 06/30/2024 FINDINGS: Chest: Lymph Nodes and Mediastinum: Unremarkable thyroid. No thoracic adenopathyby CT size criteria. Cardiovascular: Cardiac size within normal limits. Dual-chamber pacemaker.Borderline ectatic ascending thoracic aorta. Moderate coronary arterycalcifications. No pericardial effusion. Lungs and Pleura: Patent central airways. Mild generalized bronchial wallthickening and tubular bronchiectasis. No suspicious sizable pulmonarynodules to suggest metastatic disease. No focal consolidations. Nosuspicious pleural nodularity or pleural effusions. Musculoskeletal and Body Wall: No clearly aggressive lytic/blastic osseouslesions or chest wall soft tissue masses. Moderate acromioclavicularosteoarthrosis. Moderate to severe multilevel spondylosis. Abdomen: Liver, Gallbladder, Biliary Tract: Unchanged postsurgical defect inhepatic segment 5/8 with a loculated seroma or biloma measuring up to 4cm. Unchanged probable left hepatic cysts within the left hemiliver. Nonew or enlarging suspicious hepatic lesions. Prior cholecystectomy withunchanged intrahepatic and extrahepatic biliary ductal dilatation, commonbile duct measuring up to 14 mm with expected gradual tapering at the theampulla. Spleen: Unremarkable. Pancreas: Unremarkable. Adrenal Glands: Unremarkable. Kidneys: Similar nonobstructive right UP junction renal calculus with mildasymmetric pelvicalyceal fullness and reactive urothelial enhancement. Fewadditional nonobstructive bilateral renal calculi are grossly similar inburden from 3 months prior. Stable distribution of renal cortical cystsincluding the diffusely characterized Bosniak IIf septated posteriorsubcentimeter right interpolar renal lesion on 2:96 and 13:128. Lymph Nodes: No suspicious adenopathy by size criteria. Vasculature: No large vessel occlusions or aneurysms. Moderate aortoiliaccalcific atherosclerosis. GI Tract: No evidence of GI tract obstruction, perforation, or obviousfocal acute inflammation within the [id number]. Mesentery/Peritoneum: No suspicious sizable mesenteric/peritonealnodules. Free Fluid: No upper abdominal ascites. Musculoskeletal and Body Wall: Incisional scarring. No aggressive osseouslesions or body wall soft tissue masses. Moderate to severe multilevelspondylosis. IMPRESSION: Chest: No evidence of metastatic disease. Abdomen/Pelvis: No evidence of local recurrence or upper abdominalmetastatic disease. Unchanged nonobstructive or partially obstructive right UP junctioncalculus with mild upstream pelvicalyceal fullness/hydronephrosis. Stable subcentimeter posterior interpolar right renal Bosniak IIF cystwith a slightly thickened septation. CRITICAL RESULT: No. COMMUNICATION: Per this written report. By electronically signing this report, I, the attending physician, miryam I have personally reviewed the images/data for the aboveexamination(s) and agree with the final edited report. 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 documented in this encounter Administered Medications Inactive Administered Medications - up to 3 most recent administrations Medication Order MAR Action Action Date Dose Rate Site iohexol (OMNIPaque) 350 MG/ML injection 100 mL 100 mL, Intravenous, Once in imaging, 1 dose, Starting on Fri01/19/25 at 0925, Until Fri01/19/25 at 1021, Routine, Imaging Protocol Orders Given 01/19/2025 10:21 AM EDT 100 mL documented in this encounter Additional Health Concerns Assessment Noted Time A fall risk assessment has been complete d for the patient 04/14/2024 1:44 PM EDT A Body Mass Index follow-up plan has been documented for the patient 01/19/2025 2:16 PM EDT documented as of this encounter Care Teams Application Designer Relationship Specialty Start Date End Date Serge Wilson MD [address] [place] [address] PCP - General 10/27/20 Dirk Blevins MD [address] [facility] [address] [place] [address] Transplant Physician Transplant Surgery 10/02/23 Piedad Turcios, RN [facility] [address] [place] [address] Registered Nurse Transplant Surgery 10/02/23 [place] [address] Registered Nurse Transplant Surgery 10/02/23 Lyle Brenner MD [address] [address] [address] [place] [address] Referring Physician 10/02/23 documented as of this encounter
--- OUTSIDE RECORDS SUMMARY | 2025-01-19 14:40 | XMS_ITS | Encounter Summary ---
Author Organization Healthcare Address [address] [place] [address] Care Team Providers Care Stock Plan Administrator Name Role Phone Serge Wilson MD Primary Care Provider [phone] Dirk Blevins MD Unavailable Piedad Turcios RN Unavailable [phone] Marisol Hodge Unavailable [phone] Lyle Brenner MD Unavailable [phone] Encounter Details Date Type Department Care Team (Latest Contact Info) Description 01/19/2025 2:40 PM EDT Office Visit [facility] [address] [facility] [address] [place] [address] Dirk Blevins MD [address] [address] Cholangiocarcinoma (CMS/HCC) (Primary Dx) Social History Tobacco Use Types Packs/Day Years [...] Recorded Patient Health Questionnaire-2 Score 0 04/14/2024 [facility] - Occupational Stress Questionnaire Answer Date Recorded [...] money to buy more. Never true 11/03/19 24 Within the past 12 months, t he [...] place to sleep or slept in a alf (including now)? No 11/03/2023 Utilities Answer Date Recorded In the past 12 months has th e electric, gas, oil, or water company threatened to shut off services in your home? No 11/03/2023 Comments No Sex and Gender Information Value Date Recorded Sex Assigned at Not on file Legal Sex Female 6:52 PM EDT Gender Identity Not on file Sexual Orientation Not on file documented as of this encounter Last Filed Vital Signs Vital Sign Reading Time Taken Comments Blood Pressure 107/70 01/19/2025 1:51 PM EDT Pulse 69 01/19/2025 1:51 PM EDT Temperature 36.5 C (97.7 F) 01/19/2025 1:51 PM EDT Respiratory Rate 16 01/19/2025 1:51 PM EDT Oxygen Saturation 95% 01/19/2025 1:51 PM EDT Inhaled Oxygen Concentration - - Weight 82 kg (180 lb 12.4 oz) 01/19/2025 1:51 PM EDT Height 182.9 cm (6') 01/19/2025 1:51 PM EDT Body Mass Index 24.52 01/19/2025 1:51 PM EDT documented in this encounter Miscellaneous Notes * Progress Notes - Dirk Blevins MD - 01/19/2025 2:40 PM EDT 64 year old white female who underwent partial hepatectomy in Oct, 2023 for cholangiocarcinoma. Shepresents today for routine clinic follow-up. She has no complaints. She denies any nausea, vomiting, fevers, chills, chest pain, shortness of breath of diarrhea. She denies any weight loss. AFVSS Heart: RRR Lungs: CTAB Abdomen: S/NT/ND, +BS. No hernias. Labs - reviewed and acceptable A/P 74 yo WF with h/o cholangiocarcinoma, s/p partial hepatectomy. She is doing well without any complaints. I have reviewed the labs and imaging studies. There are no signs or symptoms of recurrence or residual disease. Plan on repeat imaging and labs in 4 months. documented in this encounter Plan of Treatment Upcoming Encounters Date Type Department Care Team (Late st Contact Info) Description 06/01/2025 10:30 AM EST Appointment [facility] [address] [place] [address] documented as of this encounter Visit Diagnoses Diagnosis Cholangiocarcinoma (CMS/HCC)- Primary Malignant neoplasm of intrahepatic bile ducts documented in this encounter Additional Health Concerns Assessment Noted Time A fall risk assessment has been complete d for the patient 04/14/2024 1:44 PM EDT A Body Mass Index follow-up plan has been documented for the patient 01/19/2025 2:16 PM EDT documented as of this encounter Care Teams Stock Plan Administrator Relationship Specialty Start Date End Date Serge Wilson MD [address] [place], [place] [address] PCP - General 10/27/20 Dirk Blevins MD [address] [facility] [address] [place] [address] Transplant Physician Transplant Surgery 10/02/23 Piedad Turcios, RN [facility] [address] [place] [address] Registered Nurse Transplant Surgery 10/02/23 [place] [address] Registered Nurse Transplant Surgery 10/02/23 Lyle Brenner MD [address] [address] [address] [place] [address] Referring Physician 10/02/23 documented as of this encounter
--- OUTSIDE RECORDS SUMMARY | 2025-02-10 15:20 | XMS_ITS | Encounter Summary ---
Author Organization [facility] Address [address] [place] [address] Care Team Providers Care Medical Instrument Technician Name Role Phone Serge Wilson MD Primary Care Provider [phone] Dirk Blevins MD Unavailable Piedad Turcios RN Unavailable [phone] Marisol Hodge Unavailable [phone] Lyle Brenner MD Unavailable [phone] Encounter Details Date Type Department Care Team (Late st Contact Info) Description 12/24/2024 Telephone [facility] [address] [facility] [address] [place] [address] [place] [address] Social History Tobacco Use Types Packs/Day Years [...] Recorded Patient Health Questionnaire-2 Score 0 04/14/2024 [facility] - Occupational Stress Questionnaire Answer Date [...] place to sleep or slept in a skilled nursing (including now)? No 11/03/2023 Utilities Answer Date Recorded In the past 12 months has th e [employer], gas, oil, or water company threatened to shut off services in your home? No 11/03/2023 Comments No Sex and Gender Information Value Date Recorded Sex Assigned at Not on file Legal Sex Female 6:52 PM EDT Gender Identity Not on file Sexual Orientation Not on file documented as of this encounter Plan of Treatment Upcoming Encounters Date Type Department Care Team (Late st Contact Info) Description 06/01/2025 10:30 AM EST Appointment [facility] [address] [place] [address] documented as of this encounter Visit Diagnoses Not on filedocumented in this encounter Additional Health Concerns Assessment Noted Time A fall risk assessment has been complete d for the patient 04/14/2024 1:44 PM EDT A Body Mass Index follow-up plan has been documented for the patient 04/14/2024 2:11 PM EDT documented as of this encounter Care Teams Medical Instrument Technician Relationship Specialty Start Date End Date Serge Wilson MD [address] [place], [place] [id number] PCP - General 10/27/20 Dirk Blevins MD [address] [facility] [address] [place] [phone] Transplant Physician Transplant Surgery 10/02/23 Piedad Turcios RN [facility] [address] [place] [id number] Registered Nurse Transplant Surgery 10/02/23 Marisol Hodge [place], [place] [id number] Registered Nurse Transplant Surgery 10/02/23 Lyle Brenner MD [address] [address] [address] [place], [place] [id number] Referring Physician 10/02/23 documented as of this encounter
--- OUTSIDE RECORDS SUMMARY | 2025-02-10 15:20 | XMS_ITS | Encounter Summary ---
Author Organization Healthcare Address [address] [place] [address] Care Team Providers Care Enterprise Data Architect Name Role Phone Serge Wilson MD Primary Care Provider [phone] Dirk Blevins MD Unavailable Piedad Turcios RN Unavailable [phone] Marisol Hodge Unavailable [phone] Lyle Brenner MD Unavailable [phone] Encounter Details Date Type Department Care Team (Late Contact Info) Description 07/05/2023 Orders Only External Location [address] [place] [phone] Provider, External Social History Tobacco Use Types Packs/Day Years Used Date Smoking Tobacco: Never Assessed Comments Unknown Sex and Gender Information Value Date Recorded Sex Assigned at Not on file Legal Sex Female 6:52 PM EDT Gender Identity Not on file Sexual Orientation Not on file documented as of this encounter Plan of Treatment Upcoming Encounters Date Type Department Care Team (Late Contact Info) Description 06/01/2025 10:30 AM EST Appointment [facility] [address] [place] [address] documented as of this encounter Procedures Procedure Name Priority Date/Time Associated Diagnosis Comments CT ANGIO ABDOMEN PELVIS 07/05/2023 11:41 AM EST documented in this encounter Results * CT Angio Abdomen Pelvis (07/05/2023 11:41 AM EST) Anatomical Region Laterality Modality Abdomen, Pelvis Computed Tomogra phy 07/05/2023 11:4 1 AM EST us External Provider IMG CT PROCEDURES Final Result documented in this encounter Visit Diagnoses Not on filedocumented in this encounter Care Teams Enterprise Data Architect Relationship Specialty Start Date End Date Serge Wilson MD [address] [place] [address] PCP - General 10/27/20 Dirk Blevins MD [address] [place] [address] Transplant Physician Transplant Surgery 10/02/23 Piedad Turcios, RN [facility] [address] [place] [address] Registered Nurse Transplant Surgery 10/02/23 [place] [address] Registered Nurse Transplant Surgery 10/02/23 Lyle Brenner MD [address] [address] [place] [address] Referring Physician 10/02/23 documented as of this encounter
--- OUTSIDE RECORDS SUMMARY | 2025-02-10 15:20 | XMS_ITS | Encounter Summary ---
Author Organization Healthcare Address [address] [place] [address] Care Team Providers Care Rehab Tech Name Role Phone Serge Wilson MD Primary Care Provider [phone] Dirk Blevins MD Unavailable Piedad Turcios RN Unavailable [phone] Marisol Hodge Unavailable [phone] Lyle Brenner MD Unavailable [phone] Encounter Details Date Type Department Care Team (Latest Contact Info) Description 01/19/2025 Travel Social History Tobacco Use Types Packs/Day Years [...] Recorded Patient Health Questionnaire-2 Score 0 04/14/2024 [facility] - Occupational Stress Questionnaire Answer Date [...] place to sleep or slept in a penitentiary (including now)? No 11/03/2023 Utilities Answer Date [...] Appointment [facility] [address] [place] [address] documented as of this encounter Visit Diagnoses Not on filedocumented in this encounter Additional Health Concerns Assessment Noted Time A fall risk assessment has been complete d for the patient 04/14/2024 1:44 PM EDT A Body Mass Index follow-up plan has been documented for the patient 01/19/2025 2:16 PM EDT documented as of this encounter Care Teams Rehab Tech Relationship Specialty Start Date End Date Serge Wilson MD [facility] [address] [place] [address] PCP - General 10/27/20 Dirk Blevins MD [address] [facility] [address] [place] [phone] Transplant Physician Transplant Surgery 10/02/23 Piedad Turcios, RN [facility] [address] [place] [address] Registered Nurse Transplant Surgery 10/02/23 [place] [address] Registered Nurse Transplant Surgery 10/02/23 Lyle Brenner MD [address] [address] [place] [address] Referring Physician 10/02/23 documented as of this encounter
--- OUTSIDE RECORDS SUMMARY | 2025-02-10 15:20 | XMS_ITS | Encounter Summary ---
Author Organization Healthcare Address [address] [place] [address] Care Team Providers Care Tailor Women'S Garment Alteration Name Role Phone Serge Wilson MD Primary Care Provider [phone] Dirk Blevins MD Unavailable Piedad Turcios RN Unavailable [phone] Marisol Hodge Unavailable [phone] Lyle Brenner MD Unavailable [phone] Encounter Details Date Type Department Care Team (Late st Contact Info) Description 10/20/2024 Ophth Exam [facility] [address] [place] [address] Natasha Ruffin MD [address] [place] [address] Social History Tobacco Use Types Packs/Day Years [...] Recorded Patient Health Questionnaire-2 Score 0 04/14/2024 [facility] - Occupational Stress Questionnaire Answer Date [...] place to sleep or slept in a mcc (including now)? No 11/03/2023 Utilities Answer Date Recorded In the past 12 months has th e electric, gas, oil, or water [employer] threatened to shut off services in your home? No 11/03/2023 Comments No Sex and Gender Information Value Date Recorded Sex Assigned at Not on file Legal Sex Female 6:52 PM EDT Gender Identity Not on file Sexual Orientation Not on file documented as of this encounter Functional Status * Calculated C-SSRS Risk Score (Lifetime/Recent) Answer Date of Assessment Author No Risk Indicated 10/20/2024 9:00 PM EDT Fannie Tamayo RN * Question Answer Date of Assessment Author 1. Wish to be (Past 1 Month) No 025 9:00 PM EDT Fannie Tamayo RN 2. Non-Specific Active Suici vera Thoughts (Past 1 Month) No 10/20/2024 9:00 PM EDT Litzy Tamayo RN 6. Suicidal Behavior (Lifetime) No 9:00 PM EDT Fannie Tamayo RN documented as of this encounter Plan of Treatment Upcoming Encounters Date Type Department Care Team (Late st Contact Info) Description 06/01/2025 10:30 AM EST Appointment [facility] [address] [place] [address] documented as of this encounter Visit Diagnoses Not on filedocumented in this encounter Additional Health Concerns Assessment Noted Time A fall risk assessment has been complete d for the patient 04/14/2024 1:44 PM EDT A Body Mass Index follow-up plan has been documented for the patient 04/14/2024 2:11 PM EDT documented as of this encounter Care Teams Tailor Women'S Garment Alteration Relationship Specialty Start Date End Date Serge Wilson MD [facility] [address] [place] [address] PCP - General 10/27/20 Dirk Blevins MD [address] [facility] [address] [place] [address] Transplant Physician Transplant Surgery 10/02/23 Piedad Turcios RN [facility] [address] [place] [address] Registered Nurse Transplant Surgery 10/02/23 [place] [address] Registered Nurse Transplant Surgery 10/02/23 Lyle Brenner MD [facility] [address] [address] Referring Physician 10/02/23 documented as of this encounter
--- OUTSIDE RECORDS SUMMARY | 2025-02-10 15:20 | XMS_ITS | Encounter Summary ---
Author Organization [facility] Address [address] [place] [address] Care Team Providers Care Eyewear Manufacturing Tech Name Role Phone Serge Wilson MD Primary Care Provider Dirk Blevins MD Unavailable Piedad Turcios RN Unavailable [phone] Marisol Hodge Unavailable [phone] Lyle Brenner MD Unavailable [phone] Encounter Details Date Type Department Care Team (Late st Contact Info) Description 05/23/2023 Orders Only External Location [address] [place] [address] Nasreen Colindres, DO [address] [place] [address] Social History Tobacco Use Types Packs/Day Years [...] EST Appointment [facility] [address] [place] [phone] documented as of this encounter Procedures Procedure Name Priority Date/Time Associated Diagnosis Comments CT OUTSIDE IMAGES 05/23/2023 12:36 PM EST documented in this encounter Results * CT OUTSIDE IMAGES (05/23/2023 12:36 PM EST) Anatomical Region Laterality Modality Computed Tomogra phy 05/23/2023 12:3 6 PM EST Nasreen Colindres DO IMG CT PROCEDURES Final Result documented in this encounter Visit Diagnoses Not on filedocumented in this encounter Care Teams Eyewear Manufacturing Tech Relationship Specialty Start Date End Date Serge Wilson MD [address] [place] [address] PCP - General 10/27/20 Dirk Blevins MD [address] [place] [address] Transplant Physician Transplant Surgery 10/02/23 Piedad Turcios, RN [facility] [address] [place] [address] Registered Nurse Transplant Surgery 10/02/23 Marisol Hodge [address] [phone] Registered Nurse Transplant Surgery 10/02/23 Lyle Brenner MD [address] [address] [place] [address] Referring Physician 10/02/23 documented as of this encounter
--- OUTSIDE RECORDS SUMMARY | 2025-02-10 15:20 | XMS_ITS ---
Author Organization [facility] Address [address] [id number] Care Team Providers Care Regular Senior Care Provider Name Role Phone Serge Wilson MD Primary Care Provider [phone] Dirk Blevins MD Unavailable Piedad Turcios RN Unavailable [phone] Marisol Hodge Unavailable [phone] Lyle Brenner MD Unavailable Active Problems Problem Noted Date Diagnosed Date Kidney stone 04/12/2024 Adenocarcinoma of liver 10/31/2023 Current Treatment and Therapy Plans No current plan information found. Past Treatment and Therapy Plans No past plan information found. Lifetime Dose Tracking * Chemical Lifetime Dose Automatic Entry Manual Entr y CTDIvol 214.6 mGy 214.6 mGy 0 mGy Radiation (DLP) 2,254 mGy-cm 2,254 mGy-cm 0 mGy-cm
--- OUTSIDE RECORDS SUMMARY | 2025-02-10 15:21 | XMS_ITS | Referral Summary ---
Author Organization [employer] [facility] ([place], [place], [place], [place]) Address [address] [place] [address] Care Team Providers Care Customer Agent Name Role Phone Unavailable Primary Care Provider Unavailabl e Social History Tobacco Use Types Packs/Day Years Used Date Smoking Tobacco: Never Assessed Food Insecurity Answer Date Recorded Food run out past 12 months Not on file 09/14 Food did not last past 12 months Not on file 09/30/2023 Employment Answer Date Recorded Help finding and keeping a job Not on file 0 09/30/2023 Family and Community Support Answer Brian e Recorded Help with Day to Day Activities Not on file 09/30/2023 Feeling Lonely or Isolated Not on file 09/29 Educational Attainment Answer Date Bal rded Speak language other than Divehi at home Not on file 09/30/2023 Want help with school or training Not on file 09/30/2023 Substance Use Answer Date Recorded Used prescription meds for non-medical reasons N ot on file 09/30/2023 Used illegal drugs past 12 months Not on file 09/30/2023 Comments Unknown Sex and Gender Information Value Date Recorded Sex Assigned at Not on file Legal Sex Female 1:22 PM CDT Gender Identity Not on file Sexual Orientation Not on file Plan of Treatment Not on file
--- OUTSIDE RECORDS SUMMARY | 2025-02-10 15:21 | XMS_ITS | Clinical Summary ---
Author Organization Healthcare Address [address] [place] [address] Care Team Providers Care Marketing Information Manager Name Role Phone Serge Wilson MD Primary Care Provider [phone] Dirk Blevins MD Unavailable Piedad Turcios RN Unavailable [phone] Marisol Hodge Unavailable [phone] Lyle Brenner MD Unavailable [phone] Allergies Active Allergy Reactions Criticality Noted Date Comments Clavulanic Acid Rash Low 01/17/2022 Fentanyl Other - please docum ent in the comment field High 06/24/2016 Puts me in a coma Doesn't want at all Hydromorphone Palpitations Medium 04/07/2024 Can't wake up Hard time waking up Latex Unknown - Patient st ates they do not know rxn details Medium 06/24/2016 After a surgery she was told she was allergic Levofloxacin Itching,Rash Medium 06/24/2016 Minocycline Itching,Rash Medium 06/24/2016 Morphine Palpitations High 04/12/2024 Can't wake up Hard time waking up Prednisone Itching,Rash High 02/23/2020 Propofol Other - please docum ent in the comment field High 06/24/2016 Puts me in a coma Doesn't want at all Quinidine Palpitations High 06/24/2016 Bradycardia, patient states it stopped her heart Sulfa Drugs Anaphylaxis High 06/24/2016 Medications carvedilol (Coreg) 12.5 MG tablet Take 1 tablet (12.5 mg) by mouth 2 (two) times a day. Active famotidine (Pepcid) 20 MG tablet Take 1 tablet (20 mg) by mouth 1 (one) time each day. Active simvastatin (Zocor) 40 MG tablet Take 1 tablet (40 mg) by mouth every other day. Active levothyroxine (Synthroid, Levoxyl) 100 MCG tablet Take 1 tablet (100 mcg) by mouth 1 (one) time each day in the morning. Active cetirizine (ZyrTEC) 10 MG tablet Take 1 tablet (10 mg) by mouth 1 (one) time each day. Active hydroCHLOROthiazid e (HYDRODiuril) 25 MG tablet Take 1 tablet (25 mg) by mouth 1 (one) time each day. Active Apoaequorin 10 MG capsule Take 10 mg by mouth 1 (one) time each day. Active oxybutynin XL (Ditropan-XL) 10 MG 24 hr tablet Take 1 tablet (10 mg) by mouth 1 (one) time each day. 08/11/19 Active propafenone (Rythmol) 300 MG tablet Take 1 tablet (300 mg) by mouth if needed (palpitations). Active methocarbamol (Robaxin) 500 MG tablet Take 1 tablet (500 mg) by mouth 4 (four) times a day if needed for muscle spasms for up to 5 days. 20 tablet 11/05/19 Active Additional Information Patient not taking.Reported on 01/19/2025 naloxone (Narcan) 4 mg/0.1 mL nasal spray 1. Give 1 spray in nostril for no/slow breathing or cannot wake after opioid use 2. Call 911 3. Repeat in other nostril if symptoms continue 1 each 11/05/19 Active Additional Information Patient not taking.Reported on 01/19/2025 ondansetron ODT (Zofran-ODT) 4 MG disintegrating tabletIndications: Postoperative nausea Take 1 tablet (4 mg) by mouth every 8 (eight) hours if needed for nausea or vomiting. 20 tablet 11/18/19 Active Additional Information Patient not taking.Reported on 01/19/2025 potassium chloride CR (Klor-Con M20) 20 MEQ ER tablet Take 0.5 tablets (10 mEq) by mouth 1 (one) time each day. Take one tablet if taking the Lasix but if not take 1/2 tablet daily Do not crush or chew. Active dilTIAZem CD (Cardizem CD) 180 MG 24 hr capsule Take 1 capsule (180 mg) by mouth 1 (one) time each day. Active trimethoprim-polym yxin b (Polytrim) ophthalmic solution Administer 1 drop into both eyes 4 times a day. 10 mL 1 10/21/19 25 Active Additional Information Patient not taking.Reported on 01/19/2025 trimethoprim-polym yxin b (Polytrim) ophthalmic solution Administer 1 drop into both eyes every 4 hours. 10 mL 10/21/19 25 Active Additional Information Patient not taking.Reported on 01/19/2025 calcium carbonate 648 MG tablet tablet Take 1 tablet by mouth daily. Active Active Problems Problem Noted Date Diagnosed Date Kidney stone 04/12/2024 Adenocarcinoma of liver 10/31/2023 Encounters Date Type Department Care Team Description 01/19/2025 2:40 PM EDT Office Visit [facility] [address] [address] Dirk Blevins MD Cholangiocarcinoma (CMS/HCC) (Primary Dx) 01/19/2025 9:23 AM EDT - 01/19/2025 11:59 PM EDT Hospital Encounter [facility] [address] [place] [address] Intrahepatic cholangiocarcinoma (CMS/HCC) Discharge Disposition: Home or Self Care 01/19/2025 Travel 12/24/2024 Telephone [facility] [address] [address] Meme Stone from Last 3 Months Immunizations Immunization Administration Dates Next Due Hep A, ped/adol, 2 dose 11/24/2018,05/19/2018 Pneumococcal 20-shaan Conj Vaccine 02/26/2023 Zoster, Recombinant 03/16/2021,01/10/2021 Family History * Patient is adopted Medical History Relation Name Comments Anesthesia problems Brother delayed emergence Malig Hypertension Neg Hx Pseudochol deficiency Neg Hx Relation Name Status Comments Brother Daughter Colon Cancer ag e 49 Mother Heart failure Social History Tobacco Use Types Packs/Day Years Used Date Smoking Tobacco: Never Smokeless Tobacco: Never Tobacco Cessation:Counseling Given: Not Answered Alcohol Use Standard Drinks/Week Comments Never 0 [...] Recorded Patient Health Questionnaire-2 Score 0 04/14/2024 [facility] - Occupational Stress [...] place to sleep or slept in a assisted (including now)? No 11/03/2023 Utilities Answer Date Recorded In the past 12 months has th e electric, gas, oil, or water company threatened to shut off services in your home? No 11/03/2023 Comments No Sex and Gender Information Value Date Recorded Sex Assigned at Not on file Legal Sex Female 6:52 PM EDT Gender Identity Not on file Sexual Orientation Not on file Last Filed Vital Signs Vital Sign Reading [...] Mass Index 24.52 01/19/2025 1:51 PM EDT Plan of Treatment Upcoming Encounters Date Type Department Care Team (Late st Contact Info) Description 06/01/2025 10:30 AM EST Appointment [facility] [address] [place] [address] Health Maintenance Due Date Last Done Comments [facility]-Bone Density Scan 1950 [facility]-Hepatitis C Screening 1950 [facility]-Medicare Annual Wellness (AWV) 1950 [facility]-Infant/Child/Adol SDOH Screenings 1950 [facility]- SDOH Screenings 1968 [facility]-Adult SDOH Screenings 1968 [facility]-DTaP,Tdap,and Td Vaccines (1 - Tdap) 1969 [facility]-Hepatitis A Vaccines (1 of 2 - Risk 2-dose series) 1969 11/24/2018, 05/19/2018 CT Colonography 1995 Colonoscopy 1995 FIT-DNA 1995 FIT 1995 FOBT 1995 Sigmoidoscopy 1995 [facility]-Colorectal Cancer Screening 1995 [facility]-Breast Cancer Screening 2000 [facility]-RSV Vaccine: 60+ Years or (1 - Risk 60-74 years 1-dose series) 2010 [id number]-27 Vaccine (7 - Moderna risk ) 10/28/2024 04/30/2024, 03/13/2023, 03/07/2022, Additional history exists [facility]-Influenza Vaccine (#1) 2025 04/30/2024 [facility]-Depression Screening 04/14/2025 04/14/2024 [facility]-Zoster Vaccines Completed 03/16/2021, [facility]-Pneumococcal Vaccine: 50+ Years Completed 05/05/2024, 02/26/2023 HPV Vaccines Aged Out No longer eligi ble based on patient's age to complete this topic [facility]-HIB Vaccines Aged Out No longer e ligible based on patient's age to complete this topic [facility]-IPV Vaccines Aged Out No longer e ligible based on patient's age to complete this topic [facility]-Rotavirus Vaccines Aged Out No lo nger eligible based on patient's age to complete this topic Medical Devices Implanted Type Area Oxyacetylene Cutter Device Identifier Shelf Expiration Date Model / Serial / Lot Pacemaker Pacemaker Chest Procedures Procedure Name Priority Date/Time Associated Diagnosis Comments CT CHEST WO IV CONTRAST Routine 01/19/2025 10:32 AM EDT Intrahepatic cholangiocarcinoma (CMS/HCC) CT ABDOMEN W AND WO IV CONTRAST Routine 01/19/2025 10:32 AM EDT Intrahepatic cholangiocarcinoma (CMS/HCC) COMPREHENSIVE METABOLIC PANEL, PLASMA Routine 01/19/2025 8:43 AM EDT Intrahepatic cholangiocarcinoma (CMS/HCC) CBC W/O DIFFERENTIAL Routine 01/19/2025 8:43 AM EDT Intrahepatic cholangiocarcinoma (CMS/HCC) CANCER ANTIGEN, GI (CA 19.9) Routine 01/19/2025 8:43 AM EDT Intrahepatic cholangiocarcinoma (CMS/HCC) from Last 3 Months Results * CT Abdomen w and wo IV [...] Total DLP (Dose-Length Product): 1028.03 mGy.cm (accession [id number]), 1028.03 mGy.cm (accession [id number]). Please note: The reported value represents the [...] or obvious focal acute inflammation within the tkzeb-fw-bwcb. Mesentery/Peritoneum: No suspicious sizable mesenteric/peritoneal nodules. Free [...] Total DLP (Dose-Length Product): 1028.03 mGy.cm (accession [id number]),1028.03 mGy.cm (accession [id number]). Please note: The reported valuerepresents the total [...] perforation, or obviousfocal acute inflammation within the nbaza-vq-hpwi. Mesentery/Peritoneum: No suspicious sizable mesenteric/peritonealnodules. Free Fluid: [...] IMG CT PROCEDURES Final Result * CT CHEST WO IV CONTRAST (01/19/2025 [...] Total DLP (Dose-Length Product): 1028.03 mGy.cm (accession [id number]), 1028.03 mGy.cm (accession [id number]). Please note: The reported value represents the [...] or obvious focal acute inflammation within the lvrns-og-ewqb. Mesentery/Peritoneum: No suspicious sizable mesenteric/peritoneal nodules. Free [...] Total DLP (Dose-Length Product): 1028.03 mGy.cm (accession [id number]),1028.03 mGy.cm (accession [id number]). Please note: The reported valuerepresents the total [...] perforation, or obviousfocal acute inflammation within the plcfb-af-sxan. Mesentery/Peritoneum: No suspicious sizable mesenteric/peritonealnodules. Free Fluid: [...] signing this report, I, the attending physician, [email or web address] I have personally reviewed the images/data for the aboveexamination(s) and agree with the final edited report. Drafted by Jose Delarosa MD on 01/19/2025 10:41 AM Final report signed by Leticia Pal MD on 01/19/2025 12:24 PM Dirk Blevins MD IMG CT PROCEDURES Final Result * Cancer Antigen, GI (CA 19.9) (01/19/2025 8:43 AM EDT) CA 19.9 11.2 <36 U/mL 01/19/2025 10:23 AM EDT [facility] Blood Venous blood specimen / Unknown Venipuncture / Unknown 01/19/2025 8:43 AM EDT 01/19/2025 9:12 AM EDT Narrative [facility] - 01/19/2025 10:23 AM EDT Performed by [employer] electrochemiluminescent immunoassay. Results obtained with different test methods or kits cannot be used interchangeably. Dirk Blevins MD LAB BLOOD ORDERABLES Final Resul t [facility] [address] [place] [address] * CBC W/O differential (01/19/2025 8:43 AM EDT) WBC Count 7.04 3.70 - 10.30 10*3/uL LAB HEMATOLOGY METHOD 01/19/2025 9:36 AM EDT [facility] RBC Count 4.57 3.90 - 5.20 10*6/uL LAB HEMATOLOGY METHOD 01/19/2025 9:36 AM EDT [facility] HGB 13.5 11.2 - 15.7 g/dL LAB HEMATOLOGY METHOD 01/19/2025 9:36 AM EDT [facility] HCT 41.2 34.0 - 45.0 % LAB HEMATOLOGY METHOD 01/19/2025 9:36 AM EDT [facility] Platelet Count 196 155 - 369 10*3/uL LAB HEMATOLOGY METHOD 01/19/2025 9:36 AM EDT [facility] MCV 90 79 - 98 fL LAB HEMATOLOGY METHOD 01/19/2025 9:36 AM EDT [facility] MCH 29.5 26.0 - 32.0 pg LAB HEMATOLOGY METHOD 01/19/2025 9:36 AM EDT [facility] MCHC 32.8 30.7 - 35.5 g/dL LAB HEMATOLOGY METHOD 01/19/2025 9:36 AM EDT [facility] RDW 13.9 11.5 - 14.5 % LAB HEMATOLOGY METHOD 01/19/2025 9:36 AM EDT [facility] MPV 10.5 8.8 - 12.5 fL LAB HEMATOLOGY METHOD 01/19/2025 9:36 AM EDT [facility] nRBC 0.0 <=0.0 per 100 WBCs LAB HEMATOLOGY METHOD 01/19/2025 9:36 AM EDT [facility] Blood Venous blood specimen / Unknown Venipuncture / Unknown 01/19/2025 8:43 AM EDT 01/19/2025 9:26 AM EDT us Dirk Blevins MD LAB BLOOD ORDERABLES Final Resul t [facility] [address] [place] [address] * (ABNORMAL) Comprehensive Metabolic Panel (01/19/2025 8:43 AM EDT) Glucose, Plasma 95 74 - 99 mg/dL 01/19/2025 9:39 AM EDT [facility] BUN, Plasma 27(H) 8 - 23 mg/dL 01/19/2025 9:39 AM EDT [facility] Creatinine, Plasma 1.30(H) 0.60 - 1.10 mg/dL 01/19/2025 9:39 AM EDT [facility] BUN/Creatinine Ratio 21 01/19/2025 9:39 AM EDT [facility] Sodium, Plasma 145 136 - 145 mmol/L 01/19/2025 9:39 AM EDT [facility] Potassium, Plasma 3.6 3.6 - 4.9 mmol/L 01/19/2025 9:39 AM EDT [facility] Chloride, Plasma 106 97 - 107 mmol/L 01/19/2025 9:39 AM EDT [facility] CO2, Plasma 27 22 - 29 mmol/L 01/19/2025 9:39 AM EDT [facility] Anion Gap 12 6 - 16 mmol/L 01/19/2025 9:39 AM EDT [facility] Total Calcium, Plasma 10.1 8.9 - 10.2 mg/dL 01/19/2025 9:39 AM EDT [facility] Total Protein 6.8 6.3 - 7.9 g/dL 01/19/2025 9:39 AM EDT [facility] Albumin, Plasma 4.2 3.5 - 5.2 g/dL 01/19/2025 9:39 AM EDT [facility] AST, Plasma 37(H) 10 - 35 U/L 01/19/2025 9:39 AM EDT [facility] ALT, Plasma 31 10 - 35 U/L 01/19/2025 9:39 AM EDT [facility] Alkaline Phosphatase, Plasma 192(H) 46 - 142 U/L 01/19/2025 9:39 AM EDT [facility] Total Bilirubin, Plasma 0.5 0.2 - 1.1 mg/dL 01/19/2025 9:39 AM EDT [facility] eGFRcr 43.2 mL/min/1.7 3m*2 01/19/2025 9:39 AM EDT [facility] Comment:Reported eGFRcr in m L/min/1.73m2 is based the CKD-EPI 2020 equation that does not use a race coefficient. Blood Venous blood specimen / Unknown Venipuncture / Unknown 01/19/2025 8:43 AM EDT 01/19/2025 9:12 AM EDT us Dirk Blevins MD LAB BLOOD ORDERABLES Final Resul t [facility] [address] [place] [address] from Last 3 Months Insurance [facility] MEDICARE [facility] MEDICARE Advance Directives * Full Code (Latest Code Status on File) Date Activated Date Inactivated Comments 10/31/2023 11:35 AM 11/05/2023 3:54 PM Question Answer Comments Patient has decision-making capacity? Yes Care Teams Marketing Information Manager Relationship Specialty Start Date End Date Serge Wilson MD [id number] [place] [address] PCP - General 10/27/20 Dirk Blevins MD [address] [place] [phone] Transplant Physician Transplant Surgery 10/02/23 Piedad Turcios RN [facility] [address] [place], [place] [id number] Registered Nurse Transplant Surgery 10/02/23 [place] [address] Registered Nurse Transplant Surgery 10/02/23 Lyle Brenner MD [address] [place] [id number] Referring Physician 10/02/23
--- OUTSIDE RECORDS SUMMARY | 2025-02-10 15:21 | XMS_ITS | Clinical Summary ---
Author Organization [facility] Address [address] [place] [address] Care Team Providers Care Acoustical Tile Patternmaker Name Role Phone Serge Wilson MD Primary Care Provider [phone] Allergies Active Allergy Reactions Criticality Noted Date Comments Amoxicillin-Pot Clavulanate Anaphylaxis High 06/24/2016 Contrast Dye (Echo Or Unknown Ct/Mr) Other (See Comments) Medium 07/11/2016 Pt unsure of allergy Fentanyl Other (See Comments) High 06/24/2016 Unconscious for 2 days Latex Other (See Comments) Medium 06/24/2016 Pt unsure Levofloxacin Anaphylaxis High 06/24/2016 Minocycline Hcl Hives Medium 06/24/2016 Prednisone Swelling Low 02/23/2020 Propofol Other (See Comments) Medium 06/24/2016 Extreme lethargy Quinidine Other (See Comments) High 06/24/2016 Bradycardia Sulfa Antibiotics Anaphylaxis High 06/24/2016 Medications carvedilol (COREG) 25 MG tablet Take 25 mg by mouth 2 (Two) Times a Day. 6 Active KLOR-CON 20 MEQ CR tablet Take 40 mEq by mouth 2 (Two) Times a Day. 6 Active levothyroxine (SYNTHROID, LEVOTHROID) 100 MCG tablet Take 100 mcg by mouth Daily. 6 Active hydrochlorothia zide (HYDRODIURIL) 25 MG tablet Take 25 mg by mouth Daily. Active simvastatin (ZOCOR) 40 MG tablet Take 40 mg by mouth Every Night. Active Probiotic Product (PROBIOTIC DAILY PO) Take 1 tablet by mouth Daily. Active famotidine (PEPCID) 20 MG tablet Take 20 mg by mouth Daily. Active Apoaequorin 10 MG capsule Take 1 tablet by mouth Daily. Active cetirizine (zyrTEC) 10 MG tablet Take 10 mg by mouth Daily. Active acetaminophen (TYLENOL) 500 MG tablet Take 2 tablets by mouth Every 8 (Eight) Hours. For 1 week, then as needed 42 tablet 0 Active apixaban (ELIQUIS) 5 MG tablet tablet Take 5 mg by mouth 2 (Two) Times a Day. Active propafenone (RYTHMOL) 300 MG tablet Take 1 tablet by mouth Daily As Needed (as needed for sustained palpitations). 30 tablet 3 1 Active cephalexin (KEFLEX) 500 MG capsule Eye infection 1 Active EC-Naproxen 500 MG EC tablet Every Other Day. 1 Active Dilt-XR 180 MG 24 hr capsule 1 Active Active Problems Problem Noted Date Diagnosed Date Hypokalemia, replaced 03/07/2020 Acute postoperative pain 03/07/2020 Leukocytosis, likely reactive 03/07/2020 Status post total left knee replacement 03/06/20 20 Elevated hemoglobin A1c 03/06/2020 Renal insufficiency 03/06/2020 Pacemaker 03/06/2020 Hyperlipidemia 03/06/2020 Primary osteoarthritis of left knee 08/19/2019 PVC (premature ventricular contraction) 07/21/19 18 Palpitations 08/05/2016 Arthritis of knee 07/26/2016 Status post total right knee replacement 017 IRENE on CPAP 07/26/2016 Hypothyroidism 06/30/2016 GERD (gastroesophageal reflux disease) 7 Anxiety 06/30/2016 Osteoarthritis of multiple joints 06/30/2016 Fatigue 06/30/2016 Paroxysmal VT 06/30/2016 Overview (06/30/2016): Per holter 06/14/16: 2 seven beats runs Shortness of breath 06/30/2016 Labile hypertension 06/28/2016 Overview (06/30/2016): Sick sinus syndrome 06/28/2016 Overview (06/30/2016): Symptomatic bradycardia 06/28/2016 Overview (06/30/2016): [facility] Family History Medical History Relation Name Comments Heart attack Brother Heart failure Brother Cancer Child Cancer Father Rheum arthritis Father Stroke Father Cancer Mother Heart disease Mother Cancer Other 1 Grandparent Heart attack Other 1 Grandparent Diabetes Other 2 Sibling Heart disease Other 2 Sibling Anesthesia problems Other 3 Relatives Relation Name Status Comments Brother Alive Child Father Mother Other 1 Grandparent Other 2 Sibling Other 3 Relatives Social History Tobacco Use Types Packs/Day Years Used Date Smoking Tobacco: Never Assessed Smokeless Tobacco: Never Tobacco Cessation:Counseling Given: Not Answered Alcohol Use Standard Drinks/Week Comments No 0 (1 standard drink = 0.6 oz pur e alcohol) Abuse Screen Answer Date Recorded Unsafe at Home or Work/School Not on file Feels Threatened by Someone? Not on file 04/2023 Does Anyone Keep You from Co ntacting Others or Doint Things Outside the Home? Not on file 03/26/2023 Physical Sign of Abuse Present Not on file 1 Housing Stability Answer Date Recorded Current Living Arrangements Not on file 03/16 Potentially Unsafe Housing Conditions Not on joshua e 03/26/2023 Family and Community Support Answer Brian e Recorded Help with Day-to-Day Activities Not on file 03/26/2023 Lonely or Isolated Not on file 03/26/2023 Employment Answer Date Recorded Do you want help finding or keeping work or a adrienne b? Not on file 03/26/2023 Disabilities Answer Date Recorded Concentrating, Remembering, or Making Decisions Difficulty Not on file 03/26/2023 Doing Errands Independently Difficulty Not on fi le 03/26/2023 Education Answer Date Recorded Help with school or training? Not on file Preferred Language Not on file 03/26/2023 Comments No Sex and Gender Information Value Date Recorded Sex Assigned at Not on file Legal Sex Female 10:32 AM EDT Gender Identity Not on file Sexual Orientation Not on file Last Filed Vital Signs Vital Sign Reading Time Taken Comments Blood Pressure 144/78 08/08/2022 12:44 PM EST Pulse 72 08/23/2021 9:44 AM EST Temperature 36.9 C (98.5 F) 03/07/2020 7:29 AM EDT Respiratory Rate 17 03/07/2020 7:29 AM EDT Oxygen Saturation 97% 01/25/2021 2:51 PM EDT Inhaled Oxygen Concentration - - Weight 93 kg (205 lb) 08/08/2022 12:44 PM EST Height 182.9 cm (6' 0.01 ) 08/08/2022 12:[address] Body Mass Index 27.8 08/08/2022 12:44 PM EST Plan of Treatment Health Maintenance Due Date Last Done Comments DXA SCAN 1950 TDAP/TD VACCINES (1 - Tdap) 1969 COLOGUARD 1995 COLON CANCER SCREENING 5 YEA R SIGMOIDOSCOPY 1995 COLONOSCOPY 1995 [address] CANCER SCREENING 1995 CT COLONOGRAPHY 1995 FECAL OCCULT BLOOD TEST 1995 FIT Testing (1 year) 1995 Pneumococcal Vaccine 50+ (1 of 1 - PCV) 2000 ANNUAL WELLNESS VISIT 11/18/2016 HEPATITIS C SCREENING 11/18/2016 LIPID PANEL 05/27/2021 05/27/2020, 11/14, 05/19/2018, Additional history exists MAMMOGRAM 08/07/2023 08/07/2021, 07/18, 08/06/2018 COVID-19 Vaccine (2023-2 5 season) 2024 INFLUENZA VACCINE 03/16/2025 04/09/2022, , 03/26/2021, Additional history exists ZOSTER VACCINE Completed 03/16/2021, 01/10/2021 HEMOGLOBIN A1C Discontinued 08/07/2021, 02/2020, 02/23/2020, Additional history exists Medical Devices Implanted Type Area Provider Scribe Device Identifier Shelf Expiration Date Model / Serial / Lot [facility] Bone Endurance Smartset 40gm - [id number] Implanted:Qty: 2 on 07/26/2016 by Ramana Orozco MD at [facility] Implant DEPUY [id number] / / [id number] Comp Pat Attune [facility] Medl Lorena 32mm - [id number] Implanted:Qty: 1 on 07/26/2016 by Ramana Orozco MD at [facility] Implant Right: Knee DEPUY [id number] / / [id number] Base Tib Attune Cmt Rp Sz5 - [id number] Implanted:Qty: 1 on 07/26/2016 by Ramana Orozco MD at [facility] Implant Right: Knee DEPUY [id number] / / [id number] Comp Fem Attune Cmt Ps Sz5 Rt - [id number] Implanted:Qty: 1 on 07/26/2016 by Ramana Orozco MD at [facility] Implant Right: Knee DEPUY [id number] / / [id number] Insrt Tib Attune Ps Rp Sz5 5mm - [id number] Implanted:Qty: 1 on 07/26/2016 by Ramana Orozco MD at [facility] Implant Right: Knee DEPUY [id number] / / [id number] Totl Kn Attune Depuy - [id number] Implanted:Qty: 1 on 07/26/2016 by Ramana Orozco MD at [facility] Implant Right: Knee DEPUY CAPKNEETOTAL DEP5 / / Sut Contrl Tiss Stratafix Spiral Pdo Bidir 1 [id number] - [id number] Implanted:Qty: 1 on 03/06/2020 by Ramana French MD at [facility] Implant [employer] DIV OF J AND J [id number] / / [id number] Tib Triath Cmt No3 - [id number] Implanted:Qty: 1 on 03/06/2020 by Ramana French MD at [facility] Implant EMY CAM 11/25/2023 [id number] / / [id number] Pat Triath Asym X3 [id number] - [id number] Implanted:Qty: 1 on 03/06/2020 by Ramana French MD at [facility] Implant EMY CAM 07/26/2024 [id number] / / [id number] Insrt Tib Triath C/S X3 Sz3 9mm - [id number] Implanted:Qty: 1 on 03/06/2020 by Ramana French MD at [facility] Implant EMY CAM 08/19/2024 [id number] / / [id number] Comp Fem Triath Cr Cmt No4 Lt - [id number] Implanted:Qty: 1 on 03/06/2020 by Ramana French MD at [facility] Implant EMY CAM 04/25/2024 [id number] / / [id number] Totl Kn Hi Demand Emy - [id number] Implanted:Qty: 1 on 03/06/2020 by Ramana French MD at [facility] Implant EMY CAM CAPKNTOTLHID [id number] / / Cmt Bone Simplex/P Full Dose Pk - [id number] Implanted:Qty: 2 on 03/06/2020 by Ramana French MD at [facility] Implant EMY CAM 10/13/2021 [id number] / / [id number] Pacemaker-2014 Implanted:08/01 by Ramana Boss MD (Quantity not on file) Pacemaker [facility] Description:LAST INTERROGATE D 07-09-[address] BARBER ([facility] DEVICE) Cataract Lens Procedures Procedure Name Priority Date/Time Associated Diagnosis Comments HEMOGLOBIN A1C Routine 02/23/2020 11:24 AM EDT Primary osteoarthritis of left knee from Last 3 Months or Most Recently Relevant to Health Maintenance Results * (ABNORMAL) Hemoglobin A1c (02/23/2020 11:24 AM EDT) Hemoglobin A1C 5.90(H) 4.80 - 5.60 % 02/23/2020 12:34 PM EDT [facility] Blood Venipuncture / Unknown 02/23/2020 11:24 AM EDT 02/23/2020 11:54 AM EDT Narrative [facility] - 02/23/2020 12:34 PM EDT Hemoglobin A1C Ranges: Increased Risk for Diabetes 5.7% to 6.4% Diabetes >= 6.5% Diabetic Goal < 7.0% us Ramana French MD LAB BLOOD ORDERABLES Final Result [facility]
[address] [place] [address], from Last 3 Months or Most Recently Relevant to Health Maintenance Insurance [id number] [facility] MEDICARE REPLACE Advance Directives Documents on File Type Date Recorded Patient Cadastral Engineer Expl anation LIVING WILL - SCAN 05/31/2022 8:08 AM TAMIKO ING WILL DIRECTIVE 07/11/2016 POWER OF AIRCRAFT PART ASSEMBLER - SCAN 05/31/2022 8:08 AM POWER OF AIRCRAFT PART ASSEMBLER 07/11/2016 LIVING WILL - SCAN 03/08/2020 6:53 AM TANVI NG WILL/HC SURROGATE, BHLEX, 02/15/2020 POWER OF AIRCRAFT PART ASSEMBLER - SCAN 03/08/2020 6:47 AM POWER OF AIRCRAFT PART ASSEMBLER, BHLEX, 02/15/2020 zADVANCE DIRECTIVES - SCAN 07/29/2016 12:51 PM LIVING WILL AND HEAL TH CARE SURROGATE DESIGNATION 06/13/2016 zADVANCE DIRECTIVES - SCAN 07/29/2016 12:49 PM POWER OF AIRCRAFT PART ASSEMBLER 06/27/2016 * CPR (Attempt to Resuscitate) (Latest Code Status on File) Date Activated Date Inactivated Comments 03/06/2020 11:01 AM 03/07/2020 3:42 PM Question Answer Comments Code Status (Patient has no pulse and is not breathing): CPR (Attempt to Resuscitate) Medical Interventions (Patie nt has pulse or is breathing): Full * Full Code Date Activated Date Inactivated Comments 07/26/2016 1:44 PM 07/27/2016 4:09 PM Care Teams Acoustical Tile Patternmaker Relationship Specialty Start Date End Date Serge Wilson MD [address] [place] [id number] PCP - General Internal Medicine 06/24/16
--- OUTSIDE RECORDS SUMMARY | 2025-02-10 15:21 | XMS_ITS | Clinical Summary ---
Author Organization [facility] ([place], [place], [place], [place]) Address [address] [place] [address] Care Team Providers Care Cardiac Sonographer Name Role Phone Unavailable Primary Care Provider [...] Date Bal rded Speak language other than Macedonian at home Not on file 09/30/2023 Want [...] Orientation Not on file Plan of Treatment Health Maintenance Due Date Last Done Comments CT Colonography 1950 Colonoscopy 1950 Colorectal Cancer Screening 1950 DXA SCAN 1950 FOBT/FIT 1950 Fit-DNA (Cologuard) 1950 Sigmoidoscopy 1950 Depression Screening (12+) 1962 Tobacco Cessation Counseling and Screening (12+) 1962 Hepatitis C Screening 1968 DTAP/TDAP/TD VACCINES (1 - Tdap) 1969 Breast Cancer Screening 1990 COVID-19 VACCINE (2023-2 5 season) 2024 03/13/2023, 03/07/2022, 04/20/2021, Additional history exists Falls Risk Screening 06/16/2024 Influenza Vaccine (#1) 2025 Respiratory Syncytial Virus (RSV) Adult or (1 - 1-dose 75+ series) 2025 Shingles Vaccine (Zoster) Completed 03/16/2021, Pneumococcal 50+ years Completed 02/26/2023
--- NOTE | 2025-02-10 15:30 | CT_ITS ---
FINAL REPORT TECHNIQUE: Thin section axial CT images with coronal and sagittal reformats were performed after the administration of IV contrast. This study was performed with techniques to keep radiation doses as low as reasonably achievable (ALARA). Individualized dose reduction techniques using automated exposure control or adjustment of mA and/or kV according to the patient''s size were employed. CLINICAL HISTORY: LEFT SIDE SWELLING OF NECK COMPARISON: 09/05/2023 FINDINGS: Nasopharynx is unremarkable. There is enlargement of the left tonsillar pillar which could be infectious or inflammatory. No peritonsillar abscess seen. The epiglottis is normal. The larynx is unremarkable. Thyroid is homogeneous. Salivary glands are unremarkable. There are mildly prominent bilateral submandibular lymph nodes. Otherwise, no cervical lymphadenopathy. Visualized paranasal sinuses are clear. Remaining soft tissues without acute abnormality. IMPRESSION: Enlargement of the left tonsillar pillar, favor infectious or inflammatory. Likely reactive bilateral submandibular lymph nodes. Reviewed, Interpreted and Dictated by Diana Atwood MD Transcribed by Pooja Trivedi Authenticated and [facility]
[2025-02-10 15:47] LABS: Blood Urea Nitrogen 26 mg/dl (7-17); Creatinine,Serum 1.10 mg/dl (0.52-1.04); Estimated Glomerular Filt Rate 49 ml/min (>60); GFR (African American) 59 ML/MIN (>60)
[2025-02-10] MEDS: SODIUM CHLORIDE 0.9% 10ML SYR (RAD ONLY) 10 ML IV (16:15)
[2025-02-10] MEDS: IOPAMIDOL-370 (76%);100ML BOTTLE 75 ML IV (16:16)
[2025-02-10 16:51] LABS: Triiodothryronine (T3) Uptake 32 % (23.5-40.5)
[2025-02-10 16:52] LABS: Free Thyroxine Index 3.4 ug/dL (5.93-13.13); T4 (Thyroxine) 10.5 ug/dl (5.53-11.0)
[2025-02-10 17:06] LABS: Thyroid Stimulating Hormone 0.04 uIU/mL (0.465-4.68)
== END 2025-02-10 23:59 | disposition home or self-care (01) ==
LOC: RAD 15:18
PROVIDERS: Physician Assistant; PCP Internal Medicine; Visit Provider Internal Medicine Medical Oncology
DX: J35.1 Hypertrophy of tonsils (principal); I25.10 Atherosclerotic heart disease of native coronary artery without angina pectoris; I10 Essential (primary) hypertension; E04.1 Nontoxic single thyroid nodule; R22.1 Localized swelling, mass and lump, neck
CPT/HCPCS: 36415; 70491; 82565; 84436; 84443; 84479; 84520; Q9967